=== PATIENT | male | born 1945 | race Caucasian/White ===

== ENCOUNTER 2020-08-07 12:32 | Observation (INO) | payer MEDICARE, OTHER ==
[2020-08-07] MEDS ORDERED: FUROSEMIDE 10 MG/ML 4 ML VIAL IV STA (12:47)
--- NOTE | 2020-08-07 12:52 | ED ---
General Adult HPI - General Stated complaint: SWELLING Time Seen by Provider: 08/07/20 12:35 Source: patient, RN notes reviewed, old records reviewed - History of Present Illness Initial comments: This is a 75-year-old male who presents emergency Department with a past medical history significant for smoking and high cholesterol. Patient denies diabetes. Patient's not sure why he is on Lasix. Patient denies any heart history. Patient states she went to [facility] recently and they noted him to have a left humeral fracture. Patient also has some bruising around the chest patient was worked up for possible cardiac contusion versus ND patient's troponin was elevated and the patient left AMA. Patient states she was told he could leave. Patient currently comes in because of swelling of his legs and even lower abdomen are worse patient also short of breath per patient denies any chest pain or palpitations. Patient denies any recent fever chills or cough per patient denies any recent injury trauma other than the above-mentioned fall. Patient denies any back pain. - Related Data Home Medications Medication Instructions Recorded Confirmed Albuterol Sulfate [Albuterol 2 puff PO RT-Q6H PRN 08/07/20 08/07/20 Sulfate Hfa] Atorvastatin [Lipitor] 40 mg PO HS@199908/07/20 08/07/20 Cholecalciferol (Vitamin D3) 125 mcg PO DAILY@0808/07/20 08/07/20 [Vitamin D3 (5000 Iu)] Ferrous Sulfate [Feosol] 325 mg PO DAILY@0808/07/20 08/07/20 Folic Acid 0.4 mg PO HS@199908/07/20 08/07/20 Furosemide [Lasix] 20 mg PO DAILY@0800 08/07/20 08/07/20 HYDROcodone/APAP 5-325MG [[place] 1 tab PO Q8H PRN 08/07/20 08/07/20 5-325] Melatonin 10 mg PO HS@199908/07/20 08/07/20 Naproxen 500 mg PO BID@0800,199908/07/20 08/07/20 risperiDONE [RisperDAL] 3 mg PO HS@199908/07/20 08/07/20 Allergies Allergy/AdvReac Type Severity Reaction Status Date / Time No Known Allergies Allergy Verified 08/07/20 13:29 Review of Systems ROS Statement: Those systems with pertinent positive or pertinent negative responses have been documented in the HPI. ROS Other: All systems not noted in ROS Statement are negative. General Exam - General Exam Comments Initial Comments: GENERAL: Patient is well-developed and well-nourished. Patient is nontoxic and well- hydrated and is in mild distress. ENT: Neck is soft and supple. No significant lymphadenopathy is noted. Oropharynx is clear. Moist mucous membranes. Neck has full range of motion without eliciting any pain. T EYES: The sclera were anicteric and conjunctiva were pink and moist. Extraocular movements were intact and pupils were equal round and reactive to light. Eyelids were unremarkable. PULMONARY: Unlabored respirations. Good breath sounds bilaterally. Patient has rhonchi with very wheezing throughout CARDIOVASCULAR: There is a regular rate and rhythm without any murmurs gallops or rubs. ABDOMEN: Soft and nontender with normal bowel sounds. SKIN: Skin is clear with no lesions or rashes and otherwise unremarkable. NEUROLOGIC: Patient is alert and oriented x3. Cranial nerves II through XII are grossly intact. Motor and sensory are also intact. Normal speech, volume and content. Symmetrical smile. MUSCULOSKELETAL: Normal extremities with adequate strength and full range of motion. Patient has 2+ edema bilaterally. Patient's left hand is swollen but he has very good cap refill. LYMPHATICS: No significant lymphadenopathy is noted PSYCHIATRIC: Normal psychiatric evaluation. Course Vital Signs 08/07/20 08/07/20 12:40 14:01 Temperature 97.1 F L Pulse Rate 87 84 Respiratory 18 18 Rate Blood Pressure 147/93 156/81 O2 Sat by Pulse 94 L 100 Oximetry Medical Decision Making - Medical Decision Making EKG shows normal sinus rhythm at 82 bpm DC interval is 170 QRS is 74 QT interval 360 QTC is 420. Patient's EKG shows no ST segment elevation or depression. Chest x-ray shows no acute abnormality however does show the left humerus fracture which was previously diagnosed. Patient's troponin was elevated at [facility] it is no longer elevated however I'm going to admit the patient Dr. Beach he is in agreement I admitted the patient I consult cardiology. I consulted or so. - Lab Data Result diagrams: 08/07/20 13:39 08/07/20 13:39 Lab Results 05/03/21 05/03/21 05/03/21 Range/Units 13:39 13:39 13:39 WBC 7.2 (3.8-10.6) k/uL RBC 4.22 L (4.30-5.90) m/uL Hgb 14.1 (13.0-17.5) gm/dL Hct 41.1 (39.0-53.0) % MCV 97.4 (80.0-100.0) fL MCH 33.3 (25.0-35.0) pg MCHC 34.2 (31.0-37.0) g/dL RDW 12.7 (11.5-15.5) % Plt Count 184 (150-450) k/uL MPV 7.1 Neutrophils % 78 % Lymphocytes % 9 % Monocytes % 8 % Eosinophils % 3 % Basophils % 1 % Neutrophils # 5.6 (1.3-7.7) k/uL Lymphocytes # 0.6 L (1.0-4.8) k/uL Monocytes # 0.6 (0-1.0) k/uL Eosinophils # 0.2 (0-0.7) k/uL Basophils # 0.1 (0-0.2) k/uL PT 9.7 (9.0-12.0) sec INR 0.9 (<1.2) APTT 22.8 (22.0-30.0) sec Sodium 139 (137-145) mmol/L Potassium 4.3 (3.5-5.1) mmol/L Chloride 101 (98-107) mmol/L Carbon Dioxide 36 H (22-30) mmol/L Anion Gap 2 mmol/L BUN 14 (9-20) mg/dL Creatinine 0.59 L (0.66-1.25) mg/dL Est GFR (CKD-EPI)AfAm >90 (>60 ml/min/1.73 sqM) Est GFR (CKD-EPI)NonAf >90 (>60 ml/min/1.73 sqM) Glucose 78 (74-99) mg/dL Calcium 8.8 (8.4-10.2) mg/dL Magnesium 2.1 (1.6-2.3) mg/dL Total Bilirubin 0.6 (0.2-1.3) mg/dL AST 26 (17-59) U/L ALT 31 (4-49) U/L Alkaline Phosphatase 72 (38-126) U/L Troponin I (0.000-0.034) ng/mL NT-Pro-B Natriuret Pep pg/mL Total Protein 5.9 L (6.3-8.2) g/dL Albumin 3.5 (3.5-5.0) g/dL 08/07/20 08/07/20 Range/Units 13:39 13:39 WBC (3.8-10.6) k/uL RBC (4.30-5.90) m/uL Hgb (13.0-17.5) gm/dL Hct (39.0-53.0) % MCV (80.0-100.0) fL MCH (25.0-35.0) pg MCHC (31.0-37.0) g/dL RDW (11.5-15.5) % Plt Count (150-450) k/uL MPV Neutrophils % % Lymphocytes % % Monocytes % % Eosinophils % % Basophils % % Neutrophils # (1.3-7.7) k/uL Lymphocytes # (1.0-4.8) k/uL Monocytes # (0-1.0) k/uL Eosinophils # (0-0.7) k/uL Basophils # (0-0.2) k/uL PT (9.0-12.0) sec INR (<1.2) APTT (22.0-30.0) sec Sodium (137-145) mmol/L Potassium (3.5-5.1) mmol/L Chloride (98-107) mmol/L Carbon Dioxide (22-30) mmol/L Anion Gap mmol/L BUN (9-20) mg/dL Creatinine (0.66-1.25) mg/dL Est GFR (CKD-EPI)AfAm (>60 ml/min/1.73 sqM) Est GFR (CKD-EPI)NonAf (>60 ml/min/1.73 sqM) Glucose (74-99) mg/dL Calcium (8.4-10.2) mg/dL Magnesium (1.6-2.3) mg/dL Total Bilirubin (0.2-1.3) mg/dL AST (17-59) U/L ALT (4-49) U/L Alkaline Phosphatase (38-126) U/L Troponin I <0.012 (0.000-0.034) ng/mL NT-Pro-B Natriuret Pep 565 pg/mL Total Protein (6.3-8.2) g/dL Albumin (3.5-5.0) g/dL Disposition Clinical Impression: Pedal edema, Humerus fracture, Elevated troponin Disposition: ADMITTED IP TO THIS HOSP Referrals: Maycol Bourne MD [Primary Care Provider] - 1-2 days Time of Disposition: 14:58
--- NOTE | 2020-08-07 13:15 | XR ---
EXAMINATION TYPE: XR chest 2V DATE OF EXAM: 08/07/2020 COMPARISON: Chest x-ray October 17, 2014 HISTORY: Chest pain. TECHNIQUE: Frontal and lateral views of the chest are obtained. FINDINGS: Lateral view is suboptimal due to overlying upper extremity. There are chronic parenchymal changes bilaterally without suspicious new air space opacity, pleural effusion, or pneumothorax seen. The cardiac silhouette size is stable mildly enlarged. New displaced fracture surgical neck left pr oximal humerus. IMPRESSION: Chronic changes and cardiomegaly without acute pulmonary process. New age-indeterminate displaced fracture surgical neck left proximal humerus from 2015 study. Correla te clinically with point tenderness.
[2020-08-07 13:48] LABS: Basophils # (A) 0.1 k/uL (0-0.2); Basophils % (A) 1 %; Eosinophils # (A) 0.2 k/uL (0-0.7); Eosinophils % (A) 3 %; HCT 41.1 % (39.0-53.0); HGB 14.1 gm/dL (13.0-17.5); Lymphocytes # (A) 0.6 k/uL (1.0-4.8); Lymphocytes % (A) 9 %; MCH 33.3 pg (25.0-35.0); MCHC 34.2 g/dL (31.0-37.0); MCV 97.4 fL (80.0-100.0); Mean Platelet Volume 7.1; Monocytes # (A) 0.6 k/uL (0-1.0); Monocytes % (A) 8 %; Neutrophils # (A) 5.6 k/uL (1.3-7.7); Neutrophils % (A) 78 %; Platelet Count 184 k/uL (150-450); RBC 4.22 m/uL (4.30-5.90); RDW 12.7 % (11.5-15.5); WBC 7.2 k/uL (3.8-10.6)
[2020-08-07 13:54] LABS: INR 0.9 (<1.2)
[2020-08-07 13:55] LABS: Partial Thromboplastin Time 22.8 sec (22.0-30.0); Prothrombin Time 9.7 sec (9.0-12.0)
[2020-08-07 14:04] LABS: ALT 31 U/L (4-49); AST 26 U/L (17-59); African American GFR (CKD) >90 (>60 ml/min/1.73 sqM); Albumin 3.5 g/dL (3.5-5.0); Alkaline Phosphatase 72 U/L (38-126); Anion Gap 2 mmol/L; Blood Urea Nitrogen 14 mg/dL (9-20); Calcium 8.8 mg/dL (8.4-10.2); Carbon Dioxide 36 mmol/L (22-30); Chloride 101 mmol/L (98-107); Glucose 78 mg/dL (74-99); Magnesium 2.1 mg/dL (1.6-2.3); Non-African American GFR(CKD) >90 (>60 ml/min/1.73 sqM); Potassium 4.3 mmol/L (3.5-5.1); Sodium 139 mmol/L (137-145); Total Bilirubin 0.6 mg/dL (0.2-1.3); Total Protein 5.9 g/dL (6.3-8.2)
[2020-08-07] MEDS ORDERED: NITROGLYCERIN SL TABS 0.4 MG TAB SUBLINGUAL PRN (14:58)
--- NOTE | 2020-08-07 16:40 | XR ---
EXAMINATION TYPE: XR shoulder limited LT DATE OF EXAM: 08/07/2020 CLINICAL HISTORY: Known left shoulder fracture status post fall couple weeks ago TECHNIQUE: Three views of the left shoulder are obtained. COMPARISON: None available FINDINGS: There is displaced fracture of the left humeral surgical neck. No evidence of dislocation. There are moderate degenerative changes of the glenohumeral and acromioclavicular joints. IMPRESSION: Left humeral surgical neck fracture.
[2020-08-07] MEDS ORDERED: HYDROcodone/APAP 5-325MG 1 EACH TAB PO PRN (19:57)
[2020-08-07] MEDS ORDERED: ALBUTEROL HFA INHALER INHALATION PRN (19:57)
--- NOTE | 2020-08-07 20:38 | P.HPIM ---
History of Present Illness H&P Date: 08/07/20 Chief Complaint: Left arm pain History of presenting complaint: This is a 75-year-old patient, follows with visiting physicians Dr. Bourne. Chronic stable medical conditions include hyperlipidemia, schizophrenia, chronic nicotine dependence, insomnia. About 2-1/2 weeks ago patient had a misstep presenting a fall on the left shoulder. He presented to [facility] in [facility]. Left humerus fracture. Left arm in a sling. Conservative management. Patient has bruising of the left arm and left chest fall. He says he was sent in by the court manager because increasing swelling in the lower extremities. Patient denies any pain in the left chest wall. No shortness of breath. No dizziness, lightheadedness. Pain is worse with movement of the arm. Which is actually in a sling. Patient also has swelling of the lower extremity he thinks is present since the fall. No cough no fever no chills. Pulse ox of 90% on room air as per the EMS Review of systems: GEN.: Tired EYES: None HEENT: None NECK: None RESPIRATORY: None CARDIOVASCULAR: No chest pain GASTROINTESTINAL: None GENITOURINARY: None MUSCULOSKELETAL: Joint pains including left arm LYMPHATICS: None HEMATOLOGICAL: None PSYCHIATRY: None NEUROLOGICAL: None Past medical history to include: Hyperlipidemia, insomnia, EGD, schizophrenia, nicotine dependence, left humerus fracture about 2 weeks ago Social history: [facility]. Smokes a pack a day for many years. No alcohol Family history: Reviewed, noncontributory to presentation Physical examination: VITAL SIGNS: 97.1, 87, 18, 147/93, 94% on room air GENERAL: BMI 31.6, sitting at the edge of bed, not in distress. EYES: Pupils equal. Conjunctiva normal. HEENT: External appearance of nose and ears normal, oral cavity grossly normal. NECK: JVD unable to assess; masses not palpable. HEART: First and second heart sounds are normal; bilateral edema. LUNGS: Respiratory rate normal; decreased breath sounds. ABDOMEN: Soft, distended nontender, liver spleen not palpable, no masses palpable. PSYCH: Able tonsil simple questionsl. NEUROLOGICAL: Cranial nerves grossly intact; no facial asymmetry, power and se nsation grossly intact. EXTREMITY: Left arm in a sling. Slight bruising in the upper arm. And of the adjoining chest wall. LYMPHATICS: No lymph nodes palpable in the axilla and neck INVESTIGATIONS, reviewed in the clinical context: WBC 7.2 hemoglobin 14.1 platelets 184 potassium 4.3 creatinine 0.5 Troponin I 3 negative proBNP 565 EKG tracing personally reviewed by me-normal sinus rhythm Chest x-ray film personally reviewed by me-interstitial prominence Assessment and plan: -Suspect cor pulmonale. This patient presented bilateral lower extremity swelling, has got chronic interstitial changes on the lung on the x-ray. Patient's proBNP though is only 565. Patient long-standing smoker. We'll do a 2-D echocardiogram to assess pulmonary artery pressure. In the meantime patient be placed on Lasix. -COPD in a current smoker Bronchodilators -Chronic nicotine dependence patient cigarette smoker Nicotine patch -Obesity BMI 31.6 Weight loss measures and follow-up with PCP -Left humerus fracture for which patient did follow-up with [facility] over 2 weeks ago. Continue with left arm sling. -Chronic insomnia Continue with melatonin -Chronic schizophrenia Continue with Risperdal -Hyperlipidemia Continue with Lipitor Care was discussed with the patient. Order 2-D echocardiogram. IV Lasix. Bronchodilators. Nicotine patch. Lovenox for DVT prophylaxis. Past Medical History Past Medical History: Hyperlipidemia History of Any Multi-Drug Resistant Organisms: None Reported Past Surgical History: No Surgical Hx Reported Past Psychological History: Schizophrenia Smoking Status: Current every day smoker Past Alcohol Use History: None Reported Past Drug Use History: None Reported Medications and Allergies Home Medications Medication Instructions Recorded Confirmed Type Albuterol Sulfate [Albuterol 2 puff PO RT-Q6H PRN 08/07/20 08/07/20 History Sulfate Hfa] Atorvastatin [Lipitor] 40 mg PO HS@199908/07/20 08/07/20 History Cholecalciferol (Vitamin D3) 125 mcg PO DAILY@79908/07/20 08/07/20 History [Vitamin D3 (5000 Iu)] Ferrous Sulfate [Feosol] 325 mg PO DAILY@79908/07/20 08/07/20 History Folic Acid 0.4 mg PO HS@199908/07/20 08/07/20 History Furosemide [Lasix] 20 mg PO DAILY@79908/07/20 08/07/20 History HYDROcodone/APAP 5-325MG [[place] 1 tab PO Q8H PRN 08/07/20 08/07/20 History 5-325] Melatonin 10 mg PO HS@199908/07/20 08/07/20 History Naproxen 500 mg PO BID@0800,199908/07/20 08/07/20 History risperiDONE [RisperDAL] 3 mg PO HS@199908/07/20 08/07/20 History Allergies Allergy/AdvReac Type Severity Reaction Status Date / Time No Known Allergies Allergy Verified 08/07/20 13:29 Physical Exam Vitals: Vital Signs Temp Pulse Resp BP Pulse Ox 08/07/20 16:11 97.7 F 86 18 133/80 99 08/07/20 14:01 84 18 156/81 100 08/07/20 12:40 97.1 F L 87 18 147/93 94 L Intake and Output 08/07/20 08/07/20 08/07/20 06:59 14:59 22:59 Other: Weight 99.79 kg Results CBC & Chem 7: 08/07/20 13:39 08/07/20 13:39 Labs: Abnormal Lab Results - Last 24 Hours (Table) 08/07/20 08/07/20 Range/Units 13:39 13:39 RBC 4.22 L (4.30-5.90) m/uL Lymphocytes # 0.6 L (1.0-4.8) k/uL Carbon Dioxide 36 H (22-30) mmol/L Creatinine 0.59 L (0.66-1.25) mg/dL Total Protein 5.9 L (6.3-8.2) g/dL
[2020-08-07] MEDS: NAPROXEN 250 MG TAB PO SCH (20:56)
[2020-08-07] MEDS: risperiDONE 1 MG TAB PO SCH (20:57)
[2020-08-07] MEDS: MELATONIN 5 MG TABLET PO SCH (20:57)
[2020-08-07] MEDS: ATORVASTATIN 80 MG TAB PO SCH (20:57)
[2020-08-07] MEDS: FOLIC ACID 1 MG TAB PO SCH (20:57)
[2020-08-07] MEDS: IPRATROPIUM-ALBUTEROL 3 ML NEB INHALATION SCH (21:29)
[2020-08-08] MEDS: FUROSEMIDE 10 MG/ML 4 ML VIAL IV SCH ×3 (01:55→20:42)
[2020-08-08] MEDS: NICOTINE 21MG/24HR PATCH TRANSDERM SCH ×2 (01:55→09:00)
[2020-08-08 06:45] LABS: African American GFR (CKD) >90 (>60 ml/min/1.73 sqM); Anion Gap 0 mmol/L; Blood Urea Nitrogen 19 mg/dL (9-20); Calcium 8.5 mg/dL (8.4-10.2); Carbon Dioxide 38 mmol/L (22-30); Chloride 99 mmol/L (98-107); Cholesterol 146 mg/dL (<200); Glucose 97 mg/dL (74-99); HDL Cholesterol 66 mg/dL (40-60); LDL Cholesterol,Calculated 70 mg/dL (0-99); Non-African American GFR(CKD) >90 (>60 ml/min/1.73 sqM); Potassium 4.2 mmol/L (3.5-5.1); Sodium 137 mmol/L (137-145); Triglycerides 52 mg/dL (<150)
--- NOTE | 2020-08-08 07:33 | P.CNOR ---
History of Present Illness - [facility] Consult date: 08/08/20 Consult reason: other (Left shoulder pain) History of present illness: The patient's a 75-year-old [id number] male who presents after falling 2 weeks ago with persistent left shoulder pain. He was initially seen and placed in a sling. He denies previous shoulder injury. He notes it is improving. He is a relatively poor historian and it is unclear how much ambulation he performs. Review of Systems Musculoskeletal: Reports as per [facility] Past Medical History Past Medical History: Heart Failure, Hyperlipidemia Additional Past Medical History / Comment(s): Schizophrenia History of Any Multi-Drug Resistant Organisms: None Reported Past Surgical History: No Surgical Hx Reported Past Anesthesia/Blood Transfusion Reactions: No Reported Reaction Past Psychological History: Schizophrenia Smoking Status: Never smoker Past Alcohol Use History: None Reported Past Drug Use History: None Reported Medications and Allergies Home Medications Medication Instructions Recorded Confirmed Type Albuterol Sulfate [Albuterol 2 puff PO RT-Q6H PRN 08/07/20 08/07/20 History Sulfate Hfa] Atorvastatin [Lipitor] 40 mg PO HS@199908/07/20 08/07/20 History Cholecalciferol (Vitamin D3) 125 mcg PO DAILY@0800 08/07/20 08/07/20 History [Vitamin D3 (5000 Iu)] Ferrous Sulfate [Feosol] 325 mg PO DAILY@0800 08/07/20 08/07/20 History Folic Acid 0.4 mg PO HS@199908/07/20 08/07/20 History Furosemide [Lasix] 20 mg PO DAILY@0800 08/07/20 08/07/20 History HYDROcodone/APAP 5-325MG [[place] 1 tab PO Q8H PRN 08/07/20 08/07/20 History 5-325] Melatonin 10 mg PO HS@199908/07/20 08/07/20 History Naproxen 500 mg PO BID@0800,199908/07/20 08/07/20 History risperiDONE [RisperDAL] 3 mg PO HS@199908/07/20 08/07/20 History Allergies Allergy/AdvReac Type Severity Reaction Status Date / Time No Known Allergies Allergy Verified 08/07/20 13:29 Physical Examination - Fracture left shoulder Appearance: swelling, other (Ecchymosis left anterior shoulder/chest wall) Compartments: soft Distal extremity neurovascularly intact: No Distal joint involvement: No Results Nontender cervical thoracic lumbar spine/no step-off Pelvis stable to external rotation stress Left shoulder range of motion limited secondary to pain Nontender left elbow and wrist Nontender right upper extremity Painless logroll of both hips Bilateral 2+ pretibial edema to the upper pressley Nontender bilateral knees/ankles/feet - Labs Labs: Abnormal Lab Results - Last 24 Hours (Table) 08/07/20 08/07/20 08/08/20 Range/Units 13:39 13:39 05:32 RBC 4.22 L (4.30-5.90) m/uL Lymphocytes # 0.6 L (1.0-4.8) k/uL Carbon Dioxide 36 H 38 H (22-30) mmol/L Creatinine 0.59 L 0.55 L (0.66-1.25) mg/dL Total Protein 5.9 L (6.3-8.2) g/dL HDL Cholesterol 66 H (40-60) mg/dL H & H 08/07/20 Range/Units 13:39 Hgb 14.1 (13.0-17.5) gm/dL Hct 41.1 (39.0-53.0) % Coagulation 08/07/20 Range/Units 13:39 INR 0.9 (<1.2) Result Diagrams: 08/07/20 13:39 08/08/20 05:32 - Diagnostic results Shoulder x-ray: image reviewed ( valgus impacted left proximal humerus fracture) Assessment and Plan Assessment: Left 2 part proximal humerus fracture Multiple medical comorbidities Plan: I would recommend continuation of conservative measures with use of the sling multimedia services coordinator. Follow-up in 2 weeks. Analgesics as needed. Time with Patient: Greater than 30
[2020-08-08] MEDS: IPRATROPIUM-ALBUTEROL 3 ML NEB INHALATION SCH ×4 (08:16→20:03)
[2020-08-08] MEDS: CHOLECALCIFEROL 25 MCG (1000 IU) TABLET PO SCH (08:56)
[2020-08-08] MEDS: FERROUS SULFATE 325 MG TAB PO SCH (08:56)
[2020-08-08] MEDS: NAPROXEN 250 MG TAB PO SCH ×2 (08:57→20:43)
[2020-08-08] MEDS: ASPIRIN 81 MG PO SCH (09:00)
[2020-08-08] MEDS ORDERED: ASPIRIN 325 MG TAB PO SCH (09:00)
--- NOTE | 2020-08-08 09:53 | P.CRDCN ---
History of Present Illness History of present illness: HISTORY OF PRESENTING ILLNESS This is a pleasant 75-year-old male past medical history significant for dyslipidemia, schizophrenia and chronic nicotine dependence. He denies prior history of coronary artery disease and does not follow in the office with radiologist. We have been asked to see in consultation for recently elevated troponin. The patient himself is a poor historian. Information is obtained from the medical record and nursing staff. He is seen and examined resting comfortably in bed undergoing an echocardiogram. He states he lives in a [facility] and does not know why they brought him to the hospital. He states 2 weeks ago he fell walking off the bus. He states he missed a step. He denies LOC. He had no chest pain, shortness of breath, dizziness or palpitations surrounding this fall. He went initially to [facility] for evaluation. According to ER documentation he was found to have a humerus fracture and also elevated troponin and was evaluated by cardiology. However, he left AMA. The exact work-up is unavailable at this time. He has a sling on the left arm and a bruise on the left chest. He has lower extremity edema and states that has been there since he fell 2 weeks ago. He denies active symptoms of chest pain or shortness of breath. EKG on arrival reveals sinus mechanism heart rate of [address] or T wave abnormalities noted. Chest xray reveals chronic changes with no acute cardiopulmonary process with new displaced fracture of the left proximal humerus. He has been seen by ortho and they recommend rest and conservative management. Laboratory data reviewed, CBC unremarkable, sodium 137, potassium 4.2, creatinine 0.55, magnesium 2.1, cardiac enzymes negative 3, NT proBNP 565, LDL 70 and HDL 66. Current daily cardiac medications include lasix 20 mg daily and atorvastatin 40 mg daily. REVIEW OF SYSTEMS At the time of my exam: CONSTITUTIONAL: Denies fever or chills. CARDIOVASCULAR: Denies chest pain, shortness of breath, orthopnea, PND or palpitations. RESPIRATORY: Denies cough. GASTROINTESTINAL: Denies abdominal pain, diarrhea, constipation, nausea or vomiting. MUSCULOSKELETAL: Denies myalgias. NEUROLOGIC: Denies numbness, tingling, headacbe or weakness. ENDOCRINE: Denies fatigue, weight change, polydipsia or polyurina. GENITOURINARY: Denies burning, hematuria or urgency with micturation. HEMATOLOGIC: Denies history of anemia or bleeding. PHYSICAL EXAMINATION Blood pressure 100/67 heart rate 84 afebrile and maintaining oxygen saturation on nasal cannula. CONSTITUTIONAL: No apparent distress. HEENT: Head is normocephalic. Pupils are equal, round. Sclerae anicteric. Mucous membranes of the mouth are moist. No JVD. No carotid bruit. CHEST EXAMINATION: Scattered rhonchi, basilar rales. No wheezes. No chest wall tenderness is noted on palpation or with deep breathing. Ecchymosis noted on the left anterior chest wall. HEART EXAMINATION: Regular rate and rhythm. S1, S2 heard. No murmurs, gallops or rub. ABDOMEN: Soft, nontender. Positive bowel sounds. EXTREMITIES: 2+ peripheral pulses, bilateral 1+ pitting lower extremity edema and no calf tenderness. Sling to the left arm. NEUROLOGIC EXAMINATION: Patient is awake, alert and oriented x3. ASSESSMENT Fall, no LOC Left humeral fracture Lower extremity edema, normal BNP and no fluid overload noted on chest xray Dyslipidemia Schizophrenia Chronic nicotine dependence Memory impairment PLAN An acute coronary event has been ruled out. Echocardiogram has been ordered and will be reviewed. Decrease aspirin to 81 mg daily. Request records from previous hospitalization at [facility] for elevated troponins. Further recommendations to follow base on clinical course. Thank you kindly for this consultation. Nurse Practitioner note has been reviewed, I agree with a documented findings and plan of care. Patient was seen and examined. Past Medical History Past Medical History: Heart Failure, Hyperlipidemia Additional Past Medical History / Comment(s): Schizophrenia History of Any Multi-Drug Resistant Organisms: None Reported Past Surgical History: No Surgical Hx Reported Past Anesthesia/Blood Transfusion Reactions: No Reported Reaction Past Psychological History: Schizophrenia Smoking Status: Never smoker Past Alcohol Use History: None Reported Past Drug Use History: None Reported Medications and Allergies Home Medications Medication Instructions Recorded Confirmed Type Albuterol Sulfate [Albuterol 2 puff PO RT-Q6H PRN 08/07/20 08/07/20 History Sulfate Hfa] Atorvastatin [Lipitor] 40 mg PO HS@199908/07/20 08/07/20 History Cholecalciferol (Vitamin D3) 125 mcg PO DAILY@79908/07/20 08/07/20 History [Vitamin D3 (5000 Iu)] Ferrous Sulfate [Feosol] 325 mg PO DAILY@79908/07/20 08/07/20 History Folic Acid 0.4 mg PO HS@199908/07/20 08/07/20 History Furosemide [Lasix] 20 mg PO DAILY@0800 08/07/20 08/07/20 History HYDROcodone/APAP 5-325MG [[place] 1 tab PO Q8H PRN 08/07/20 08/07/20 History 5-325] Melatonin 10 mg PO HS@199908/07/20 08/07/20 History Naproxen 500 mg PO BID@08,199908/07/20 08/07/20 History risperiDONE [RisperDAL] 3 mg PO HS@199908/07/20 08/07/20 History Allergies Allergy/AdvReac Type Severity Reaction Status Date / Time No Known Allergies Allergy Verified 08/07/20 13:29 Physical Exam Vitals: Vital Signs Temp Pulse Pulse Resp BP BP Pulse Ox 08/08/20 07:00 97.5 F L 85 18 100/67 100 08/08/20 00:54 97.6 F 83 16 125/74 100 08/07/20 23:50 98.2 F 93 18 124/66 94 L 08/07/20 21:39 90 08/07/20 21:29 82 08/07/20 20:03 90 18 128/72 99 08/07/20 16:11 97.7 F 86 18 133/80 99 08/07/20 14:01 84 18 156/81 100 08/07/20 12:40 97.1 F L 87 18 147/93 94 L Intake and Output 08/07/20 08/08/20 08/08/20 22:59 06:59 14:59 Other: Voiding Method Urinal # Voids 1 Weight 99.79 kg Results 08/07/20 13:39 08/08/20 05:32 Cardiac Enzymes 08/07/20 08/07/20 08/07/20 Range/Units 13:39 13:39 16:14 AST 26 (17-59) U/L Troponin I <0.012 <0.012 (0.000-0.034) ng/mL 08/07/20 Range/Units 18:29 AST (17-59) U/L Troponin I <0.012 (0.000-0.034) ng/mL Coagulation 08/07/20 Range/Units 13:39 PT 9.7 (9.0-12.0) sec APTT 22.8 (22.0-30.0) sec Lipids 08/08/20 Range/Units 05:32 Triglycerides 52 (<150) mg/dL Cholesterol 146 (<200) mg/dL HDL Cholesterol 66 H (40-60) mg/dL CBC 08/07/20 Range/Units 13:39 WBC 7.2 (3.8-10.6) k/uL RBC 4.22 L (4.30-5.90) m/uL Hgb 14.1 (13.0-17.5) gm/dL Hct 41.1 (39.0-53.0) % Plt Count 184 (150-450) k/uL Comprehensive Metabolic Panel 08/07/20 08/08/20 Range/Units 13:39 05:32 Sodium 139 137 (137-145) mmol/L Potassium 4.3 4.2 (3.5-5.1) mmol/L Chloride 101 99 (98-107) mmol/L Carbon Dioxide 36 H 38 H (22-30) mmol/L BUN 14 19 (9-20) mg/dL Creatinine 0.59 L 0.55 L (0.66-1.25) mg/dL Glucose 78 97 (74-99) mg/dL Calcium 8.8 8.5 (8.4-10.2) mg/dL AST 26 (17-59) U/L ALT 31 (4-49) U/L Alkaline Phosphatase 72 (38-126) U/L Total Protein 5.9 L (6.3-8.2) g/dL Albumin 3.5 (3.5-5.0) g/dL Current Medications Generic Name Dose Route Start Last Admin Trade Name Freq PRN Reason Stop Dose Admin Hydrocodone Bitart/Acetaminophen 1 each 08/07/20 19:57 08/07/20 20:55 Hydrocodone/Apap 5-325mg 1 Each Tab PO 1 each Q8H PRN Administration ACUTE PAIN Albuterol Sulfate 2 puff 08/07/20 19:57 Albuterol Hfa Inhaler INHALATION RT-Q6H PRN Wheezing Albuterol/Ipratropium 3 ml 08/07/20 20:36 08/07/20 21:29 Ipratropium-Albuterol 3 Ml Neb INHALATION 3 ml RT-QID GORAN Administration Aspirin 325 mg 08/08/20 09:00 Aspirin 325 Mg Tab PO DAILY [facility] Atorvastatin Calcium 40 mg 08/07/20 20:00 08/07/20 20:57 Atorvastatin 80 Mg Tab PO 40 mg HS@1999 [facility] Administration Cholecalciferol 125 mcg 08/08/20 09:00 Cholecalciferol 25 Mcg (1000 Iu) Tablet PO DAILY@0900 [facility] Ferrous Sulfate 325 mg 08/08/20 09:00 Ferrous Sulfate 325 Mg Tab PO DAILY@0900 [facility] Folic Acid 1 mg 08/07/20 20:00 08/07/20 20:57 Folic Acid 1 Mg Tab PO 1 mg HS@1999 [facility] Administration Furosemide 40 mg 08/07/20 21:00 08/08/20 01:55 Furosemide 10 Mg/Ml 4 Ml Vial IV 40 mg Q12HR [facility] Administration Melatonin 10 mg 08/07/20 20:00 08/07/20 20:57 Melatonin 5 Mg Tablet PO 10 mg HS@1999 [facility] Administration Naproxen 500 mg 08/07/20 20:00 08/07/20 20:56 Naproxen 250 Mg Tab PO 500 mg BID@ [facility] Administration Nicotine 1 patch 08/07/20 20:45 08/08/20 01:55 Nicotine 21mg/24hr Patch TRANSDERM 1 patch DAILY [facility] Administration Nitroglycerin 0.4 mg 08/07/20 14:58 Nitroglycerin Sl Tabs 0.4 Mg Tab SUBLINGUAL Q5M PRN Chest Pain Risperidone 3 mg 08/07/20 20:00 08/07/20 20:57 Risperidone 1 Mg Tab PO 3 mg HS@1999 [facility] Administration Intake and Output 08/07/20 08/08/20 08/08/20 22:59 06:59 14:59 Other: Voiding Method Urinal # Voids 1 Weight 99.79 kg 08/07/20 13:39 08/08/20 05:32
--- NOTE | 2020-08-08 11:21 | ECHOF ---
Referral Reason:Assess pulmonary hypertension MEASUREMENTS -------- HEIGHT: 177.8 cm WEIGHT: 99.8 kg BP: 125/74 IVSd: 1.3 cm (0.6 - 1.1) LVIDd: 3.9 cm (3.9 - 5.3) LVPWd: 1.2 cm (0.6 - 1.1) IVSs: 1.5 cm LVIDs: 2.6 cm LVPWs: 1.1 cm LAESV Index (A-L): 15.05 ml/m Ao Diam: 3.3 cm (2.0 - 3.7) AV Cusp: 2.3 cm (1.5 - 2.6) MV E Carroll: 0.89 m/s MV DecT: 196 ms MV A Carroll: 0.94 m/s MV E/A Ratio: 0.95 RAP: 5.00 mmHg RVSP: 29.12 mmHg FINDINGS -------- Sinus rhythm. This was a technically difficult study with suboptimal views. The left ventricular size is normal. There is mild concentric left ventricular hypertrophy. Overa ll left ventricular systolic function is normal with, an EF between 55 - 60 %. The right ventricle is normal in size. Normal LA size by volume 22+/-6 ml/m2. The right atrium was not well visualized. Interatrial and interventricular septum intact. The aortic valve was not well visualized. There is no evidence of aortic regurgitation. There is no evidence of aortic stenosis. The mitral valve is normal. No mitral regurgitation. Mild tricuspid regurgitation present. Right ventricular systolic pressure is normal at < 35 mmHg. The right ventricular systolic pressure, as measured by Doppler, is 29.12mmHg. The pulmonic valve was not well visualized. The aortic root size is normal. IVC Not well visulized. There is no pericardial effusion. CONCLUSIONS -------- 1. This was a technically difficult study with suboptimal views. 2. There is mild concentric left ventricular hypertrophy. 3. Overall left ventricular systolic function is normal with, an EF between 55 - 60 %. 4. Normal LA size by volume 22+/-6 ml/m2. 5. The aortic valve was not well visualized. 6. Mild tricuspid regurgitation present. RAG BOILER: Ann Villanueva [facility]
--- NOTE | 2020-08-08 20:08 | P.PN ---
Progress Note - Text Progress Note Date: 08/08/20 Chief Complaint: Bilateral edema History of presenting complaint: This is a 75-year-old patient, follows with visiting physicians Dr. Bourne. Chronic stable medical conditions include hyperlipidemia, schizophrenia, chronic nicotine dependence, insomnia. About 2-1/2 weeks ago patient had a misstep presenting a fall on the left shoulder. He presented to [facility] in [facility]. Left humerus fracture. Left arm in a sling. Conservative management. Patient has bruising of the left arm and left chest fall. He says he was sent in by the sales service manager because increasing swelling in the lower extremities. Patient denies any pain in the left chest wall. No shortness of breath. No dizziness, lightheadedness. Pain is worse with movement of the arm. Which is actually in a sling. Patient also has swelling of the lower extremity he thinks is present since the fall. No cough no fever no chills. Pulse ox of 90% on room air as per the EMS Admitted with bilateral lower extremity edema. Wasn't clear. 2-D echocardiogram did not show any major abnormality. Patient's arm pain is felt to be from the fracture. Does not sound cardiac Today: Sitting up. Did tolerate her diet. Cor pulmonale now seems to be less likely. Ultrasound of the abdomen ordered. Remains on IV Lasix. Wish to rule out any vascular abnormalities example IVC thrombosis or hepatic vein thrombosis. Review of systems: Was done for constitutional, cardiovascular, GI, pulmonary. relevant finding as above Active Medications Hydrocodone Bitart/Acetaminophen (Hydrocodone/Apap 5-325mg 1 Each Tab) 1 each PO Q8H PRN PRN Reason: ACUTE PAIN Last Admin: 08/07/20 20:55 Dose: 1 each Documented by: Albuterol Sulfate (Albuterol Hfa Inhaler) 2 puff INHALATION RT-Q6H PRN PRN Reason: Wheezing Albuterol/Ipratropium (Ipratropium-Albuterol 3 Ml Neb) 3 ml INHALATION RT-QID [facility] Last Admin: 08/08/20 20:03 Dose: 3 ml Documented by: Aspirin (Aspirin 81 Mg) 81 mg PO DAILY [facility] Last Admin: 08/08/20 09:00 Dose: 81 mg Documented by: Atorvastatin Calcium (Atorvastatin 80 Mg Tab) 40 mg PO HS@2000 [facility] Last Admin: 08/07/20 20:57 Dose: 40 mg Documented by: Cholecalciferol (Cholecalciferol 25 Mcg (1000 Iu) Tablet) 125 mcg PO DAILY@0900 [facility] Last Admin: 08/08/20 08:56 Dose: 125 mcg Documented by: Ferrous Sulfate (Ferrous Sulfate 325 Mg Tab) 325 mg PO DAILY@0900 [facility] Last Admin: 08/08/20 08:56 Dose: 325 mg Documented by: Folic Acid (Folic Acid 1 Mg Tab) 1 mg PO HS@1999 [facility] Last Admin: 08/07/20 20:57 Dose: 1 mg Documented by: Furosemide (Furosemide 10 Mg/Ml 4 Ml Vial) 40 mg IV Q12HR [facility] Last Admin: 08/08/20 08:56 Dose: 40 mg Documented by: Melatonin (Melatonin 5 Mg Tablet) 10 mg PO HS@1999 [facility] Last Admin: 08/07/20 20:57 Dose: 10 mg Documented by: Naproxen (Naproxen 250 Mg Tab) 500 mg PO BID@ [facility] Last Admin: 08/08/20 08:57 Dose: 500 mg Documented by: Nicotine (Nicotine 21mg/24hr Patch) 1 patch TRANSDERM DAILY [facility] Last Admin: 08/08/20 09:00 Dose: 1 patch Documented by: Nitroglycerin (Nitroglycerin Sl Tabs 0.4 Mg Tab) 0.4 mg SUBLINGUAL Q5M PRN PRN Reason: Chest Pain Risperidone (Risperidone 1 Mg Tab) 3 mg PO HS@1999 [facility] Last Admin: 08/07/20 20:57 Dose: 3 mg Documented by: Past medical history to include: Hyperlipidemia, insomnia, EGD, schizophrenia, nicotine dependence, left humerus fracture about 2 weeks ago Social history: Lives at [facility]. Smokes a pack a day for many years. No alcohol Family history: Reviewed, noncontributory to presentation Physical examination: VITAL SIGNS: 97.5, 85, 18, 100/67, 100% on 3 L GENERAL: BMI 31.6, sitting up, tired EYES: Pupils equal. Conjunctiva normal. NECK: JVD unable to assess; masses not palpable. HEART: First and second heart sounds are normal; bilateral edema. LUNGS: Respiratory rate normal; decreased breath sounds. ABDOMEN: Soft, distended nontender, liver spleen not palpable, no masses palpable. PSYCH: Answering simple questions NEUROLOGICAL: Cranial nerves grossly intact; no facial asymmetry, power and sensation grossly intact. EXTREMITY: Left arm in a sling. Slight bruising in the upper arm. And of the adjoining chest wall. INVESTIGATIONS, reviewed in the clinical context: 2-D echocardiogram: Technically difficult study, study. EF 55-60%. Right ventricle normal in size. WBC 7.2 hemoglobin 14.1 platelets 184 potassium 4.3 creatinine 0.5 Troponin I 3 negative proBNP 565 EKG tracing personally reviewed by me-normal sinus rhythm Chest x-ray film personally reviewed by me-interstitial prominence Assessment and plan: -Bilateral lower extremity edema. 2-D echo did not show any secondary partly hypertension or right ventricle enlargement. This rules out cor pulmonale. We will order ultrasound of the abdomen to rule out any venous thrombosis to explain edema. Otherwise edema is from venous insufficiency. -COPD in a current smoker Bronchodilators -Chronic nicotine dependence patient cigarette smoker Nicotine patch -Obesity BMI 31.6 Weight loss measures and follow-up with PCP -Left humerus fracture for which patient did follow-up with [facility] over 2 weeks ago. Continue with left arm sling. -Chronic insomnia Continue with melatonin -Chronic schizophrenia Continue with Risperdal -Hyperlipidemia Continue with Lipitor Abdominal ultrasound ordered. Continue with IV Lasix. Danny wrap's.
[2020-08-08] MEDS: MELATONIN 5 MG TABLET PO SCH (20:42)
[2020-08-08] MEDS: ATORVASTATIN 80 MG TAB PO SCH (20:42)
[2020-08-08] MEDS: risperiDONE 1 MG TAB PO SCH (20:43)
[2020-08-08] MEDS: FOLIC ACID 1 MG TAB PO SCH (20:43)
[2020-08-09 07:22] LABS: African American GFR (CKD) >90 (>60 ml/min/1.73 sqM); Anion Gap 4 mmol/L; Blood Urea Nitrogen 26 mg/dL (9-20); Calcium 8.8 mg/dL (8.4-10.2); Carbon Dioxide 37 mmol/L (22-30); Chloride 96 mmol/L (98-107); Glucose 94 mg/dL (74-99); Non-African American GFR(CKD) >90 (>60 ml/min/1.73 sqM); Potassium 4.3 mmol/L (3.5-5.1); Sodium 137 mmol/L (137-145)
[2020-08-09 07:57] VITALS: BP 115/69; RESP 16; TEMP 98.8
[2020-08-09] MEDS: IPRATROPIUM-ALBUTEROL 3 ML NEB INHALATION SCH ×2 (08:14→11:44)
[2020-08-09 08:17] VITALS: PULSE 90
[2020-08-09] MEDS: NAPROXEN 250 MG TAB PO SCH (08:34)
[2020-08-09] MEDS: ASPIRIN 81 MG PO SCH (08:34)
[2020-08-09] MEDS: NICOTINE 21MG/24HR PATCH TRANSDERM SCH (08:34)
[2020-08-09] MEDS: CHOLECALCIFEROL 25 MCG (1000 IU) TABLET PO SCH (08:34)
[2020-08-09] MEDS: FUROSEMIDE 10 MG/ML 4 ML VIAL IV SCH (08:34)
[2020-08-09] MEDS: FERROUS SULFATE 325 MG TAB PO SCH (08:34)
--- NOTE | 2020-08-09 09:57 | US ---
EXAMINATION TYPE: US abdomen complete DATE OF EXAM: 08/09/2020 COMPARISON: NONE CLINICAL HISTORY: BL lower extremity edema. 2D Echo-normal. Exam done portable. EXAM MEASUREMENTS: Liver Length: 15.3 cm Gallbladder Wall: 0.2 cm CBD: 0.3 cm Right Kidney: 9.9 x 5.4 x 5.1 cm Left Kidney: 10.4 x 5.6 x 4.7 cm Difficult and limited study due to patient body habitus, overlying bowel gas, and patient positioni ng. Pancreas: Visualized portion of the head is normal. Body and tail obscured by overlying bowel gas. Liver: Suboptimal visualization with intercostal window. The visualized portions demonstrate normal echotexture. Gallbladder: Normal as visualized. General Repairer reports negative sonographic Mims sign. CBD: Visualized portions normal. Spleen: Not visualized due to left arm sling covering area and patient unable to roll. Right Kidney: No hydronephrosis. 2.8 x 1.7 x 1.8cm hypoechoic area upper pole. Left Kidney: No hydronephrosis. Upper IVC: Normal. Abd Aorta: Visualized proximal and distal portions are normal in caliber. Mid portion obscured by ov erlying bowel gas. IMPRESSION: 1. Limited exam due to bowel gas and patient body habitus, as above. 2. No acute process of the abdomen identified. 3. 2.8 cm hypoechoic exophytic lesion of the upper pole of the right kidney. Likely a cyst, however p artially obscured by bowel gas and incompletely evaluated. Recommend short-term outpatient dedicated renal ultrasound versus outpatient CT for further characterization.
--- NOTE | 2020-08-09 10:16 | P.PN ---
Subjective Progress Note Date: 08/09/20 HISTORY OF PRESENT ILLNESS: This is a pleasant 75-year-old male past medical history significant for dyslipidemia, schizophrenia and chronic nicotine dependence. He denies prior history of coronary artery disease and does not follow in the office with radiologist. We have been asked to see in consultation for recently elevated troponin. The patient himself is a poor historian. Information is obtained from the medical record and nursing staff. He is seen and examined resting comfortably in bed undergoing an echocardiogram. He states he lives in a senior living and does not know why they brought him to the hospital. He states 2 weeks ago he fell walking off the bus. He states he missed a step. He denies LOC. He had no chest pain, shortness of breath, dizziness or palpitations surrounding this fall. He went initially to [facility] for evaluation. According to ER sushma hardy he was found to have a humerus fracture and also elevated troponin and was evaluated by cardiology. However, he left AMA. The exact work-up is unavailable at this time. He has a sling on the left arm and a bruise on the left chest. He has lower extremity edema and states that has been there since he fell 2 weeks ago. He denies active symptoms of chest pain or shortness of breath. EKG on arrival reveals sinus mechanism heart rate of [address] or T wave abnormalities noted. Chest xray reveals chronic changes with no acute cardiopulmonary process with new displaced fracture of the left proximal humerus. He has been seen by ortho and they recommend rest and conservative management. Laboratory data reviewed, CBC unremarkable, sodium 137, potassium 4.2, creatinine 0.55, magnesium 2.1, cardiac enzymes negative 3, NT proBNP 565, LDL 70 and HDL 66. Current daily cardiac medications include lasix 20 mg daily and atorvastatin 40 mg daily. 08/09/2020 Patient examined this morning. He is sitting up in the chair. He denies chest pain or pressure. Denies shortness of breath. Echocardiogram completed reveals ejection fraction 55-60% and mild tricuspid regurgitation. PHYSICAL EXAM: VITAL SIGNS: Reviewed. GENERAL: Well-developed in no acute distress. NECK: Supple. No JVD or thyromegaly LUNGS: Respirations even and unlabored. Lungs essentially clear to auscultation bilaterally. HEART: Regular rate and rhythm. S1 and S2 heard. EXTREMITIES: Normal range of motion. No clubbing or cyanosis. Peripheral pulses intact. 1+ bilateral lower extremity edema with grisel wraps present. ASSESSMENT: Fall, no LOC Left humeral fracture Lower extremity edema, normal BNP and no fluid overload noted on chest xray Dyslipidemia Schizophrenia Chronic nicotine dependence Memory impairment PLAN: Records from [facility] reviewed Continue current cardiac medications No further inpatient workup recommended at this time Patient may follow up outpatient with Dr. Dill We will sign off. Please reconsult if needed. Nurse practitioner note has been reviewed by physician. Signing provider agrees with the documented findings, assessment, and plan of care. Objective - Vital Signs Vital signs: Vital Signs Temp 98.8 F 08/09/20 07:00 Pulse 90 08/09/20 08:26 Resp 16 08/09/20 07:00 BP 115/69 08/09/20 07:00 Pulse Ox 95 08/09/20 08:14 Intake & Output 08/08/20 08/09/20 08/09/20 18:59 06:59 18:59 Output Total 200 725 Balance -200 -725 Output: Urine 200 725 Other: Voiding Method Toilet Toilet Urinal Urinal # Voids 1 2 - Labs CBC & Chem 7: 08/07/20 13:39 08/09/20 06:02 Labs: Abnormal Lab Results - Last 24 Hours (Table) 08/09/20 Range/Units 06:02 Chloride 96 L (98-107) mmol/L Carbon Dioxide 37 H (22-30) mmol/L BUN 26 H (9-20) mg/dL
--- NOTE | 2020-08-09 12:22 | P.DS ---
Providers Date of admission: 08/07/20 14:58 Expected date of discharge: 08/09/20 Attending physician: Arash Beach Consults: 08/07/20 14:58 Consult Physician Urgent Consulting Provider: [facility] Consult Reason/Comments: Recently elevated troponin Do you want consulting provider notified?: Yes Consult Physician Urgent Consulting Provider: Brandin Cruz Consult Reason/Comments: Left humerus fracture Do you want consulting provider notified?: Yes Primary care physician: Maycol Bourne [place] [facility] Course: Chief Complaint: Bilateral edema History of presenting complaint: This is a 75-year-old patient, follows with visiting physicians Dr. Bourne. Chronic stable medical conditions include hyperlipidemia, schizophrenia, chronic nicotine dependence, insomnia. About 2-1/2 weeks ago patient had a misstep presenting a fall on the left shoulder. He presented to [facility] in [facility]. Left humerus fracture. Left arm in a sling. Conservative management. Patient has bruising of the left arm and left chest fall. He says he was sent in by the group account director because increasing swelling in the lower extremities. Patient denies any pain in the left chest wall. No shortness of breath. No dizziness, lightheadedness. Pain is worse with movement of the arm. Which is actually in a sling. Patient also has swelling of the lower extremity he thinks is present since the fall. No cough no fever no chills. Pulse ox of 90% on room air as per the EMS Admitted with bilateral lower extremity edema. Wasn't clear. 2-D echocardiogram did not show any major abnormality. Patient's arm pain is felt to be from the fracture. Does not sound cardiac. Cor pulmonale was ruled out. Ultrasound of the abdomen did not show any vascular abnormality. Lower external edema is felt to be from venous insufficiency. Today: Care was discussed with the patient. DC IV Lasix. Patient to continue using Danny wraps. Advised against smoking. DuoNeb 4 home. On a nebulizer. Discussed with case folder Discussion and discharge planning more than 35 minutes. Review of systems: Was done for constitutional, cardiovascular, GI, pulmonary. relevant finding as above Active Medications Hydrocodone Bitart/Acetaminophen (Hydrocodone/Apap 5-325mg 1 Each Tab) 1 each PO Q8H PRN PRN Reason: ACUTE PAIN Last Admin: 08/07/20 20:55 Dose: 1 each Documented by: Albuterol Sulfate (Albuterol Hfa Inhaler) 2 puff INHALATION RT-Q6H PRN PRN Reason: Wheezing Albuterol/Ipratropium (Ipratropium-Albuterol 3 Ml Neb) 3 ml INHALATION RT-QID [facility] Last Admin: 08/08/20 20:03 Dose: 3 ml Documented by: Aspirin (Aspirin 81 Mg) 81 mg PO DAILY [facility] Last Admin: 08/08/20 09:00 Dose: 81 mg Documented by: Atorvastatin Calcium (Atorvastatin 80 Mg Tab) 40 mg PO HS@1999 [facility] Last Admin: 08/07/20 20:57 Dose: 40 mg Documented by: Cholecalciferol (Cholecalciferol 25 Mcg (1000 Iu) Tablet) 125 mcg PO DAILY@09 [facility] Last Admin: 08/08/20 08:56 Dose: 125 mcg Documented by: Ferrous Sulfate (Ferrous Sulfate 325 Mg Tab) 325 mg PO DAILY@09 [facility] Last Admin: 08/08/20 08:56 Dose: 325 mg Documented by: Folic Acid (Folic Acid 1 Mg Tab) 1 mg PO HS@1999 [facility] Last Admin: 08/07/20 20:57 Dose: 1 mg Documented by: Furosemide (Furosemide 10 Mg/Ml 4 Ml Vial) 40 mg IV Q12HR [facility] Last Admin: 08/08/20 08:56 Dose: 40 mg Documented by: Melatonin (Melatonin 5 Mg Tablet) 10 mg PO HS@1999 [facility] Last Admin: 08/07/20 20:57 Dose: 10 mg Documented by: Naproxen (Naproxen 250 Mg Tab) 500 mg PO BID@ [facility] Last Admin: 08/08/20 08:57 Dose: 500 mg Documented by: Nicotine (Nicotine 21mg/24hr Patch) 1 patch TRANSDERM DAILY [facility] Last Admin: 08/08/20 09:00 Dose: 1 patch Documented by: Nitroglycerin (Nitroglycerin Sl Tabs 0.4 Mg Tab) 0.4 mg SUBLINGUAL Q5M PRN PRN Reason: Chest Pain Risperidone (Risperidone 1 Mg Tab) 3 mg PO HS@1999 [facility] Last Admin: 08/07/20 20:57 Dose: 3 mg Documented by: Past medical history to include: Hyperlipidemia, insomnia, EGD, schizophrenia, nicotine dependence, left humerus fracture about 2 weeks ago Social history: Lives at [facility]. Smokes a pack day for many years. No alcohol Family history: Reviewed, noncontributory to presentation Physical examination: VITAL SIGNS: 98.8, 94, 16, 115/69, 96% on 2 L GENERAL: BMI 31.6, sitting up, comfortable EYES: Pupils equal. Conjunctiva normal. NECK: JVD unable to assess; masses not palpable. HEART: First and second heart sounds are normal; bilateral edema. LUNGS: Respiratory rate normal; decreased breath sounds. ABDOMEN: Soft, distended nontender, liver spleen not palpable, no masses palpable. PSYCH: Answering questions EXTREMITY: Left arm in a sling. Slight bruising in the upper arm. And of the adjoining chest wall. Danny wraps INVESTIGATIONS, reviewed in the clinical context: Abdominal ultrasound: 2.8 cm hyperechoic exophytic lesion on the upper pole of the right kidney. Most likely cyst. 2-D echocardiogram: Technically difficult study, study. EF 55-60%. Right ventricle normal in size. WBC 7.2 hemoglobin 14.1 platelets 184 potassium 4.3 creatinine 0.5 Troponin I 3 negative proBNP 565 EKG tracing personally reviewed by me-normal sinus rhythm Chest x-ray film personally reviewed by me-interstitial prominence Assessment and plan: -Bilateral lower extremity edema. 2-D echo did not show any secondary partly hypertension or right ventricle enlargement. This rules out cor pulmonale. We will order ultrasound of the abdomen to rule out any venous thrombosis to explain edema. Otherwise edema is from venous insufficiency. -COPD in a current smoker DuoNeb 3 times a day -Chronic nicotine dependence patient cigarette smoker Nicotine patch -Obesity BMI 31.6 Weight loss measures and follow-up with PCP -Left humerus fracture for which patient did follow-up with [facility] over 2 weeks ago. Continue with left arm sling. -Chronic insomnia Continue with melatonin -Chronic schizophrenia Continue with Risperdal -Hyperlipidemia Continue with Lipitor -2.8 cm hyperechoic exophytic lesion on the upper pole of the right kidney. Most likely cyst. We will have the patient follow-up with Dr. sampson as outpatient Disposition: Assisted-living/[place] home Plan - Discharge Summary Discharge Rx Participant: No New Discharge Prescriptions: New Aspirin 81 mg PO DAILY chew Ipratropium-Albuterol Nebulize [Duoneb 0.5 mg-3 mg/3 ml Soln] 3 ml INHALATION TID #90 ml Nicotine 21Mg/24Hr Patch [Habitrol] 1 patch TRANSDERM DAILY #14 patch Famotidine [Pepcid] 20 mg PO BID #60 tablet Continue Albuterol Sulfate [Albuterol Sulfate Hfa] 2 puff PO RT-Q6H PRN PRN Reason: Wheezing Ferrous Sulfate [Iron (65 MG Elemental)] 325 mg PO DAILY@0800 HYDROcodone/APAP 5-325MG [[place]arshall 5-325] 1 tab PO Q8H PRN PRN Reason: ACUTE PAIN risperiDONE [RisperDAL] 3 mg PO HS@1999 Atorvastatin [Lipitor] 40 mg PO HS@1999 Cholecalciferol (Vitamin D3) [Vitamin D3 (5000 Iu)] 125 mcg PO DAILY@0800 Folic Acid 0.4 mg PO HS@1999 Furosemide [Lasix] 20 mg PO DAILY@0800 Melatonin 10 mg PO HS@1999 Naproxen 500 mg PO BID@799,1999 Discharge Medication List Albuterol Sulfate [Albuterol Sulfate Hfa] 2 puff PO RT-Q6H PRN 08/07/20 [History] Atorvastatin [Lipitor] 40 mg PO HS@199908/07/20 [History] Cholecalciferol (Vitamin D3) [Vitamin D3 (5000 Iu)] 125 mcg PO DAILY@0800 08/07/20 [History] Ferrous Sulfate [Iron (65 MG Elemental)] 325 mg PO DAILY@0800 08/07/20 [History] Folic Acid 0.4 mg PO HS@199908/07/20 [History] Furosemide [Lasix] 20 mg PO DAILY@0800 08/07/20 [History] HYDROcodone/APAP 5-325MG [Parshall 5-325] 1 tab PO Q8H PRN 08/07/20 [History] Melatonin 10 mg PO HS@199908/07/20 [History] Naproxen 500 mg PO BID@799,199908/07/20 [History] risperiDONE [RisperDAL] 3 mg PO HS@199908/07/20 [History] Aspirin 81 mg PO DAILY chew 08/09/20 [Rx] Famotidine [Pepcid] 20 mg PO BID #60 tablet 08/09/20 [Rx] Ipratropium-Albuterol Nebulize [Duoneb 0.5 mg-3 mg/3 ml Soln] 3 ml INHALATION TID #90 ml 08/09/20 [Rx] Nicotine 21Mg/24Hr Patch [Habitrol] 1 patch TRANSDERM DAILY #14 patch 08/09/20 [Rx] Follow up Appointment(s)/Referral(s): Eliud Dill MD [STAFF PHYSICIAN] - 08/22/20 4:30 pm (appointment made at the [address] office ) [facility],Equipment [NON-STAFF] - (Supplier of Nebulizer) Maycol Bourne MD [Primary Care Provider] - 1-2 days Patient Instructions/Handouts: Edema (DC) Activity/Diet/Wound Care/Special Instructions: fluid restrict 2000 cc/day danny wraps to LE daily-remove at night activity as tolerated heart healthy diet as tolerated
== END 2020-08-09 13:11 ==
LOC: EC 12:32 → EEVIPCON 14:58 → 1SOBS 14:58 → 6NMEDSUR 19:49
PROVIDERS: ADMIT Hospitalist; ATTEND Hospitalist
DX: R60.0 Localized edema (principal); I87.2 Venous insufficiency (chronic) (peripheral); S42.212A Unspecified displaced fracture of surgical neck of left humerus, initial encounter for closed fracture; S40.022A Contusion of left upper arm, initial encounter; S20.219A Contusion of unspecified front wall of thorax, initial encounter; I50.9 Heart failure, unspecified; J44.9 Chronic obstructive pulmonary disease, unspecified; R79.89 Other specified abnormal findings of blood chemistry; E78.00 Pure hypercholesterolemia, unspecified; E78.5 Hyperlipidemia, unspecified; F20.9 Schizophrenia, unspecified; E66.9 Obesity, unspecified; Z68.31 Body mass index [BMI] 31.0-31.9, adult; I07.1 Rheumatic tricuspid insufficiency; F51.04 Psychophysiologic insomnia; F17.210 Nicotine dependence, cigarettes, uncomplicated; V78.4XXA Person boarding or alighting from bus injured in noncollision transport accident, initial encounter; Z79.1 Long term (current) use of non-steroidal anti-inflammatories (NSAID); Z79.899 Other long term (current) drug therapy
CPT/HCPCS: 96376 ×2; 93005 ×2; 96374; 99285; 36415; 94640 ×3; 94760; 93306; 83880; 80061; 80053; 80048 ×2; 83735; 84484; 85025; 85610; 85730; 87636; 73020; 71046; 76700; G0378 ×4; S4990 ×2; J1940 ×3

== ENCOUNTER 2021-05-01 20:42 | Observation (INO) | payer OTHER ==
[2021-05-01] MEDS ORDERED: SODIUM CHLORIDE 0.9% 1,000 ML IV STA ×3 (20:49→22:39)
--- NOTE | 2021-05-01 20:59 | ED ---
SOB HPI - General Stated Complaint: Shortness of Breath Time Seen by Provider: 05/01/21 20:42 Source: patient, EMS, RN notes reviewed, old records reviewed Mode of arrival: EMS - History of Present Illness Initial Comments: 75-year-old male with a history of nicotine dependence with chronic smoking history of COPD and schizophrenia hyperlipidemia venous insufficiency with a history of peripheral edema who is brought in by EMS today because he was found have what appear to be ankle cyanosis of the evaluation had a pulse ox of 84% room air. He also been demonstrating some weakness over last day or so patient self denies any pain fevers chills nausea vomiting sweats cough or other symptoms. No other current complaints or modifying factors MD Complaint: shortness of breath - Related Data Home Medications Medication Instructions Recorded Confirmed Atorvastatin [Lipitor] 40 mg PO HS@199908/07/20 05/01/21 Ferrous Sulfate [Iron (65 MG 325 mg PO DAILY@0800 08/07/20 05/01/21 Elemental)] Melatonin 10 mg PO HS@199908/07/20 05/01/21 risperiDONE [RisperDAL] 3 mg PO HS@199908/07/20 05/01/21 Cholecalciferol [Vitamin D3 (25 50 mcg PO DAILY@0800 05/01/21 05/01/21 Mcg = 1000 Iu)] Famotidine [Pepcid] 20 mg PO BID@0600,1600 05/01/21 05/01/21 Folic Acid 1 mg PO Q48H 05/01/21 05/01/21 Furosemide [Lasix] 40 mg PO BID@0700,1600 05/01/21 05/01/21 Potassium Chloride [Potassium 10 meq PO DAILY@0800 05/01/21 05/01/21 Chloride ER] Sennosides [Ex-Lax Chew] 15 mg PO DAILY 05/01/21 05/01/21 metOLazone [Zaroxolyn] 5 mg PO DAILY@0630 05/01/21 05/01/21 Allergies Allergy/AdvReac Type Severity Reaction Status Date / Time No Known Allergies Allergy Verified 05/01/21 22:05 Review of Systems ROS Statement: Those systems with pertinent positive or pertinent negative responses have been documented in the HPI. ROS Other: All systems not noted in ROS Statement are negative. Past Medical History Past Medical History: Heart Failure, Hyperlipidemia Additional Past Medical History / Comment(s): Schizophrenia History of Any Multi-Drug Resistant Organisms: None Reported Past Surgical History: No Surgical Hx Reported Past Anesthesia/Blood Transfusion Reactions: No Reported Reaction Past Psychological History: Schizophrenia Smoking Status: Never smoker Past Alcohol Use History: None Reported Past Drug Use History: None Reported General Exam - General Exam Comments Initial Comments: This is a well-developed well-nourished awake alert oriented 3 male General appearance: alert, in no apparent distress Head exam: Present: atraumatic, normocephalic, normal inspection Eye exam: Present: normal appearance, PERRL, EOMI. Absent: scleral icterus, conjunctival injection, periorbital swelling ENT exam: Present: mucous membranes dry Neck exam: Present: normal inspection. Absent: tenderness, meningismus, lymphadenopathy Respiratory exam: Present: decreased breath sounds. Absent: respiratory distress, wheezes, rales, rhonchi, stridor Cardiovascular Exam: Present: regular rate, normal rhythm, normal heart sounds. Absent: systolic murmur, diastolic murmur, rubs, gallop, clicks GI/Abdominal exam: Present: soft, normal bowel sounds. Absent: distended, tenderness, guarding, rebound, rigid Extremities exam: Present: normal inspection, full ROM, normal capillary refill. Absent: tenderness, pedal edema, joint swelling, calf tenderness Back exam: Present: normal inspection Neurological exam: Present: alert, oriented X3, CN II-XII intact Psychiatric exam: Present: normal mood, flat affect Skin exam: Present: warm, dry, intact, normal color. Absent: rash Course Vital Signs 05/01/21 05/01/21 21:00 22:20 Temperature 98.3 F Pulse Rate 74 74 Respiratory 20 18 Rate Blood Pressure 110/64 129/71 O2 Sat by Pulse 86 L 95 Oximetry - Reevaluation(s) Reevaluation #1: 05/01/21 23:00 Reevaluation finds patient resting comfortably oxygenation is adequate with supplemental oxygen Medical Decision Making - Medical Decision Making I did discuss findings with the patient as well as Dr. Beach patient does have evidence of dehydration with elevated lactic acid no definitive infectious processes seen the patient was afebrile with a normal white blood cell count. Additionally evidence of COPD exacerbation hypoxemia. He also has hypokalemia. This was supplemented. Patient be admitted for inpatient evaluation and treatment - Lab Data Result diagrams: 05/01/21 21:11 05/01/21 21:11 Lab Results 05/01/21 05/01/21 05/01/21 Range/Units 21:11 21:11 21:11 WBC 8.6 (3.8-10.6) k/uL RBC 4.79 (4.30-5.90) m/uL Hgb 15.8 (13.0-17.5) gm/dL Hct 47.3 (39.0-53.0) % MCV 98.9 (80.0-100.0) fL MCH 33.1 (25.0-35.0) pg MCHC 33.5 (31.0-37.0) g/dL RDW 13.7 (11.5-15.5) % Plt Count 151 (150-450) k/uL MPV 8.6 Neutrophils % 77 % Lymphocytes % 13 % Monocytes % 6 % Eosinophils % 1 % Basophils % 1 % Neutrophils # 6.6 (1.3-7.7) k/uL Lymphocytes # 1.2 (1.0-4.8) k/uL Monocytes # 0.6 (0-1.0) k/uL Eosinophils # 0.1 (0-0.7) k/uL Basophils # 0.0 (0-0.2) k/uL PT 9.9 (9.0-12.0) sec INR 0.9 (<1.2) APTT 22.3 (22.0-30.0) sec Sodium 133 L (137-145) mmol/L Potassium 2.8 L (3.5-5.1) mmol/L Chloride 81 L (98-107) mmol/L Carbon Dioxide 37 H (22-30) mmol/L Anion Gap 15 mmol/L BUN 37 H (9-20) mg/dL Creatinine 0.87 (0.66-1.25) mg/dL Est GFR (CKD-EPI)AfAm >90 (>60 ml/min/1.73 sqM) Est GFR (CKD-EPI)NonAf 86 (>60 ml/min/1.73 sqM) Glucose 101 H (74-99) mg/dL Plasma Lactic Acid Mesfin (0.7-2.0) mmol/L Calcium 9.7 (8.4-10.2) mg/dL Magnesium 2.0 (1.6-2.3) mg/dL Total Bilirubin 0.9 (0.2-1.3) mg/dL AST 38 (17-59) U/L ALT 29 (4-49) U/L Alkaline Phosphatase 74 (38-126) U/L Troponin I (0.000-0.034) ng/mL NT-Pro-B Natriuret Pep pg/mL Total Protein 7.3 (6.3-8.2) g/dL Albumin 4.4 (3.5-5.0) g/dL Influenza Type A (PCR) (Not Detectd) Influenza Type B (PCR) (Not Detectd) RSV (PCR) (Not Detectd) SARS-CoV-2 (PCR) (Not Detectd) 05/01/21 05/01/21 05/01/21 Range/Units 21:11 21:11 21:11 WBC (3.8-10.6) k/uL RBC (4.30-5.90) m/uL Hgb (13.0-17.5) gm/dL Hct (39.0-53.0) % MCV (80.0-100.0) fL MCH (25.0-35.0) pg MCHC (31.0-37.0) g/dL RDW (11.5-15.5) % Plt Count (150-450) k/uL MPV Neutrophils % % Lymphocytes % % Monocytes % % Eosinophils % % Basophils % % Neutrophils # (1.3-7.7) k/uL Lymphocytes # (1.0-4.8) k/uL Monocytes # (0-1.0) k/uL Eosinophils # (0-0.7) k/uL Basophils # (0-0.2) k/uL PT (9.0-12.0) sec INR (<1.2) APTT (22.0-30.0) sec Sodium (137-145) mmol/L Potassium (3.5-5.1) mmol/L Chloride (98-107) mmol/L Carbon Dioxide (22-30) mmol/L Anion Gap mmol/L BUN (9-20) mg/dL Creatinine (0.66-1.25) mg/dL Est GFR (CKD-EPI)AfAm (>60 ml/min/1.73 sqM) Est GFR (CKD-EPI)NonAf (>60 ml/min/1.73 sqM) Glucose (74-99) mg/dL Plasma Lactic Acid Mesfin 3.2 H* (0.7-2.0) mmol/L Calcium (8.4-10.2) mg/dL Magnesium (1.6-2.3) mg/dL Total Bilirubin (0.2-1.3) mg/dL AST (17-59) U/L ALT (4-49) U/L Alkaline Phosphatase (38-126) U/L Troponin I <0.012 (0.000-0.034) ng/mL NT-Pro-B Natriuret Pep 235 pg/mL Total Protein (6.3-8.2) g/dL Albumin (3.5-5.0) g/dL Influenza Type A (PCR) (Not Detectd) Influenza Type B (PCR) (Not Detectd) RSV (PCR) (Not Detectd) SARS-CoV-2 (PCR) (Not Detectd) 05/01/21 Range/Units 21:11 WBC (3.8-10.6) k/uL RBC (4.30-5.90) m/uL Hgb (13.0-17.5) gm/dL Hct (39.0-53.0) % MCV (80.0-100.0) fL MCH (25.0-35.0) pg MCHC (31.0-37.0) g/dL RDW (11.5-15.5) % Plt Count (150-450) k/uL MPV Neutrophils % % Lymphocytes % % Monocytes % % Eosinophils % % Basophils % % Neutrophils # (1.3-7.7) k/uL Lymphocytes # (1.0-4.8) k/uL Monocytes # (0-1.0) k/uL Eosinophils # (0-0.7) k/uL Basophils # (0-0.2) k/uL PT (9.0-12.0) sec INR (<1.2) APTT (22.0-30.0) sec Sodium (137-145) mmol/L Potassium (3.5-5.1) mmol/L Chloride (98-107) mmol/L Carbon Dioxide (22-30) mmol/L Anion Gap mmol/L BUN (9-20) mg/dL Creatinine (0.66-1.25) mg/dL Est GFR (CKD-EPI)AfAm (>60 ml/min/1.73 sqM) Est GFR (CKD-EPI)NonAf (>60 ml/min/1.73 sqM) Glucose (74-99) mg/dL Plasma Lactic Acid Mesfin (0.7-2.0) mmol/L Calcium (8.4-10.2) mg/dL Magnesium (1.6-2.3) mg/dL Total Bilirubin (0.2-1.3) mg/dL AST (17-59) U/L ALT (4-49) U/L Alkaline Phosphatase (38-126) U/L Troponin I (0.000-0.034) ng/mL NT-Pro-B Natriuret Pep pg/mL Total Protein (6.3-8.2) g/dL Albumin (3.5-5.0) g/dL Influenza Type A (PCR) Not Detected (Not Detectd) Influenza Type B (PCR) Not Detected (Not Detectd) RSV (PCR) Not Detected (Not Detectd) SARS-CoV-2 (PCR) Not Detected (Not Detectd) - EKG Data -: EKG Interpreted by Me EKG shows normal: sinus rhythm EKG Comments: Sinus rhythm rate is 76. Interval 180 QRS duration 100 QT since QTC/459 evid ence of possible old inferior infarct - Radiology Data Radiology results: report reviewed (Imaging shows evidence of increased pulmonary vascular markings), image reviewed Critical Care Time Critical Care Time: Yes Total Critical Care Time: 31 Critical Care Time: Who could care time included initial presentation with history physical the x- rays multiple reevaluation the patient review of old charting discussed with paramedics upon arrival discuss with the patient as well as the admitting physician admission orders and documentation the above Disposition Clinical Impression: Acute exacerbation of chronic obstructive pulmonary disease, Hypoxemia, Dehydration, Lactic acidosis, Hypokalemia Disposition: ADMITTED IP TO THIS HOSP Condition: Fair Referrals: Maycol Bourne MD [Primary Care Provider] - 1-2 days
[2021-05-01 21:48] LABS: Basophils % (A) 1 %; Eosinophils # (A) 0.1 k/uL (0-0.7); Eosinophils % (A) 1 %; HCT 47.3 % (39.0-53.0); HGB 15.8 gm/dL (13.0-17.5); Lymphocytes # (A) 1.2 k/uL (1.0-4.8); Lymphocytes % (A) 13 %; MCH 33.1 pg (25.0-35.0); MCHC 33.5 g/dL (31.0-37.0); MCV 98.9 fL (80.0-100.0); Mean Platelet Volume 8.6; Monocytes # (A) 0.6 k/uL (0-1.0); Monocytes % (A) 6 %; Neutrophils # (A) 6.6 k/uL (1.3-7.7); Neutrophils % (A) 77 %; Platelet Count 151 k/uL (150-450); RBC 4.79 m/uL (4.30-5.90); RDW 13.7 % (11.5-15.5); WBC 8.6 k/uL (3.8-10.6)
[2021-05-01 21:50] LABS: ALT 29 U/L (4-49); AST 38 U/L (17-59); African American GFR (CKD) >90 (>60 ml/min/1.73 sqM); Albumin 4.4 g/dL (3.5-5.0); Alkaline Phosphatase 74 U/L (38-126); Blood Urea Nitrogen 37 mg/dL (9-20); Calcium 9.7 mg/dL (8.4-10.2); Chloride 81 mmol/L (98-107); Glucose 101 mg/dL (74-99); Non-African American GFR(CKD) 86 (>60 ml/min/1.73 sqM); Potassium 2.8 mmol/L (3.5-5.1); Sodium 133 mmol/L (137-145); Total Bilirubin 0.9 mg/dL (0.2-1.3); Total Protein 7.3 g/dL (6.3-8.2)
[2021-05-01 21:54] LABS: INR 0.9 (<1.2); Partial Thromboplastin Time 22.3 sec (22.0-30.0); Prothrombin Time 9.9 sec (9.0-12.0)
--- NOTE | 2021-05-01 21:54 | XR ---
EXAMINATION TYPE: XR chest 2V DATE OF EXAM: 05/01/2021 9:44 PM COMPARISON:Multiple radiographs, with the most recent on 321 TECHNIQUE: Frontal and lateral views of the chest. CLINICAL INDICATION:Male, 75 years old with history of difficulty breathing; FINDINGS: Lungs/Pleura: Streaky atelectasis within the right midlung, unchanged from prior. There is no evidenc e of pleural effusion, focal consolidation, or pneumothorax. Pulmonary vascularity: Pulmonary vascular congestion. Heart/mediastinum: Cardiomediastinal silhouette is enlarged and stable. Musculoskeletal:No acute osseous pathology. IMPRESSION: Pulmonary vascular congestion correlate with BNP for congestive heart failure,.
[2021-05-01 21:57] LABS: Anion Gap 15 mmol/L; Carbon Dioxide 37 mmol/L (22-30)
[2021-05-01] MEDS ORDERED: POTASSIUM CHLORIDE 20 MEQ in WATER FOR INJECTION 1 100ML.BAG IVPB STA (22:09)
[2021-05-01] MEDS ORDERED: POTASSIUM CHLORIDE ER 20 MEQ TAB.ER PO STA (22:10)
[2021-05-01] MEDS ORDERED: ALBUTEROL HFA INHALER INHALATION PRN (23:03)
[2021-05-02] MEDS: methylPREDNISolone SOD SUCCI 125 MG/2 ML VIAL IV SCH ×4 (03:03→17:02)
[2021-05-02] MEDS ORDERED: metOLazone 5 MG TAB PO SCH (06:30)
[2021-05-02] MEDS: CHOLECALCIFEROL 25 MCG (1000 IU) TABLET PO SCH (08:34)
[2021-05-02] MEDS: FAMOTIDINE 20 MG TAB PO SCH ×2 (08:34→21:08)
[2021-05-02] MEDS: SENNOSIDES 8.6 MG TAB PO SCH (08:34)
[2021-05-02] MEDS: FERROUS SULFATE 325 MG TAB PO SCH (08:34)
[2021-05-02] MEDS: FUROSEMIDE 40 MG TAB PO SCH ×2 (08:34→17:01)
[2021-05-02] MEDS: POTASSIUM CHLORIDE ER 10 MEQ TAB.ER.PRT PO SCH (08:34)
[2021-05-02] MEDS ORDERED: LEVOFLOXACIN 500 MG TAB PO SCH (09:00)
[2021-05-02] MEDS ORDERED: FOLIC ACID 1 MG TAB PO SCH (09:00)
[2021-05-02] MEDS: POTASSIUM CHLORIDE ER 20 MEQ TAB.ER PO SCH ×2 (17:02→19:56)
--- NOTE | 2021-05-02 18:44 | P.HPIM ---
History of Present Illness H&P Date: 05/02/21 Chief Complaint: Cyanotic lips History of presenting complaint: This is a 75-year-old patient, follows with visiting physicians Dr. Bourne. Chronic stable medical conditions include hyperlipidemia, schizophrenia, chronic nicotine dependence, insomnia. Venous insufficiency lower extremity . Patient was sent because he was found to have a pulse ox of 84% and also fond of cyanosis in the ankle. He was described as feeling a bit weak. Patient has continued to smoke. Minimal shortness of breath. Denies any cough. No sputum production. No wheezing. Does definitely appear tired. No fever no chills. No chest pain Review of systems: GEN.: Tired EYES: None HEENT: None NECK: None RESPIRATORY: As above CARDIOVASCULAR: No chest pain GASTROINTESTINAL: None GENITOURINARY: None MUSCULOSKELETAL: Joint pains i LYMPHATICS: None HEMATOLOGICAL: None PSYCHIATRY: None NEUROLOGICAL: None Past medical history to include: Hyperlipidemia, insomnia, EGD, schizophrenia, nicotine dependence, venous insufficiency Social history: Lives at [facility]. Smokes a pack a day for many years. No alcohol Family history: Reviewed, noncontributory to presentation Family history: Reviewed, noncontributory to presentation Physical examination: VITAL SIGNS: 98.3, 74, 20, 110/64, 86% on room air GENERAL: BMI 22.3, reclining bed, awake, tired. EYES: Pupils equal. Conjunctiva normal. HEENT: External appearance of nose and ears normal, oral cavity grossly normal. NECK: JVD not raised; masses not palpable. HEART: First and second heart sounds are normal; edema present LUNGS: Respiratory rate decreased breath sounds. ABDOMEN: Soft, nontender, liver spleen not palpable, no masses palpable. PSYCH: Alert and oriented x3; mood and affect tiredl. MUSCULOSKELETAL:No Clubbing/cyanosis;muscles-grossly intact NEUROLOGICAL: Cranial nerves grossly intact; no facial asymmetry, power and sensation grossly intact. LYMPHATICS: No lymph nodes palpable in the axilla and neck INVESTIGATIONS, reviewed in the clinical context: White count 8.6 hemoglobin 15.8 platelets 151 sodium 133 potassium 2.8 BUN 37 creatinine 0.87 Lactic acid 3.2 proBNP 235 Influenza type A, type B, RSV, COVID 19: Not detected EKG tracing personally reviewed by me-normal sinus rhythm. Subtle ST segment depression in inferolateral leads. Chest x-ray film personally reviewed by me-cardiomegaly. Possible prominent interstitium Assessment and plan: -Acute on possible chronic hypoxic respiratory failure from COPD Oxygen -Bilateral lower extremity edema. Chronic venous insufficiency Danny wrap -Severe hypokalemia from diuretics Replace potassium -Exacerbation COPD in a current smoker DuoNeb 3 times a day. Solu-Medrol -Chronic nicotine dependence patient cigarette smoker Nicotine patch -Chronic lower extremity venous insufficiency. Danny wrap . -Chronic insomnia Continue with melatonin -Chronic schizophrenia Continue with Risperdal -Hyperlipidemia Continue with Lipitor 2-D echocardiogram. Chest CT high resolution to rule out early fibrosis. Supplement oxygen. DuoNeb. IV steroids. Nicotine patch. Discussed with patient. Past Medical History Past Medical History: Heart Failure, Hyperlipidemia Additional Past Medical History / Comment(s): Schizophrenia History of Any Multi-Drug Resistant Organisms: None Reported Past Surgical History: No Surgical Hx Reported Past Anesthesia/Blood Transfusion Reactions: No Reported Reaction Past Psychological History: Schizophrenia Smoking Status: Never smoker Past Alcohol Use History: None Reported Past Drug Use History: None Reported - Past Family History Father Family Medical History: Unable to Obtain Mother Family Medical History: Unable to Obtain Medications and Allergies Home Medications Medication Instructions Recorded Confirmed Type Atorvastatin [Lipitor] 40 mg PO HS@199908/07/20 05/01/21 History Ferrous Sulfate [Iron (65 MG 325 mg PO DAILY@0800 08/07/20 05/01/21 History Elemental)] Melatonin 10 mg PO HS@199908/07/20 05/01/21 History risperiDONE [RisperDAL] 3 mg PO HS@199908/07/20 05/01/21 History Cholecalciferol [Vitamin D3 (25 50 mcg PO DAILY@0800 05/01/21 05/01/21 History Mcg = 1000 Iu)] Famotidine [Pepcid] 20 mg PO BID@0600,1600 05/01/21 05/01/21 History Folic Acid 1 mg PO Q48H 05/01/21 05/01/21 History Furosemide [Lasix] 40 mg PO BID@0700,1600 05/01/21 05/01/21 History Potassium Chloride [Potassium 10 meq PO DAILY@0800 05/01/21 05/01/21 History Chloride ER] Sennosides [Ex-Lax Chew] 15 mg PO DAILY 05/01/21 05/01/21 History metOLazone [Zaroxolyn] 5 mg PO DAILY@0630 05/01/21 05/01/21 History Allergies Allergy/AdvReac Type Severity Reaction Status Date / Time No Known Allergies Allergy Verified 05/01/21 22:05 Physical Exam Vitals: Vital Signs Temp Pulse Pulse Resp BP BP Pulse Ox 05/02/21 08:30 97.8 F 76 14 121/77 93 L 05/02/21 02:00 76 18 105/61 95 05/02/21 00:00 77 16 121/70 95 05/01/21 23:00 18 05/01/21 22:20 74 18 129/71 95 05/01/21 21:00 98.3 F 74 20 110/64 86 L Intake and Output 05/01/21 05/02/21 05/02/21 22:59 06:59 14:59 Other: Weight 72.575 kg Results CBC & Chem 7: 05/01/21 21:11 05/02/21 13:10 Labs: Abnormal Lab Results - Last 24 Hours (Table) 05/01/21 05/01/21 Range/Units 21:11 21:11 Sodium 133 L (137-145) mmol/L Potassium 2.8 L (3.5-5.1) mmol/L Chloride 81 L (98-107) mmol/L Carbon Dioxide 37 H (22-30) mmol/L BUN 37 H (9-20) mg/dL Glucose 101 H (74-99) mg/dL Plasma Lactic Acid Mesfin 3.2 H* (0.7-2.0) mmol/L
[2021-05-02] MEDS: methylPREDNISolone SOD SUCCI 40 MG/ML 1 ML VIAL IV SCH (19:55)
[2021-05-02] MEDS: NICOTINE 21MG/24HR PATCH TRANSDERM SCH (19:55)
[2021-05-02] MEDS: ENOXAPARIN 40 MG/0.4 ML SYRINGE SQ SCH (19:55)
[2021-05-02] MEDS: IPRATROPIUM-ALBUTEROL 3 ML NEB INHALATION SCH (20:36)
[2021-05-02] MEDS: BUDESONIDE 1 MG/2 ML NEBU INHALATION SCH (20:36)
[2021-05-02] MEDS ORDERED: ATORVASTATIN 40 MG TAB PO SCH (21:00)
[2021-05-02] MEDS ORDERED: MELATONIN 5 MG TABLET PO SCH (21:00)
[2021-05-02] MEDS ORDERED: risperiDONE 1 MG TAB PO SCH (21:00)
[2021-05-03] MEDS: methylPREDNISolone SOD SUCCI 40 MG/ML 1 ML VIAL IV SCH ×2 (00:21→10:04)
[2021-05-03] MEDS: methylPREDNISolone SOD SUCCI 125 MG/2 ML VIAL IV SCH ×2 (00:24→05:26)
--- NOTE | 2021-05-03 06:45 | CT ---
EXAMINATION TYPE: CT chest wo con DATE OF EXAM: 05/02/2021 COMPARISON: Chest x-ray from yesterday and older x-rays HISTORY: pulmonary fibrosis. History of COPD with shortness of breath. CT DLP: 966.7 mGycm. Automated Exposure Control for Dose Reduction was Utilized. TECHNIQUE: CT scan of the thorax is performed without IV contrast. High resolution protocol with 1 m m sequences obtained in 10 mm intervals in supine and prone positioning. FINDINGS: LUNGS: Right upper lung shows peripheral bleb and bulla formation with [id number] parenchymal l inear scarring. There is additional [id number] parenchymal scarring and fibrosis in the bilater al lung bases, there is extension towards the mid lung on the right side. Some central bleb formation bilaterally is seen. There is mild central peribronchial wall thickening. No honeycombing or bronchi ectasis. Trace right-sided pleural effusion or pleural thickening inferiorly. MEDIASTINUM: Lack of IV contrast and technique are noted to limit evaluation for mediastinal and karson cially hilar adenopathy. There are no definitive greater than 1 cm mediastinal lymph nodes. No card iomegaly or pericardial effusion is seen. Moderate to severe three-vessel coronary artery calcificati on is present. OTHER: No additional significant abnormality is seen. IMPRESSION: Mild to moderate chronic parenchymal fibrotic changes more prominent in the right lung ve rsus left lung as detailed above.
[2021-05-03 07:28] LABS: African American GFR (CKD) >90 (>60 ml/min/1.73 sqM); Anion Gap 7 mmol/L; Blood Urea Nitrogen 34 mg/dL (9-20); Calcium 9.7 mg/dL (8.4-10.2); Carbon Dioxide 37 mmol/L (22-30); Chloride 88 mmol/L (98-107); Glucose 138 mg/dL (74-99); Non-African American GFR(CKD) >90 (>60 ml/min/1.73 sqM); Potassium 3.2 mmol/L (3.5-5.1); Sodium 132 mmol/L (137-145)
[2021-05-03 08:45] VITALS: BP 129/75; RESP 18; TEMP 98
[2021-05-03] MEDS: IPRATROPIUM-ALBUTEROL 3 ML NEB INHALATION SCH ×3 (08:50→15:41)
[2021-05-03] MEDS: BUDESONIDE 1 MG/2 ML NEBU INHALATION SCH (08:51)
[2021-05-03] MEDS: FAMOTIDINE 20 MG TAB PO SCH (09:53)
[2021-05-03] MEDS: POTASSIUM CHLORIDE ER 10 MEQ TAB.ER.PRT PO SCH (09:53)
[2021-05-03] MEDS: CHOLECALCIFEROL 25 MCG (1000 IU) TABLET PO SCH (09:53)
[2021-05-03] MEDS: ENOXAPARIN 40 MG/0.4 ML SYRINGE SQ SCH (09:53)
[2021-05-03] MEDS: FERROUS SULFATE 325 MG TAB PO SCH (09:53)
[2021-05-03] MEDS: SENNOSIDES 8.6 MG TAB PO SCH (09:53)
[2021-05-03] MEDS: NICOTINE 21MG/24HR PATCH TRANSDERM SCH (09:54)
--- NOTE | 2021-05-03 14:39 | ECHOF ---
Referral Reason:Assess LV function MEASUREMENTS -------- HEIGHT: 162.6 cm WEIGHT: 72.6 kg BP: IVSd: 1.2 cm (0.6 - 1.1) LVIDd: 5.1 cm (3.9 - 5.3) LVPWd: 1.0 cm (0.6 - 1.1) EDV(Teich): 124 ml IVSs: 1.4 cm LVIDs: 3.9 cm LVPWs: 0.9 cm %IVS Thck: 22 % ESV(Teich): 66 ml EF(Teich): 47 % %FS: 23 % SV(Teich): 58 ml LA Diam: 3.5 cm (2.7 - 3.8) RVIDd: 3.8 cm (< 3.3) Ao Diam: 3.6 cm (2.0 - 3.7) LA Diam: 3.8 cm (2.7 - 3.8) AV Cusp: 2.0 cm (1.5 - 2.6) EPSS: 0.4 cm MV E [place]: 0.77 m/s MV DecT: 236 ms MV Dec [place]: 3.3 m/s MV A [place]: 0.95 m/s MV E/A Ratio: 0.82 MV PHT: 68 ms TR Vmax: 2.04 m/s TR maxP.70 mmHg RAP: 5.00 mmHg RVSP: 21.70 mmHg MV EF SLOPE: 129.49 mm/s (70 - 150) MV EXCURSION: 15.99 mm (> 18.000) FINDINGS -------- Sinus rhythm. This was a technically adequate study. The left ventricular size is normal. Left ventricular wall thickness is normal. Overall left vent ricular systolic function is low-normal with, an EF between 50 - 55 %. Basal inferior LV wall motio n is hypokinetic. The right ventricle is normal in size. The left atrial size is normal. The right atrial size is normal. The aortic valve is trileaflet, and appears structurally normal. No aortic stenosis or regurgitation. Mild mitral regurgitation is present. Mild tricuspid regurgitation present. Right ventricular systolic pressure is normal at < 35 mmHg. The pulmonic valve was not well visualized. There is no pericardial effusion. CONCLUSIONS -------- 1. The left ventricular size is normal. 2. Left ventricular wall thickness is normal. 3. Overall left ventricular systolic function is low-normal with, an EF between 50 - 55 %. 4. Basal inferior LV wall motion is hypokinetic. 5. The right ventricle is normal in size. 6. The left atrial size is normal. 7. The right atrial size is normal. 8. The aortic valve is trileaflet, and appears structurally normal. No aortic stenosis or regurgitati on. 9. Mild mitral regurgitation is present. 10. Mild tricuspid regurgitation present. 11. The pulmonic valve was not well visualized. 12. There is no pericardial effusion. SALES REPRESENT[employer]IVE [employer]: Liza Jimenez RDCS
--- NOTE | 2021-05-03 15:42 | P.EN ---
Patient has a pulse ox of 85% with activity. Will be discharged on 2 L of nasal cannula. This is secondary to COPD in a smoker.
[2021-05-03 15:55] VITALS: PULSE 82
--- NOTE | 2021-05-03 20:59 | P.DS ---
Providers Date of admission: 05/01/21 23:03 Expected date of discharge: 05/03/21 Attending physician: Arash Beach Primary care physician: Maycol Bourne [facility] Course: Chief Complaint: Cyanotic lips History of presenting complaint: This is a 75-year-old patient, follows with visiting physicians Dr. Bourne. Chronic stable medical conditions include hyperlipidemia, schizophrenia, chronic nicotine dependence, insomnia. Venous insufficiency lower extremity . Patient was sent because he was found to have a pulse ox of 84% and also fond of cyanosis in the ankle. He was described as feeling a bit weak. Patient has continued to smoke. Minimal shortness of breath. Denies any cough. No sputum production. No wheezing. Does definitely appear tired. No fever no chills. No chest pain May 03: Patient as well as 91% on room air. With ambulation 8 and dropped his pulse ox 85%. He'll be discharged on 2 L of oxygen. Discussed with notes and the case operator. Prescriptions were done. Advised against smoking. Patient lower extremity swelling from venous insufficiency. Discontinue diuretics. CT chest high resolution did confirm IV to moderate chronic parenchymal fibrotic changes. Discussion and discharge planning more than 35 minutes Past medical history to include: Hyperlipidemia, insomnia, EGD, schizophrenia, nicotine dependence, venous insufficiency Social history: Lives at [facility]. Smokes a pack a day for many years. No alcohol Family history: Reviewed, noncontributory to presentation Family history: Reviewed, noncontributory to presentation Physical examination: VITAL SIGNS: Pulse ox 85% with activity GENERAL: Sitting up in bed, comfortable EYES: Pupils equal. Conjunctiva normal. HEENT: External appearance of nose and ears normal, oral cavity grossly normal. NECK: JVD not raised; masses not palpable. HEART: First and second heart sounds are normal; edema present LUNGS: Respiratory rate decreased breath sounds. ABDOMEN: Soft, nontender, liver spleen not palpable, no masses palpable. PSYCH: Alert and oriented x3; mood and affect tired. MUSCULOSKELETAL:No Clubbing/cyanosis;muscles-grossly intact NEUROLOGICAL: Cranial nerves grossly intact; no facial asymmetry, power and sensation grossly intact. INVESTIGATIONS, reviewed in the clinical context: CT chest-resolution: Mild to moderate chronic parenchymal fibrotic changes. 2-D echocardiogram: EF 50-55%. White count 8.6 hemoglobin 15.8 platelets 151 sodium 133 potassium 2.8 BUN 37 creatinine 0.87 Lactic acid 3.2 proBNP 235 Influenza type A, type B, RSV, COVID 19: Not detected EKG tracing personally reviewed by me-normal sinus rhythm. Subtle ST segment depression in inferolateral leads. Chest x-ray film personally reviewed by me-cardiomegaly. Possible prominent interstitium Assessment and plan: -Acute on possible chronic hypoxic respiratory failure from COPD Discharge home on 2 L -Bilateral lower extremity edema. Chronic venous insufficiency Danny wrap -Bilateral pulmonary fibrosis -Severe hypokalemia from diuretics Replace potassium -Exacerbation COPD in a current smoker Discharge in Symbicort and albuterol when necessary -Chronic nicotine dependence patient cigarette smoker Nicotine patch -Chronic lower extremity venous insufficiency. Danny wrap . -Chronic insomnia Continue with melatonin -Chronic schizophrenia Continue with Risperdal -Hyperlipidemia Continue with Lipitor Disposition: [place] Smoke cessation counseling: This was done with the patient. Nicotine patch is being given. More than 3 minutes was spent for this Patient Condition at Discharge: Fair Plan - Discharge Summary Discharge Rx Participant: No New Discharge Prescriptions: New Albuterol Inhaler [Ventolin Hfa Inhaler] 2 puff INHALATION RT-Q4H PRN #1 gm PRN Reason: Shortness Of Breath Or Wheezing Nicotine 21Mg/24Hr Patch [Habitrol] 1 patch TRANSDERM DAILY #30 patch Budesonide/Formoterol Fumarate [Symbicort 160-4.5 Mcg Inhaler] 1 puff INHALATION BID #10.2 gm predniSONE 10 mg PO DAILY #30 tab Continue Ferrous Sulfate [Iron (65 MG Elemental)] 325 mg PO DAILY@0800 risperiDONE [RisperDAL] 3 mg PO HS@1999 Atorvastatin [Lipitor] 40 mg PO HS@1999 Melatonin 10 mg PO HS@1999 Famotidine [Pepcid] 20 mg PO BID@0600,1600 Cholecalciferol [Vitamin D3 (25 Mcg = 1000 Iu)] 50 mcg PO DAILY@0800 Folic Acid 1 mg PO Q48H Sennosides [Ex-Lax Chew] 15 mg PO DAILY Potassium Chloride [Potassium Chloride ER] 10 meq PO DAILY@0800 Discontinued metOLazone [Zaroxolyn] 5 mg PO DAILY@0630 Furosemide [Lasix] 40 mg PO BID@0700,1600 Discharge Medication List Atorvastatin [Lipitor] 40 mg PO HS@199908/07/20 [History] Ferrous Sulfate [Iron (65 MG Elemental)] 325 mg PO DAILY@0800 08/07/20 [History] Melatonin 10 mg PO HS@199908/07/20 [History] risperiDONE [RisperDAL] 3 mg PO HS@199908/07/20 [History] Cholecalciferol [Vitamin D3 (25 Mcg = 1000 Iu)] 50 mcg PO DAILY@0800 05/01/21 [History] Famotidine [Pepcid] 20 mg PO BID@0600,1600 05/01/21 [History] Folic Acid 1 mg PO Q48H 05/01/21 [History] Potassium Chloride [Potassium Chloride ER] 10 meq PO DAILY@0800 05/01/21 [History] Sennosides [Ex-Lax Chew] 15 mg PO DAILY 05/01/21 [History] Albuterol Inhaler [Ventolin Hfa Inhaler] 2 puff INHALATION RT-Q4H PRN #1 gm 05/03/21 [Rx] Budesonide/Formoterol Fumarate [Symbicort 160-4.5 Mcg Inhaler] 1 puff INHALATION BID #10.2 gm 05/03/21 [Rx] Nicotine 21Mg/24Hr Patch [Habitrol] 1 patch TRANSDERM DAILY #30 patch 05/03/21 [Rx] predniSONE 10 mg PO DAILY #30 tab 05/03/21 [Rx] Follow up Appointment(s)/Referral(s): [facility] [NON-STAFF] - As Needed (Supplier of Home Oxygen) Maycol Bourne MD [Primary Care Provider] - 1-2 days [facility],Clinic [REFERRING] - 1 Week Patient Instructions/Handouts: How to Stop Smoking (DC), COPD (Chronic Obstructive Pulmonary Disease) (DC) Activity/Diet/Wound Care/Special Instructions: fio2 [address] Beach recommends cinnamon sticks that you can buy at [employer] to help curb nictone cravings. Can hold like cigarette. Discharge Disposition: HOME SELF-CARE
== END 2021-05-03 17:33 | disposition home or self-care (01) ==
LOC: EC 20:42 → 6NMEDSUR 23:03
PROVIDERS: ADMIT Hospitalist; ATTEND Hospitalist
DX: J44.1 Chronic obstructive pulmonary disease with (acute) exacerbation (principal); J96.01 Acute respiratory failure with hypoxia; E86.0 Dehydration; E87.2 Acidosis; E87.6 Hypokalemia; T50.2X5A Adverse effect of carbonic-anhydrase inhibitors, benzothiadiazides and other diuretics, initial encounter; I50.9 Heart failure, unspecified; F20.9 Schizophrenia, unspecified; E78.5 Hyperlipidemia, unspecified; I87.2 Venous insufficiency (chronic) (peripheral); F17.210 Nicotine dependence, cigarettes, uncomplicated; R23.0 Cyanosis; F51.04 Psychophysiologic insomnia; I51.7 Cardiomegaly; J84.10 Pulmonary fibrosis, unspecified; Z20.822 Contact with and (suspected) exposure to COVID-19; Z79.899 Other long term (current) drug therapy; Z71.6 Tobacco abuse counseling
CPT/HCPCS: 96376 ×3; 96372 ×2; 96361 ×2; 96365; 96366; 96375; 99291; 36415; 94640 ×3; 94760; 93005; 93306; 83880; 80053; 80048; 83605 ×2; 83735; 84132; 84484; 85025; 85610; 85730; 87636; 71046; 71250; G0378 ×3; S4990 ×2; J2920; J2930 ×2; J3480; J1650 ×2

== ENCOUNTER 2022-08-11 14:49 | Inpatient (IN) | payer OTHER ==
[2022-08-11 15:11] LABS: Basophils % (A) 0 %; Eosinophils # (A) 0.1 k/uL (0-0.7); Eosinophils % (A) 1 %; HCT 46.6 % (39.0-53.0); HGB 14.7 gm/dL (13.0-17.5); Hypochromasia Slight; Lymphocytes # (A) 0.9 k/uL (1.0-4.8); Lymphocytes % (A) 15 %; MCH 32.3 pg (25.0-35.0); MCHC 31.5 g/dL (31.0-37.0); MCV 102.6 fL (80.0-100.0); Macrocytosis Slight; Mean Platelet Volume 8.4; Monocytes # (A) 0.4 k/uL (0-1.0); Monocytes % (A) 6 %; Neutrophils # (A) 4.5 k/uL (1.3-7.7); Neutrophils % (A) 76 %; Platelet Count 130 k/uL (150-450); RBC 4.55 m/uL (4.30-5.90); WBC 5.9 k/uL (3.8-10.6)
[2022-08-11] MEDS ORDERED: DIPH,PERTUS(ACELL)TETVAC-LF 0.5 ML VIAL IM ONE (15:20)
--- NOTE | 2022-08-11 15:31 | CT ---
EXAMINATION TYPE: CT brain cspine wo con CT DLP: 1476.3 mGycm, Automated exposure control for dose reduction was used. DATE OF EXAM: 08/11/2022 3:19 PM COMPARISON: None.. CLINICAL INDICATION:Male, 77 years old with history of fall; fall, hit head, seizure activity TECHNIQUE: Brain: Multiple axial CT images of the brain were obtained without IV contrast. Cspine: Axial CT images from the skull base to the inferior aspect of T2 we obtained without intraven ous contrast. Coronal and sagittal reformatted images were also reviewed. FINDINGS: Brain: Extra-axial spaces: No abnormal extra-axial fluid collections. Ventricular system: Within normal limits Cerebral parenchyma: Cerebral atrophy. No acute intraparenchymal hemorrhage or mass effect. The phillips -white junction is well differentiated. Nonspecific bilateral basal ganglia calcifications. Cerebellum: Unremarkable. Mass effect: No evidence of midline shift. Intracranial vasculature: Atherosclerotic calcifications of the intracranial vessels. Soft tissues: Normal. Calvarium/osseous structures: No depressed skull fracture. Paranasal sinuses and mastoid air cells: Partial opacification of the left mastoid air cells. Trace m ucosal thickening of the left sphenoid maxillary sinuses. Visualized orbits: Orbital contents are intact. Cervical spine: Fracture: None. Osseous structures: Unremarkable Vertebral alignment: No spondylolisthesis. Mild scoliotic curvature. Spinal canal/Neural Foramina: No evidence of significant spinal canal narrowing. No evidence for sign ificant neural foraminal stenosis. Neck soft tissues: Prevertebral soft tissues are within normal limits. Other: The airway is patent. Biapical pleural-parenchymal scarring with paraseptal emphysematous pa ges. Atelectatic calcification of the carotid bulbs bilaterally. IMPRESSION: 1. No acute intracranial process. 2. Partial opacification of the left mastoid air cells. Correlate for mastoiditis. 3. No evidence of cervical spine fracture.
--- NOTE | 2022-08-11 16:03 | XR ---
EXAMINATION TYPE: XR shoulder limited LT DATE OF EXAM: 08/11/2022 3:55 PM INDICATION: Patient age:Male; 77 years old; Reason for study: fall; COMPARISON: Left shoulder radiograph 08/07/2020 TECHNIQUE: The left shoulder was examined in AP and lateral projections.. FINDINGS: Diffuse bone demineralization which limits evaluation. Worsening displacement of known tomás ral neck fracture with displacement measuring grossly 5.5 cm posterior medially of the distal humerus in relation to the humeral head. The humeral heads appears to articulate with the fossa. There is anderson rrounding soft tissue edema. IMPRESSION: Worsening displacement of known left humeral neck fracture.
--- NOTE | 2022-08-11 16:31 | ED ---
General Adult HPI - General Chief complaint: Fall Stated complaint: Fall/seizure Time Seen by Provider: 08/11/22 14:53 Source: patient, EMS, RN notes reviewed, old records reviewed Mode of arrival: EMS Limitations: altered mental status - History of Present Illness Initial comments: 77-year-old male presents for evaluation of seizure, fall, and head injury. No prior seizure history. Patient was outside of the half-way [place] he resides, he was smoking a cigarette, he fell striking the back of his head. No anticoagulation. During transport he had a tonic-clonic seizure-like activity lasting approximately 30 seconds. He was initially postictal but rapidly improved emergency department. Patient also does complain of some left arm pain and had previous fracture of the humerus about 2 years ago. - Related Data Home Medications Medication Instructions Recorded Confirmed Atorvastatin [Lipitor] 40 mg PO HS@199908/07/20 05/01/21 Ferrous Sulfate [Iron (65 MG 325 mg PO DAILY@0800 08/07/20 05/01/21 Elemental)] Melatonin 10 mg PO HS@199908/07/20 05/01/21 risperiDONE [RisperDAL] 3 mg PO HS@199908/07/20 05/01/21 Cholecalciferol [Vitamin D3 (25 50 mcg PO DAILY@0800 05/01/21 05/01/21 Mcg = 1000 Iu)] Famotidine [Pepcid] 20 mg PO BID@0600,1600 05/01/21 05/01/21 Folic Acid 1 mg PO Q48H 05/01/21 05/01/21 Potassium Chloride [Klor-Con M10] 10 meq PO DAILY@0800 05/01/21 05/01/21 Sennosides [Ex-Lax Chew] 15 mg PO DAILY 05/01/21 05/01/21 Previous Rx's Medication Instructions Recorded Albuterol Inhaler [Ventolin Hfa 2 puff INHALATION RT-Q4H PRN #1 gm 05/03/21 Inhaler] Budesonide/Formoterol Fumarate 1 puff INHALATION BID #10.2 gm 05/03/21 [Symbicort 160-4.5 Mcg Inhaler] Nicotine 21Mg/24Hr Patch [Habitrol] 1 patch TRANSDERM DAILY #30 patch 05/03/21 predniSONE 10 mg PO DAILY #30 tab 05/03/21 Allergies Allergy/AdvReac Type Severity Reaction Status Date / Time No Known Allergies Allergy Verified 08/11/22 14:57 Review of Systems ROS Statement: Those systems with pertinent positive or pertinent negative responses have been documented in the HPI. ROS Other: All systems not noted in ROS Statement are negative. Past Medical History Past Medical History: Heart Failure, Hyperlipidemia Additional Past Medical History / Comment(s): Schizophrenia History of Any Multi-Drug Resistant Organisms: None Reported Past Surgical History: No Surgical Hx Reported Past Anesthesia/Blood Transfusion Reactions: No Reported Reaction Past Psychological History: Schizophrenia Smoking Status: Current some day smoker Past Alcohol Use History: None Reported Past Drug Use History: None Reported - Past Family History Father Family Medical History: Unable to Obtain Mother Family Medical History: Unable to Obtain General Exam Limitations: altered mental status General appearance: alert, in no apparent distress Head exam: Present: other (Minor occipital abrasion no hematoma no laceration) Eye exam: Present: normal appearance, PERRL Neck exam: Present: normal inspection. Absent: tenderness, meningismus Respiratory exam: Present: wheezes, decreased breath sounds. Absent: respiratory distress Cardiovascular Exam: Present: regular rate, normal rhythm GI/Abdominal exam: Present: soft. Absent: distended, tenderness, guarding Extremities exam: Present: other (Pain with range of motion left shoulder, distal pulses intact) Neurological exam: Present: alert, oriented X3, CN II-XII intact. Absent: motor sensory deficit Psychiatric exam: Present: normal affect, normal mood Skin exam: Present: warm, dry, intact. Absent: cyanosis, diaphoretic Course Vital Signs 08/11/22 08/11/22 08/11/22 14:52 14:57 15:57 Temperature 98.2 F Pulse Rate 82 76 Respiratory 16 18 Rate Blood Pressure 164/98 144/94 O2 Sat by Pulse 89 L 93 L 95 Oximetry EKG Findings - EKG Comments: EKG Findings:: EKG: Sinus rhythm rate of 80, MO interval 209, QRS duration 92, QTC 455, no ST segment elevation. Medical Decision Making - Medical Decision Making Was pt. sent in by a medical professional or institution (, PA, DRAWBENCH OPERATOR, urgent care, hospital, or residential...) When possible be specific @ -No Did you speak to anyone other than the patient for history (EMS, parent, family, police, friend...)? What history was obtained from this source @ Paramedics Did you review nursing and triage notes (agree or disagree)? Why? @ -I reviewed and agree with nursing and triage notes Were old charts reviewed (outside hosp., previous admission, EMS record, old EKG, old radiological studies, urgent care reports/EKG's, residential records)? Report findings @ Previous shoulder x-ray with fracture noted Differential Diagnosis (chest pain, altered mental status, abdominal pain women, abdominal pain men, vaginal bleeding, weakness, fever, dyspnea, syncope, headache, dizziness, GI bleed, back pain, seizure, CVA, palpatations, mental health, musculoskeletal)? @ -not applicable EKG interpreted by me (3pts min.). @ -As above X-rays interpreted by me (1pt min.). @ Humeral neck fracture with significant displacement CT interpreted by me (1pt min.). @ Negative for intracranial hemorrhage or mass effect U/S interpreted by me (1pt. min.). @ -None done What testing was considered but not performed or refused? (CT, X-rays, U/S, labs)? Why? @ -None What meds were considered but not given or refused? Why? @ -None Did you discuss the management of the patient with other professionals (professionals i.e. , PA, DRAWBENCH OPERATOR, lab, RT, psych nurse, social media assistant, treatment counselor, teacher, surveillance dual rate officer, telephonic nurse case manager)? Give summary @ [facility] Was smoking cessation discussed for >3mins.? @ -No Was critical care preformed (if so, how long)? @ -No Were there social determinants of health that impacted care today? How? (Homelessness, low income, unemployed, alcoholism, drug addiction, trans portation, low edu. Level, literacy, decrease access to med. care, fpc, rehab)? @ -No Was there de-escalation of care discussed even if they declined (Discuss DNR or withdrawal of care, Hospice)? DNR status @ -No What co-morbidities impacted this encounter? (DM, HTN, Smoking, COPD, CAD, Cancer, CVA, ARF, Chemo, Hep., AIDS, mental health diagnosis, sleep apnea, morbid obesity)? @ COPD, Was patient admitted / discharged? Hospital course, mention meds given and route, prescriptions, significant lab abnormalities, going to OR and other pertinent info. @77 -year-old male with fall, seizure activity which was witnessed by paramedics. No intracranial hemorrhage. Patient does have left shoulder pain and had a previous fracture approximately 2 years ago. Still show worsening displacement of fracture. He is neurovascularly intact in the left arm and is placed in a sling. This management is outpatient but given the concern for new onset seizure he will be observed overnight admitted to internal medicine. Undiagnosed new problem with uncertain prognosis? @ -No Drug Therapy requiring intensive monitoring for toxicity (Heparin, Nitro, Insulin, Cardizem)? @ -No Were any procedures done? @ -No Diagnosis/symptom? @ New-onset seizure, acute on chronic left humerus fracture Acute, or Chronic, or Acute on Chronic? @ Acute Uncomplicated (without systemic symptoms) or Complicated (systemic symptoms)? @ Complicated Side effects of treatment? @ -No Exacerbation, Progression, or Severe Exacerbation? @ -No Poses a threat to life or bodily function? How? (Chest pain, [place], [place], pneumonia, PE, COPD, DKA, ARF, appy, cholecystitis, CVA, Diverticulitis, Homicidal, Suicidal, threat to staff... and all critical care pts) @ -[Yes, new onset seizure - Lab Data Result diagrams: 08/11/22 15:03 08/11/22 16:07 Lab Results 08/11/22 08/11/22 Range/Units 15:03 16:07 WBC 5.9 (3.8-10.6) k/uL RBC 4.55 (4.30-5.90) m/uL Hgb 14.7 (13.0-17.5) gm/dL Hct 46.6 (39.0-53.0) % MCV 102.6 H (80.0-100.0) fL MCH 32.3 (25.0-35.0) pg MCHC 31.5 (31.0-37.0) g/dL RDW 13.0 (11.5-15.5) % Plt Count 130 L (150-450) k/uL MPV 8.4 Neutrophils % 76 % Lymphocytes % 15 % Monocytes % 6 % Eosinophils % 1 % Basophils % 0 % Neutrophils # 4.5 (1.3-7.7) k/uL Lymphocytes # 0.9 L (1.0-4.8) k/uL Monocytes # 0.4 (0-1.0) k/uL Eosinophils # 0.1 (0-0.7) k/uL Basophils # 0.0 (0-0.2) k/uL Hypochromasia Slight Macrocytosis Slight Sodium 134 L (137-145) mmol/L Potassium 4.4 (3.5-5.1) mmol/L Chloride 94 L (98-107) mmol/L Carbon Dioxide 40 H (22-30) mmol/L Anion Gap 0 mmol/L BUN 9 (9-20) mg/dL Creatinine 0.45 L (0.66-1.25) mg/dL Est GFR (CKD-EPI)AfAm >90 (>60 ml/min/1.73 sqM) Est GFR (CKD-EPI)NonAf >90 (>60 ml/min/1.73 sqM) Glucose 87 (74-99) mg/dL Calcium 8.7 (8.4-10.2) mg/dL Magnesium 1.9 (1.6-2.3) mg/dL Total Bilirubin 0.4 (0.2-1.3) mg/dL AST 40 (17-59) U/L ALT 34 (4-49) U/L Alkaline Phosphatase 90 (38-126) U/L Total Protein 6.0 L (6.3-8.2) g/dL Albumin 3.9 (3.5-5.0) g/dL Disposition Clinical Impression: Seizure, Humerus fracture Disposition: ADMITTED IP TO THIS [facility] Condition: Stable Is patient prescribed a controlled substance at d/c from ED?: No Referrals: Maycol Bourne MD [Primary Care Provider] - 1-2 days Time of Disposition: 16:43
[2022-08-11 16:35] LABS: ALT 34 U/L (4-49); AST 40 U/L (17-59); African American GFR (CKD) >90 (>60 ml/min/1.73 sqM); Albumin 3.9 g/dL (3.5-5.0); Alkaline Phosphatase 90 U/L (38-126); Anion Gap 0 mmol/L; Blood Urea Nitrogen 9 mg/dL (9-20); Calcium 8.7 mg/dL (8.4-10.2); Carbon Dioxide 40 mmol/L (22-30); Chloride 94 mmol/L (98-107); Glucose 87 mg/dL (74-99); Magnesium 1.9 mg/dL (1.6-2.3); Non-African American GFR(CKD) >90 (>60 ml/min/1.73 sqM); Potassium 4.4 mmol/L (3.5-5.1); Sodium 134 mmol/L (137-145); Total Bilirubin 0.4 mg/dL (0.2-1.3)
[2022-08-11] MEDS ORDERED: ACETAMINOPHEN TAB 325 MG TAB PO PRN (16:47)
[2022-08-11] MEDS ORDERED: NALOXONE 0.4 MG/ML 1 ML VIAL IV PRN (16:47)
[2022-08-11] MEDS ORDERED: SODIUM CHLORIDE 0.9% 1,000 ML IV SCH (17:00)
[2022-08-11] MEDS ORDERED: IPRATROPIUM-ALBUTEROL 3 ML NEB INHALATION PRN (17:19)
--- NOTE | 2022-08-11 17:30 | P.HPIM ---
History of Present Illness H&P Date: 08/11/22 Chief Complaint: fall and new onset seizure Patient is a 77-year-old male with a past medical history of hyperlipidemia, schizophrenia, tobacco abuse, chronic venous insufficiency, primary fibrosis, COPD was supposed to be on 2 L nasal cannula but is noncompliant was brought in by EMS due to a fall. On route to the hospital patient had a tonic-clonic seizure. When patient arrived to the ED he did have some postictal confusion which has now resolved. Patient does not remember the fall. Patient denies any urinary incontinence or tongue soreness. He denies any history of seizure. In the ED patient had trauma workup done and he was found to have worsening displacement of known left humeral neck fracture. Patient was also 89% on room air. Patient states that he does not want to wear oxygen. Review of symptoms: 10 ROS reviewed and are negative except as noted in HPI Physical exam General: [Alert and oriented, patient appears chronically debilitated, mild respiratory distress]. Eye: [PERRL, EOMI, normal conjunctiva]. HENT: [Normocephalic, clear tympanic membranes, normal hearing, moist oral mucosa, no scleral icterus, no sinus tenderness]. Neck: [Supple, non-tender, no carotid bruits, no JVD, no lymphadenopathy]. Lungs: [Clear to auscultation and percussion, non-labored respiration]. Heart: [Normal rate, regular rhythm, no murmur, +1 pitting edema bilateral lower extremities]. Abdomen: [Soft, non-tender, non-distended, normal bowel sounds, no masses, morbidly obese]. Musculoskeletal: [Restricted range of motion of the left arm which is in sling ]. Neurologic: [Awake, alert, and oriented X3, CN II-XII intact]. Psychiatric: [Cooperative, appropriate mood and affect]. Assessment Fall New-onset seizure Left humeral fracture Acute hypoxic respiratory failure COPD exacerbation was supposed to be on 2 L nasal cannula Noncompliant with home oxygen Chronic issues History of primary fibrosis Tobacco abuse Chronic venous insufficiency Schizophrenia Hyperlipidemia Plan I suspect patient initially had a seizure then fall Patient seizure may have been provoked by hypoxia When necessary Ativan for seizure Check MRI brain with and without contrast We'll consult neurology Consults orthopedic surgery PT OT consult Patient counseled on compliance with his oxygen Check chest x-ray IV Solu-Medrol, DuoNeb, doxycycline Resume Symbicort Nicotine patch We'll start patient on low-dose Lasix for his lower extremity venous insuffi ciency. We'll also resume his home dose spironolactone We'll monitor BMP closely Resume risperidone Resume statin DVT prophylaxis: Subcu heparin Past Medical History Past Medical History: Heart Failure, Hyperlipidemia Additional Past Medical History / Comment(s): Schizophrenia History of Any Multi-Drug Resistant Organisms: None Reported Past Surgical History: No Surgical Hx Reported Past Anesthesia/Blood Transfusion Reactions: No Reported Reaction Past Psychological History: Schizophrenia Smoking Status: Current some day smoker Past Alcohol Use History: None Reported Past Drug Use History: None Reported - Past Family History Father Family Medical History: Unable to Obtain Mother Family Medical History: Unable to Obtain Medications and Allergies Home Medications Medication Instructions Recorded Confirmed Type Atorvastatin [Lipitor] 40 mg PO HS@199908/07/20 08/11/22 History Melatonin 10 mg PO HS@199908/07/20 08/11/22 History risperiDONE [RisperDAL] 3 mg PO HS@199908/07/20 08/11/22 History Cholecalciferol [Vitamin D3 (25 50 mcg PO DAILY@0800 05/01/21 08/11/22 History Mcg = 1000 Iu)] Famotidine [Pepcid] 20 mg PO BID@0600,1600 05/01/21 08/11/22 History Folic Acid 1 mg PO Q2D 05/01/21 08/11/22 History Albuterol Inhaler [Ventolin Hfa 2 puff INHALATION RT-Q6H PRN 08/11/22 08/11/22 History Inhaler] Fluticasone Propion/Salmeterol 1 puff INHALATION RT-BID 08/11/22 08/11/22 History [Fluticasone-Salmeterol 500-50] Spironolactone [Aldactone] 50 mg PO DAILY@0800 08/11/22 08/11/22 History Allergies Allergy/AdvReac Type Severity Reaction Status Date / Time No Known Allergies Allergy Verified 08/11/22 16:44 Physical Exam Osteopathic Statement: *. No significant issues noted on an osteopathic structural exam other than those noted in the History and Physical/Consult. Vitals: Vital Signs Temp Pulse Resp BP Pulse Ox 08/11/22 15:57 76 18 144/94 95 08/11/22 14:57 93 L 08/11/22 14:52 98.2 F 82 16 164/98 89 L Intake and Output 08/11/22 08/11/22 08/11/22 06:59 14:59 22:59 Other: Weight 105.143 kg Results CBC & Chem 7: 08/11/22 15:03 08/11/22 16:07 Labs: Abnormal Lab Results - Last 24 Hours (Table) 08/11/22 08/11/22 Range/Units 15:03 16:07 MCV 102.6 H (80.0-100.0) fL Plt Count 130 L (150-450) k/uL Lymphocytes # 0.9 L (1.0-4.8) k/uL Sodium 134 L (137-145) mmol/L Chloride 94 L (98-107) mmol/L Carbon Dioxide 40 H (22-30) mmol/L Creatinine 0.45 L (0.66-1.25) mg/dL Total Protein 6.0 L (6.3-8.2) g/dL
[2022-08-11] MEDS ORDERED: levETIRAcetam IV 500 MG/5 ML VIAL IVP STA (17:35)
--- NOTE | 2022-08-11 17:36 | XR ---
EXAMINATION TYPE: XR chest 1V portable DATE OF EXAM: 08/11/2022 5:28 PM COMPARISON: Chest radiographs from 05/01/2021, CT chest 05/02/2021 , left shoulder radiograph the same date. TECHNIQUE: XR chest 1V portable Portable AP radiograph of the chest. CLINICAL INDICATION:Male, 77 years old with history of hypoxia; FINDINGS: Lungs/Pleura: There is no evidence of pleural effusion, focal consolidation, or pneumothorax. Unchang ed linear scarring within the right midlung. Chronic pulmonary fibrotic changes. Pulmonary vascularity: Unremarkable. Heart/mediastinum: Cardiomediastinal silhouette is unremarkable. Musculoskeletal: No acute osseous pathology. Similar worsened displacement of known left humeral neck fracture. IMPRESSION: 1. Chronic pulmonary fibrotic changes without evidence for acute pulmonary process. 2. Known left humeral neck fracture redemonstrated from earlier shoulder radiograph today.
[2022-08-11] MEDS: FOLIC ACID 1 MG TAB PO SCH (18:24)
[2022-08-11] MEDS: methylPREDNISolone SOD SUCCI 125 MG/2 ML VIAL IV SCH (18:25)
[2022-08-11] MEDS: NICOTINE 21MG/24HR PATCH TRANSDERM SCH (18:26)
[2022-08-11] MEDS: FUROSEMIDE 10 MG/ML 2 ML VIAL IV SCH (18:26)
[2022-08-11] MEDS: SYMBICORT 160-4.5 MCG INHALER INHALATION SCH (20:56)
[2022-08-11] MEDS: IPRATROPIUM-ALBUTEROL 3 ML NEB INHALATION SCH (20:57)
[2022-08-11] MEDS: HEPARIN SODIUM,PORCINE/PF 5,000 UNIT/0.5 ML SYRINGE SQ SCH (21:23)
[2022-08-11] MEDS: DOXYCYCLINE 100 MG CAP PO SCH (21:23)
[2022-08-11] MEDS: ATORVASTATIN 40 MG TAB PO SCH (21:23)
[2022-08-11] MEDS: risperiDONE 1 MG TAB PO SCH (21:23)
[2022-08-11] MEDS: MELATONIN 5 MG TABLET PO SCH (21:23)
[2022-08-11] MEDS: levETIRAcetam 500 MG TAB PO SCH (21:25)
[2022-08-12] MEDS: methylPREDNISolone SOD SUCCI 125 MG/2 ML VIAL IV SCH ×4 (00:15→17:20)
[2022-08-12] MEDS: FAMOTIDINE 20 MG TAB PO SCH ×2 (06:18→17:20)
[2022-08-12] MEDS: IPRATROPIUM-ALBUTEROL 3 ML NEB INHALATION SCH ×4 (07:52→21:51)
[2022-08-12] MEDS: SYMBICORT 160-4.5 MCG INHALER INHALATION SCH ×2 (07:52→21:51)
--- NOTE | 2022-08-12 08:33 | P.CNOR ---
History of Present Illness - [facility] Consult date: 08/12/22 Consult reason: fracture (Left proximal humerus) History of present illness: This is a 77-year-old male with history of schizophrenia and seizure disorder. The patient also has history of COPD and is on 2 L of O2 per nasal cannula. He has a chronic left proximal humerus fracture which was evident on chest x-ray from 2020. The patient had x-rays upon arrival to the ER after a seizure and there is further displacement of the fracture noted. He is admitted to internal medicine and we're consulted for orthopedic evaluation of the left shoulder. On exam today the patient denies pain in the shoulder. Past Medical History Past Medical History: Heart Failure, Hyperlipidemia Additional Past Medical History / Comment(s): Schizophrenia History of Any Multi-Drug Resistant Organisms: None Reported Past Surgical History: No Surgical Hx Reported Past Anesthesia/Blood Transfusion Reactions: No Reported Reaction Past Psychological History: Schizophrenia Smoking Status: Current some day smoker Past Alcohol Use History: None Reported Past Drug Use History: None Reported - Past Family History Father Family Medical History: Unable to Obtain Mother Family Medical History: Unable to Obtain Medications and Allergies Home Medications Medication Instructions Recorded Confirmed Type Atorvastatin [Lipitor] 40 mg PO HS@199908/07/20 08/11/22 History Melatonin 10 mg PO HS@199908/07/20 08/11/22 History risperiDONE [RisperDAL] 3 mg PO HS@199908/07/20 08/11/22 History Cholecalciferol [Vitamin D3 (25 50 mcg PO DAILY@0800 05/01/21 08/11/22 History Mcg = 1000 Iu)] Famotidine [Pepcid] 20 mg PO BID@0600,1600 05/01/21 08/11/22 History Folic Acid 1 mg PO Q2D 05/01/21 08/11/22 History Albuterol Inhaler [Ventolin Hfa 2 puff INHALATION RT-Q6H PRN 08/11/22 08/11/22 History Inhaler] Fluticasone Propion/Salmeterol 1 puff INHALATION RT-BID 08/11/22 08/11/22 History [Fluticasone-Salmeterol 500-50] Spironolactone [Aldactone] 50 mg PO DAILY@0800 08/11/22 08/11/22 History Allergies Allergy/AdvReac Type Severity Reaction Status Date / Time No Known Allergies Allergy Verified 08/11/22 16:44 Physical Examination This is a 77-year-old male in no acute distress. He is alert but very drowsy. Exam of the left upper extremity reveals no obvious deformity. The patient is able to actively raise the arm to about 90 of forward flexion and abduction. He is able to externally rotate the shoulder without too much difficulty. He has no apparent pain with motion of the shoulder. Neurovascular status to the upper extremity is intact. Results X-rays of the left shoulder and humerus reveal a chronic humeral neck fracture with displacement. - Labs Labs: Abnormal Lab Results - Last 24 Hours (Table) 08/11/22 08/11/22 Range/Units 15:03 16:07 MCV 102.6 H (80.0-100.0) fL Plt Count 130 L (150-450) k/uL Lymphocytes # 0.9 L (1.0-4.8) k/uL Sodium 134 L (137-145) mmol/L Chloride 94 L (98-107) mmol/L Carbon Dioxide 40 H (22-30) mmol/L Creatinine 0.45 L (0.66-1.25) mg/dL Total Protein 6.0 L (6.3-8.2) g/dL H & H 08/11/22 Range/Units 15:03 Hgb 14.7 (13.0-17.5) gm/dL Hct 46.6 (39.0-53.0) % Result Diagrams: 08/11/22 15:03 08/11/22 16:07 Assessment and Plan (1) Humerus fracture Current Visit: Yes Status: Acute Code(s): S42.309A - UNSP FRACTURE OF SHAFT OF HUMERUS, UNSP ARM, INIT SNOMED Code(s): 81759491 (2) Seizure Current Visit: Yes Status: Acute Code(s): R56.9 - UNSPECIFIED CONVULSIONS SNOMED Code(s): 79357832 (3) Acute exacerbation of chronic obstructive pulmonary disease Current Visit: No Status: Acute Code(s): J44.1 - CHRONIC OBSTRUCTIVE PULMONARY DISEASE W (ACUTE) EXACERBATION SNOMED Code(s): 949513688 Plan: The clinical and exercises are discussed the patient and nursing staff. This is a chronic fracture. He likely had further displacement secondary to the tonicclonic seizure. He does not appear to be in much pain and is able to use the arm. I will continue to treat the chronic fracture conservatively. He follow-up with our office as needed.
[2022-08-12 09:15] LABS: Basophils # (A) 0.02 X 10*3/uL (0.00-0.10); Basophils % (A) 0.3 %; Eosinophils # (A) 0 X 10*3/uL (0.04-0.35); Eosinophils % (A) 0 %; HCT 47.5 % (39.6-50.0); HGB 14.9 g/dL (13.0-17.0); Immature Grans, Automated 0.8 %; Lymphocytes # (A) 0.16 X 10*3/uL (0.90-5.00); Lymphocytes % (A) 2.5 %; MCH 32.5 pg (27.0-32.0); MCHC 31.4 g/dL (32.0-37.0); MCV 103.5 fL (80.0-97.0); Mean Platelet Volume 10.5 fL (9.5-12.2); Monocytes # (A) 0.06 X 10*3/uL (0.20-1.00); Monocytes % (A) 0.9 %; NRBC Per 100 WBC 0 /100 WBCS (0.0-0.0); Neutrophils % (A) 95.5 %; Platelet Count 134 X 10*3/uL (140-440); RBC 4.59 X 10*6/uL (4.40-5.60); RDW 13.3 % (11.5-14.5); WBC 6.39 X 10*3/uL (4.50-10.00)
[2022-08-12 09:18] LABS: African American GFR (CKD) 122.9 (60.0-200.0); Anion Gap 6.6 mmol/L (10.00-18.00); BUN/Creat Ratio 15.6 Ratio (12.00-20.00); Blood Urea Nitrogen 7.8 mg/dL (9.0-27.0); Calcium 9.1 mg/dL (8.7-10.3); Carbon Dioxide 36.4 mmol/L (20.0-27.5); Magnesium 2.1 mg/dL (1.5-2.4)
[2022-08-12] MEDS: HEPARIN SODIUM,PORCINE/PF 5,000 UNIT/0.5 ML SYRINGE SQ SCH ×2 (09:23→20:03)
[2022-08-12] MEDS: NICOTINE 21MG/24HR PATCH TRANSDERM SCH (09:23)
[2022-08-12] MEDS: CHOLECALCIFEROL 25 MCG (1000 IU) TABLET PO SCH (09:24)
[2022-08-12] MEDS: levETIRAcetam 500 MG TAB PO SCH ×2 (09:24→20:03)
[2022-08-12] MEDS: FUROSEMIDE 10 MG/ML 2 ML VIAL IV SCH (09:24)
[2022-08-12] MEDS: DOXYCYCLINE 100 MG CAP PO SCH ×2 (09:24→20:03)
[2022-08-12] MEDS: SPIRONOLACTONE 25 MG TAB PO SCH (09:24)
[2022-08-12 10:04] LABS: Alcohol <10 mg/dL
--- NOTE | 2022-08-12 11:22 | P.CNNES ---
History of Present Illness Consult date: 08/12/22 Requesting physician: Mynor Saxena Reason for Consult: new onset seizure History of Present Illness: This is a 77-year-old gentleman with history of COPD on 2 L nasal cannula but noncompliant, tobacco use who presented emergency department via EMS due to fall. Some of the history is obtained from the medical record. She stated that yesterday he was outside his house smoking a cigarette and all of a sudden he fell denies any loss of consciousness. He denies having any worsening of shortness of breath chest pain visual disturbance or any weakness. But he doesn't recall the details of the fall but he denies any losses consciousness that he recalls. On route to the hospital that per medical record and is seems the patient had tonic-clonic seizure and then when the patient arrived to the ED he had some postictal confusion which resolved. Patient stated that he has urinary incontinence. Denied any tongue bite or bowel incontinence. He denies any history of seizure. Upon presenting to he had a pulse ox of 89% on room air. Patient stated that that this fall was unwitnessed but does not recall who called EMS. Currently he denies of any focal weakness, numbness, visual disturbance or any headaches. Per the nurse he's very short of breath even though he is on oxygen. Patient denies off alcohol use or any illicit drug use that. Some of the workup during this hospital visit consisted of: white blood cell is within normal limits. MCV is 102.6 and repeat is 103.5 platelets 130. Calcium, glucose before meals and ALT are within normal limits. Initial sodium was 134 and the repeat is 140. Given had CT of cervical spine was reported as no acute intracranial processes. Partial opacification a left mastoid air cell. Correlate for mastoiditis. No evidence for cervical spine fracture. Surgery the CT and I agree there is no acute subacute ischemia. There is no mass effect. Left shoulder x-ray was reported as worsening displacement known left humeral neck fracture Per the primary team, he notified me that the neurologist professional caster yesterday (Dr. Payne) recommended the start of Keppra 500 mg every 12 hours. Review of Systems Review of system: The 12 point system was reviewed and apparent positive and negative per HPI. Past Medical History Past Medical History: Heart Failure, Hyperlipidemia Additional Past Medical History / Comment(s): Schizophrenia History of Any Multi-Drug Resistant Organisms: None Reported Past Surgical History: No Surgical Hx Reported Past Anesthesia/Blood Transfusion Reactions: No Reported Reaction Past Psychological History: Schizophrenia Smoking Status: Current some day smoker Past Alcohol Use History: None Reported Past Drug Use History: None Reported - Past Family History Father Family Medical History: Unable to Obtain Mother Family Medical History: Unable to Obtain Medications and Allergies Home Medications Medication Instructions Recorded Confirmed Type Atorvastatin [Lipitor] 40 mg PO HS@199908/07/20 08/11/22 History Melatonin 10 mg PO HS@199908/07/20 08/11/22 History risperiDONE [RisperDAL] 3 mg PO HS@199908/07/20 08/11/22 History Cholecalciferol [Vitamin D3 (25 50 mcg PO DAILY@0800 05/01/21 08/11/22 History Mcg = 1000 Iu)] Famotidine [Pepcid] 20 mg PO BID@0600,1600 05/01/21 08/11/22 History Folic Acid 1 mg PO Q2D 05/01/21 08/11/22 History Albuterol Inhaler [Ventolin Hfa 2 puff INHALATION RT-Q6H PRN 08/11/22 08/11/22 History Inhaler] Fluticasone Propion/Salmeterol 1 puff INHALATION RT-BID 08/11/22 08/11/22 History [Fluticasone-Salmeterol 500-50] Spironolactone [Aldactone] 50 mg PO DAILY@0800 08/11/22 08/11/22 History Allergies Allergy/AdvReac Type Severity Reaction Status Date / Time No Known Allergies Allergy Verified 08/11/22 16:44 Physical Examination - Vital Signs Vital Signs: Vital Signs Temp Pulse Pulse Resp BP BP Pulse Ox 08/12/22 08:26 90 20 08/12/22 08:01 80 08/12/22 07:52 80 90 L 08/12/22 07:08 97.9 F 90 20 149/87 90 L 08/12/22 01:51 97.4 F L 64 19 125/69 98 08/11/22 20:57 72 08/11/22 19:55 97.3 F L 87 20 110/69 97 08/11/22 18:00 75 20 139/75 94 L 08/11/22 15:57 76 18 144/94 95 05/07/23 14:57 93 L 08/11/22 14:52 98.2 F 82 16 164/98 89 L Intake and Output 08/11/22 08/12/22 08/12/22 22:59 06:59 14:59 Intake Total 100 Output Total 275 150 Balance -275 -50 Intake: Oral 100 Output: Urine 275 150 Other: # Voids 1 Weight 105.143 kg GENERAL: The patient is lying in bed and is not in acute distress. CHEST: The heart rate is regular rate rhythm. No murmurs to auscultation. LUNG: Wheezing even without ausculation. Is on Nasal canuli. Not labored breathing. ABDOMEN/GI: Bowel sounds present in all 4 quadrants. No tenderness to palpation throughout. NEUROLOGICAL: Higher mental function: The patient is awake, alert, oriented to self, place and time. Patient is following commands. No aphasia and no neglect. Cranial nerves: The pupils are round, equal and reactive to light. Visual morfin are full to confrontation throughout. Extraocular movement is intact no nystagmus is noted. Facial sensation is normal to touch throughout. The facial strength is normal throughout. Hearing is very hard of hearing bilaterally to hand rub. Tongue is midline and moved [id number] without any difficulty. No dysarthria is noted. Shoulder shrug is normal bilaterally. Motor: The strength is 5 over 5 throughout uppers and lowers. Normal tone and bulk. Cerebellum: Normal finger to nose bilaterally. Sensation: Sensation is normal to touch throughout. Reflexes (right/left): Brachioradialis is 3+ bilaterally (feel more brisk over the left than right). Otherwise 2+. Plantars are mute bilaterally. Results - Laboratory Findings CBC and BMP: 08/12/22 05:39 08/12/22 05:39 Abnormal Lab Findings: Abnormal Labs 08/11/22 08/11/22 08/12/22 15:03 16:07 05:39 MCV 102.6 H 103.5 H MCH 32.5 H MCHC 31.4 L Plt Count 130 L 134 L Immature Gran # 0.05 H Lymphocytes # 0.9 L 0.16 L Monocytes # 0.06 L Eosinophils # 0 L Sodium 134 L Chloride 94 L Carbon Dioxide 40 H Anion Gap BUN Creatinine 0.45 L Total Protein 6.0 L 08/12/22 05:39 MCV MCH MCHC Plt Count Immature Gran # Lymphocytes # Monocytes # Eosinophils # Sodium Chloride Carbon Dioxide 36.4 H Anion Gap 6.60 L BUN 7.8 L Creatinine 0.5 L Total Protein Assessment and Plan Assessment: This is a 77-year-old gentleman who presented to the emergency department because of a fall. On route to the hospital he had a tonic-clonic seizure witnessed by EMS and was in post-ictal state on arrival New onset seizure Worsening displaced the left humeral neck fracture due to fall Macrocytosis Brisk reflex of uppers: Rule out cervical myleopathy COPD and suppose to be on 2L nasal canuli and it appears noncompliant Hypoxia due to COPD Tobacco use Plan: Routine EEG is ordered as well as MRI of the brain seizure protocol as ordered Patient is on Keppra 500 mg every 12 hours and was given a loading dose of 1500 mg once and per the primary team and was recommended by the on-call neurologist (Dr. Payne). I ordered vitamin B12 and folate level because of the patient macrocytosis Patient is on seizure precaution seizure pads I ordered alcohol level Orthopedic surgery team is consulted for the humeral fracture Per [facility] because of the seizures, to avoid driving for 6 off until seizure-free. To avoid heights, swim unassisted or using heavy machinery We'll defer the rest of the medical management to primary team The plan was discussed with the patient, the primary team and his nurse. Thank you for the consultation Time with Patient: Greater than 30
--- NOTE | 2022-08-12 15:46 | P.PN ---
Subjective Progress Note Date: 08/12/22 Patient is a 77-year-old male with a past medical history of hyperlipidemia, schizophrenia, tobacco abuse, chronic venous insufficiency, primary fibrosis, COPD was supposed to be on 2 L nasal cannula but is noncompliant was brought in by EMS due to a fall. On route to the hospital patient had a tonic-clonic seizure. When patient arrived to the ED he did have some postictal confusion which has now resolved. Patient does not remember the fall. Patient denies any urinary incontinence or tongue soreness. He denies any history of seizure. In the ED patient had trauma workup done and he was found to have worsening displacement of known left humeral neck fracture. Patient was also 89% on room air. Patient states that he does not want to wear oxygen. Today patient states that he is feeling better. He is denying any acute complaints. 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 Assessment Fall New-onset seizure Left humeral fracture Acute hypoxic respiratory failure COPD exacerbation was supposed to be on 2 L nasal cannula Noncompliant with home oxygen Chronic issues History of primary fibrosis Tobacco abuse Chronic venous insufficiency Schizophrenia Hyperlipidemia Plan I suspect patient initially had a seizure then fall Patient seizure may have been provoked by hypoxia Patient started on Keppra 500 mg twice a day Check MRI brain with and without contrast Check EEG Neurology on board I reviewed note from orthopedic surgery who is recommending conservative management and to follow-up in the office PT OT consult Patient counseled on compliance with his oxygen I reviewed patient's chest x-ray which is unremarkable IV Solu-Medrol, DuoNeb, doxycycline Resume Symbicort Nicotine patch Resume spironolactone and was start low-dose Lasix for his chronic lymphedema Resume risperidone Resume statin DVT prophylaxis: Subcu heparin Anticipated discharge: The next 24-[address]: PT OT consult pending Objective - Vital Signs Vital signs: Vital Signs Temp 98.6 F 08/12/22 14:00 Pulse 78 08/12/22 15:01 Resp 16 08/12/22 14:00 BP 157/64 08/12/22 14:00 Pulse Ox 93 L 08/12/22 14:00 FiO2 Intake & Output 08/11/22 08/12/22 08/12/22 18:59 06:59 18:59 Intake Total 100 Output Total 425 Balance -325 Weight 105.143 kg Intake: Oral 100 Output: Urine 425 Other: # Voids 1 - Labs CBC & Chem 7: 08/12/22 05:39 08/12/22 05:39 Labs: Abnormal Lab Results - Last 24 Hours (Table) 08/11/22 08/12/22 08/12/22 Range/Units 16:07 05:39 05:39 MCV 103.5 H (80.0-97.0) fL MCH 32.5 H (27.0-32.0) pg MCHC 31.4 L (32.0-37.0) g/dL Plt Count 134 L (140-440) X 10*3/uL Immature Gran # 0.05 H (0.00-0.04) X 10*3/uL Lymphocytes # 0.16 L (0.90-5.00) X 10*3/uL Monocytes # 0.06 L (0.20-1.00) X 10*3/uL Eosinophils # 0 L (0.04-0.35) X 10*3/uL Sodium 134 L (137-145) mmol/L Chloride 94 L (98-107) mmol/L Carbon Dioxide 40 H 36.4 H (22-30) mmol/L Anion Gap 6.60 L (10.00-18.00) mmol/L BUN 7.8 L (9.0-27.0) mg/dL Creatinine 0.45 L 0.5 L (0.66-1.25) mg/dL Total Protein 6.0 L (6.3-8.2) g/dL
[2022-08-12] MEDS: MELATONIN 5 MG TABLET PO SCH (20:03)
[2022-08-12] MEDS: risperiDONE 1 MG TAB PO SCH (20:03)
[2022-08-12] MEDS: ATORVASTATIN 40 MG TAB PO SCH (20:03)
--- NOTE | 2022-08-12 23:02 | EEG ---
ELECTROENCEPHALOGRAM REPORT CLINICAL HISTORY: This is a 77-year-old gentleman, who had a witnessed seizure-like activity by EMS. The video EEG is obtained to evaluate for seizure epileptiform activity. RELEVANT MEDICATION: Keppra. EEG TYPE: A routine 21-channel EEG is performed with video using the 10/20 electrode placement system. DESCRIPTION: Wakefulness is only obtained. During awake state, the background consists of low to moderate voltage of 8.5 to 9 hertz activity. There is no physiological stage 2 sleep architecture. There is no focal slowing. There is moderate to significant myogenic artifact over the O2 lead. Interictal and ictal is none. ACTIVATION PROCEDURE: Photic stimulation did not evoke a posterior driving response. There is no abnormality during the photic stimulation. Hyperventilation is not performed. CLINICAL INTERPRETATION: This is a normal routine EEG. There is no focal slowing, epileptiform discharge or seizure on the EEG. Clinical correlation is recommended. ERASMO / ISAEL: [id number] / MTDD
[2022-08-13] MEDS: methylPREDNISolone SOD SUCCI 125 MG/2 ML VIAL IV SCH ×5 (00:42→23:21)
[2022-08-13] MEDS: FAMOTIDINE 20 MG TAB PO SCH ×2 (06:20→16:51)
[2022-08-13] MEDS: SYMBICORT 160-4.5 MCG INHALER INHALATION SCH ×2 (08:00→20:39)
[2022-08-13] MEDS: IPRATROPIUM-ALBUTEROL 3 ML NEB INHALATION SCH ×4 (08:01→20:39)
[2022-08-13] MEDS: HEPARIN SODIUM,PORCINE/PF 5,000 UNIT/0.5 ML SYRINGE SQ SCH ×2 (08:29→20:46)
[2022-08-13] MEDS: CHOLECALCIFEROL 25 MCG (1000 IU) TABLET PO SCH (08:29)
[2022-08-13] MEDS: DOXYCYCLINE 100 MG CAP PO SCH ×2 (08:29→20:46)
[2022-08-13] MEDS: FUROSEMIDE 20 MG TAB PO SCH (08:29)
[2022-08-13] MEDS: SPIRONOLACTONE 25 MG TAB PO SCH (08:30)
[2022-08-13] MEDS: NICOTINE 21MG/24HR PATCH TRANSDERM SCH (08:30)
[2022-08-13] MEDS: levETIRAcetam 500 MG TAB PO SCH ×2 (08:30→20:46)
[2022-08-13 10:53] LABS: HGB 14.1 g/dL (13.0-17.0); MCHC 31.3 g/dL (32.0-37.0); MCV 105.4 fL (80.0-97.0); Mean Platelet Volume 11.5 fL (9.5-12.2); NRBC Per 100 WBC 0 /100 WBCS (0.0-0.0); Platelet Count 126 X 10*3/uL (140-440); RBC 4.27 X 10*6/uL (4.40-5.60); RDW 13.5 % (11.5-14.5); WBC 8.79 X 10*3/uL (4.50-10.00)
[2022-08-13 11:09] LABS: Magnesium 2.1 mg/dL (1.5-2.4)
[2022-08-13 11:10] LABS: Anion Gap 6.8 mmol/L (10.00-18.00); BUN/Creat Ratio 32.14 Ratio (12.00-20.00); Blood Urea Nitrogen 22.5 mg/dL (9.0-27.0); Calcium 9.1 mg/dL (8.7-10.3); Carbon Dioxide 37.2 mmol/L (20.0-27.5); Non-African American GFR(CKD) 92.3 (60.0-200.0)
--- NOTE | 2022-08-13 12:44 | P.PN ---
Subjective Progress Note Date: 08/13/22 The patient is seen at bedside and he states he is back to baseline. He denies of any further seizure-like episodes. According the patient nurse and she agreed that the patient has not had any further seizure-like episodes so far. Objective - Vital Signs Vital signs: Vital Signs Temp 97.9 F 08/13/22 06:51 Pulse 80 08/13/22 11:42 Resp 18 08/13/22 06:51 BP 117/73 08/13/22 06:51 Pulse Ox 95 08/13/22 08:01 FiO2 Intake & Output 08/12/22 08/13/22 08/13/22 18:59 06:59 18:59 Intake Total 1080 Balance 1080 Intake: Oral 1080 Other: # Voids 4 2 - Exam GENERAL: The patient is lying in bed and is not in acute distress. NEUROLOGICAL: Higher mental function: The patient is awake, alert, oriented to self, place and time. Patient is following commands. No aphasia and no neglect. Cranial nerves: The pupils are round, equal and reactive to light. Visual morfin are full to confrontation throughout. Extraocular movement is intact no nystagmus is noted. Facial sensation is normal to touch throughout. The facial strength is normal throughout. Hearing is very hard of hearing bilaterally to hand rub. Tongue is midline and moved [id number] without any difficulty. No dysarthria is noted. Shoulder shrug is normal bilaterally. Motor: The strength is 5 over 5 throughout uppers and lowers. Normal tone and bulk. Cerebellum: Normal finger to nose bilaterally. Sensation: Sensation is normal to touch throughout. Reflexes (right/left): Brachioradialis is 3+ bilaterally (feel more brisk over the left than right). Otherwise 2+. Plantars are mute bilaterally. Some of the workup during this hospital visit consisted of: white blood cell is within normal limits. MCV is 102.6 and repeat is 103.5 platelets 130. Vitamin B12 is 442, folate is 23.4 Calcium, glucose before meals and ALT are within normal limits. Initial sodium was 134 and the repeat is 140. Given had CT of cervical spine was reported as no acute intracranial processes. Partial opacification a left mastoid air cell. Correlate for mastoiditis. No evidence for cervical spine fracture. Surgery the CT and I agree there is no acute subacute ischemia. There is no mass effect. Left shoulder x-ray was reported as worsening displacement known left humeral neck fracture Routine EEG is normal. There is no focal slowing, epileptiform discharges or seizure on the EEG. Clinical correlation is recommended - Labs CBC & Chem 7: 08/13/22 06:22 08/13/22 06:22 Labs: Abnormal Lab Results - Last 24 Hours (Table) 08/13/22 08/13/22 Range/Units 06:22 06:22 RBC 4.27 L (4.40-5.60) X 10*6/uL MCV 105.4 H (80.0-97.0) fL MCH 33.0 H (27.0-32.0) pg MCHC 31.3 L (32.0-37.0) g/dL Plt Count 126 L (140-440) X 10*3/uL Carbon Dioxide 37.2 H (20.0-27.5) mmol/L Anion Gap 6.80 L (10.00-18.00) mmol/L BUN/Creatinine Ratio 32.14 H (12.00-20.00) Ratio Assessment and Plan Assessment: This is a 77-year-old gentleman who presented to the emergency department because of a fall. On route to the hospital he had a tonic-clonic seizure witnessed by EMS and was in post-ictal state on arrival New onset seizure Worsening displaced the left humeral neck fracture due to fall Macrocytosis Brisk reflex of uppers: Rule out cervical myleopathy COPD and suppose to be on 2L nasal canuli and it appears noncompliant Hypoxia due to COPD Tobacco use Plan: Pending MRI of the brain seizure protocol as ordered Continue Keppra 500 mg every 12 hours. Patient is on seizure precaution seizure pads Orthopedic surgery team is consulted for the humeral fracture Per [facility] because of the seizures, to avoid driving for 6 off until seizure-free. To avoid heights, swim unassisted or using heavy machinery. I discussed this with the patient. We'll defer the rest of the medical management to primary team Upon discharge recommend patient to follow-up with a neurologist within 1-2 weeks. The plan was discussed with the patient and his nurse. Time with Patient: Less than 30
[2022-08-13 13:30] LABS: Basophils # (A) 0.01 X 10*3/uL (0.00-0.10); Basophils % (A) 0.1 %; Eosinophils # (A) 0 X 10*3/uL (0.04-0.35); Eosinophils % (A) 0 %; Immature Grans, Automated 0.5 %; Lymphocytes # (A) 0.26 X 10*3/uL (0.90-5.00); Macrocytosis (M) 2+; Monocytes # (A) 0.58 X 10*3/uL (0.20-1.00); Monocytes % (A) 6.6 %; Neutrophils % (A) 89.8 %
--- NOTE | 2022-08-13 15:51 | P.PN ---
Subjective Progress Note Date: 08/13/22 Hospital Course: 77-year-old male with a past medical history of hyperlipidemia, schizophrenia, tobacco abuse, chronic venous insufficiency, primary fibrosis, COPD was supposed to be on 2 L nasal cannula but is noncompliant was brought in by EMS due to a fall. On route to the hospital patient had a tonic-clonic seizure. When patient arrived to the ED he did have some postictal confusion which has now resolved. Patient does not remember the fall. Patient denies any urinary incontinence or tongue soreness. He denies any history of seizure. In the ED patient had trauma workup done and he was found to have worsening displacement of known left humeral neck fracture. Patient was also 89% on room air. Patient states that he does not want to wear oxygen. Patient admitted for new-onset seizures, fall, COPD exacerbation. Subjective: Patient seen and examined at bedside. No acute changes overnight. Claims that he does not have anymore cough. Denies any significant shortness of breath. Remains on 4 L of oxygen. Denies any chest pain, abdominal pain, urinary or bowel complaints. Pertinent positives and negatives as discussed above, a complete review of systems was performed and all other systems are negative. Vitals Signs Reviewed. General: nontoxic, no distress, appears at stated age Derm: warm, dry Head: atraumatic, normocephalic, symmetric Eyes: EOMI, no lid lag, anicteric sclera Mouth: no lip lesion, mucus membranes moist Cardiovascular: S1S2 reg, no murmur Lungs: CTA bilateral, no rhonchi, no rales , no accessory muscle use, supplemental oxygen Abdominal: soft, nontender to palpation, no guarding, no appreciable organomegaly Ext: no gross muscle atrophy, no edema, no contractures Neuro: CN II-XI grossly intact, no focal neuro deficits Psych: Alert, oriented, appropriate affect Data Reviewed Today: Pertinent Labs: WBC 8.79, platelet 126, sodium 142, potassium 5, creatinine 0.7, B12 442, folic acid 23 EEG report reviewed, normal EEG Assessment and Plan: Active: New-onset seizure Acute hypoxic respiratory failure Acute COPD exacerbation Fall Left humeral fracture, likely chronic -Neurology note reviewed, continue Keppra, MRI brain pending -EEG normal -Continue duo nebs, doxycycline 100 mg twice a day, Solu-Medrol 60 mg IV every 6 hours, Symbicort -Continue to wean oxygen -Orthopedic surgery, recommended conservative therapy for chronic fracture Chronic: History of pulmonary fibrosis Tobacco abuse Chronic venous insufficiency -started on oral Lasix Schizophrenia Dyslipidemia DVT ppx: Subcu heparin Code status: Full code Anticipated discharge place: Pending clinical course Anticipated discharge time: Pending clinical course Objective - Vital Signs Vital signs: Vital Signs Temp 97.9 F 08/13/22 13:46 Pulse 88 08/13/22 15:38 Resp 18 08/13/22 13:46 BP 124/75 08/13/22 13:46 Pulse Ox 92 L 08/13/22 13:46 FiO2 Intake & Output 08/12/22 08/13/22 08/13/22 18:59 06:59 18:59 Intake Total 1080 Balance 1080 Intake: Oral 1080 Other: # Voids 4 2 - Labs CBC & Chem 7: 08/13/22 06:22 08/13/22 06:22 Labs: Abnormal Lab Results - Last 24 Hours (Table) 08/13/22 08/13/22 Range/Units 06:22 06:22 RBC 4.27 L (4.40-5.60) X 10*6/uL MCV 105.4 H (80.0-97.0) fL MCH 33.0 H (27.0-32.0) pg MCHC 31.3 L (32.0-37.0) g/dL Plt Count 126 L (140-440) X 10*3/uL Plt Count Comment DECREASED A Neutrophils # 7.90 H (1.80-7.70) X 10*3/uL Lymphocytes # 0.26 L (0.90-5.00) X 10*3/uL Eosinophils # 0 L (0.04-0.35) X 10*3/uL Carbon Dioxide 37.2 H (20.0-27.5) mmol/L Anion Gap 6.80 L (10.00-18.00) mmol/L BUN/Creatinine Ratio 32.14 H (12.00-20.00) Ratio
[2022-08-13] MEDS: FOLIC ACID 1 MG TAB PO SCH (16:51)
--- NOTE | 2022-08-13 17:04 | MR ---
EXAMINATION TYPE: MR brain wo/w cspine wo DATE OF EXAM: 08/13/2022 COMPARISON: HISTORY: New onset seizure, neck pain. CONTRAST: Performed utilizing 10 mL intravenous Gadavist gadolinium contrast. TECHNIQUE: Multiplanar, multiecho imaging on a 3.0 Aydee magnet is performed through the brain. Stud y is performed within 24 hours of arrival to the hospital. The craniovertebral junction is normal. The pituitary is normal. Diffusion-weighted imaging is performed. No abnormal hyperintensity is present to suggest an acute i ntracranial infarct or acute ischemic change. Signal through the brain appears normal. Ventricles and sulci are appropriate for the patient age. No abnormal enhancement is evident There is fluid-filled left mastoid air cells. Correlate for acute left mastoiditis. IMPRESSIONS: 1. No suspicious acute intracranial abnormality. EXAMINATION TYPE: MR brain wo/w cspine wo DATE OF EXAM: 08/13/2022 COMPARISON: None HISTORY: New onset seizure, neck pain. CONTRAST: Performed utilizing 10 mL intravenous Gadavist gadolinium contrast. TECHNIQUE: Multiplanar multiecho imaging on a 3.0 Aydee magnet is performed through the cervical spin e. FINDINGS: The craniovertebral junction is normal. Vertebral body alignment is normal. C7-T1: No focal disc herniation or significant disc bulge is evident. No spinal canal stenosis or n eural foraminal stenosis is present. C6-7: No focal disc herniation or significant disc bulge is evident. No spinal canal stenosis or baljinder ral foraminal stenosis is present. C5-6: Mild disc bulge is present with anterior thecal sac contact. No cord contact is evident. No spi nal canal stenosis or neural foraminal stenosis is evident. C4-5: Broad-based disc bulge has moderate anterior thecal sac compression. Posterior to the C3 level there may be some left paracentral disc bulging with moderate anterior thecal sac compression. This c omes in close approximation with the spinal cord without cord contact or deformity. No AP spinal lexx l stenosis is present. Neural foramen are patent. There is narrowing of the disc height. C3-4: There is a small central protrusion comes in close approximation with the spinal cord. No cord deformity is evident. No spinal canal stenosis. Neural foramen are patent. C2-3: No focal disc herniation or significant disc bulge is evident. No spinal canal stenosis or baljinder ral foraminal stenosis is present. Note is made of some T2 compression deformity with approximately 50% loss of mid vertebral body heigh t. This appears old based on signal IMPRESSIONS: 1. Disc bulging greatest at C4-5 with moderate anterior thecal sac compression. No cord contact or de formity is evident. 2. Milder central protrusion C3-4. 3. Note is made of what appears to be an old compression deformity of T2
[2022-08-13] MEDS: ATORVASTATIN 40 MG TAB PO SCH (20:45)
[2022-08-13] MEDS: risperiDONE 1 MG TAB PO SCH (20:45)
[2022-08-13] MEDS: MELATONIN 5 MG TABLET PO SCH (20:46)
[2022-08-14] MEDS: FAMOTIDINE 20 MG TAB PO SCH ×2 (06:04→16:48)
[2022-08-14] MEDS: methylPREDNISolone SOD SUCCI 125 MG/2 ML VIAL IV SCH ×2 (06:05→12:53)
[2022-08-14] MEDS: SYMBICORT 160-4.5 MCG INHALER INHALATION SCH ×2 (08:18→20:43)
[2022-08-14] MEDS: IPRATROPIUM-ALBUTEROL 3 ML NEB INHALATION SCH ×4 (08:18→20:43)
[2022-08-14] MEDS: FUROSEMIDE 20 MG TAB PO SCH (09:06)
[2022-08-14] MEDS: NICOTINE 21MG/24HR PATCH TRANSDERM SCH (09:06)
[2022-08-14] MEDS: levETIRAcetam 500 MG TAB PO SCH ×2 (09:06→21:05)
[2022-08-14] MEDS: SPIRONOLACTONE 25 MG TAB PO SCH (09:06)
[2022-08-14] MEDS: CHOLECALCIFEROL 25 MCG (1000 IU) TABLET PO SCH (09:06)
[2022-08-14] MEDS: DOXYCYCLINE 100 MG CAP PO SCH ×2 (09:06→21:05)
[2022-08-14] MEDS: HEPARIN SODIUM,PORCINE/PF 5,000 UNIT/0.5 ML SYRINGE SQ SCH ×2 (09:06→21:04)
--- NOTE | 2022-08-14 13:40 | P.PN ---
Subjective Progress Note Date: 08/14/22 Hospital Course: 77-year-old male with a past medical history of hyperlipidemia, schizophrenia, tobacco abuse, chronic venous insufficiency, primary fibrosis, COPD was supposed to be on 2 L nasal cannula but is noncompliant was brought in by EMS due to a fall. On route to the hospital patient had a tonic-clonic seizure. When patient arrived to the ED he did have some postictal confusion which has now resolved. Patient does not remember the fall. Patient denies any urinary incontinence or tongue soreness. He denies any history of seizure. In the ED patient had trauma workup done and he was found to have worsening displacement of known left humeral neck fracture. Patient was also 89% on room air. Patient states that he does not want to wear oxygen. Patient admitted for new-onset seizures, fall, COPD exacerbation. Nephrology consult. EEG unremarkable. MRI brain completed, shows no acute process, shows disc bulging greatest at C4 to 5 with moderate anterior thecal sac compression, no cord contact, mild central protrusion of C3 to 4, old compression deformity of T2. Subjective: Patient seen and examined at bedside. No acute changes overnight. Claims that he does not have anymore cough. Denies any significant shortness of breath. Remains on 4 L of oxygen. Denies any chest pain, abdominal pain, urinary or bowel complaints. Pertinent positives and negatives as discussed above, a complete review of systems was performed and all other systems are negative. Vitals Signs Reviewed. General: nontoxic, no distress, appears at stated age Derm: warm, dry Head: atraumatic, normocephalic, symmetric Eyes: EOMI, no lid lag, anicteric sclera Mouth: no lip lesion, mucus membranes moist Cardiovascular: S1S2 reg, no murmur Lungs: CTA bilateral, no rhonchi, no rales , no accessory muscle use, supplemental oxygen Abdominal: soft, nontender to palpation, no guarding, no appreciable organomegaly Ext: no gross muscle atrophy, no edema, no contractures Neuro: CN II-XI grossly intact, no focal neuro deficits Psych: Alert, oriented, appropriate affect Data Reviewed Today: Pertinent Labs: No new labs MRI brain report reviewed, shows no acute process, shows disc bulging greatest at C4 to 5 with moderate anterior thecal sac compression, no cord contact, mild central protrusion of C3 to 4, old compression deformity of T2. Assessment and Plan: Active: New-onset seizure Acute hypoxic respiratory failure Acute COPD exacerbation Fall Left humeral fracture, likely chronic -Personally discussed management with neurology, continue Kesusyra at the time of discharge. -EEG normal -Continue duo nebs, doxycycline 100 mg twice a day, Symbicort, IV Solu-Medrol switched to prednisone oral -Continue to wean oxygen -Orthopedic surgery, recommended conservative therapy for chronic fracture, outpatient follow-up Chronic: History of pulmonary fibrosis Tobacco abuse Chronic venous insufficiency -started on oral Lasix Schizophrenia Dyslipidemia DVT ppx: Subcu heparin Code status: Full code Anticipated discharge place: Subacute rehab Anticipated discharge time: when bed available Objective - Vital Signs Vital signs: Vital Signs Temp 97.8 F 08/14/22 07:15 Pulse 85 08/14/22 07:15 Resp 18 08/14/22 07:15 BP 150/89 08/14/22 07:15 Pulse Ox 92 L 08/14/22 07:15 FiO2 Intake & Output 08/13/22 08/14/22 08/14/22 18:59 06:59 18:59 Other: Voiding Method Toilet Urinal # Voids 7 4 - Labs CBC & Chem 7: 08/13/22 06:22 08/13/22 06:22
--- NOTE | 2022-08-14 16:11 | P.PN ---
Subjective Progress Note Date: 08/14/22 Patient seen at bedside and he states he is doing well. Patient feels back to baseline. No further seizure-like activity. Objective - Vital Signs Vital signs: Vital Signs Temp 97.6 F 08/14/22 14:27 Pulse 82 08/14/22 14:41 Resp 18 08/14/22 14:41 BP 129/78 08/14/22 14:27 Pulse Ox 91 L 08/14/22 14:27 FiO2 Intake & Output 08/13/22 08/14/22 08/14/22 18:59 06:59 18:59 Other: Voiding Method Toilet Urinal # Voids 7 4 - Exam GENERAL: The patient is lying in bed and is not in acute distress. NEUROLOGICAL: Higher mental function: The patient is awake, alert, oriented to self, place and time. Patient is following commands. No aphasia and no neglect. Cranial nerves: The pupils are round, equal and reactive to light. Visual morfin are full to confrontation throughout. Extraocular movement is intact no nystagmus is noted. Facial sensation is normal to touch throughout. The facial strength is normal throughout. Hearing is very hard of hearing bilaterally to hand rub. Tongue is midline and moved [id number] without any difficulty. No dysarthria is noted. Shoulder shrug is normal bilaterally. Motor: The strength is 5 over 5 throughout uppers and lowers. Normal tone and bulk. Cerebellum: Normal finger to nose bilaterally. Sensation: Sensation is normal to touch throughout. Reflexes (right/left): Brachioradialis is 3+ bilaterally (feel more brisk over the left than right). Otherwise 2+. Plantars are mute bilaterally. Some of the workup during this hospital visit consisted of: white blood cell is within normal limits. MCV is 102.6 and repeat is 103.5 platelets 130. Vitamin B12 is 442, folate is 23.4 Calcium, glucose before meals and ALT are within normal limits. Initial sodium was 134 and the repeat is 140. Given had CT of cervical spine was reported as no acute intracranial processes. Partial opacification a left mastoid air cell. Correlate for mastoiditis. No evidence for cervical spine fracture. Surgery the CT and I agree there is no acute subacute ischemia. There is no mass effect. Left shoulder x-ray was reported as worsening displacement known left humeral neck fracture Routine EEG is normal. There is no focal slowing, epileptiform discharges or seizure on the EEG. Clinical correlation is recommended. MR the brain is reported as no suspicious acute intracranial abnormality. MRI of the cervical spine: It is reported as disc bulging greater at C4-C5 with moderate anterior thecal sac compression. No cord contact or deformity is evident. Milder central protrusion at C3-C4. Note is made of what appears to be old compression deformity of activity T2.. - Labs CBC & Chem 7: 08/13/22 06:22 08/13/22 06:22 Assessment and Plan Assessment: This is a 77-year-old gentleman who presented to the emergency department because of a fall. On route to the hospital he had a tonic-clonic seizure witnessed by EMS and was in post-ictal state on arrival New onset seizure Worsening displaced the left humeral neck fracture due to fall Cervical spondylosis and moderate over C4-C5 on the MRI Macrocytosis Brisk reflex of uppers: Rule out cervical myleopathy COPD and suppose to be on 2L nasal canuli and it appears noncompliant Hypoxia due to COPD Tobacco use Plan: Continue Keppra 500 mg every 12 hours. Patient is on seizure precaution seizure pads Orthopedic surgery team is consulted for the humeral fracture Per [facility] because of the seizures, to avoid driving for 6 months until seizure-free. To avoid heights, swim unassisted or using heavy machinery. I d iscussed this with the patient. Regarding the cervical spondylosis recommend the patient to follow up with orthopedic surgery team as an outpatient. We'll defer the rest of the medical management to primary team Upon discharge recommend patient to follow-up with a neurologist within 1-2 weeks. The plan was discussed with the patient and primary team. There is no further neurological work-up. Please notify neurology team if any further concerns. Time with Patient: Less than 30
[2022-08-14] MEDS: ATORVASTATIN 40 MG TAB PO SCH (21:04)
[2022-08-14] MEDS: MELATONIN 5 MG TABLET PO SCH (21:05)
[2022-08-14] MEDS: risperiDONE 1 MG TAB PO SCH (21:05)
[2022-08-15] MEDS: FAMOTIDINE 20 MG TAB PO SCH (05:14)
[2022-08-15] MEDS: CHOLECALCIFEROL 25 MCG (1000 IU) TABLET PO SCH (08:17)
[2022-08-15] MEDS: DOXYCYCLINE 100 MG CAP PO SCH (08:17)
[2022-08-15] MEDS: SPIRONOLACTONE 25 MG TAB PO SCH (08:17)
[2022-08-15] MEDS: HEPARIN SODIUM,PORCINE/PF 5,000 UNIT/0.5 ML SYRINGE SQ SCH (08:18)
[2022-08-15] MEDS: levETIRAcetam 500 MG TAB PO SCH (08:18)
[2022-08-15] MEDS: FUROSEMIDE 20 MG TAB PO SCH (08:18)
[2022-08-15] MEDS: NICOTINE 21MG/24HR PATCH TRANSDERM SCH (08:18)
[2022-08-15] MEDS: SYMBICORT 160-4.5 MCG INHALER INHALATION SCH (08:32)
[2022-08-15] MEDS: IPRATROPIUM-ALBUTEROL 3 ML NEB INHALATION SCH ×2 (08:32→12:20)
[2022-08-15] MEDS ORDERED: predniSONE 20 MG TAB PO SCH (09:00)
--- NOTE | 2022-08-15 10:52 | P.DS ---
Providers Date of admission: 08/11/22 16:47 Expected date of discharge: 08/15/22 Attending physician: Mari Cobb DO Consults: 08/11/22 16:47 Consult Physician Routine Consulting Provider: Briana Payne Consult Reason/Comments: New onset sezure Do you want consulting provider notified?: Yes 08/11/22 16:50 Consult Physician Routine Consulting Provider: Ralf Fabian Consult Reason/Comments: Humeral neck fracture Do you want consulting provider notified?: Yes Primary care physician: Maycol Bourne Hospital Course: Discharge Diagnosis: New-onset seizure Acute hypoxic respiratory failure Acute COPD exacerbation Fall Left humeral fracture, likely chronic History of pulmonary fibrosis Tobacco abuse Chronic venous insufficiency -started on oral Lasix Schizophrenia Dyslipidemia Hospital Course: 77-year-old male with a past medical history of hyperlipidemia, schizophrenia, tobacco abuse, chronic venous insufficiency, primary fibrosis, COPD was supposed to be on 2 L nasal cannula but is noncompliant was brought in by EMS due to a fall. On route to the hospital patient had a tonic-clonic seizure. When patient arrived to the ED he did have some postictal confusion which has now resolved. Patient does not remember the fall. Patient denies any urinary incontinence or tongue soreness. He denies any history of seizure. In the ED patient had trauma workup done and he was found to have worsening displacement of known left humeral neck fracture. Patient was also 89% on room air. Patient states that he does not want to wear oxygen. Patient admitted for new-onset seizures, fall, COPD exacerbation. Neurology consult. EEG unremarkable. MRI brain completed, shows no acute process, shows disc bulging greatest at C4 to 5 with moderate anterior thecal sac compression, no cord contact, mild central protrusion of C3 to 4, old compression deformity of T2. Patient was also seen by orthopedic surgery, likely chronic fracture, recommended conservative therapy and outpatient follow-up. Patient to be discharged on oral Keppra. Patient seen and examined at bedside. Vital signs reviewed and stable. General: nontoxic, no distress, appears at stated age Derm: warm, dry Head: atraumatic, normocephalic, symmetric Eyes: EOMI, no lid lag, anicteric sclera Mouth: no lip lesion, mucus membranes moist Cardiovascular: S1S2 reg, no murmur Lungs: CTA bilateral, no rhonchi, no rales , no accessory muscle use, supplemental oxygen Abdominal: soft, nontender to palpation, no guarding, no appreciable organomegaly Ext: no gross muscle atrophy, no edema, no contractures Neuro: CN II-XI grossly intact, no focal neuro deficits Psych: Alert, oriented, appropriate affect A total of 37 minutes of time were spent preparing this complex discharge bert mcneal. Patient was discharged on 08/15/22 at 10:50. Patient Condition at Discharge: Stable Plan - Discharge Summary Discharge Rx Participant: No New Discharge Prescriptions: New Doxycycline [Vibramycin] 100 mg PO BID #2 cap levETIRAcetam [Keppra] 500 mg PO Q12HR tab Furosemide [Lasix] 20 mg PO DAILY tab Continue risperiDONE [RisperDAL] 3 mg PO HS@1999 Fluticasone Propion/Salmeterol [Fluticasone-Salmeterol 500-50] 1 puff INHALATION RT-BID Atorvastatin [Lipitor] 40 mg PO HS@1999 Melatonin 10 mg PO HS@1999 Famotidine [Pepcid] 20 mg PO BID@0600,1600 Cholecalciferol [Vitamin D3 (25 Mcg = 1000 Iu)] 50 mcg PO DAILY@0800 Folic Acid 1 mg PO Q2D Spironolactone [Aldactone] 50 mg PO DAILY@0800 Albuterol Inhaler [Ventolin Hfa Inhaler] 2 puff INHALATION RT-Q6H PRN PRN Reason: Wheezing Discharge Medication List Atorvastatin [Lipitor] 40 mg PO HS@199908/07/20 [History] Melatonin 10 mg PO HS@199908/07/20 [History] risperiDONE [RisperDAL] 3 mg PO HS@199908/07/20 [History] Cholecalciferol [Vitamin D3 (25 Mcg = 1000 Iu)] 50 mcg PO DAILY@0800 05/01/21 [History] Famotidine [Pepcid] 20 mg PO BID@0600,1600 05/01/21 [History] Folic Acid 1 mg PO Q2D 05/01/21 [History] Albuterol Inhaler [Ventolin Hfa Inhaler] 2 puff INHALATION RT-Q6H PRN 08/11/22 [History] Fluticasone Propion/Salmeterol [Fluticasone-Salmeterol 500-50] 1 puff INHALATION RT-BID 08/11/22 [History] Spironolactone [Aldactone] 50 mg PO DAILY@0800 08/11/22 [History] Doxycycline [Vibramycin] 100 mg PO BID #2 cap 08/15/22 [Rx] Furosemide [Lasix] 20 mg PO DAILY tab 08/15/22 [Rx] levETIRAcetam [Keppra] 500 mg PO Q12HR tab 08/15/22 [Rx] Follow up Appointment(s)/Referral(s): Maycol Bourne MD [Primary Care Provider] - 1-2 days To Acharya MD [Medical Doctor] - 1 Week Ralf Fabian MD [STAFF PHYSICIAN] - 1 Week Patient Instructions/Handouts: COPD (Chronic Obstructive Pulmonary Disease) (DC), Generalized Tonic Clonic Seizures (DC) Activity/Diet/Wound Care/Special Instructions: Please see your PCP, neurologist and orthopedic surgeon. Discharge Disposition: TRANSFER TO SNF/ECF
[2022-08-15 14:23] VITALS: BP 122/78; PULSE 95; RESP 19; TEMP 96.8
== END 2022-08-15 14:55 | DRG 100 ==
LOC: EC 14:49 → OBSVTOIN 16:47 → 4SSUR 16:47
PROVIDERS: ADMIT Internal Medicine; ATTEND Internal Medicine
DX: G40.909 Epilepsy, unspecified, not intractable, without status epilepticus (principal); J96.01 Acute respiratory failure with hypoxia; M50.021 Cervical disc disorder at C4-C5 level with myelopathy; M47.12 Other spondylosis with myelopathy, cervical region; F05 Delirium due to known physiological condition; J44.1 Chronic obstructive pulmonary disease with (acute) exacerbation; M51.04 Intervertebral disc disorders with myelopathy, thoracic region; S42.402A Unspecified fracture of lower end of left humerus, initial encounter for closed fracture; S09.90XA Unspecified injury of head, initial encounter; J84.10 Pulmonary fibrosis, unspecified; I50.9 Heart failure, unspecified; I11.0 Hypertensive heart disease with heart failure; F20.9 Schizophrenia, unspecified; M25.512 Pain in left shoulder; F17.210 Nicotine dependence, cigarettes, uncomplicated; E78.5 Hyperlipidemia, unspecified; I87.2 Venous insufficiency (chronic) (peripheral); T41.5X6A Underdosing of therapeutic gases, initial encounter; D75.89 Other specified diseases of blood and blood-forming organs; M47.22 Other spondylosis with radiculopathy, cervical region; R32 Unspecified urinary incontinence; M84.422G Pathological fracture, left humerus, subsequent encounter for fracture with delayed healing; Z79.51 Long term (current) use of inhaled steroids; Y92.128 Other place in nursing home as the place of occurrence of the external cause; Z91.148 Patient's other noncompliance with medication regimen for other reason; Z28.311 Partially vaccinated for COVID-19; Z79.899 Other long term (current) drug therapy
CPT/HCPCS: 36415; 70450; 70553; 71045; 72125; 72141; 80048; 80053; 80320; 82607; 82746; 83735; 85025; 90471; 90715; 93005; 94640; 94760; 95816; 96361; 96374; 96375; 99285

== ENCOUNTER 2022-09-05 14:36 | Emergency (ER) | payer OTHER ==
[2022-09-05 14:44] VITALS: TEMP 97.5
--- NOTE | 2022-09-05 15:23 | ED ---
General Adult HPI - General Chief complaint: Recheck/Abnormal Lab/Rx Stated complaint: Recheck Time Seen by Provider: 09/05/22 15:00 Source: patient, EMS, RN notes reviewed Mode of arrival: EMS - History of Present Illness Initial comments: 77-year-old male with past medical history significant for medical noncompliance presents to the emergency department via EMS with a chief complaint of low SpO2. Patient is a poor historian. Per EMS patient is supposed to be wearing oxygen at home however he does not wear it. He offers no specific complaints at the time of evaluation. He denies any dizziness, lightheadedness, headache, cough, shortness of breath, chest pain, palpitations, nausea, vomiting patient is alert and oriented 3. - Related Data Home Medications Medication Instructions Recorded Confirmed Atorvastatin [Lipitor] 40 mg PO HS@199908/07/20 08/11/22 Melatonin 10 mg PO HS@199908/07/20 08/11/22 risperiDONE [RisperDAL] 3 mg PO HS@199908/07/20 08/11/22 Cholecalciferol [Vitamin D3 (25 50 mcg PO DAILY@0800 05/01/21 08/11/22 Mcg = 1000 Iu)] Famotidine [Pepcid] 20 mg PO BID@0600,1600 05/01/21 08/11/22 Folic Acid 1 mg PO Q2D 05/01/21 08/11/22 Albuterol Inhaler [Ventolin Hfa 2 puff INHALATION RT-Q6H PRN 08/11/22 08/11/22 Inhaler] Fluticasone Propion/Salmeterol 1 puff INHALATION RT-BID 08/11/22 08/11/22 [Fluticasone-Salmeterol 500-50] Spironolactone [Aldactone] 50 mg PO DAILY@0800 08/11/22 08/11/22 Previous Rx's Medication Instructions Recorded Doxycycline [Vibramycin] 100 mg PO BID #2 cap 08/15/22 Furosemide [Lasix] 20 mg PO DAILY tab 08/15/22 levETIRAcetam [Keppra] 500 mg PO Q12HR tab 08/15/22 Allergies Allergy/AdvReac Type Severity Reaction Status Date / Time No Known Allergies Allergy Verified 09/05/22 14:43 Review of Systems ROS Statement: Those systems with pertinent positive or pertinent negative responses have been documented in the HPI. ROS Other: All systems not noted in ROS Statement are negative. Past Medical History Past Medical History: Heart Failure, Hyperlipidemia Additional Past Medical History / Comment(s): Schizophrenia History of Any Multi-Drug Resistant Organisms: None Reported Past Surgical History: No Surgical Hx Reported Past Anesthesia/Blood Transfusion Reactions: No Reported Reaction Past Psychological History: Schizophrenia Smoking Status: Current some day smoker Past Alcohol Use History: None Reported Past Drug Use History: None Reported - Past Family History Father Family Medical History: Unable to Obtain Mother Family Medical History: Unable to Obtain General Exam - General Exam Comments Initial Comments: General: Alert, in no acute distress Head: atraumatic normocephalic. Eyes PERRL, EOMI intact, mucous membranes moist Respiratory: Lungs clear to auscultation bilaterally Cardiovascular: Rate regular rate and rhythm Abdominal: Soft without guarding or rebound Extremities: Normal inspection with full range of motion and normal capillary refill Neuroogic: alert and oriented 3, CN II-XII intact, able to ambulate with steady gait Skin: warm dry and intact with normal color Course Vital Signs 09/05/22 09/05/22 14:39 16:23 Temperature 97.5 F L Pulse Rate 98 86 Respiratory 20 18 Rate Blood Pressure 122/72 134/82 O2 Sat by Pulse 88 L 94 L Oximetry - Reevaluation(s) Reevaluation #1: 09/05/22 15:23 Upon arrival patient is oxygen saturation is 88% on room air. Patient is placed on 3 L of oxygen with oxygen saturation rate change from 93-95% EKG Findings - EKG Comments: EKG Findings:: I interpreted the following: EKG performed at 16:21 rate 85 bpm normal sinus rhythm WI interval 172, QT/QTc 366/435 Medical Decision Making - Medical Decision Making Was pt. sent in by a medical professional or institution (, PA, OPENING MACHINE CLEANER, urgent care, hospital, or retirement...) When possible be specific @ -[No] Did you speak to anyone other than the patient for history (EMS, parent, family, police, friend...)? What history was obtained from this source @ -[No] Did you review nursing and triage notes (agree or disagree)? Why? @ -[I reviewed and agree with nursing and triage notes] Were old charts reviewed (outside hosp., previous admission, EMS record, old EKG, old radiological studies, urgent care reports/EKG's, retirement records)? Report findings @ -[No old charts were reviewed] Differential Diagnosis (chest pain, altered mental status, abdominal pain women, abdominal pain men, vaginal bleeding, weakness, fever, dyspnea, syncope, headache, dizziness, GI bleed, back pain, seizure, CVA, palpatations, mental health, musculoskeletal)? @ -[not applicable] EKG interpreted by me (3pts min.). @ -[As above] X-rays interpreted by me (1pt min.). @ Chest x-ray reveals no acute changes or acute cardio pulmonary process CT interpreted by me (1pt min.). @ -[None done] U/S interpreted by me (1pt. min.). @ -[None done] What testing was considered but not performed or refused? (CT, X-rays, U/S, labs)? Why? @ -[None] What meds were considered but not given or refused? Why? @ -[None] Did you discuss the management of the patient with other professionals (professionals i.e. , PA, OPENING MACHINE CLEANER, lab, RT, psych nurse, director of social services, fire range technician, teacher, airframe technical officer, mattress spring encaser)? Give summary @ -[No] Was smoking cessation discussed for >3mins.? @ -[No] Was critical care preformed (if so, how long)? @ -[No] Were there social determinants of health that impacted care today? How? (Homelessness, low income, unemployed, alcoholism, drug addiction, transportation, low edu. Level, literacy, decrease access to med. care, residential, rehab)? @ -[No] Was there de-escalation of care discussed even if they declined (Discuss DNR or withdrawal of care, Hospice)? DNR status @ -[No] What co-morbidities impacted this encounter? (DM, HTN, Smoking, COPD, CAD, Cancer, CVA, ARF, Chemo, Hep., AIDS, mental health diagnosis, sleep apnea, morbid obesity)? @ -[None] Was patient admitted / discharged? Hospital course, mention meds given and route, prescriptions, significant lab abnormalities, going to OR and other pertinent info. @ -Discharged. This is a 77-year-old male who presents the emergency department with low oxygen saturation. Patient has a history of COPD and is supposed to be wearing oxygen at home however he is noncompliant and refusing. Patient verbalizes that he is unsure of why he is here as he voices no specific complaints. Patient was offered lab work and imaging however he was refusing. He is refusing admission. Patient's oxygen saturation upon arrival was 88% on room air. Patient was placed on 3 L of oxygen and oxygen saturation ranging from 93-95%. During his stay in the emergency department he took off the nasal cannula and refused to have continuation of oxygen administration. Patient will be transferred back home to his long term via EMS in stable condition. Case was discussed with his guardian who agrees with the plan for discharge. Case discussed with GEORGE Shah the plan of care Undiagnosed new problem with uncertain prognosis? @ -[No] Drug Therapy requiring intensive monitoring for toxicity (Heparin, Nitro, Insulin, Cardizem)? @ -[No] Were any procedures done? @ -[No] Diagnosis/symptom? @ -Low Oxygen Saturation - Medical Non-compliance - Hx of COPD Acute, or Chronic, or Acute on Chronic? @ -Acute Uncomplicated (without systemic symptoms) or Complicated (systemic symptoms)? @ -uncomplicated Side effects of treatment? @ -[No] Exacerbation, Progression, or Severe Exacerbation? @ -[No] Poses a threat to life or bodily function? How? (Chest pain, [place], [place], pneumonia, PE, COPD, DKA, ARF, appy, cholecystitis, CVA, Diverticulitis, Homicidal, Suicidal, threat to staff... and all critical care pts) @ -low likelihood Disposition Clinical Impression: COPD (chronic obstructive pulmonary disease), Medical non-compliance, Low oxygen saturation Disposition: HOME SELF-CARE Condition: Stable Instructions (If sedation given, give patient instructions): Using Oxygen at Home (ED), Hypoxia (ED) Additional Instructions: Please return to the nearest emergency department if symptoms worsen or persist Is patient prescribed a controlled substance at d/c from ED?: No Referrals: Maycol Bourne MD [Primary Care Provider] - 1-2 days ([facility] still needed at next appointment.) Time of Disposition: 15:41
--- NOTE | 2022-09-05 15:39 | XR ---
EXAMINATION TYPE: XR chest 2V DATE OF EXAM: 09/05/2022 COMPARISON: 08/11/2022 TECHNIQUE: PA and lateral views submitted. HISTORY: Shortness breath FINDINGS: Persistent bilateral small effusion and subsegmental areas of consolidation. Patient is rotated. Steven te left humeral fracture. Diffuse osteopenia. Lung apices are limited in assessment. There is a chron ic appearing compression fracture and within the mid thoracic spine. Suspect underlying COPD. IMPRESSION: 1. COPD with chronic bilateral pleural effusion and basilar infiltrate. Suspect there may be pleural plaque correlate for history of asbestos exposure.
[2022-09-05 16:25] VITALS: BP 134/82; PULSE 86; RESP 18
== END 2022-09-05 20:10 | disposition home or self-care (01) ==
LOC: EC 14:36
DX: J44.9 Chronic obstructive pulmonary disease, unspecified (principal); J90 Pleural effusion, not elsewhere classified; I50.9 Heart failure, unspecified; E78.5 Hyperlipidemia, unspecified; F17.200 Nicotine dependence, unspecified, uncomplicated; Z79.899 Other long term (current) drug therapy
CPT/HCPCS: 71046; 93005; 99284

== ENCOUNTER 2022-09-09 12:44 | Inpatient (IN) | payer OTHER ==
--- NOTE | 2022-09-09 13:08 | ED ---
General Adult HPI - General Chief complaint: Syncope Stated complaint: syncope Time Seen by Provider: 09/09/22 12:53 Source: patient, EMS, RN notes reviewed Mode of arrival: EMS Limitations: no limitations - History of Present Illness Initial comments: Patient is a pleasant 77-year-old male presenting to the emergency Department with syncopal episode. Episode occurred earlier today. Patient states he feels fine at this time and has no complaints. Patient states he was walking and became short of breath. Patient states that is actually a chronic problem for him for years. Patient states following this he did lose consciousness. Unclear patient has history of previous syncopal episode. Patient states he did have some chest discomfort, mild. Patient denies any injury. No head injury. - Related Data Home Medications Medication Instructions Recorded Confirmed Atorvastatin [Lipitor] 40 mg PO HS@199908/07/20 08/11/22 Melatonin 10 mg PO HS@199908/07/20 08/11/22 risperiDONE [RisperDAL] 3 mg PO HS@199908/07/20 08/11/22 Cholecalciferol [Vitamin D3 (25 50 mcg PO DAILY@0800 05/01/21 08/11/22 Mcg = 1000 Iu)] Famotidine [Pepcid] 20 mg PO BID@0600,1600 05/01/21 08/11/22 Folic Acid 1 mg PO Q2D 05/01/21 08/11/22 Albuterol Inhaler [Ventolin Hfa 2 puff INHALATION RT-Q6H PRN 08/11/22 08/11/22 Inhaler] Fluticasone Propion/Salmeterol 1 puff INHALATION RT-BID 08/11/22 08/11/22 [Fluticasone-Salmeterol 500-50] Spironolactone [Aldactone] 50 mg PO DAILY@0800 08/11/22 08/11/22 Previous Rx's Medication Instructions Recorded Doxycycline [Vibramycin] 100 mg PO BID #2 cap 08/15/22 Furosemide [Lasix] 20 mg PO DAILY tab 08/15/22 levETIRAcetam [Keppra] 500 mg PO Q12HR tab 08/15/22 Allergies Allergy/AdvReac Type Severity Reaction Status Date / Time No Known Allergies Allergy Verified 09/05/22 14:43 Review of Systems ROS Statement: Those systems with pertinent positive or pertinent negative responses have been documented in the HPI. ROS Other: All systems not noted in ROS Statement are negative. Constitutional: Denies: fever Eyes: Denies: eye pain ENT: Denies: ear pain Respiratory: Reports: as per HPI, dyspnea Cardiovascular: Reports: as per HPI, chest pain Gastrointestinal: Denies: abdominal pain Genitourinary: Denies: dysuria Musculoskeletal: Denies: back pain Skin: Denies: rash Neurological: Denies: headache, weakness, confusion Past Medical History Past Medical History: Heart Failure, Hyperlipidemia Additional Past Medical History / Comment(s): Schizophrenia History of Any Multi-Drug Resistant Organisms: None Reported Past Surgical History: No Surgical Hx Reported Past Anesthesia/Blood Transfusion Reactions: No Reported Reaction Past Psychological History: Schizophrenia Smoking Status: Current every day smoker Past Alcohol Use History: None Reported Past Drug Use History: None Reported - Past Family History Father Family Medical History: Unable to Obtain Mother Family Medical History: Unable to Obtain General Exam Limitations: no limitations General appearance: alert, in no apparent distress Head exam: Present: atraumatic, normocephalic Eye exam: Present: normal appearance, PERRL, EOMI ENT exam: Present: normal oropharynx Neck exam: Present: normal inspection, full ROM. Absent: tenderness Respiratory exam: Present: normal lung sounds bilaterally Cardiovascular Exam: Present: regular rate, normal rhythm Expanded Peripheral pulses: 2+: Radial (R), Radial (L) GI/Abdominal exam: Present: soft. Absent: tenderness, pulsatile mass Extremities exam: Present: normal inspection, full ROM. Absent: tenderness Neurological exam: Present: alert, oriented X3, CN II-XII intact. Absent: motor sensory deficit Expanded Motor strength exam: RUE: 5, LUE: 5, RLE: 5, LLE: 5 Eye Response: (4) open spontaneously Motor Response: (6) obeys commands Verbal Response: (5) oriented Psychiatric exam: Present: normal affect, normal mood Skin exam: Present: normal color Course Vital Signs 09/09/22 12:55 Pulse Rate 69 Respiratory 20 Rate Blood Pressure 131/86 O2 Sat by Pulse 90 L Oximetry EKG Findings - EKG Results: EKG: interpreted by ERMD (Nonspecific ST-T), sinus rhythm, normal axis, normal QRS Medical Decision Making - Medical Decision Making Was pt. sent in by a medical professional or institution (RYLIE Knapp, SAILOR, urgent care, hospital, or skilled nursing...) When possible be specific @ -Patient was sent in by assisted care Did you speak to anyone other than the patient for history (EMS, parent, family, police, friend...)? What history was obtained from this source @ -No Did you review nursing and triage notes (agree or disagree)? Why? @ -I reviewed and agree with nursing and triage notes Were old charts reviewed (outside hosp., previous admission, EMS record, old EKG, old radiological studies, urgent care reports/EKG's, skilled nursing records)? Report findings @ -Previous admission reviewed Differential Diagnosis (chest pain, altered mental status, abdominal pain women, abdominal pain men, vaginal bleeding, weakness, fever, dyspnea, syncope, headache, dizziness, GI bleed, back pain, seizure, CVA, palpatations, mental health)? @ -Differential Syncope: Valvular disease, hypertrophic cardiomyopathy, pulmonary embolism, tamponade, tachycardia, bradycardia, MA, hypovolemia, hemorrhage, dissection, anemia, intracranial hemorrhage, seizure, hypoglycemia, carbon monoxide poisoning, this is not meant to be an all-inclusive list. EKG interpreted by me (3pts min.). @ -As above X-rays interpreted by me (1pt min.). @ -Chest x-ray shows bilateral effusions CT interpreted by me (1pt min.). @ -Report reviewed U/S interpreted by me (1pt. min.). @ -None done What testing was considered but not performed or refused? (CT, X-rays, U/S, labs)? Why? @ -None What meds were considered but not given or refused? Why? @ -None Did you discuss the management of the patient with other professionals (professionals i.e. RYLIE Knapp, SAILOR, lab, RT, psych nurse, 7th grade social studies teacher, creasing machine operator, teacher, equal employment opportunity officer, vocational case manager)? Give summary @ -Case was discussed with Dr. Beach, who will admit covering Dr. Galeano Was smoking cessation discussed for >3mins.? @ -No Was critical care preformed (if so, how long)? @ -No Were there social determinants of health that impacted care today? How? (Homelessness, low income, unemployed, alcoholism, drug addiction, transportation, low edu. Level, literacy, decrease access to med. care, penitentiary, r ehab)? @ -No Was there de-escalation of care discussed even if they declined (Discuss DNR or withdrawal of care, Hospice)? DNR status @ -No What co-morbidities impacted this encounter? (DM, HTN, Smoking, COPD, CAD, Cancer, CVA, ARF, Chemo, Hep., AIDS, mental health diagnosis, sleep apnea, morbid obesity)? @ -None Was patient admitted / discharged? Hospital course, mention meds given and route, prescriptions, significant lab abnormalities, going to OR and other pertinent info. @ -Patient has syncope on top of CHF. Patient will be admitted for treatment Undiagnosed new problem with uncertain prognosis? @ -No Drug Therapy requiring intensive monitoring for toxicity (Heparin, Nitro, Insulin, Cardizem)? @ -No Were any procedures done? @ -No Diagnosis/symptom? @ -CHF, syncope Acute, or Chronic, or Acute on Chronic? @ -Acute on chronic, acute Uncomplicated (without systemic symptoms) or Complicated (systemic symptoms)? @ -default Side effects of treatment? @ -No Exacerbation, Progression, or Severe Exacerbation? @ -No Poses a threat to life or bodily function? How? (Chest pain, USA, MA, pneumonia, PE, COPD, DKA, ARF, appy, cholecystitis, CVA, Diverticulitis, Homicidal, Suicidal, threat to staff... and all critical care pts) @ -No - Lab Data Result diagrams: 09/09/22 13:06 09/09/22 13:06 Lab Results 09/09/22 09/09/22 09/09/22 Range/Units 13:06 13:06 13:06 WBC 6.4 (3.8-10.6) k/uL RBC 4.26 L (4.30-5.90) m/uL Hgb 14.0 (13.0-17.5) gm/dL Hct 43.3 (39.0-53.0) % MCV 101.7 H (80.0-100.0) fL MCH 32.9 (25.0-35.0) pg MCHC 32.4 (31.0-37.0) g/dL RDW 13.3 (11.5-15.5) % Plt Count 225 (150-450) k/uL MPV 8.2 Neutrophils % 80 % Lymphocytes % 10 % Monocytes % 7 % Eosinophils % 1 % Basophils % 0 % Neutrophils # 5.1 (1.3-7.7) k/uL Lymphocytes # 0.6 L (1.0-4.8) k/uL Monocytes # 0.5 (0-1.0) k/uL Eosinophils # 0.1 (0-0.7) k/uL Basophils # 0.0 (0-0.2) k/uL Macrocytosis Slight PT 10.2 (9.0-12.0) sec INR 1.0 (<1.2) APTT 24.0 (22.0-30.0) sec D-Dimer 7.64 H (<0.60) mg/L FEU Sodium 135 L (137-145) mmol/L Potassium 4.2 (3.5-5.1) mmol/L Chloride 95 L (98-107) mmol/L Carbon Dioxide 36 H (22-30) mmol/L Anion Gap 4 mmol/L BUN 12 (9-20) mg/dL Creatinine 0.48 L (0.66-1.25) mg/dL Est GFR (CKD-EPI)AfAm >90 (>60 ml/min/1.73 sqM) Est GFR (CKD-EPI)NonAf >90 (>60 ml/min/1.73 sqM) Glucose 92 (74-99) mg/dL Calcium 8.6 (8.4-10.2) mg/dL Magnesium 1.9 (1.6-2.3) mg/dL Total Bilirubin 0.4 (0.2-1.3) mg/dL AST 28 (17-59) U/L ALT 24 (4-49) U/L Alkaline Phosphatase 126 (38-126) U/L Troponin I (0.000-0.034) ng/mL Total Protein 6.2 L (6.3-8.2) g/dL Albumin 3.7 (3.5-5.0) g/dL 09/09/22 Range/Units 13:06 WBC (3.8-10.6) k/uL RBC (4.30-5.90) m/uL Hgb (13.0-17.5) gm/dL Hct (39.0-53.0) % MCV (80.0-100.0) fL MCH (25.0-35.0) pg MCHC (31.0-37.0) g/dL RDW (11.5-15.5) % Plt Count (150-450) k/uL MPV Neutrophils % % Lymphocytes % % Monocytes % % Eosinophils % % Basophils % % Neutrophils # (1.3-7.7) k/uL Lymphocytes # (1.0-4.8) k/uL Monocytes # (0-1.0) k/uL Eosinophils # (0-0.7) k/uL Basophils # (0-0.2) k/uL Macrocytosis PT (9.0-12.0) sec INR (<1.2) APTT (22.0-30.0) sec D-Dimer (<0.60) mg/L FEU Sodium (137-145) mmol/L Potassium (3.5-5.1) mmol/L Chloride (98-107) mmol/L Carbon Dioxide (22-30) mmol/L Anion Gap mmol/L BUN (9-20) mg/dL Creatinine (0.66-1.25) mg/dL Est GFR (CKD-EPI)AfAm (>60 ml/min/1.73 sqM) Est GFR (CKD-EPI)NonAf (>60 ml/min/1.73 sqM) Glucose (74-99) mg/dL Calcium (8.4-10.2) mg/dL Magnesium (1.6-2.3) mg/dL Total Bilirubin (0.2-1.3) mg/dL AST (17-59) U/L ALT (4-49) U/L Alkaline Phosphatase (38-126) U/L Troponin I <0.012 (0.000-0.034) ng/mL Total Protein (6.3-8.2) g/dL Albumin (3.5-5.0) g/dL Disposition Clinical Impression: CHF (congestive heart failure), Syncope Disposition: ADMITTED IP TO THIS HOSP Is patient prescribed a controlled substance at d/c from ED?: No Referrals: Maycol Bourne MD [Primary Care Provider] - 1-2 days Time of Disposition: 15:21
--- NOTE | 2022-09-09 13:38 | CT ---
EXAMINATION TYPE: CT brain wo con DATE OF EXAM: 09/09/2022 HISTORY: Syncope CT DLP: 1188.4 mGycm. Automated Exposure Control for Dose Reduction was Utilized. TECHNIQUE: CT scan of the head is performed without contrast. COMPARISON: CT brain August 11, 2022. FINDINGS: There is no acute intracranial hemorrhage or midline shift identified. Ventricles and sul ci are within normal limits in size for patient's age. Winston-white matter differentiation is preserved patchy opacification of left mastoid air cells is redemonstrated similar to prior. Patchy soft tiss ue density or cerumen in the deep left extra auditory canal is again seen. The globes are intact and the visualized sinuses are clear. IMPRESSION: No acute intracranial hemorrhage or midline shift. Possible left-sided mastoiditis versu s retained secretions. Correlate clinically. No significant change from recent CT..
--- NOTE | 2022-09-09 13:42 | XR ---
EXAMINATION TYPE: XR chest 2V DATE OF EXAM: 09/09/2022 COMPARISON: 09/05/2022 TECHNIQUE: PA and lateral views submitted. HISTORY: Syncope FINDINGS: The lungs are clear and there is no pneumothorax. Heart size normal and no overt failure. Osseous st ructures demonstrate hypertrophic and degenerative changes of the spine. Diffuse interstitial pattern with small bilateral pleural effusions. Bilateral subsegmental areas of consolidation. Arthropathy o f the shoulders. Pleural plaque are not well seen on today's exam. Biapical pleural thickening. IMPRESSION: 1. Correlate for mild CHF with bilateral infiltrate and small effusion. 2. COPD.
[2022-09-09 13:43] LABS: Basophils % (A) 0 %; Eosinophils # (A) 0.1 k/uL (0-0.7); Eosinophils % (A) 1 %; HCT 43.3 % (39.0-53.0); Lymphocytes # (A) 0.6 k/uL (1.0-4.8); Lymphocytes % (A) 10 %; MCH 32.9 pg (25.0-35.0); MCHC 32.4 g/dL (31.0-37.0); MCV 101.7 fL (80.0-100.0); Macrocytosis Slight; Mean Platelet Volume 8.2; Monocytes # (A) 0.5 k/uL (0-1.0); Monocytes % (A) 7 %; Neutrophils # (A) 5.1 k/uL (1.3-7.7); Neutrophils % (A) 80 %; Platelet Count 225 k/uL (150-450); RBC 4.26 m/uL (4.30-5.90); RDW 13.3 % (11.5-15.5); WBC 6.4 k/uL (3.8-10.6)
[2022-09-09 13:51] LABS: ALT 24 U/L (4-49); AST 28 U/L (17-59); African American GFR (CKD) >90 (>60 ml/min/1.73 sqM); Albumin 3.7 g/dL (3.5-5.0); Alkaline Phosphatase 126 U/L (38-126); Anion Gap 4 mmol/L; Blood Urea Nitrogen 12 mg/dL (9-20); Calcium 8.6 mg/dL (8.4-10.2); Carbon Dioxide 36 mmol/L (22-30); Chloride 95 mmol/L (98-107); Glucose 92 mg/dL (74-99); Magnesium 1.9 mg/dL (1.6-2.3); Non-African American GFR(CKD) >90 (>60 ml/min/1.73 sqM); Potassium 4.2 mmol/L (3.5-5.1); Sodium 135 mmol/L (137-145); Total Bilirubin 0.4 mg/dL (0.2-1.3); Total Protein 6.2 g/dL (6.3-8.2)
[2022-09-09 13:59] LABS: Prothrombin Time 10.2 sec (9.0-12.0)
--- NOTE | 2022-09-09 14:41 | CT ---
EXAMINATION TYPE: CT angio chest DATE OF EXAM: 09/09/2022 COMPARISON: High resolution CT May 02, 2021 HISTORY: r/o pE CT DLP: 813.9 mGycm. Automated Exposure Control for Dose Reduction was Utilized. CONTRAST: CTA scan of the thorax is performed with IV Contrast, patient injected with 100 mL of Isovue 370, pul monary embolism protocol. MIP Images are created on CT scanner and reviewed. FINDINGS: LUNGS: There are thin-walled cysts in the right upper lobe redemonstrated. Focal linear scarring post erior right upper lobe with adjacent calcified nodule or benign granuloma axial image 29 is redemonst rated. Tiny bilateral pleural effusions on current study. Persistent moderate scattered linear fibrot ic changes including periphery of the right lower lobe. New consolidation and/or atelectasis in the p osterior lung bases. There are new areas of nodularity and/or nodular consolidation. For reference th ere are 2-- 8 mm nodules in the posterior superior right lower lobe axial image 58. MEDIASTINUM: There is satisfactory enhancement of the pulmonary artery and its branches, there is no CT evidence for pulmonary embolism. Prominent right hilar lymph nodes. No cardiomegaly or pericard ial effusion is seen. Coronary artery calcification is redemonstrated. Prominent main pulmonary arter y of 3.0 cm raising concern for underlying pulmonary artery hypertension. OTHER: Osseous structures are demineralized. Scoliosis is seen. Exaggerated thoracic kyphosis with se veral chronic compression type fractures throughout the entire thoracic spine. Moderate compression f ractures at T5 and T7 level. Moderate to severe chronic compression fracture at T2 level. IMPRESSION: 1. No CT evidence for acute pulmonary embolism. 2. Correlate for fluid overload state or CHF exacerbation as there is tiny bilateral pleural effusion s and mild alveolar and interstitial edema noted. 3. Chronic emphysematous and fibrotic changes with new areas of nodularity or nodular consolidation. Follow-up diagnostic CT after treatment is advised to exclude true pulmonary nodules.
[2022-09-09] MEDS ORDERED: ASPIRIN 325 MG TAB PO STA (15:22)
[2022-09-09] MEDS: FUROSEMIDE 10 MG/ML 4 ML VIAL IV SCH (16:56)
[2022-09-09] MEDS ORDERED: ALBUTEROL NEBULIZED 2.5 MG/3 ML INHALATION PRN (18:28)
[2022-09-09] MEDS: ATORVASTATIN 40 MG TAB PO SCH (20:23)
[2022-09-09] MEDS: FAMOTIDINE 20 MG TAB PO SCH (20:23)
[2022-09-09] MEDS: levETIRAcetam 500 MG TAB PO SCH (20:23)
[2022-09-09] MEDS: MELATONIN 5 MG TABLET PO SCH (20:23)
[2022-09-09] MEDS: risperiDONE 1 MG TAB PO SCH (20:23)
[2022-09-09] MEDS: SYMBICORT 160-4.5 MCG INHALER INHALATION SCH (21:45)
--- NOTE | 2022-09-09 21:48 | P.HPIM ---
History of Present Illness H&P Date: 09/09/22 Chief Complaint: Short of breath This is a 77-year-old patient, follows with visiting physicians Dr. Bourne. Chronic stable medical conditions include hyperlipidemia, schizophrenia, chronic nicotine dependence, insomnia. Venous insufficiency lower extremity. COPD. Seizures . Chronic fibrotic . Lung disorder. Patient long-standing smoker presented with increasing shortness of breath. Has chronic lower extremity edema. Smoker. Some cough. No fever no chills. Adm itted from the ER for CHF exacerbation. Appetite fair. No change in bowel pattern. Review of systems: GEN.: Tired EYES: None HEENT: None NECK: None RESPIRATORY: Short of breath, some wheezing CARDIOVASCULAR: Edema GASTROINTESTINAL: None GENITOURINARY: None MUSCULOSKELETAL: Joint pain LYMPHATICS: None HEMATOLOGICAL: None PSYCHIATRY: None NEUROLOGICAL: None Past medical history to include: Hyperlipidemia, insomnia, EGD, schizophrenia, nicotine dependence, venous insufficiency, pulmonary fibrosis, seizure Social history: [facility]. Smokes a pack a day for many years. No alcohol Physical examination: VITAL SIGNS: 97.3, 73, 16, 112 with 71, 94% on 2 L GENERAL: Sitting up in a chair, awake, no distress EYES: Pupils equal. Conjunctiva normal. HEENT: External appearance of nose and ears normal, oral cavity grossly normal. NECK: JVD not raised; masses not palpable. HEART: First and second heart sounds are normal; edema present LUNGS: Respiratory rate increased, basal fine crackles ABDOMEN: Soft, nontender, liver spleen not palpable, no masses palpable. PSYCH: Alert and oriented x3; mood and affect tired. MUSCULOSKELETAL:No Clubbing/cyanosis;muscles-grossly intact. OA NEUROLOGICAL: Cranial nerves grossly intact; no facial asymmetry, power and sensation grossly intact. INVESTIGATIONS, reviewed in the clinical context: Chest CTA: No PE. Some fluid overload. Interstitial prominence. Chronic emphysematous and fibrotic changes. New areas of nodular consolidation EKG tracing personally reviewed by me-normal sinus rhythm. Some ST segment changes. Chest x-ray film personally reviewed by me-venous prominence WBC 6.4 hemoglobin 14 platelets 225 sodium 135 potassium 4.[address] chest-resolution: Mild to moderate chronic parenchymal fibrotic changes. 2-D echocardiogram: EF 50-55%. Assessment and plan: -Acute congestive heart failure exacerbation. EF not known. 2-D echo. IV Lasix. Fluid restriction. Check BNP -Acute on possible chronic hypoxic respiratory failure from COPD Discharge home on 2 L - Chronic lower extremity venous insufficiency Danny wrap -Bilateral pulmonary fibrosis -Acute Exacerbation COPD in a current smoker DuoNeraul, Symbicort -Chronic nicotine dependence patient cigarette smoker Nicotine patch -Chronic insomnia melatonin -Chronic schizophrenia Risperdal -Hyperlipidemia Lipitor Discussed with patient. Given the complexity and severity of patient's condition expect the patient to be in the hospital at least for 2 overnights Past Medical History Past Medical History: Heart Failure, Hyperlipidemia Additional Past Medical History / Comment(s): Schizophrenia History of Any Multi-Drug Resistant Organisms: None Reported Past Surgical History: No Surgical Hx Reported Past Anesthesia/Blood Transfusion Reactions: No Reported Reaction Past Psychological History: Schizophrenia Additional Psychological History / Comment(s): Pt resides at [facility]. He is ambulatory, uses bus to go on his own into town. Smoking Status: Current every day smoker Past Alcohol Use History: None Reported Additional Past Alcohol Use History / Comment(s): Pt started smoking in 1965. Past Drug Use History: None Reported - Past Family History Father Family Medical History: Unable to Obtain Mother Family Medical History: Unable to Obtain Medications and Allergies Home Medications Medication Instructions Recorded Confirmed Type Melatonin 10 mg PO HS@199908/07/20 09/09/22 History risperiDONE [RisperDAL] 3 mg PO HS@199908/07/20 09/09/22 History Cholecalciferol [Vitamin D3 (25 50 mcg PO DAILY@0800 05/01/21 09/09/22 History Mcg = 1000 Iu)] Famotidine [Pepcid] 20 mg PO HS@199905/01/21 09/09/22 History Folic Acid 1 mg PO Q2D 05/01/21 09/09/22 History Albuterol Inhaler [Ventolin Hfa 2 puff INHALATION RT-Q6H PRN 08/11/22 09/09/22 History Inhaler] Fluticasone Propion/Salmeterol 1 puff INHALATION RT-BID@08,199908/11/22 09/09/22 History [Fluticasone-Salmeterol 500-50] Spironolactone [Aldactone] 50 mg PO DAILY@0800 08/11/22 09/09/22 History Atorvastatin Calcium [Lipitor] 40 mg PO HS@199909/09/22 09/09/22 History Furosemide [Lasix] 20 mg PO DAILY@79909/09/22 09/09/22 History levETIRAcetam [Keppra] 500 mg PO BID@799,199909/09/22 09/09/22 History Allergies Allergy/AdvReac Type Severity Reaction Status Date / Time No Known Allergies Allergy Verified 09/09/22 15:34 Physical Exam Vitals: Vital Signs Temp Pulse Pulse Pulse Pulse Pulse Resp 09/09/22 19:00 98.1 F 77 16 09/09/22 17:45 97.3 F L 73 94 79 09/09/22 17:36 74 18 09/09/22 16:10 92 09/09/22 16:05 77 09/09/22 16:00 75 09/09/22 12:55 69 20 BP BP BP BP BP Pulse Ox 09/09/22 19:00 107/72 96 09/09/22 17:45 112/71 113/75 126/76 94 L 09/09/22 17:36 134/82 99 09/09/22 16:10 131/92 09/09/22 16:05 137/74 09/09/22 16:00 146/69 09/09/22 12:55 131/86 90 L Intake and Output 09/09/22 09/09/22 09/09/22 06:59 14:59 22:59 Other: Weight 113.398 kg 113.398 kg Results CBC & Chem 7: 09/09/22 13:06 09/09/22 13:06 Labs: Abnormal Lab Results - Last 24 Hours (Table) 09/09/22 09/09/22 09/09/22 Range/Units 13:06 13:06 13:06 RBC 4.26 L (4.30-5.90) m/uL MCV 101.7 H (80.0-100.0) fL Lymphocytes # 0.6 L (1.0-4.8) k/uL D-Dimer 7.64 H (<0.60) mg/L FEU Sodium 135 L (137-145) mmol/L Chloride 95 L (98-107) mmol/L Carbon Dioxide 36 H (22-30) mmol/L Creatinine 0.48 L (0.66-1.25) mg/dL Total Protein 6.2 L (6.3-8.2) g/dL Thrombosis Risk Factor Assmnt - Choose All That Apply Any of the Below Risk Factors Present?: Yes Each Factor Represents 1 point: Abnormal pulmonary function (COPD) Other Risk Factors: Yes Each Risk Factor Represents 3 Points: Age 75 years or older Thrombosis Risk Factor Assessment Total Risk Factor Score: 4 Thrombosis Risk Factor Assessment Level: Moderate Risk
[2022-09-09] MEDS: IPRATROPIUM-ALBUTEROL 3 ML NEB INHALATION SCH (21:54)
[2022-09-09] MEDS: NICOTINE 21MG/24HR PATCH TRANSDERM SCH (22:38)
[2022-09-10] MEDS: FUROSEMIDE 10 MG/ML 4 ML VIAL IV SCH ×4 (00:06→21:56)
--- NOTE | 2022-09-10 07:11 | P.CRDCN ---
History of Present Illness Consult date: 09/10/22 Chief complaint: CHF History of present illness: The patient is a pleasant 77-year-old gentleman with a past medical history significant for hypertension and dyslipidemia as well was history of falls was admitted to the hospital for further evaluation of syncope. He is somewhat poor historian with a prior psychiatric history. We consulted to see the patient because of syncope. The patient stated that he was in his usual state of health until yesterday when he fell with no change in mental status and he does remember all the details. No symptoms of any chest pain or chest discomfort and no feeling of heart racing or fluttering and no dizziness or lightheadedness associated with the fall. He was more short of breath recently. He also developed bilateral lower extremity edema. He stated that he has been compliant with all of his medication he is on oral diuretics at home. The patient was admitted for further evaluation and underwent a workup including computed tomography scan of the brain which showed no acute abnormalities or midline shift and also he underwent troponin with the first set came in to be unremarkable and EKG showing sinus mechanism was no significant ST or T-wave abnormalities. He also underwent CBC and BNP came in to be unremarkable. The chest x-ray showed findings consistent was congestive heart failure. Computed tomography scan of the chest was performed after abnormal d-dimer showed no evidence of pulmonary embolism but also showed bilateral pleural effusion and finding consistent was congestive heart failure. The patient was admitted to the hospital he was started on Lasix IV. The examination is remarkable for regular rhythm with somewhat distant heart sounds and diminished breathing sounds bilaterally and at least 2+ pedal edema noted. Assessment Fall with no change in mental status Symptoms of congestive heart failure with increasing in the shortness of breath and bilateral lower extremity edema Hypertension and dyslipidemia Plan The patient is on Lasix IV which we will continue for additional 24 hours Rule out acute coronary event. Follow-up with the serial cardiac enzymes. The first set of troponin came in to be unremarkable Obtain an echocardiogram was Doppler Follow-up with the patient Past Medical History Past Medical History: Heart Failure, Hyperlipidemia Additional Past Medical History / Comment(s): Schizophrenia History of Any Multi-Drug Resistant Organisms: None Reported Past Surgical History: No Surgical Hx Reported Past Anesthesia/Blood Transfusion Reactions: No Reported Reaction Past Psychological History: Schizophrenia Additional Psychological History / Comment(s): Pt resides at [facility] [place]. He is ambulatory, uses bus to go on his own into town. Smoking Status: Current every day smoker Past Alcohol Use History: None Reported Additional Past Alcohol Use History / Comment(s): Pt started smoking in 1965. Past Drug Use History: None Reported - Past Family History Father Family Medical History: Unable to Obtain Mother Family Medical History: Unable to Obtain Medications and Allergies Home Medications Medication Instructions Recorded Confirmed Type Melatonin 10 mg PO HS@199908/07/20 09/09/22 History risperiDONE [RisperDAL] 3 mg PO HS@199908/07/20 09/09/22 History Cholecalciferol [Vitamin D3 (25 50 mcg PO DAILY@0800 05/01/21 09/09/22 History Mcg = 1000 Iu)] Famotidine [Pepcid] 20 mg PO HS@199905/01/21 09/09/22 History Folic Acid 1 mg PO Q2D 05/01/21 09/09/22 History Albuterol Inhaler [Ventolin Hfa 2 puff INHALATION RT-Q6H PRN 08/11/22 09/09/22 History Inhaler] Fluticasone Propion/Salmeterol 1 puff INHALATION RT-BID@08,199908/11/22 09/09/22 History [Fluticasone-Salmeterol 500-50] Spironolactone [Aldactone] 50 mg PO DAILY@0800 08/11/22 09/09/22 History Atorvastatin Calcium [Lipitor] 40 mg PO HS@199909/09/22 09/09/22 History Furosemide [Lasix] 20 mg PO DAILY@0800 09/09/22 09/09/22 History levETIRAcetam [Keppra] 500 mg PO BID@08,199909/09/22 09/09/22 History Allergies Allergy/AdvReac Type Severity Reaction Status Date / Time No Known Allergies Allergy Verified 09/09/22 15:34 Physical Exam Vitals: Vital Signs Temp Pulse Pulse Pulse Pulse Pulse Resp 09/10/22 02:15 98.1 F 75 16 09/10/22 00:04 81 09/09/22 19:00 98.1 F 77 16 09/09/22 17:45 97.3 F L 73 94 79 09/09/22 17:36 74 18 09/09/22 16:10 92 09/09/22 16:05 77 09/09/22 16:00 75 09/09/22 12:55 69 20 BP BP BP BP BP Pulse Ox 09/10/22 02:15 111/66 90 L 09/10/22 00:04 134/82 93 L 09/09/22 19:00 107/72 96 09/09/22 17:45 112/71 113/75 126/76 94 L 09/09/22 17:36 134/82 99 09/09/22 16:10 131/92 09/09/22 16:05 137/74 09/09/22 16:00 146/69 09/09/22 12:55 131/86 90 L Intake and Output 09/09/22 09/10/22 09/10/22 22:59 06:59 14:59 Output Total 250 Balance -250 Output: Urine 250 Other: # Voids 1 Weight 113.398 kg 93.8 kg Results 09/09/22 13:06 09/09/22 13:06 Cardiac Enzymes 09/09/22 09/09/22 Range/Units 13:06 13:06 AST 28 (17-59) U/L Troponin I <0.012 (0.000-0.034) ng/mL Coagulation 09/09/22 Range/Units 13:06 PT 10.2 (9.0-12.0) sec APTT 24.0 (22.0-30.0) sec CBC 09/09/22 Range/Units 13:06 WBC 6.4 (3.8-10.6) k/uL RBC 4.26 L (4.30-5.90) m/uL Hgb 14.0 (13.0-17.5) gm/dL Hct 43.3 (39.0-53.0) % Plt Count 225 (150-450) k/uL Comprehensive Metabolic Panel 09/09/22 Range/Units 13:06 Sodium 135 L (137-145) mmol/L Potassium 4.2 (3.5-5.1) mmol/L Chloride 95 L (98-107) mmol/L Carbon Dioxide 36 H (22-30) mmol/L BUN 12 (9-20) mg/dL Creatinine 0.48 L (0.66-1.25) mg/dL Glucose 92 (74-99) mg/dL Calcium 8.6 (8.4-10.2) mg/dL AST 28 (17-59) U/L ALT 24 (4-49) U/L Alkaline Phosphatase 126 (38-126) U/L Total Protein 6.2 L (6.3-8.2) g/dL Albumin 3.7 (3.5-5.0) g/dL Current Medications Generic Name Dose Route Start Last Admin Trade Name Freq PRN Reason Stop Dose Admin Albuterol Sulfate 2.5 mg 09/09/22 18:28 Albuterol Nebulized 2.5 Mg/3 Ml INHALATION RT-Q6H PRN Shortness Of Breath Albuterol/Ipratropium 3 ml 09/09/22 22:00 09/09/22 21:54 Ipratropium-Albuterol 3 Ml Neb INHALATION Not Given RT-QID [facility] Aspirin 325 mg 09/10/22 09:00 Aspirin 325 Mg Tab PO DAILY [facility] Atorvastatin Calcium 40 mg 09/09/22 20:00 09/09/22 20:23 Atorvastatin 40 Mg Tab PO 40 mg HS@1999 [facility] Administration Budesonide/Formoterol Fumarate 2 puff 09/09/22 20:00 09/09/22 21:45 Symbicort 160-4.5 Mcg Inhaler INHALATION Not Given RT-BID@ [facility] Cholecalciferol 50 mcg 09/10/22 08:00 Cholecalciferol 25 Mcg (1000 Iu) Tablet PO DAILY@08 [facility] Famotidine 20 mg 09/09/22 20:00 09/09/22 20:23 Famotidine 20 Mg Tab PO 20 mg HS@1999 [facility] Administration Folic Acid 1 mg 09/10/22 09:00 Folic Acid 1 Mg Tab PO Q2D [facility] Furosemide 40 mg 09/09/22 16:00 09/10/22 00:06 Furosemide 10 Mg/Ml 4 Ml Vial IV 40 mg Q8HR [facility] Administration Levetiracetam 500 mg 09/09/22 20:00 09/09/22 20:23 Levetiracetam 500 Mg Tab PO 500 mg BID@ [facility] Administration Melatonin 10 mg 09/09/22 20:00 09/09/22 20:23 Melatonin 5 Mg Tablet PO 10 mg HS@1999 [facility] Administration Nicotine 1 patch 09/09/22 22:00 09/09/22 22:38 Nicotine 21mg/24hr Patch TRANSDERM 1 patch DAILY [facility] Administration Risperidone 3 mg 09/09/22 20:00 09/09/22 20:23 Risperidone 1 Mg Tab PO 3 mg HS@2000 [facility] Administration Spironolactone 50 mg 09/10/22 08:00 Spironolactone 25 Mg Tab PO DAILY@0800 [facility] Intake and Output 09/09/22 09/10/22 09/10/22 22:59 06:59 14:59 Output Total 250 Balance -250 Output: Urine 250 Other: # Voids 1 Weight 113.398 kg 93.8 kg 09/09/22 13:06 09/09/22 13:06
[2022-09-10] MEDS: SYMBICORT 160-4.5 MCG INHALER INHALATION SCH ×2 (07:59→21:46)
[2022-09-10] MEDS: IPRATROPIUM-ALBUTEROL 3 ML NEB INHALATION SCH ×4 (08:00→21:46)
[2022-09-10 08:38] LABS: African American GFR (CKD) >90 (>60 ml/min/1.73 sqM); Blood Urea Nitrogen 8 mg/dL (9-20); Calcium 8.6 mg/dL (8.4-10.2); Chloride 91 mmol/L (98-107); Glucose 105 mg/dL (74-99); Non-African American GFR(CKD) >90 (>60 ml/min/1.73 sqM); Potassium 4.3 mmol/L (3.5-5.1); Sodium 137 mmol/L (137-145)
[2022-09-10 08:45] LABS: Anion Gap 8 mmol/L
[2022-09-10 08:49] LABS: Carbon Dioxide 38 mmol/L (22-30)
[2022-09-10] MEDS: FOLIC ACID 1 MG TAB PO SCH (09:03)
[2022-09-10] MEDS: SPIRONOLACTONE 25 MG TAB PO SCH (09:03)
[2022-09-10] MEDS: CHOLECALCIFEROL 25 MCG (1000 IU) TABLET PO SCH (09:03)
[2022-09-10] MEDS: ASPIRIN 325 MG TAB PO SCH (09:04)
[2022-09-10] MEDS: NICOTINE 21MG/24HR PATCH TRANSDERM SCH (09:04)
[2022-09-10] MEDS: levETIRAcetam 500 MG TAB PO SCH ×2 (09:04→21:55)
[2022-09-10 13:58] VITALS: BMI 28.0
--- NOTE | 2022-09-10 15:46 | P.PN ---
Progress Note - Text Progress Note Date: 09/10/22 Chief Complaint: Short of breath This is a 77-year-old patient, follows with visiting physicians Dr. Bourne. Chronic stable medical conditions include hyperlipidemia, schizophrenia, chronic nicotine dependence, insomnia. Venous insufficiency lower extremity. COPD. S eizures . Chronic fibrotic . Lung disorder. Patient long-standing smoker presented with increasing shortness of breath. Has chronic lower extremity edema. Smoker. Some cough. No fever no chills. Admitted from the ER for CHF exacerbation. Appetite fair. No change in bowel pattern. Admitted with CHF exacerbation. IV Lasix. September 10: Sitting up in a chair. Oral intake good. Breathing better. On IV Lasix. Some edema. Danny wrap added. Active Medications Albuterol Sulfate (Albuterol Nebulized 2.5 Mg/3 Ml) 2.5 mg INHALATION RT-Q6H PRN PRN Reason: Shortness Of Breath Albuterol/Ipratropium (Ipratropium-Albuterol 3 Ml Neb) 3 ml INHALATION RT-QID [facility] Last Admin: 09/10/22 12:34 Dose: 3 ml Aspirin (Aspirin 325 Mg Tab) 325 mg PO DAILY [facility] Last Admin: 09/10/22 09:04 Dose: 325 mg Atorvastatin Calcium (Atorvastatin 40 Mg Tab) 40 mg PO HS@1999 [facility] Last Admin: 09/09/22 20:23 Dose: 40 mg Budesonide/Formoterol Fumarate (Symbicort 160-4.5 Mcg Inhaler) 2 puff INHALATION RT-BID@ [facility] Last Admin: 09/10/22 07:59 Dose: 2 puff Cholecalciferol (Cholecalciferol 25 Mcg (1000 Iu) Tablet) 50 mcg PO DAILY@0800 [facility] Last Admin: 09/10/22 09:03 Dose: 50 mcg Famotidine (Famotidine 20 Mg Tab) 20 mg PO HS@1999 [facility] Last Admin: 09/09/22 20:23 Dose: 20 mg Folic Acid (Folic Acid 1 Mg Tab) 1 mg PO Q2D [facility] Last Admin: 09/10/22 09:03 Dose: 1 mg Furosemide (Furosemide 10 Mg/Ml 4 Ml Vial) 40 mg IV Q8HR [facility] Last Admin: 09/10/22 09:04 Dose: 40 mg Levetiracetam (Levetiracetam 500 Mg Tab) 500 mg PO BID@ [facility] Last Admin: 09/10/22 09:04 Dose: 500 mg Melatonin (Melatonin 5 Mg Tablet) 10 mg PO HS@1999 [facility] Last Admin: 09/09/22 20:23 Dose: 10 mg Nicotine (Nicotine 21mg/24hr Patch) 1 patch TRANSDERM DAILY [facility] Last Admin: 09/10/22 09:04 Dose: Not Given Risperidone (Risperidone 1 Mg Tab) 3 mg PO HS@1999 [facility] Last Admin: 09/09/22 20:23 Dose: 3 mg Spironolactone (Spironolactone 25 Mg Tab) 50 mg PO DAILY@08 [facility] Last Admin: 09/10/22 09:03 Dose: 50 mg Past medical history to include: Hyperlipidemia, insomnia, EGD, schizophrenia, nicotine dependence, venous insufficiency, pulmonary fibrosis, seizure Social history: Lives at [facility]. Smokes a pack a day for many years. No alcohol Physical examination: VITAL SIGNS: 97.9, 100, 18, 112/77, 92% on 3 daughters GENERAL: Sitting up in a chair, awake, no distress EYES: Pupils equal. Conjunctiva normal. HEENT: External appearance of nose and ears normal, oral cavity grossly normal. NECK: JVD not raised; masses not palpable. HEART: First and second heart sounds are normal; edema present LUNGS: Respiratory rate increased, basal fine crackles ABDOMEN: Soft, nontender, liver spleen not palpable, no masses palpable. PSYCH: Alert and oriented x3; mood and affect tired. MUSCULOSKELETAL:No Clubbing/cyanosis;muscles-grossly intact. OA NEUROLOGICAL: Cranial nerves grossly intact; no facial asymmetry, power and sensation grossly intact. INVESTIGATIONS, reviewed in the clinical context: September 10: Potassium 4.3 BUN 8 creatinine 0.6 proBNP 351 Chest CTA: No PE. Some fluid overload. Interstitial prominence. Chronic emphysematous and fibrotic changes. New areas of nodular consolidation EKG tracing personally reviewed by me-normal sinus rhythm. Some ST segment changes. Chest x-ray film personally reviewed by me-venous prominence WBC 6.4 hemoglobin 14 platelets 225 sodium 135 potassium 4.[address] chest-resolution: Mild to moderate chronic parenchymal fibrotic changes. 2-D echocardiogram: EF 50-55%. Assessment and plan: -Acute congestive heart failure exacerbation. EF not known.: Better 2-D echo. IV Lasix. Fluid restriction. Her BNP 351 -chronic hypoxic respiratory failure from COPD 2 L - Chronic lower extremity venous insufficiency Danny wrap -Bilateral pulmonary fibrosis -Acute Exacerbation COPD in a current smoker DuJm Symbicort -Chronic nicotine dependence patient cigarette smoker Nicotine patch -Chronic epilepsy Keppra -Chronic insomnia melatonin -Chronic schizophrenia Risperdal -Hyperlipidemia Lipitor Better. Continue IV Lasix. Repeat labs.
[2022-09-10] MEDS ORDERED: NITROGLYCERIN OINT 1 INCH/GM PACKET TOPICAL SCH (18:00)
[2022-09-10] MEDS: risperiDONE 1 MG TAB PO SCH (21:55)
[2022-09-10] MEDS: FAMOTIDINE 20 MG TAB PO SCH (21:55)
[2022-09-10] MEDS: MELATONIN 5 MG TABLET PO SCH (21:55)
[2022-09-10] MEDS: ATORVASTATIN 40 MG TAB PO SCH (21:56)
[2022-09-11 07:02] LABS: African American GFR (CKD) >90 (>60 ml/min/1.73 sqM); Blood Urea Nitrogen 20 mg/dL (9-20); Calcium 8.7 mg/dL (8.4-10.2); Chloride 87 mmol/L (98-107); Glucose 88 mg/dL (74-99); Non-African American GFR(CKD) >90 (>60 ml/min/1.73 sqM); Sodium 134 mmol/L (137-145)
[2022-09-11 07:10] LABS: Anion Gap 8 mmol/L
[2022-09-11 07:27] LABS: Carbon Dioxide 39 mmol/L (22-30)
[2022-09-11] MEDS: IPRATROPIUM-ALBUTEROL 3 ML NEB INHALATION SCH ×4 (07:45→19:52)
[2022-09-11] MEDS: SYMBICORT 160-4.5 MCG INHALER INHALATION SCH ×2 (07:45→19:52)
[2022-09-11] MEDS: levETIRAcetam 500 MG TAB PO SCH ×2 (09:49→20:37)
[2022-09-11] MEDS: CHOLECALCIFEROL 25 MCG (1000 IU) TABLET PO SCH (09:49)
[2022-09-11] MEDS: NICOTINE 21MG/24HR PATCH TRANSDERM SCH (09:49)
[2022-09-11] MEDS: FUROSEMIDE 10 MG/ML 4 ML VIAL IV SCH ×3 (09:49→20:37)
[2022-09-11] MEDS: ASPIRIN 325 MG TAB PO SCH (09:49)
[2022-09-11] MEDS: SPIRONOLACTONE 25 MG TAB PO SCH (09:49)
--- NOTE | 2022-09-11 10:50 | P.PN ---
Subjective Progress Note Date: 09/11/22 HISTORY OF PRESENT ILLNESS: The patient is a pleasant 77-year-old gentleman with a past medical history significant for hypertension and dyslipidemia as well was history of falls was admitted to the hospital for further evaluation of syncope. He is somewhat poor historian with a prior psychiatric history. We consulted to see the patient because of syncope. The patient stated that he was in his usual state of health until yesterday when he fell with no change in mental status and he does remember all the details. No symptoms of any chest pain or chest discomfort and no feeling of heart racing or fluttering and no dizziness or lightheadedness associated with the fall. He was more short of breath recently. He also developed bilateral lower extremity edema. He stated that he has been compliant with all of his medication he is on oral diuretics at home. The patient was admitted for further evaluation and underwent a workup including computed tomography scan of the brain which showed no acute abnormalities or midline shift and also he underwent troponin with the first set came in to be unremarkable and EKG showing sinus mechanism was no significant ST or T-wave abnormalities. He also underwent CBC and BNP came in to be unremarkable. The chest x-ray showed findings consistent was congestive heart failure. Computed tomography scan of the chest was performed after abnormal d-dimer showed no evidence of pulmonary embolism but also showed bilateral pleural effusion and finding consistent was congestive heart failure. The patient was admitted to the hospital he was started on Lasix IV. The examination is remarkable for regular rhythm with somewhat distant heart sounds and diminished breathing sounds bilaterally and at least 2+ pedal edema noted. 09/11/2022 Patient examined this morning at the bedside. Patient appears to be resting in bed currently. He remains on nasal cannula to maintain oxygen saturations greater than 92%. He remains on IV Lasix 40 mg every 8 hours. Kidney function is stable. Patient refused to have echocardiogram completed yesterday. PHYSICAL EXAM: VITAL SIGNS: Reviewed. GENERAL: Well-developed in no acute distress. NECK: Supple. No JVD or thyromegaly LUNGS: Respirations even and unlabored. Lungs diminished with crackles at the bases HEART: Regular rate and rhythm. S1 and S2 heard. EXTREMITIES: Normal range of motion. No clubbing or cyanosis. Peripheral pulses intact. 1+ bilateral lower extremity pitting edema ASSESSMENT: Fall with no change in mental status Symptoms of congestive heart failure with increasing in the shortness of breath and bilateral lower extremity edema Hypertension Hyperlipidemia PLAN: Continue current cardiac medications Continue IV Lasix for an additional 24 hours Daily weights, accurate I&O, and monitoring of kidney function Patient refused to have echocardiogram completed Further recommendations pending patient's course Nurse practitioner note has been reviewed by physician. Signing provider agrees with the documented findings, assessment, and plan of care. Objective - Vital Signs Vital signs: Vital Signs Temp 97.8 F 09/11/22 07:00 Pulse 80 09/11/22 07:58 Resp 18 09/11/22 07:00 BP 108/65 09/11/22 07:00 Pulse Ox 97 09/11/22 07:46 FiO2 Intake & Output 09/10/22 09/11/22 09/11/22 18:59 06:59 18:59 Intake Total 476 Output Total 450 Balance 26 Weight 93.8 kg 93 kg Intake: Oral 476 Output: Urine 450 Other: Voiding Method Toilet Toilet - Labs CBC & Chem 7: 09/09/22 13:06 09/11/22 06:01 Labs: Abnormal Lab Results - Last 24 Hours (Table) 09/11/22 Range/Units 06:01 Sodium 134 L (137-145) mmol/L Chloride 87 L (98-107) mmol/L Carbon Dioxide 39 H (22-30) mmol/L
--- NOTE | 2022-09-11 12:03 | CDI ---
Documentation Clarification Form Date: 09/11/2022 11:45:52 AM From: Geeta Hernandez RN CCDS Phone: [phone] Admit Date: 09/09/2022 09:48:00 PM Patient Name: Isaac Allen Visit Number: [id number] Discharge Date: ATTENTION: The Clinical Documentation Specialists (CDI) and [facility] Coding Staff appreciate your assistance in clarifying documentation. Please respond to the clarification below the line at the bottom and electronically sign. The CDI & [facility] Coding staff will review the response and follow-up if needed. Please note: Queries are made part of the Legal Health Record. If you have any questions, please contact the author of this message via ITS. Dr. Arash Beach Conflicting documentation has been found in the medical record. As attending physician, please provide clarification. Acute on possible chronic hypoxic respiratory failure from COPD, H&P, 09/09. Chronic hypoxic respiratory failure from COPD, Medicine note, 09/10 History/Risk Factors: 77-year-old male presents to the ED with increasing shortness of breath. Medical History: chronic lower extremity edema, Smoker and pulmonary fibrosis. Tobacco use: A pack a day for many years Clinical Indicators: Vital signs: 09/09 12:55 B/P 131/86; HR 69; RR 20; SpO2 90% 2L nasal cannula Pulse oximetry: 09/10 15:00 SpO2 93% 3L nasal cannula 09/10, Oxygen saturation with exercise 104% 3L nasal cannula 09/10, Oxygen saturation Room air at rest 83% 09/10, Oxygen saturation Room air with exercise 98% 09/09, Lung/Breathing assessment, H&P: Short of breath some wheezing. 09/09, Chest X Ray: Bilateral infiltrate and small effusion. Treatment: 2 3L nasal cannula Ventolin inhalation PRN; Duoneb inhalation QID [facility]; Symbicort Inhaler [facility]AN; Please clarify which diagnosis is most appropriate: [ ] Acute on chronic hypoxic respiratory failure [ + ] Chronic hypoxic respiratory failure [ ] Other (please specify) [ ] Unable to determine (Template Last Revised: June 2020) MTDD
--- NOTE | 2022-09-11 12:17 | CDI ---
Documentation Clarification Form MTDD
--- NOTE | 2022-09-11 14:23 | P.PN ---
Progress Note - Text Progress Note Date: 09/11/22 Chief Complaint: Short of breath This is a 77-year-old patient, follows with visiting physicians Dr. Bourne. Chronic stable medical conditions include hyperlipidemia, schizophrenia, chronic nicotine dependence, insomnia. Venous insufficiency lower extremity. COPD. S eizures . Chronic fibrotic . Lung disorder. Patient long-standing smoker presented with increasing shortness of breath. Has chronic lower extremity edema. Smoker. Some cough. No fever no chills. Admitted from the ER for CHF exacerbation. Appetite fair. No change in bowel pattern. Admitted with CHF exacerbation. IV Lasix. September 10: Sitting up in a chair. Oral intake good. Breathing better. On IV Lasix. Some edema. Danny wrap added. September 11: Patient sometimes does refuse treatment. Eating well. Breathing stable. Patient's lung crackles a significant component of her pulmonary fibros is. BMP is normal. child welfare caseworker looking into placement for rehab. Active Medications Albuterol Sulfate (Albuterol Nebulized 2.5 Mg/3 Ml) 2.5 mg INHALATION RT-Q6H PRN PRN Reason: Shortness Of Breath Albuterol/Ipratropium (Ipratropium-Albuterol 3 Ml Neb) 3 ml INHALATION RT-QID [facility] Last Admin: 09/11/22 11:21 Dose: 3 ml Aspirin (Aspirin 325 Mg Tab) 325 mg PO DAILY [facility] Last Admin: 09/11/22 09:49 Dose: 325 mg Atorvastatin Calcium (Atorvastatin 40 Mg Tab) 40 mg PO HS@1999 [facility] Last Admin: 09/10/22 21:56 Dose: 40 mg Budesonide/Formoterol Fumarate (Symbicort 160-4.5 Mcg Inhaler) 2 puff INHALATION RT-BID@ [facility] Last Admin: 09/11/22 07:45 Dose: 2 puff Cholecalciferol (Cholecalciferol 25 Mcg (1000 Iu) Tablet) 50 mcg PO DAILY@799 [facility] Last Admin: 09/11/22 09:49 Dose: 50 mcg Famotidine (Famotidine 20 Mg Tab) 20 mg PO HS@1999 [facility] Last Admin: 09/10/22 21:55 Dose: 20 mg Folic Acid (Folic Acid 1 Mg Tab) 1 mg PO Q2D [facility] Last Admin: 09/10/22 09:03 Dose: 1 mg Furosemide (Furosemide 10 Mg/Ml 4 Ml Vial) 40 mg IV Q8HR [facility] Last Admin: 09/11/22 09:49 Dose: 40 mg Levetiracetam (Levetiracetam 500 Mg Tab) 500 mg PO BID@ [facility] Last Admin: 09/11/22 09:49 Dose: 500 mg Melatonin (Melatonin 5 Mg Tablet) 10 mg PO HS@1999 [facility] Last Admin: 09/10/22 21:55 Dose: 10 mg Nicotine (Nicotine 21mg/24hr Patch) 1 patch TRANSDERM DAILY [facility] Last Admin: 09/11/22 09:49 Dose: Not Given Risperidone (Risperidone 1 Mg Tab) 3 mg PO HS@1999 [facility] Last Admin: 09/10/22 21:55 Dose: 3 mg Spironolactone (Spironolactone 25 Mg Tab) 50 mg PO DAILY@799 [facility] Last Admin: 09/11/22 09:49 Dose: 50 mg Past medical history to include: Hyperlipidemia, insomnia, EGD, schizophrenia, nicotine dependence, venous insufficiency, pulmonary fibrosis, seizure Social history: Lives at [facility]. Smokes a pack a day for many years. No alcohol Physical examination: VITAL SIGNS: 97.8, 92, 18, 108/65, 91% on 2 L GENERAL: Sitting up in a chair, awake, no distress EYES: Pupils equal. Conjunctiva normal. HEENT: External appearance of nose and ears normal, oral cavity grossly normal. NECK: JVD not raised; masses not palpable. HEART: First and second heart sounds are normal; edema present LUNGS: Respiratory rate increased, basal fine crackles ABDOMEN: Soft, nontender, liver spleen not palpable, no masses palpable. PSYCH: Alert and oriented x3; mood and affect tired. MUSCULOSKELETAL:No Clubbing/cyanosis;muscles-grossly intact. OA NEUROLOGICAL: Cranial nerves grossly intact; no facial asymmetry, power and sensation grossly intact. INVESTIGATIONS, reviewed in the clinical context: September 11: Potassium 4 BUN 20 creatinine 0.73 September 10: Potassium 4.3 BUN 8 creatinine 0.6 proBNP 351 Chest CTA: No PE. Some fluid overload. Interstitial prominence. Chronic emphysematous and fibrotic changes. New areas of nodular consolidation EKG tracing personally reviewed by me-normal sinus rhythm. Some ST segment changes. Chest x-ray film personally reviewed by me-venous prominence WBC 6.4 hemoglobin 14 platelets 225 sodium 135 potassium 4.[address] chest-resolution: Mild to moderate chronic parenchymal fibrotic changes. 2-D echocardiogram: EF 50-55%. Assessment and plan: -Acute congestive heart failure exacerbation. EF not known.: Better 2-D echo. IV Lasix per cardiology. . Her BNP 351 -chronic hypoxic respiratory failure from COPD 2 L - Chronic lower extremity venous insufficiency Danny wrap -Chronic, Bilateral pulmonary fibrosis causing basal crackles. -Acute Exacerbation COPD in a current smoker Pretty Valdiviacort -Chronic nicotine dependence patient cigarette smoker Nicotine patch -Chronic epilepsy Keppra -Chronic insomnia melatonin -Chronic schizophrenia Risperdal -Hyperlipidemia Lipitor IV Lasix per cardiology. Looking at placement for rehab. Discussed with patient social worker assistant.
[2022-09-11] MEDS: ATORVASTATIN 40 MG TAB PO SCH (20:37)
[2022-09-11] MEDS: MELATONIN 5 MG TABLET PO SCH (20:37)
[2022-09-11] MEDS: risperiDONE 1 MG TAB PO SCH (20:37)
[2022-09-11] MEDS: FAMOTIDINE 20 MG TAB PO SCH (20:37)
[2022-09-12] MEDS: IPRATROPIUM-ALBUTEROL 3 ML NEB INHALATION SCH ×4 (08:05→21:23)
[2022-09-12] MEDS: SYMBICORT 160-4.5 MCG INHALER INHALATION SCH ×2 (08:06→21:23)
[2022-09-12] MEDS: NICOTINE 21MG/24HR PATCH TRANSDERM SCH (08:42)
[2022-09-12] MEDS: FUROSEMIDE 10 MG/ML 4 ML VIAL IV SCH (08:42)
[2022-09-12] MEDS: SPIRONOLACTONE 25 MG TAB PO SCH (08:42)
[2022-09-12] MEDS: levETIRAcetam 500 MG TAB PO SCH ×2 (08:42→21:06)
[2022-09-12] MEDS: ASPIRIN 325 MG TAB PO SCH (08:42)
[2022-09-12] MEDS: FOLIC ACID 1 MG TAB PO SCH (08:42)
[2022-09-12] MEDS: CHOLECALCIFEROL 25 MCG (1000 IU) TABLET PO SCH (08:42)
--- NOTE | 2022-09-12 11:28 | P.PN ---
Subjective Progress Note Date: 09/12/22 HISTORY OF PRESENT ILLNESS: The patient is a pleasant 77-year-old gentleman with a past medical history significant for hypertension and dyslipidemia as well was history of falls was admitted to the hospital for further evaluation of syncope. He is somewhat poor historian with a prior psychiatric history. We consulted to see the patient because of syncope. The patient stated that he was in his usual state of health until yesterday when he fell with no change in mental status and he does remember all the details. No symptoms of any chest pain or chest discomfort and no feeling of heart racing or fluttering and no dizziness or lightheadedness associated with the fall. He was more short of breath recently. He also developed bilateral lower extremity edema. He stated that he has been compliant with all of his medication he is on oral diuretics at home. The patient was admitted for further evaluation and underwent a workup including computed tomography scan of the brain which showed no acute abnormalities or midline shift and also he underwent troponin with the first set came in to be unremarkable and EKG showing sinus mechanism was no significant ST or T-wave abnormalities. He also underwent CBC and BNP came in to be unremarkable. The chest x-ray showed findings consistent was congestive heart failure. Computed tomography scan of the chest was performed after abnormal d-dimer showed no evidence of pulmonary embolism but also showed bilateral pleural effusion and finding consistent was congestive heart failure. The patient was admitted to the hospital he was started on Lasix IV. The examination is remarkable for regular rhythm with somewhat distant heart sounds and diminished breathing sounds bilaterally and at least 2+ pedal edema noted. 09/11/2022 Patient examined this morning at the bedside. Patient appears to be resting in bed currently. He remains on nasal cannula to maintain oxygen saturations greater than 92%. He remains on IV Lasix 40 mg every 8 hours. Kidney function is stable. Patient refused to have echocardiogram completed yesterday. 09/12/2022 Patient examined this morning. He is sitting up in the chair. He denies chest pain or pressure. He denies shortness of breath. He remains on nasal cannula. He remains on IV Lasix. PHYSICAL EXAM: VITAL SIGNS: Reviewed. GENERAL: Well-developed in no acute distress. NECK: Supple. No JVD or thyromegaly LUNGS: Respirations even and unlabored. Lungs diminished HEART: Regular rate and rhythm. S1 and S2 heard. EXTREMITIES: Normal range of motion. No clubbing or cyanosis. Peripheral pulses intact. 1+ bilateral lower extremity pitting edema ASSESSMENT: Fall with no change in mental status Symptoms of congestive heart failure with increasing in the shortness of breath and bilateral lower extremity edema Hypertension Hyperlipidemia PLAN: Continue current cardiac medications Discontinue IV Lasix Begin oral Lasix 40 mg daily Patient is stable for discharge today from a cardiac standpoint We will sign off. Please reconsult if needed. Nurse practitioner note has been reviewed by physician. Signing provider agrees with the documented findings, assessment, and plan of care. Objective - Vital Signs Vital signs: Vital Signs Temp 98.2 F 09/12/22 07:03 Pulse 72 09/12/22 08:18 Resp 16 09/12/22 07:03 BP 108/71 09/12/22 07:03 Pulse Ox 81 L 09/12/22 08:07 FiO2 Intake & Output 09/11/22 09/12/22 09/12/22 18:59 06:59 18:59 Intake Total 1060 472 240 Output Total 675 250 Balance 385 222 240 Weight 94.2 kg Intake: Oral 1060 472 240 Output: Urine 675 250 Other: Voiding Method Toilet # Voids 1 - Labs CBC & Chem 7: 09/09/22 13:06 09/11/22 06:01
--- NOTE | 2022-09-12 15:42 | CDI ---
Documentation Clarification Form Date: 09/12/2022 03:37:25 PM From: Geeta Hernandez Phone: [phone] Admit Date: 09/09/2022 09:48:00 PM Patient Name: Isaac Allen Visit Number: [id number] Discharge Date: ATTENTION: The Clinical Documentation Specialists (CDI) and [facility] Coding Staff appreciate your assistance in clarifying documentation. Please respond to the clarification below the line at the bottom and electronically sign. The CDI & [facility] Coding staff will review the response and follow-up if needed. Please note: Queries are made part of the Legal Health Record. If you have any questions, please contact the author of this message via ITS. Dr. Arash Beach Your patient has the documented diagnosis of unspecified CHF 09/09, H&P. Additional information regarding the type of CHF is requested. History/Risk Factors: History/Risk Factors: 77-year-old male presents to the ED with increasing shortness of breath. Medical History: CHF, chronic lower extremity edema, Smoker and pulmonary fibrosis. Clinical Indicators: Vital signs: 09/09 12:55 B/P 131/86; HR 69; RR 20; SpO2 90% 2L nasal cannula 09/09, BNP: 351 05/03/2021, Last reported Echocardiogram Results: Left ventricular size and wall thickness is normal . EF 50-55%, Mild mitral regurgitation is present mild tricuspid regurgitation present. Basal inferior LV wall motion is hypokinetic 09/09, Chest X Ray: Bilateral infiltrate and small effusion. 09/10, Cardiology note: Symptoms of congestive heart failure with increasing in the shortness of breath and bilateral lower extremity edema. 09/11, Cardiology: Patient refused echocardiogram this admission. Treatment: 09/09 Lasix 40mg IV Q8HR, Aldactone 50mg PO Daily, Daily weights, accurate I O and monitoring kidney function. In your professional opinion, can you please clarify the type of CHF if known? [ + ] Acute on chronic Diastolic Heart Failure (preserved EF) [ ] Other, please specify [ ] Unable to determine (Template Last Revised: May 2020) MTDD
--- NOTE | 2022-09-12 18:22 | P.PN ---
Progress Note - Text Progress Note Date: 09/12/22 Chief Complaint: Short of breath This is a 77-year-old patient, follows with visiting physicians Dr. Bourne. Chronic stable medical conditions include hyperlipidemia, schizophrenia, chronic nicotine dependence, insomnia. Venous insufficiency lower extremity. COPD. S eizures . Chronic fibrotic . Lung disorder. Patient long-standing smoker presented with increasing shortness of breath. Has chronic lower extremity edema. Smoker. Some cough. No fever no chills. Admitted from the ER for CHF exacerbation. Appetite fair. No change in bowel pattern. Admitted with CHF exacerbation. IV Lasix. September 10: Sitting up in a chair. Oral intake good. Breathing better. On IV Lasix. Some edema. Danny wrap added. September 11: Patient sometimes does refuse treatment. Eating well. Breathing stable. Patient's lung crackles a significant component of her pulmonary fibros is. BMP is normal. 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 September 12: Patient changed to by mouth Lasix. wood and wood products factory worker is looking into placement. No place found for now. Oral intake good. Active Medications Albuterol Sulfate (Albuterol Nebulized 2.5 Mg/3 Ml) 2.5 mg INHALATION RT-Q6H PRN PRN Reason: Shortness Of Breath Albuterol/Ipratropium (Ipratropium-Albuterol 3 Ml Neb) 3 ml INHALATION RT-QID [facility] Last Admin: 09/12/22 16:52 Dose: 3 ml Aspirin (Aspirin 325 Mg Tab) 325 mg PO DAILY [facility] Last Admin: 09/12/22 08:42 Dose: 325 mg Atorvastatin Calcium (Atorvastatin 40 Mg Tab) 40 mg PO HS@1999 [facility] Last Admin: 09/11/22 20:37 Dose: 40 mg Budesonide/Formoterol Fumarate (Symbicort 160-4.5 Mcg Inhaler) 2 puff INHALATION RT-BID@ [facility] Last Admin: 09/12/22 08:06 Dose: 2 puff Cholecalciferol (Cholecalciferol 25 Mcg (1000 Iu) Tablet) 50 mcg PO DAILY@799 [facility] Last Admin: 09/12/22 08:42 Dose: 50 mcg Famotidine (Famotidine 20 Mg Tab) 20 mg PO HS@1999 [facility] Last Admin: 09/11/22 20:37 Dose: 20 mg Folic Acid (Folic Acid 1 Mg Tab) 1 mg PO Q2D [facility] Last Admin: 09/12/22 08:42 Dose: 1 mg Furosemide (Furosemide 40 Mg Tab) 40 mg PO DAILY [facility] Levetiracetam (Levetiracetam 500 Mg Tab) 500 mg PO BID@ [facility] Last Admin: 09/12/22 08:42 Dose: 500 mg Melatonin (Melatonin 5 Mg Tablet) 10 mg PO HS@1999 [facility] Last Admin: 09/11/22 20:37 Dose: 10 mg Nicotine (Nicotine 21mg/24hr Patch) 1 patch TRANSDERM DAILY [facility] Last Admin: 09/12/22 08:42 Dose: Not Given Risperidone (Risperidone 1 Mg Tab) 3 mg PO HS@1999 [facility] Last Admin: 09/11/22 20:37 Dose: 3 mg Spironolactone (Spironolactone 25 Mg Tab) 50 mg PO DAILY@799 [facility] Last Admin: 09/12/22 08:42 Dose: 50 mg Past medical history to include: Hyperlipidemia, insomnia, EGD, schizophrenia, nicotine dependence, venous insufficiency, pulmonary fibrosis, seizure Social history: Lives at [facility]. Smokes a pack a day for many years. No alcohol Physical examination: VITAL SIGNS: 98, 86, 18, 117 with 71, 91% on 2 L GENERAL: Sitting up in a chair, awake, no distress EYES: Pupils equal. Conjunctiva normal. HEENT: External appearance of nose and ears normal, oral cavity grossly normal. NECK: JVD not raised; masses not palpable. HEART: First and second heart sounds are normal; edema present LUNGS: Respiratory rate increased, basal fine crackles ABDOMEN: Soft, nontender, liver spleen not palpable, no masses palpable. PSYCH: Alert and oriented x3; mood and affect tired. MUSCULOSKELETAL:No Clubbing/cyanosis;muscles-grossly intact. OA NEUROLOGICAL: Cranial nerves grossly intact; no facial asymmetry, power and sensation grossly intact. INVESTIGATIONS, reviewed in the clinical context: September 11: Potassium 4 BUN 20 creatinine 0.73 September 10: Potassium 4.3 BUN 8 creatinine 0.6 proBNP 351 Chest CTA: No PE. Some fluid overload. Interstitial prominence. Chronic emphysematous and fibrotic changes. New areas of nodular consolidation EKG tracing personally reviewed by me-normal sinus rhythm. Some ST segment changes. Chest x-ray film personally reviewed by me-venous prominence WBC 6.4 hemoglobin 14 platelets 225 sodium 135 potassium 4.[address] chest-resolution: Mild to moderate chronic parenchymal fibrotic changes. 2-D echocardiogram: EF 50-55%. Assessment and plan: -Acute congestive heart failure exacerbation. EF not known.: Better 2-D echo. Lasix 40 mg. . Her BNP 351 -chronic hypoxic respiratory failure from COPD 2 L - Chronic lower extremity venous insufficiency Danny wrap -Chronic, Bilateral pulmonary fibrosis causing basal crackles. -Acute Exacerbation COPD in a current smoker Masood Valdivia -Chronic nicotine dependence patient cigarette smoker Nicotine patch -Chronic epilepsy Keppra -Chronic insomnia melatonin -Chronic schizophrenia Risperdal -Hyperlipidemia Lipitor Changed to oral Lasix. Looking for rehab placement. Case management involved. Continue current medications.
[2022-09-12] MEDS: FAMOTIDINE 20 MG TAB PO SCH (21:06)
[2022-09-12] MEDS: MELATONIN 5 MG TABLET PO SCH (21:06)
[2022-09-12] MEDS: ATORVASTATIN 40 MG TAB PO SCH (21:06)
[2022-09-12] MEDS: risperiDONE 1 MG TAB PO SCH (21:06)
[2022-09-13] MEDS: ASPIRIN 325 MG TAB PO SCH (08:33)
[2022-09-13] MEDS: levETIRAcetam 500 MG TAB PO SCH ×2 (08:34→19:59)
[2022-09-13] MEDS: CHOLECALCIFEROL 25 MCG (1000 IU) TABLET PO SCH (08:34)
[2022-09-13] MEDS: FUROSEMIDE 40 MG TAB PO SCH (08:34)
[2022-09-13] MEDS: SPIRONOLACTONE 25 MG TAB PO SCH (08:34)
[2022-09-13] MEDS: NICOTINE 21MG/24HR PATCH TRANSDERM SCH (08:34)
[2022-09-13] MEDS: IPRATROPIUM-ALBUTEROL 3 ML NEB INHALATION SCH ×4 (08:36→19:33)
[2022-09-13] MEDS: SYMBICORT 160-4.5 MCG INHALER INHALATION SCH ×2 (08:36→19:33)
--- NOTE | 2022-09-13 17:07 | P.PN ---
Progress Note - Text Progress Note Date: 09/13/22 Chief Complaint: Short of breath This is a 77-year-old patient, follows with visiting physicians Dr. Bourne. Chronic stable medical conditions include hyperlipidemia, schizophrenia, chronic nicotine dependence, insomnia. Venous insufficiency lower extremity. COPD. S eizures . Chronic fibrotic . Lung disorder. Patient long-standing smoker presented with increasing shortness of breath. Has chronic lower extremity edema. Smoker. Some cough. No fever no chills. Admitted from the ER for CHF exacerbation. Appetite fair. No change in bowel pattern. Admitted with CHF exacerbation. IV Lasix. September 10: Sitting up in a chair. Oral intake good. Breathing better. On IV Lasix. Some edema. Danny wrap added. September 11: Patient sometimes does refuse treatment. Eating well. Breathing stable. Patient's lung crackles a significant component of her pulmonary fibros is. BMP is normal. 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 September 12: Patient changed to by mouth Lasix. stove bottom worker is looking into placement. No place found for now. Oral intake good. September 13: Upper chest. Oral intake fair. stove bottom worker trying to find a place to rehab. None available to now. Active Medications Albuterol Sulfate (Albuterol Nebulized 2.5 Mg/3 Ml) 2.5 mg INHALATION RT-Q6H PRN PRN Reason: Shortness Of Breath Albuterol/Ipratropium (Ipratropium-Albuterol 3 Ml Neb) 3 ml INHALATION RT-QID [facility] Last Admin: 09/13/22 15:57 Dose: Not Given Aspirin (Aspirin 325 Mg Tab) 325 mg PO DAILY [facility] Last Admin: 09/13/22 08:33 Dose: 325 mg Atorvastatin Calcium (Atorvastatin 40 Mg Tab) 40 mg PO HS@1999 [facility] Last Admin: 09/12/22 21:06 Dose: 40 mg Budesonide/Formoterol Fumarate (Symbicort 160-4.5 Mcg Inhaler) 2 puff INHALATION RT-BID@ [facility] Last Admin: 09/13/22 08:36 Dose: 2 puff Cholecalciferol (Cholecalciferol 25 Mcg (1000 Iu) Tablet) 50 mcg PO DAILY@08 [facility] Last Admin: 09/13/22 08:34 Dose: 50 mcg Famotidine (Famotidine 20 Mg Tab) 20 mg PO HS@1999 [facility] Last Admin: 09/12/22 21:06 Dose: 20 mg Folic Acid (Folic Acid 1 Mg Tab) 1 mg PO Q2D [facility] Last Admin: 09/12/22 08:42 Dose: 1 mg Furosemide (Furosemide 40 Mg Tab) 40 mg PO DAILY [facility] Last Admin: 09/13/22 08:34 Dose: 40 mg Levetiracetam (Levetiracetam 500 Mg Tab) 500 mg PO BID@ [facility] Last Admin: 09/13/22 08:34 Dose: 500 mg Melatonin (Melatonin 5 Mg Tablet) 10 mg PO HS@1999 [facility] Last Admin: 09/12/22 21:06 Dose: 10 mg Nicotine (Nicotine 21mg/24hr Patch) 1 patch TRANSDERM DAILY [facility] Last Admin: 09/13/22 08:34 Dose: Not Given Risperidone (Risperidone 1 Mg Tab) 3 mg PO HS@1999 [facility] Last Admin: 09/12/22 21:06 Dose: 3 mg Spironolactone (Spironolactone 25 Mg Tab) 50 mg PO DAILY@799 [facility] Last Admin: 09/13/22 08:34 Dose: 50 mg Past medical history to include: Hyperlipidemia, insomnia, EGD, schizophrenia, nicotine dependence, venous insufficiency, pulmonary fibrosis, seizure Social history: Lives at [facility]. Smokes a pack a day for many years. No alcohol Physical examination: VITAL SIGNS: 97.6, 63, 18, 111/74, 90% on 2 L GENERAL: Sitting up in a chair, comfortable EYES: Pupils equal. Conjunctiva normal. HEENT: External appearance of nose and ears normal, oral cavity grossly normal. NECK: JVD not raised; masses not palpable. HEART: First and second heart sounds are normal; edema present LUNGS: Respiratory rate increased, basal fine crackles ABDOMEN: Soft, nontender, liver spleen not palpable, no masses palpable. PSYCH: Alert and oriented x3; mood and affect tired. MUSCULOSKELETAL:No Clubbing/cyanosis;muscles-grossly intact. OA NEUROLOGICAL: Cranial nerves grossly intact; no facial asymmetry, power and sensation grossly intact. INVESTIGATIONS, reviewed in the clinical context: September 11: Potassium 4 BUN 20 creatinine 0.73 September 10: Potassium 4.3 BUN 8 creatinine 0.6 proBNP 351 Chest CTA: No PE. Some fluid overload. Interstitial prominence. Chronic emphysematous and fibrotic changes. New areas of nodular consolidation EKG tracing personally reviewed by me-normal sinus rhythm. Some ST segment changes. Chest x-ray film personally reviewed by me-venous prominence WBC 6.4 hemoglobin 14 platelets 225 sodium 135 potassium 4.[address] chest-resolution: Mild to moderate chronic parenchymal fibrotic changes. 2-D echocardiogram: EF 50-55%. Assessment and plan: -Acute congestive heart failure exacerbation. EF not known.: Better 2-D echo. Lasix 40 mg. . Her BNP 351 -chronic hypoxic respiratory failure from COPD 2 L - Chronic lower extremity venous insufficiency Danny wrap -Chronic, Bilateral pulmonary fibrosis causing basal crackles. -Acute Exacerbation COPD in a current smoker DuoNeb, Symbicort -Chronic nicotine dependence patient cigarette smoker Nicotine patch -Chronic epilepsy Keppra -Chronic insomnia melatonin -Chronic schizophrenia Risperdal -Hyperlipidemia Lipitor Continue current medications. Pending placement.
[2022-09-13] MEDS: FAMOTIDINE 20 MG TAB PO SCH (19:58)
[2022-09-13] MEDS: risperiDONE 1 MG TAB PO SCH (19:58)
[2022-09-13] MEDS: MELATONIN 5 MG TABLET PO SCH (19:58)
[2022-09-13] MEDS: ATORVASTATIN 40 MG TAB PO SCH (19:59)
[2022-09-14] MEDS: SYMBICORT 160-4.5 MCG INHALER INHALATION SCH ×2 (08:13→19:37)
[2022-09-14] MEDS: IPRATROPIUM-ALBUTEROL 3 ML NEB INHALATION SCH ×4 (08:13→19:37)
[2022-09-14] MEDS: NICOTINE 21MG/24HR PATCH TRANSDERM SCH ×2 (08:30→08:35)
[2022-09-14] MEDS: CHOLECALCIFEROL 25 MCG (1000 IU) TABLET PO SCH (08:30)
[2022-09-14] MEDS: ASPIRIN 81 MG PO SCH (08:31)
[2022-09-14] MEDS: FUROSEMIDE 40 MG TAB PO SCH (08:31)
[2022-09-14] MEDS: FOLIC ACID 1 MG TAB PO SCH (08:31)
[2022-09-14] MEDS: levETIRAcetam 500 MG TAB PO SCH ×2 (08:31→20:25)
[2022-09-14] MEDS: SPIRONOLACTONE 25 MG TAB PO SCH (08:31)
--- NOTE | 2022-09-14 14:19 | P.PN ---
Progress Note - Text Progress Note Date: 09/14/22 Chief Complaint: Short of breath This is a 77-year-old patient, follows with visiting physicians Dr. Bourne. Chronic stable medical conditions include hyperlipidemia, schizophrenia, chronic nicotine dependence, insomnia. Venous insufficiency lower extremity. COPD. S eizures . Chronic fibrotic . Lung disorder. Patient long-standing smoker presented with increasing shortness of breath. Has chronic lower extremity edema. Smoker. Some cough. No fever no chills. Admitted from the ER for CHF exacerbation. Appetite fair. No change in bowel pattern. Admitted with CHF exacerbation. IV Lasix. September 10: Sitting up in a chair. Oral intake good. Breathing better. On IV Lasix. Some edema. Danny wrap added. September 11: Patient sometimes does refuse treatment. Eating well. Breathing stable. Patient's lung crackles a significant component of her pulmonary fibros is. BMP is normal. quill worker looking into placement for rehab. September 12: Patient changed to by mouth Lasix. quill worker is looking into placement. No place found for now. Oral intake good. September 13: Upper chest. Oral intake fair. quill worker trying to find a place to rehab. None available to now. September 14: Sitting up in a chair. Always converses faces a blanket. Eating well. Breathing stable. Active Medications Albuterol Sulfate (Albuterol Nebulized 2.5 Mg/3 Ml) 2.5 mg INHALATION RT-Q6H PRN PRN Reason: Shortness Of Breath Albuterol/Ipratropium (Ipratropium-Albuterol 3 Ml Neb) 3 ml INHALATION RT-QID [facility] Last Admin: 09/14/22 11:37 Dose: 3 ml Aspirin (Aspirin 81 Mg) 81 mg PO DAILY [facility] Last Admin: 09/14/22 08:31 Dose: 81 mg Atorvastatin Calcium (Atorvastatin 40 Mg Tab) 40 mg PO HS@1999 [facility] Last Admin: 09/13/22 19:59 Dose: 40 mg Budesonide/Formoterol Fumarate (Symbicort 160-4.5 Mcg Inhaler) 2 puff INHALATION RT-BID@ [facility] Last Admin: 09/14/22 08:13 Dose: 2 puff Cholecalciferol (Cholecalciferol 25 Mcg (1000 Iu) Tablet) 50 mcg PO DAILY@08 [facility] Last Admin: 06/10/23 08:30 Dose: 50 mcg Famotidine (Famotidine 20 Mg Tab) 20 mg PO HS@1999 [facility] Last Admin: 09/13/22 19:58 Dose: 20 mg Folic Acid (Folic Acid 1 Mg Tab) 1 mg PO Q2D [facility] Last Admin: 09/14/22 08:31 Dose: 1 mg Furosemide (Furosemide 40 Mg Tab) 40 mg PO DAILY [facility] Last Admin: 09/14/22 08:31 Dose: 40 mg Levetiracetam (Levetiracetam 500 Mg Tab) 500 mg PO BID@799,1999 [facility] Last Admin: 09/14/22 08:31 Dose: 500 mg Melatonin (Melatonin 5 Mg Tablet) 10 mg PO HS@1999 [facility] Last Admin: 09/13/22 19:58 Dose: 10 mg Nicotine (Nicotine 21mg/24hr Patch) 1 patch TRANSDERM DAILY [facility] Last Admin: 09/14/22 08:35 Dose: Not Given Risperidone (Risperidone 1 Mg Tab) 3 mg PO HS@1999 [facility] Last Admin: 09/13/22 19:58 Dose: 3 mg Spironolactone (Spironolactone 25 Mg Tab) 50 mg PO DAILY@08 [facility] Last Admin: 09/14/22 08:31 Dose: 50 mg Past medical history to include: Hyperlipidemia, insomnia, EGD, schizophrenia, nicotine dependence, venous insufficiency, pulmonary fibrosis, seizure Social history: Lives at [facility]. Smokes a pack a day for many years. No alcohol Physical examination: VITAL SIGNS: 97.8, 86, 16, 118/75, 93% on 3 L GENERAL: Sitting up in a chair, comfortable EYES: Pupils equal. Conjunctiva normal. HEENT: External appearance of nose and ears normal, oral cavity grossly normal. NECK: JVD not raised; masses not palpable. HEART: First and second heart sounds are normal; edema present LUNGS: Respiratory rate increased, basal fine crackles ABDOMEN: Soft, nontender, liver spleen not palpable, no masses palpable. PSYCH: Answering simple questions MUSCULOSKELETAL:No Clubbing/cyanosis;muscles-grossly intact. OA NEUROLOGICAL: Cranial nerves grossly intact; no facial asymmetry, power and sensation grossly intact. INVESTIGATIONS, reviewed in the clinical context: September 11: Potassium 4 BUN 20 creatinine 0.73 September 10: Potassium 4.3 BUN 8 creatinine 0.6 proBNP 351 Chest CTA: No PE. Some fluid overload. Interstitial prominence. Chronic emphysematous and fibrotic changes. New areas of nodular consolidation EKG tracing personally reviewed by me-normal sinus rhythm. Some ST segment changes. Chest x-ray film personally reviewed by me-venous prominence WBC 6.4 hemoglobin 14 platelets 225 sodium 135 potassium 4.[address] chest-resolution: Mild to moderate chronic parenchymal fibrotic changes. 2-D echocardiogram: EF 50-55%. Assessment and plan: -Acute congestive heart failure exacerbation. EF not known.: Better 2-D echo. Lasix 40 mg. . Her BNP 351 -chronic hypoxic respiratory failure from COPD 2 L - Chronic lower extremity venous insufficiency Danny wrap -Chronic, Bilateral pulmonary fibrosis causing basal crackles. -Acute Exacerbation COPD in a current smoker DavidoNeraul, Symbicort -Chronic nicotine dependence patient cigarette smoker Nicotine patch -Chronic epilepsy Keppra -Chronic insomnia melatonin -Chronic schizophrenia Risperdal -Hyperlipidemia Lipitor Pending rehab placement. Continue vitamin medications.
[2022-09-14] MEDS: risperiDONE 1 MG TAB PO SCH (20:24)
[2022-09-14] MEDS: ATORVASTATIN 40 MG TAB PO SCH (20:24)
[2022-09-14] MEDS: FAMOTIDINE 20 MG TAB PO SCH (20:25)
[2022-09-14] MEDS: MELATONIN 5 MG TABLET PO SCH (20:25)
[2022-09-15 07:29] LABS: African American GFR (CKD) >90 (>60 ml/min/1.73 sqM); Blood Urea Nitrogen 17 mg/dL (9-20); Calcium 8.8 mg/dL (8.4-10.2); Chloride 87 mmol/L (98-107); Glucose 85 mg/dL (74-99); Non-African American GFR(CKD) >90 (>60 ml/min/1.73 sqM); Potassium 4.3 mmol/L (3.5-5.1); Sodium 132 mmol/L (137-145)
[2022-09-15 07:35] LABS: Anion Gap 6 mmol/L
[2022-09-15 07:39] LABS: Carbon Dioxide 39 mmol/L (22-30)
[2022-09-15] MEDS: SYMBICORT 160-4.5 MCG INHALER INHALATION SCH ×2 (07:50→19:41)
[2022-09-15] MEDS: IPRATROPIUM-ALBUTEROL 3 ML NEB INHALATION SCH ×4 (07:50→19:41)
[2022-09-15] MEDS: FUROSEMIDE 40 MG TAB PO SCH (08:06)
[2022-09-15] MEDS: CHOLECALCIFEROL 25 MCG (1000 IU) TABLET PO SCH (08:06)
[2022-09-15] MEDS: ASPIRIN 81 MG PO SCH (08:06)
[2022-09-15] MEDS: NICOTINE 21MG/24HR PATCH TRANSDERM SCH (08:07)
[2022-09-15] MEDS: levETIRAcetam 500 MG TAB PO SCH ×2 (08:07→20:27)
[2022-09-15] MEDS: SPIRONOLACTONE 25 MG TAB PO SCH (08:07)
--- NOTE | 2022-09-15 16:45 | P.PN ---
Progress Note - Text Progress Note Date: 09/15/22 Chief Complaint: Short of breath This is a 77-year-old patient, follows with visiting physicians Dr. Bourne. Chronic stable medical conditions include hyperlipidemia, schizophrenia, chronic nicotine dependence, insomnia. Venous insufficiency lower extremity. COPD. S eizures . Chronic fibrotic . Lung disorder. Patient long-standing smoker presented with increasing shortness of breath. Has chronic lower extremity edema. Smoker. Some cough. No fever no chills. Admitted from the ER for CHF exacerbation. Appetite fair. No change in bowel pattern. Admitted with CHF exacerbation. IV Lasix. September 10: Sitting up in a chair. Oral intake good. Breathing better. On IV Lasix. Some edema. Danny wrap added. September 11: Patient sometimes does refuse treatment. Eating well. Breathing stable. Patient's lung crackles a significant component of her pulmonary fibros is. BMP is normal. mold worker looking into placement for rehab. September 12: Patient changed to by mouth Lasix. mold worker is looking into placement. No place found for now. Oral intake good. September 13: Upper chest. Oral intake fair. mold worker trying to find a place to rehab. None available to now. September 14: Sitting up in a chair. Always covers his face with a a blanket. Eating well. Breathing stable. September 15: Up in a chair. Eating fair. No new issues. Pending placement Active Medications Albuterol Sulfate (Albuterol Nebulized 2.5 Mg/3 Ml) 2.5 mg INHALATION RT-Q6H PRN PRN Reason: Shortness Of Breath Albuterol/Ipratropium (Ipratropium-Albuterol 3 Ml Neb) 3 ml INHALATION RT-QID [facility] Last Admin: 09/15/22 15:10 Dose: 3 ml Aspirin (Aspirin 81 Mg) 81 mg PO DAILY [facility] Last Admin: 09/15/22 08:06 Dose: 81 mg Atorvastatin Calcium (Atorvastatin 40 Mg Tab) 40 mg PO HS@1999 [facility] Last Admin: 09/14/22 20:24 Dose: 40 mg Budesonide/Formoterol Fumarate (Symbicort 160-4.5 Mcg Inhaler) 2 puff INHALATION RT-BID@ [facility] Last Admin: 09/15/22 07:50 Dose: 2 puff Cholecalciferol (Cholecalciferol 25 Mcg (1000 Iu) Tablet) 50 mcg PO DAILY@0800 [facility] Last Admin: 09/15/22 08:06 Dose: 50 mcg Famotidine (Famotidine 20 Mg Tab) 20 mg PO HS@1999 [facility] Last Admin: 09/14/22 20:25 Dose: 20 mg Folic Acid (Folic Acid 1 Mg Tab) 1 mg PO Q2D [facility] Last Admin: 09/14/22 08:31 Dose: 1 mg Furosemide (Furosemide 40 Mg Tab) 40 mg PO DAILY [facility] Last Admin: 09/15/22 08:06 Dose: 40 mg Levetiracetam (Levetiracetam 500 Mg Tab) 500 mg PO BID@799,1999 [facility] Last Admin: 09/15/22 08:07 Dose: 500 mg Melatonin (Melatonin 5 Mg Tablet) 10 mg PO HS@1999 [facility] Last Admin: 09/14/22 20:25 Dose: 10 mg Nicotine (Nicotine 21mg/24hr Patch) 1 patch TRANSDERM DAILY [facility] Last Admin: 09/15/22 08:07 Dose: Not Given Risperidone (Risperidone 1 Mg Tab) 3 mg PO HS@1999 [facility] Last Admin: 09/14/22 20:24 Dose: 3 mg Spironolactone (Spironolactone 25 Mg Tab) 50 mg PO DAILY@0800 [facility] Last Admin: 09/15/22 08:07 Dose: 50 mg Past medical history to include: Hyperlipidemia, insomnia, EGD, schizophrenia, nicotine dependence, venous insufficiency, pulmonary fibrosis, seizure Social history: Lives at [facility]. Smokes a pack a day for many years. No alcohol Physical examination: VITAL SIGNS: 98.1, 89, 16, 112/69, 91% on 3 L GENERAL: Sitting up in a chair, comfortable EYES: Pupils equal. Conjunctiva normal. HEENT: External appearance of nose and ears normal, oral cavity grossly normal. NECK: JVD not raised; masses not palpable. HEART: First and second heart sounds are normal; edema present LUNGS: Respiratory rate increased, basal fine crackles ABDOMEN: Soft, nontender, liver spleen not palpable, no masses palpable. PSYCH: Answering simple questions MUSCULOSKELETAL:No Clubbing/cyanosis;muscles-grossly intact. OA NEUROLOGICAL: Cranial nerves grossly intact; no facial asymmetry, power and sensation grossly intact. INVESTIGATIONS, reviewed in the clinical context: September 15: Potassium 4.3 BUN 17 creatinine 0.60 proBNP 351 Chest CTA: No PE. Some fluid overload. Interstitial prominence. Chronic emphysematous and fibrotic changes. New areas of nodular consolidation EKG tracing personally reviewed by me-normal sinus rhythm. Some ST segment changes. Chest x-ray film personally reviewed by me-venous prominence WBC 6.4 hemoglobin 14 platelets 225 sodium 135 potassium 4.[address] chest-resolution: Mild to moderate chronic parenchymal fibrotic changes. 2-D echocardiogram: EF 50-55%. Assessment and plan: -Acute congestive heart failure exacerbation. EF not known.: Better Lasix 40 mg. . Her BNP 351 -chronic hypoxic respiratory failure from COPD 2 L - Chronic lower extremity venous insufficiency Danny wrap -Chronic, Bilateral pulmonary fibrosis causing basal crackles. -Acute Exacerbation COPD in a current smoker: Better DuoNeraul Symbicort -Chronic nicotine dependence patient cigarette smoker Nicotine patch -Chronic epilepsy Keppra -Chronic insomnia melatonin -Chronic schizophrenia Risperdal -Hyperlipidemia Lipitor Continue current medications. Pending placement to rehab.
[2022-09-15] MEDS: ATORVASTATIN 40 MG TAB PO SCH (20:27)
[2022-09-15] MEDS: FAMOTIDINE 20 MG TAB PO SCH (20:27)
[2022-09-15] MEDS: MELATONIN 5 MG TABLET PO SCH (20:27)
[2022-09-15] MEDS: risperiDONE 1 MG TAB PO SCH (20:27)
[2022-09-16] MEDS: IPRATROPIUM-ALBUTEROL 3 ML NEB INHALATION SCH ×3 (07:51→16:22)
[2022-09-16] MEDS: SYMBICORT 160-4.5 MCG INHALER INHALATION SCH (07:51)
[2022-09-16] MEDS: CHOLECALCIFEROL 25 MCG (1000 IU) TABLET PO SCH (09:17)
[2022-09-16] MEDS: FOLIC ACID 1 MG TAB PO SCH (09:17)
[2022-09-16] MEDS: NICOTINE 21MG/24HR PATCH TRANSDERM SCH (09:17)
[2022-09-16] MEDS: SPIRONOLACTONE 25 MG TAB PO SCH (09:17)
[2022-09-16] MEDS: levETIRAcetam 500 MG TAB PO SCH ×2 (09:17→20:28)
[2022-09-16] MEDS: ASPIRIN 81 MG PO SCH (09:17)
[2022-09-16] MEDS: FUROSEMIDE 40 MG TAB PO SCH (09:34)
[2022-09-16] MEDS: risperiDONE 0.5 MG TAB PO SCH (11:13)
--- NOTE | 2022-09-16 12:20 | P.PN ---
Progress Note - Text Progress Note Date: 09/16/22 Chief Complaint: Short of breath This is a 77-year-old patient, follows with visiting physicians Dr. Bourne. Chronic stable medical conditions include hyperlipidemia, schizophrenia, chronic nicotine dependence, insomnia. Venous insufficiency lower extremity. COPD. S eizures . Chronic fibrotic . Lung disorder. Patient long-standing smoker presented with increasing shortness of breath. Has chronic lower extremity edema. Smoker. Some cough. No fever no chills. Admitted from the ER for CHF exacerbation. Appetite fair. No change in bowel pattern. Admitted with CHF exacerbation. IV Lasix. September 10: Sitting up in a chair. Oral intake good. Breathing better. On IV Lasix. Some edema. Danny wrap added. September 11: Patient sometimes does refuse treatment. Eating well. Breathing stable. Patient's lung crackles a significant component of her pulmonary fibros is. BMP is normal. turn down worker looking into placement for rehab. September 12: Patient changed to by mouth Lasix. turn down worker is looking into placement. No place found for now. Oral intake good. September 13: Upper chest. Oral intake fair. turn down worker trying to find a place to rehab. None available to now. September 14: Sitting up in a chair. Always covers his face with a a blanket. Eating well. Breathing stable. September 15: Up in a chair. Eating fair. No new issues. Pending placement September 16: Up in a chair. No new issues. Spoke to case management. Possibly assisted living will take him this Friday. 0.5 mg of Risperdal at this morning. For occasional irritability. Active Medications Albuterol Sulfate (Albuterol Nebulized 2.5 Mg/3 Ml) 2.5 mg INHALATION RT-Q6H PRN PRN Reason: Shortness Of Breath Albuterol/Ipratropium (Ipratropium-Albuterol 3 Ml Neb) 3 ml INHALATION RT-QID [facility] Last Admin: 09/16/22 07:51 Dose: 3 ml Aspirin (Aspirin 81 Mg) 81 mg PO DAILY [facility] Last Admin: 09/16/22 09:17 Dose: 81 mg Atorvastatin Calcium (Atorvastatin 40 Mg Tab) 40 mg PO HS@2000 [facility] Last Admin: 09/15/22 20:27 Dose: 40 mg Budesonide/Formoterol Fumarate (Symbicort 160-4.5 Mcg Inhaler) 2 puff INHALATION RT-BID@ [facility] Last Admin: 09/16/22 07:51 Dose: 2 puff Cholecalciferol (Cholecalciferol 25 Mcg (1000 Iu) Tablet) 50 mcg PO DAILY@08 [facility] Last Admin: 09/16/22 09:17 Dose: 50 mcg Famotidine (Famotidine 20 Mg Tab) 20 mg PO HS@1999 [facility] Last Admin: 09/15/22 20:27 Dose: 20 mg Folic Acid (Folic Acid 1 Mg Tab) 1 mg PO Q2D [facility] Last Admin: 09/16/22 09:17 Dose: 1 mg Furosemide (Furosemide 40 Mg Tab) 40 mg PO DAILY [facility] Last Admin: 09/16/22 09:34 Dose: 40 mg Levetiracetam (Levetiracetam 500 Mg Tab) 500 mg PO BID@ [facility] Last Admin: 09/16/22 09:17 Dose: 500 mg Melatonin (Melatonin 5 Mg Tablet) 10 mg PO HS@1999 [facility] Last Admin: 09/15/22 20:27 Dose: 10 mg Nicotine (Nicotine 21mg/24hr Patch) 1 patch TRANSDERM DAILY [facility] Last Admin: 09/16/22 09:17 Dose: 1 patch Risperidone (Risperidone 1 Mg Tab) 3 mg PO HS@1999 [facility] Last Admin: 09/15/22 20:27 Dose: 3 mg Risperidone (Risperidone 0.5 Mg Tab) 0.5 mg PO DAILY [facility] Last Admin: 09/16/22 11:13 Dose: 0.5 mg Spironolactone (Spironolactone 25 Mg Tab) 50 mg PO DAILY@0800 [facility] Last Admin: 09/16/22 09:17 Dose: 50 mg Past medical history to include: Hyperlipidemia, insomnia, EGD, schizophrenia, nicotine dependence, venous insufficiency, pulmonary fibrosis, seizure Social history: Lives at [facility]. Smokes a pack a day for many years. No alcohol Physical examination: VITAL SIGNS: 97.6, 77, 18, 1:30/80, 86% on 2 L GENERAL: Sitting up in a chair, comfortable EYES: Pupils equal. Conjunctiva normal. HEENT: External appearance of nose and ears normal, oral cavity grossly normal. NECK: JVD not raised; masses not palpable. HEART: First and second heart sounds are normal; edema present LUNGS: Respiratory rate increased, basal fine crackles ABDOMEN: Soft, nontender, liver spleen not palpable, no masses palpable. PSYCH: Answering simple questions MUSCULOSKELETAL:No Clubbing/cyanosis;muscles-grossly intact. OA NEUROLOGICAL: Cranial nerves grossly intact; no facial asymmetry, power and sensation grossly intact. INVESTIGATIONS, reviewed in the clinical context: September 15: Potassium 4.3 BUN 17 creatinine 0.60 proBNP 351 Chest CTA: No PE. Some fluid overload. Interstitial prominence. Chronic emphysematous and fibrotic changes. New areas of nodular consolidation EKG tracing personally reviewed by me-normal sinus rhythm. Some ST segment changes. Chest x-ray film personally reviewed by me-venous prominence WBC 6.4 hemoglobin 14 platelets 225 sodium 135 potassium 4.[address] chest-resolution: Mild to moderate chronic parenchymal fibrotic changes. 2-D echocardiogram: EF 50-55%. Assessment and plan: -Acute congestive heart failure exacerbation. EF not known.: Better Lasix 40 mg. . BNP 351 -chronic hypoxic respiratory failure from COPD 2 L - Chronic lower extremity venous insufficiency Danny wrap -Chronic, Bilateral pulmonary fibrosis causing basal crackles. -Acute Exacerbation COPD in a current smoker: Improved DuoNeraul, Symbicort -Chronic nicotine dependence patient cigarette smoker Nicotine patch -Chronic epilepsy Keppra -Moderate to severe cognitive impairment with occasional irritability Risperdal 3 mg daily at bedtime. Start 0.5 mg by mouth daily in the morning. -Chronic insomnia melatonin -Chronic schizophrenia Risperdal -Hyperlipidemia Lipitor Continue current medications. Add 0.5 mg Risperdal in the morning. Possibly discharge to assisted living on Friday.
[2022-09-16] MEDS: ATORVASTATIN 40 MG TAB PO SCH (20:28)
[2022-09-16] MEDS: FAMOTIDINE 20 MG TAB PO SCH (20:28)
[2022-09-16] MEDS: MELATONIN 5 MG TABLET PO SCH (20:28)
[2022-09-16] MEDS: risperiDONE 1 MG TAB PO SCH (20:29)
[2022-09-17] MEDS: IPRATROPIUM-ALBUTEROL 3 ML NEB INHALATION SCH ×5 (00:08→20:57)
[2022-09-17] MEDS: SYMBICORT 160-4.5 MCG INHALER INHALATION SCH ×3 (00:09→20:57)
[2022-09-17] MEDS: levETIRAcetam 500 MG TAB PO SCH ×2 (08:51→20:14)
[2022-09-17] MEDS: NICOTINE 21MG/24HR PATCH TRANSDERM SCH (08:51)
[2022-09-17] MEDS: FUROSEMIDE 40 MG TAB PO SCH (08:52)
[2022-09-17] MEDS: ASPIRIN 81 MG PO SCH (08:52)
[2022-09-17] MEDS: SPIRONOLACTONE 25 MG TAB PO SCH (08:52)
[2022-09-17] MEDS: CHOLECALCIFEROL 25 MCG (1000 IU) TABLET PO SCH (08:52)
[2022-09-17] MEDS: risperiDONE 0.5 MG TAB PO SCH (08:53)
[2022-09-17] MEDS: MELATONIN 5 MG TABLET PO SCH (20:13)
[2022-09-17] MEDS: FAMOTIDINE 20 MG TAB PO SCH (20:13)
[2022-09-17] MEDS: ATORVASTATIN 40 MG TAB PO SCH (20:14)
[2022-09-17] MEDS: risperiDONE 1 MG TAB PO SCH (20:14)
--- NOTE | 2022-09-17 20:25 | P.PN ---
Progress Note - Text Progress Note Date: 09/17/22 Chief Complaint: Short of breath This is a 77-year-old patient, follows with visiting physicians Dr. Bourne. Chronic stable medical conditions include hyperlipidemia, schizophrenia, chronic nicotine dependence, insomnia. Venous insufficiency lower extremity. COPD. S eizures . Chronic fibrotic . Lung disorder. Patient long-standing smoker presented with increasing shortness of breath. Has chronic lower extremity edema. Smoker. Some cough. No fever no chills. Admitted from the ER for CHF exacerbation. Appetite fair. No change in bowel pattern. Admitted with CHF exacerbation. IV Lasix. September 10: Sitting up in a chair. Oral intake good. Breathing better. On IV Lasix. Some edema. Danny wrap added. September 11: Patient sometimes does refuse treatment. Eating well. Breathing stable. Patient's lung crackles a significant component of her pulmonary fibros is. BMP is normal. athletic turf worker looking into placement for rehab. September 12: Patient changed to by mouth Lasix. athletic turf worker is looking into placement. No place found for now. Oral intake good. September 13: Upper chest. Oral intake fair. athletic turf worker trying to find a place to rehab. None available to now. September 14: Sitting up in a chair. Always covers his face with a a blanket. Eating well. Breathing stable. September 15: Up in a chair. Eating fair. No new issues. Pending placement September 16: Up in a chair. No new issues. Spoke to case management. Possibly assisted living will take him this Friday. 0.5 mg of Risperdal at this morning. For occasional irritability. September 17: Eating well. Cooperative. Pending placement. Sitting up in a chair. Comfortable. Active Medications Albuterol Sulfate (Albuterol Nebulized 2.5 Mg/3 Ml) 2.5 mg INHALATION RT-Q6H PRN PRN Reason: Shortness Of Breath Albuterol/Ipratropium (Ipratropium-Albuterol 3 Ml Neb) 3 ml INHALATION RT-QID [facility] Last Admin: 09/17/22 15:58 Dose: 3 ml Aspirin (Aspirin 81 Mg) 81 mg PO DAILY [facility] Last Admin: 09/17/22 08:52 Dose: 81 mg Atorvastatin Calcium (Atorvastatin 40 Mg Tab) 40 mg PO HS@2000 [facility] Last Admin: 09/17/22 20:14 Dose: 40 mg Budesonide/Formoterol Fumarate (Symbicort 160-4.5 Mcg Inhaler) 2 puff INHALATION RT-BID@ [facility] Last Admin: 09/17/22 08:54 Dose: 2 puff Cholecalciferol (Cholecalciferol 25 Mcg (1000 Iu) Tablet) 50 mcg PO DAILY@0800 [facility] Last Admin: 09/17/22 08:52 Dose: 50 mcg Famotidine (Famotidine 20 Mg Tab) 20 mg PO HS@1999 [facility] Last Admin: 09/17/22 20:13 Dose: 20 mg Folic Acid (Folic Acid 1 Mg Tab) 1 mg PO Q2D [facility] Last Admin: 09/16/22 09:17 Dose: 1 mg Furosemide (Furosemide 40 Mg Tab) 40 mg PO DAILY [facility] Last Admin: 09/17/22 08:52 Dose: 40 mg Levetiracetam (Levetiracetam 500 Mg Tab) 500 mg PO BID@ [facility] Last Admin: 09/17/22 20:14 Dose: 500 mg Melatonin (Melatonin 5 Mg Tablet) 10 mg PO HS@1999 [facility] Last Admin: 09/17/22 20:13 Dose: 10 mg Nicotine (Nicotine 21mg/24hr Patch) 1 patch TRANSDERM DAILY [facility] Last Admin: 09/17/22 08:51 Dose: 1 patch Risperidone (Risperidone 1 Mg Tab) 3 mg PO HS@1999 [facility] Last Admin: 09/17/22 20:14 Dose: 3 mg Risperidone (Risperidone 0.5 Mg Tab) 0.5 mg PO DAILY [facility] Last Admin: 09/17/22 08:53 Dose: 0.5 mg Spironolactone (Spironolactone 25 Mg Tab) 50 mg PO DAILY@08 [facility] Last Admin: 09/17/22 08:52 Dose: 50 mg Past medical history to include: Hyperlipidemia, insomnia, EGD, schizophrenia, nicotine dependence, venous insufficiency, pulmonary fibrosis, seizure Social history: Lives at [facility]. Smokes a pack a day for many years. No alcohol Physical examination: VITAL SIGNS: 98, 67, 16, 117/71, 92% room air GENERAL: Sitting up in a chair, comfortable EYES: Pupils equal. Conjunctiva normal. HEENT: External appearance of nose and ears normal, oral cavity grossly normal. NECK: JVD not raised; masses not palpable. HEART: First and second heart sounds are normal; edema present LUNGS: Respiratory rate increased, basal fine crackles ABDOMEN: Soft, nontender, liver spleen not palpable, no masses palpable. PSYCH: Answering simple questions MUSCULOSKELETAL:No Clubbing/cyanosis;muscles-grossly intact. OA NEUROLOGICAL: Cranial nerves grossly intact; no facial asymmetry, power and sensation grossly intact. INVESTIGATIONS, reviewed in the clinical context: September 15: Potassium 4.3 BUN 17 creatinine 0.60 proBNP 351 Chest CTA: No PE. Some fluid overload. Interstitial prominence. Chronic emphysematous and fibrotic changes. New areas of nodular consolidation EKG tracing personally reviewed by me-normal sinus rhythm. Some ST segment changes. Chest x-ray film personally reviewed by me-venous prominence WBC 6.4 hemoglobin 14 platelets 225 sodium 135 potassium 4.[address] chest-resolution: Mild to moderate chronic parenchymal fibrotic changes. 2-D echocardiogram: EF 50-55%. Assessment and plan: -Acute congestive heart failure exacerbation. EF not known.: Better Lasix 40 mg. . BNP 351 -chronic hypoxic respiratory failure from COPD 2 L - Chronic lower extremity venous insufficiency Danny wrap -Chronic, Bilateral pulmonary fibrosis causing basal crackles. -Acute Exacerbation COPD in a current smoker: Improved DuoNeb, Symbicort -Chronic nicotine dependence patient cigarette smoker Nicotine patch -Chronic epilepsy Keppra -Moderate to severe cognitive impairment with occasional irritability Risperdal 3 mg daily at bedtime. Start 0.5 mg by mouth daily in the morning. -Chronic insomnia melatonin -Chronic schizophrenia Risperdal -Hyperlipidemia Lipitor Stable. Continue current medications. I'll be discharged to assisted living tomorrow.
[2022-09-18] MEDS: SYMBICORT 160-4.5 MCG INHALER INHALATION SCH ×2 (07:34→20:53)
[2022-09-18] MEDS: IPRATROPIUM-ALBUTEROL 3 ML NEB INHALATION SCH ×4 (07:34→20:52)
[2022-09-18] MEDS: NICOTINE 21MG/24HR PATCH TRANSDERM SCH (09:34)
[2022-09-18] MEDS: FOLIC ACID 1 MG TAB PO SCH (09:35)
[2022-09-18] MEDS: levETIRAcetam 500 MG TAB PO SCH ×2 (09:35→20:10)
[2022-09-18] MEDS: SPIRONOLACTONE 25 MG TAB PO SCH (09:35)
[2022-09-18] MEDS: FUROSEMIDE 40 MG TAB PO SCH (09:35)
[2022-09-18] MEDS: CHOLECALCIFEROL 25 MCG (1000 IU) TABLET PO SCH (09:35)
[2022-09-18] MEDS: risperiDONE 0.5 MG TAB PO SCH (09:37)
[2022-09-18] MEDS: ASPIRIN 81 MG PO SCH (09:37)
--- NOTE | 2022-09-18 12:40 | P.DS ---
Providers Date of admission: 09/09/22 21:48 Expected date of discharge: 09/18/22 Attending physician: Arash Beach Consults: 09/18/22 11:52 Consult to Palliative Care Routine Consulting Provider: Marilee Whitney Consult Reason/Comments: palliative Do you want consulting provider notified?: Yes Primary care physician: Maycol Bourne [facility] Course: Chief Complaint: Short of breath This is a 77-year-old patient, follows with visiting physicians Dr. Bourne. Chronic stable medical conditions include hyperlipidemia, schizophrenia, chronic nicotine dependence, insomnia. Venous insufficiency lower extremity. COPD. Seizures . Chronic fibrotic . Lung disorder. Patient long-standing smoker presented with increasing shortness of breath. Has chronic lower extremity edema. Smoker. Some cough. No fever no chills. Admitted from the ER for CHF exacerbation. Appetite fair. No change in bowel pattern. Admitted with CHF exacerbation. IV Lasix. September 10: Sitting up in a chair. Oral intake good. Breathing better. On IV Lasix. Some edema. Danny wrap added. September 11: Patient sometimes does refuse treatment. Eating well. Breathing stable. Patient's lung crackles a significant component of her pulmonary fibrosis. BMP is normal. 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 September 12: Patient changed to by mouth Lasix. tar pot worker is looking into placement. No place found for now. Oral intake good. September 13: Upper chest. Oral intake fair. tar pot worker trying to find a place to rehab. None available to now. September 14: Sitting up in a chair. Always covers his face with a a blanket. Eating well. Breathing stable. September 15: Up in a chair. Eating fair. No new issues. Pending placement September 16: Up in a chair. No new issues. Spoke to case management. Possibly assisted living will take him this Friday. 0.5 mg of Risperdal at this morning. For occasional irritability. September 17: Eating well. Cooperative. Pending placement. Sitting up in a chair. Comfortable. September 18: Up in a chair. Comfortable. Cooperative. Eating well. Consult for palliative care placed. Past medical history to include: Hyperlipidemia, insomnia, EGD, schizophrenia, nicotine dependence, venous insufficiency, pulmonary fibrosis, seizure Social history: Lives [facility]. Smokes a pack a day for many years. No alcohol Physical examination: VITAL SIGNS: 97.4, 91, 18, 111/72, 89% room air GENERAL: Sitting up in a chair, comfortable EYES: Pupils equal. Conjunctiva normal. HEENT: External appearance of nose and ears normal, oral cavity grossly normal. NECK: JVD not raised; masses not palpable. HEART: First and second heart sounds are normal; edema present LUNGS: Respiratory rate increased, basal fine crackles ABDOMEN: Soft, nontender, liver spleen not palpable, no masses palpable. PSYCH: Answering simple questions MUSCULOSKELETAL:No Clubbing/cyanosis;muscles-grossly intact. OA NEUROLOGICAL: Cranial nerves grossly intact; no facial asymmetry, power and sensation grossly intact. INVESTIGATIONS, reviewed in the clinical context: September 15: Potassium 4.3 BUN 17 creatinine 0.60 proBNP 351 Chest CTA: No PE. Some fluid overload. Interstitial prominence. Chronic emphysematous and fibrotic changes. New areas of nodular consolidation EKG tracing personally reviewed by me-normal sinus rhythm. Some ST segment changes. Chest x-ray film personally reviewed by me-venous prominence WBC 6.4 hemoglobin 14 platelets 225 sodium 135 potassium 4.[address] chest-resolution: Mild to moderate chronic parenchymal fibrotic changes. 2-D echocardiogram: EF 50-55%. Assessment and plan: -Acute congestive heart failure exacerbation. EF not known.: Better Lasix 40 mg. . BNP 351 -chronic hypoxic respiratory failure from COPD 2 L - Chronic lower extremity venous insufficiency Danny wrap -Chronic, Bilateral pulmonary fibrosis causing basal crackles. -Acute Exacerbation COPD in a current smoker: Improved DuoNeb, Symbicort -Chronic nicotine dependence patient cigarette smoker Nicotine patch -Chronic epilepsy Keppra -Moderate to severe cognitive impairment with occasional irritability Risperdal 3 mg daily at bedtime. 0.5 mg by mouth daily in the morning. -Chronic insomnia melatonin -Chronic schizophrenia Risperdal -Hyperlipidemia Lipitor Disposition: [place] resume home CBC BMP: 5 days Plan - Discharge Summary Discharge Rx Participant: Yes New Discharge Prescriptions: New Aspirin 81 mg PO DAILY #1 tab Furosemide [Lasix] 40 mg PO DAILY tab Ipratropium-Albuterol Nebulize [Duoneb 0.5 mg-3 mg/3 ml Soln] 3 ml INHALATION RT-QID each Nicotine 21Mg/24Hr Patch [Habitrol] 1 patch TRANSDERM DAILY patch risperiDONE [RisperDAL] 0.5 mg PO DAILY tab Continue risperiDONE [RisperDAL] 3 mg PO HS@1999 Fluticasone Propion/Salmeterol [Fluticasone-Salmeterol 500-50] 1 puff INHALATION RT-BID@ Atorvastatin Calcium [Lipitor] 40 mg PO HS@1999 Melatonin 10 mg PO HS@1999 Famotidine [Pepcid] 20 mg PO HS@1999 Cholecalciferol [Vitamin D3 (25 Mcg = 1000 Iu)] 50 mcg PO DAILY@08 Folic Acid 1 mg PO Q2D Spironolactone [Aldactone] 50 mg PO DAILY@08 Albuterol Inhaler [Ventolin Hfa Inhaler] 2 puff INHALATION RT-Q6H PRN PRN Reason: Shortness Of Breath levETIRAcetam [Keppra] 500 mg PO BID@799,1999 Discontinued Furosemide [Lasix] 20 mg PO DAILY@0800 Discharge Medication List Melatonin 10 mg PO HS@199908/07/20 [History] risperiDONE [RisperDAL] 3 mg PO HS@199908/07/20 [History] Cholecalciferol [Vitamin D3 (25 Mcg = 1000 Iu)] 50 mcg PO DAILY@0800 05/01/21 [History] Famotidine [Pepcid] 20 mg PO HS@199905/01/21 [History] Folic Acid 1 mg PO Q2D 05/01/21 [History] Albuterol Inhaler [Ventolin Hfa Inhaler] 2 puff INHALATION RT-Q6H PRN 08/11/22 [History] Fluticasone Propion/Salmeterol [Fluticasone-Salmeterol 500-50] 1 puff INHALATION RT-BID@799,199908/11/22 [History] Spironolactone [Aldactone] 50 mg PO DAILY@0800 08/11/22 [History] Atorvastatin Calcium [Lipitor] 40 mg PO HS@199909/09/22 [History] levETIRAcetam [Keppra] 500 mg PO BID@799,199909/09/22 [History] Aspirin 81 mg PO DAILY #1 tab 09/12/22 [Rx] Furosemide [Lasix] 40 mg PO DAILY tab 09/12/22 [Rx] Ipratropium-Albuterol Nebulize [Duoneb 0.5 mg-3 mg/3 ml Soln] 3 ml INHALATION RT-QID each 09/12/22 [Rx] Nicotine 21Mg/24Hr Patch [Habitrol] 1 patch TRANSDERM DAILY patch 09/12/22 [Rx] risperiDONE [RisperDAL] 0.5 mg PO DAILY tab 09/18/22 [Rx] Follow up Appointment(s)/Referral(s): Maycol Bourne MD [Primary Care Provider] - 1-2 days
[2022-09-18] MEDS: FAMOTIDINE 20 MG TAB PO SCH (20:10)
[2022-09-18] MEDS: ATORVASTATIN 40 MG TAB PO SCH (20:10)
[2022-09-18] MEDS: risperiDONE 1 MG TAB PO SCH (20:10)
[2022-09-18] MEDS: MELATONIN 5 MG TABLET PO SCH (20:10)
[2022-09-19] MEDS: SYMBICORT 160-4.5 MCG INHALER INHALATION SCH (07:50)
[2022-09-19] MEDS: IPRATROPIUM-ALBUTEROL 3 ML NEB INHALATION SCH ×3 (07:50→15:23)
[2022-09-19] MEDS: CHOLECALCIFEROL 25 MCG (1000 IU) TABLET PO SCH (08:33)
[2022-09-19] MEDS: risperiDONE 0.5 MG TAB PO SCH (08:34)
[2022-09-19] MEDS: ASPIRIN 81 MG PO SCH (08:34)
[2022-09-19] MEDS: levETIRAcetam 500 MG TAB PO SCH (08:34)
[2022-09-19] MEDS: FUROSEMIDE 40 MG TAB PO SCH (08:34)
[2022-09-19] MEDS: SPIRONOLACTONE 25 MG TAB PO SCH (08:34)
[2022-09-19] MEDS: NICOTINE 21MG/24HR PATCH TRANSDERM SCH (08:34)
[2022-09-19 08:55] VITALS: RESP 16
--- NOTE | 2022-09-19 13:46 | P.DS ---
Providers Date of admission: 09/09/22 21:48 Expected date of discharge: 09/19/22 Attending physician: Arash Beach Consults: 09/18/22 11:52 Consult to Palliative Care Routine Consulting Provider: Marilee Whitney Consult Reason/Comments: palliative Do you want consulting provider notified?: Yes Primary care physician: Maycol Bourne [facility] Course: Chief Complaint: Short of breath This is a 77-year-old patient, follows with visiting physicians Dr. Bourne. Chronic stable medical conditions include hyperlipidemia, schizophrenia, chronic nicotine dependence, insomnia. Venous insufficiency lower extremity. COPD. Seizures . Chronic fibrotic . Lung disorder. Patient long-standing smoker presented with increasing shortness of breath. Has chronic lower extremity edema. Smoker. Some cough. No fever no chills. Admitted from the ER for CHF exacerbation. Appetite fair. No change in bowel pattern. Admitted with CHF exacerbation. IV Lasix. September 10: Sitting up in a chair. Oral intake good. Breathing better. On IV Lasix. Some edema. Danny wrap added. September 11: Patient sometimes does refuse treatment. Eating well. Breathing stable. Patient's lung crackles a significant component of her pulmonary fibrosis. BMP is normal. 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 September 12: Patient changed to by mouth Lasix. manager workers compensation is looking into placement. No place found for now. Oral intake good. September 13: Upper chest. Oral intake fair. 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 None available to now. September 14: Sitting up in a chair. Always covers his face with a a blanket. Eating well. Breathing stable. September 15: Up in a chair. Eating fair. No new issues. Pending placement September 16: Up in a chair. No new issues. Spoke to case management. Possibly assisted living will take him this Friday. 0.5 mg of Risperdal at this morning. For occasional irritability. September 17: Eating well. Cooperative. Pending placement. Sitting up in a chair. Comfortable. September 18: Up in a chair. Comfortable. Cooperative. Eating well. Consult for palliative care placed. September 19: Patient stable. Eating well. Plan for discharge today. Medications represcribed to [facility]. Discussed with social work manager. Discussion and discharge planning more than 35 minutes Past medical history to include: Hyperlipidemia, insomnia, EGD, schizophrenia, nicotine dependence, venous insufficiency, pulmonary fibrosis, seizure Social history: Lives at [facility]. Smokes a pack a day for many years. No alcohol Physical examination: VITAL SIGNS: He 7.5, 78, 16, 113/65, 93% room air GENERAL: Sitting up in a chair, comfortable EYES: Pupils equal. Conjunctiva normal. HEENT: External appearance of nose and ears normal, oral cavity grossly normal. NECK: JVD not raised; masses not palpable. HEART: First and second heart sounds are normal; edema present LUNGS: Respiratory rate increased, basal fine crackles ABDOMEN: Soft, nontender, liver spleen not palpable, no masses palpable. PSYCH: Answering simple questions MUSCULOSKELETAL:No Clubbing/cyanosis;muscles-grossly intact. OA NEUROLOGICAL: Cranial nerves grossly intact; no facial asymmetry, power and sensation grossly intact. INVESTIGATIONS, reviewed in the clinical context: September 15: Potassium 4.3 BUN 17 creatinine 0.60 proBNP 351 Chest CTA: No PE. Some fluid overload. Interstitial prominence. Chronic emphysematous and fibrotic changes. New areas of nodular consolidation EKG tracing personally reviewed by me-normal sinus rhythm. Some ST segment changes. Chest x-ray film personally reviewed by me-venous prominence WBC 6.4 hemoglobin 14 platelets 225 sodium 135 potassium 4.[address] chest-resolution: Mild to moderate chronic parenchymal fibrotic changes. 2-D echocardiogram: EF 50-55%. Assessment and plan: -Acute congestive heart failure exacerbation. EF not known.: Better Lasix 40 mg. . BNP 351 -chronic hypoxic respiratory failure from COPD 2 L - Chronic lower extremity venous insufficiency Danny wrap -Chronic, Bilateral pulmonary fibrosis causing basal crackles. -Acute Exacerbation COPD in a current smoker: Improved Skip Symbicort -Chronic nicotine dependence patient cigarette smoker Nicotine patch -Chronic epilepsy Keppra -Moderate to severe cognitive impairment with occasional irritability Risperdal 3 mg daily at bedtime. 0.5 mg by mouth daily in the morning. -Chronic insomnia melatonin -Chronic schizophrenia Risperdal -Hyperlipidemia Lipitor Disposition: [place] resume home CBC BMP: 5 days Plan - Discharge Summary Discharge Rx Participant: Yes New Discharge Prescriptions: New Fluticasone Propion/Salmeterol [Advair 250-50 Diskus] 1 inhalation PO BID #1 each Aspirin 81 mg PO DAILY #30 tab Folic Acid 1 mg PO Q2D #30 tab Furosemide [Lasix] 40 mg PO DAILY #30 tab risperiDONE [RisperDAL] 0.5 mg PO DAILY #30 tab Albuterol Nebulized [Ventolin Nebulized] 2.5 mg INHALATION RT-Q6H PRN #1 ml PRN Reason: Shortness Of Breath Spironolactone [Aldactone] 50 mg PO DAILY #30 tab Ipratropium-Albuterol Nebulize [Duoneb 0.5 mg-3 mg/3 ml Soln] 3 ml INHALATION TID #90 each Nicotine 21Mg/24Hr Patch [Habitrol] 1 patch TRANSDERM DAILY #14 patch Atorvastatin [Lipitor] 40 mg PO HS@1999 #30 tab Melatonin 10 mg PO HS #30 tab Famotidine [Pepcid] 20 mg PO HS@1999 #30 tab risperiDONE [RisperDAL] 3 mg PO HS@1999 #30 tab Cholecalciferol [Vitamin D3 (25 Mcg = 1000 Iu)] 50 mcg PO DAILY@0800 #30 tab Continue Atorvastatin Calcium [Lipitor] 40 mg PO HS@1999 #30 tab Famotidine [Pepcid] 20 mg PO HS@1999 #30 tab Changed levETIRAcetam [Keppra] 500 mg PO BID@799,1999 #60 tab Discontinued risperiDONE [RisperDAL] 3 mg PO HS@1999 Fluticasone Propion/Salmeterol [Fluticasone-Salmeterol 500-50] 1 puff INHALATION RT-BID@799,1999 Furosemide [Lasix] 20 mg PO DAILY@0800 Melatonin 10 mg PO HS@1999 Cholecalciferol [Vitamin D3 (25 Mcg = 1000 Iu)] 50 mcg PO DAILY@0800 Folic Acid 1 mg PO Q2D Spironolactone [Aldactone] 50 mg PO DAILY@0800 Albuterol Inhaler [Ventolin Hfa Inhaler] 2 puff INHALATION RT-Q6H PRN PRN Reason: Shortness Of Breath Discharge Medication List Atorvastatin Calcium [Lipitor] 40 mg PO HS@1999 #30 tab 09/18/22 [Rx] Famotidine [Pepcid] 20 mg PO HS@1999 #30 tab 09/18/22 [Rx] Albuterol Nebulized [Ventolin Nebulized] 2.5 mg INHALATION RT-Q6H PRN #1 ml 09/19/22 [Rx] Aspirin 81 mg PO DAILY #30 tab 09/19/22 [Rx] Atorvastatin [Lipitor] 40 mg PO HS@1999 #30 tab 09/19/22 [Rx] Cholecalciferol [Vitamin D3 (25 Mcg = 1000 Iu)] 50 mcg PO DAILY@0800 #30 tab 09/19/22 [Rx] Famotidine [Pepcid] 20 mg PO HS@1999 #30 tab 09/19/22 [Rx] Fluticasone Propion/Salmeterol [Advair 250-50 Diskus] 1 inhalation PO BID #1 each 09/19/22 [Rx] Folic Acid 1 mg PO Q2D #30 tab 09/19/22 [Rx] Furosemide [Lasix] 40 mg PO DAILY #30 tab 09/19/22 [Rx] Ipratropium-Albuterol Nebulize [Duoneb 0.5 mg-3 mg/3 ml Soln] 3 ml INHALATION TID #90 each 09/19/22 [Rx] Melatonin 10 mg PO HS #30 tab 09/19/22 [Rx] Nicotine 21Mg/24Hr Patch [Habitrol] 1 patch TRANSDERM DAILY #14 patch 09/19/22 [Rx] Spironolactone [Aldactone] 50 mg PO DAILY #30 tab 09/19/22 [Rx] levETIRAcetam [Keppra] 500 mg PO BID@0800,1999 #60 tab 09/19/22 [Rx] risperiDONE [RisperDAL] 0.5 mg PO DAILY #30 tab 09/19/22 [Rx] risperiDONE [RisperDAL] 3 mg PO HS@1999 #30 tab 09/19/22 [Rx] Follow up Appointment(s)/Referral(s): Maycol Bourne MD [Primary Care Provider] - 1-2 days
[2022-09-19 14:53] VITALS: BP 124/75; TEMP 97.3
[2022-09-19 15:40] VITALS: PULSE 86
== END 2022-09-19 16:27 | DRG 291 ==
LOC: EC 12:44 → 6NMEDSUR 15:23 → OBSVTOIN 21:48 → 6NMEDSUR 09-11 02:58
PROVIDERS: ADMIT Hospitalist; ATTEND Hospitalist
DX: I11.0 Hypertensive heart disease with heart failure (principal); I50.33 Acute on chronic diastolic (congestive) heart failure; J96.11 Chronic respiratory failure with hypoxia; J44.1 Chronic obstructive pulmonary disease with (acute) exacerbation; J84.10 Pulmonary fibrosis, unspecified; G40.909 Epilepsy, unspecified, not intractable, without status epilepticus; F20.9 Schizophrenia, unspecified; I08.1 Rheumatic disorders of both mitral and tricuspid valves; E78.5 Hyperlipidemia, unspecified; F17.210 Nicotine dependence, cigarettes, uncomplicated; I87.2 Venous insufficiency (chronic) (peripheral); F51.04 Psychophysiologic insomnia; R41.89 Other symptoms and signs involving cognitive functions and awareness; Z75.1 Person awaiting admission to adequate facility elsewhere; Z79.899 Other long term (current) drug therapy; Z91.81 History of falling
CPT/HCPCS: 36415; 70450; 71046; 71275; 80048; 80053; 80177; 83735; 83880; 84484; 85025; 85379; 85610; 85730; 93005; 94640; 94760; 96374; 99285

== ENCOUNTER 2023-07-03 17:21 | Inpatient (IN) | payer OTHER ==
--- NOTE | 2023-07-03 18:01 | ED ---
SOB HPI - General Chief Complaint: Shortness of Breath Stated Complaint: Low Oxygen Time Seen by Provider: 07/03/23 17:26 Source: patient, EMS, RN notes reviewed, old records reviewed Mode of arrival: EMS Limitations: altered mental status - History of Present Illness Initial Comments: This is a 78-year-old male unable to provide history coming in for severe dyspnea and shortness of breath patient is currently a significantly poor historian denying any complaints of chest pain or recent fevers MD Complaint: shortness of breath, cough, chest pain, anxiety -: days(s) Severity: severe Severity scale (1-10): 10 Consistency: constant Improves With: nothing Worsens With: lying flat, exertion Known History Of: COPD, congestive heart failure Context: recent URI, recent illness Associated Symptoms: chest pain, cough Treatments Prior to Arrival: oxygen - Related Data Home Medications Medication Instructions Recorded Confirmed Albuterol Sulfate [Proventil Hfa] 2 puff INHALATION RT-Q6H PRN 07/03/23 07/03/23 Aspirin 81 mg PO DAILY@59907/03/23 07/03/23 Atorvastatin [Lipitor] 40 mg PO HS@199907/03/23 07/03/23 Benzonatate [Tessalon Perles] 100 - 200 mg PO Q4H PRN 07/03/23 07/03/23 Cholecalciferol [Vitamin D3 (25 50 mcg PO DAILY@59907/03/23 07/03/23 Mcg = 1000 Iu)] Famotidine [Pepcid] 20 mg PO BID@599,199907/03/23 07/03/23 Fluticasone Propion/Salmeterol 1 puff INHALATION RT-BID PRN 07/03/23 07/03/23 [Advair 250-50 Diskus] Folic Acid 1 mg PO Q48H 07/03/23 07/03/23 Furosemide [Lasix] 40 mg PO DAILY@59907/03/23 07/03/23 Ipratropium-Albuterol Nebulize 3 ml INHALATION RT-TID PRN 07/03/23 07/03/23 [Duoneb 0.5 mg-3 mg/3 ml Soln] Potassium Chloride ER [K-Dur 10] 10 meq PO DAILY@59907/03/23 07/03/23 Spironolactone [Aldactone] 50 mg PO DAILY@0600 07/03/23 07/03/23 levETIRAcetam [Keppra] 500 mg PO BID 07/03/23 07/03/23 risperiDONE [RisperDAL] 3 mg PO HS@199907/03/23 07/03/23 Previous Rx's Medication Instructions Recorded Albuterol Nebulized [Ventolin 2.5 mg INHALATION RT-Q6H PRN #1 ml 09/19/22 Nebulized] Tamsulosin [Flomax] 0.4 mg PO PC-BRKFST #30 cap 07/07/23 guaiFENesin [Mucinex] 600 mg PO TID #60 tab 07/07/23 predniSONE 10 mg PO DAILY #30 tab 07/07/23 Allergies Allergy/AdvReac Type Severity Reaction Status Date / Time No Known Allergies Allergy Verified 09/09/22 15:34 Review of Systems ROS Statement: Those systems with pertinent positive or pertinent negative responses have been documented in the HPI. ROS Other: All systems not noted in ROS Statement are negative. Past Medical History Past Medical History: Heart Failure, Hyperlipidemia Additional Past Medical History / Comment(s): Schizophrenia History of Any Multi-Drug Resistant Organisms: None Reported Past Surgical History: No Surgical Hx Reported Past Anesthesia/Blood Transfusion Reactions: No Reported Reaction Past Psychological History: Schizophrenia Smoking Status: Current every day smoker Past Alcohol Use History: None Reported Past Drug Use History: None Reported - Past Family History Father Family Medical History: Unable to Obtain Mother Family Medical History: Unable to Obtain General Exam Limitations: altered mental status, physical limitation General appearance: alert, anxious Head exam: Present: atraumatic, normocephalic, normal inspection Eye exam: Present: normal appearance, PERRL, EOMI. Absent: scleral icterus, conjunctival injection, periorbital swelling ENT exam: Present: normal exam, mucous membranes moist Neck exam: Present: normal inspection. Absent: tenderness, meningismus, lymphadenopathy Respiratory exam: Present: respiratory distress, wheezes, accessory muscle use, decreased breath sounds, prolonged expiratory. Absent: rales, rhonchi, stridor Cardiovascular Exam: Present: regular rate, normal rhythm, tachycardia, normal heart sounds. Absent: systolic murmur, diastolic murmur, rubs, gallop, clicks GI/Abdominal exam: Present: soft, normal bowel sounds. Absent: distended, tenderness, guarding, rebound, rigid Extremities exam: Present: normal inspection, full ROM, normal capillary refill. Absent: tenderness, pedal edema, joint swelling, calf tenderness Back exam: Present: normal inspection Neurological exam: Present: alert, oriented X3, CN II-XII intact Psychiatric exam: Present: normal affect, normal mood Skin exam: Present: warm, dry, intact, normal color. Absent: rash Course Vital Signs 07/03/23 07/03/23 07/03/23 17:23 17:28 17:35 Temperature 98.0 F 99.3 F Pulse Rate 114 H 116 H Pulse Rate [ Pulse Oximetery ] Respiratory 20 Rate Blood Pressure 116/69 109/70 Blood Pressure [Right Arm] O2 Sat by Pulse 92 L 93 L Oximetry 07/03/23 07/03/23 07/03/23 17:40 18:54 19:05 Temperature Pulse Rate 107 H 120 H Pulse Rate [ Pulse Oximetery ] Respiratory 20 Rate Blood Pressure Blood Pressure [Right Arm] O2 Sat by Pulse Oximetry 07/03/23 07/03/23 07/03/23 20:45 21:10 21:16 Temperature 98.9 F Pulse Rate 106 H 106 H Pulse Rate [ Pulse Oximetery ] Respiratory 24 Rate Blood Pressure 139/78 Blood Pressure [Right Arm] O2 Sat by Pulse 97 Oximetry 07/03/23 07/03/23 07/04/23 21:19 23:00 03:00 Temperature Pulse Rate 110 H 99 90 Pulse Rate [ Pulse Oximetery ] Respiratory 25 H 24 Rate Blood Pressure 119/67 112/65 Blood Pressure [Right Arm] O2 Sat by Pulse 93 L 97 Oximetry 07/04/23 07/04/23 07/04/23 04:00 06:00 07:46 Temperature 98.6 F Pulse Rate 84 92 Pulse Rate [ 89 Pulse Oximetery ] Respiratory 13 9 L 18 Rate Blood Pressure 112/65 133/71 Blood Pressure 121/76 [Right Arm] O2 Sat by Pulse 96 98 94 L Oximetry - Reevaluation(s) Reevaluation #1: 07/03/23 18:37 Medical records reviewed Reevaluation #2: 07/03/23 20:04 Patient has no real improvement in symptoms but does not currently need BiPAP Reevaluation #3: 07/03/23 20:04 Patient informed of results and questions answered Reevaluation #4: Was pt. sent in by a medical professional or institution (, [facility], [employer], urgent care, hospital, or assisted...) When possible be specific @ -no Did you speak to anyone other than the patient for history (EMS, parent, family, police, friend...)? What history was obtained from this source @ -no Did you review nursing and triage notes (agree or disagree)? Why? @ -agree Are old charts reviewed (outside hosp., previous admission, EMS record, old EKG, old radiological studies, urgent care reports/EKG's, assisted records)? Report findings @ -yes Differential Diagnosis (chest pain, altered mental status, abdominal pain women, abdominal pain men, vaginal bleeding, weakness, fever, dyspnea, syncope, headache, dizziness, GI bleed, back pain, seizure, CVA, palpatations, mental health, musculoskeletal)? @ -prior EKG interpreted by me (3pts min.). @ -yes X-rays interpreted by me (1pt min.). @ -yes negative for acute disease CT interpreted by me (1pt min.). @ -no U/S interpreted by me (1pt. min.). @ -no What testing was considered but not performed or refused? (CT, X-rays, U/S, labs)? Why? @ -none What meds were considered but not given or refused? Why? @ -none Did you discuss the management of the patient with other professionals (professionals i.e. , [facility]YLIE, PH[employer]STATIC COPY MAKER, lab, RT, psych nurse, social work faculty member, java web user interface developer, teacher, parking enforcement officer, protective services case worker)? Give summary @ -no Was smoking cessation discussed for >3mins.? @ -no Was critical care preformed (if so, how long)? @ -yes31 Were there social determinants of health that impacted care today? How? (Home lessness, low income, unemployed, alcoholism, drug addiction, transportation, low edu. Level, literacy, decrease access to med. care, halfway, rehab)? @ -none Was there de-escalation of care discussed even if they declined (Discuss DNR or withdrawal of care, Hospice)? DNR status @ -no What co-morbidities impacted this encounter? (DM, HTN, Smoking, COPD, CAD, Cancer, CVA, ARF, Chemo, Hep., AIDS, mental health diagnosis, sleep apnea, morbid obesity)? @ -none Was patient admitted / discharged? Hospital course, mention meds given and route, prescriptions, significant lab abnormalities, going to OR and other pertinent info. @ - 78 male respiratory failure with hypoxia. Patient borderline BiPAP, patient be admitted for respiratory failure severe COPD Admitted Undiagnosed new problem with uncertain prognosis? @ -no Drug Therapy requiring intensive monitoring for toxicity (Heparin, Nitro, Ins ulin, Cardizem)? @ -no Were any procedures done? @ -no Diagnosis/symptom? @ -Severe shortness of breath and respiratory failure Acute, or Chronic, or Acute on Chronic? @ -Acute Uncomplicated (without systemic symptoms) or Complicated (systemic symptoms)? @ -Complicated Side effects of treatment? @ -no Exacerbation, Progression, or Severe Exacerbation? @ -exacerbation Poses a threat to life or bodily function? How? (Chest pain, USA, MS, pneumonia, PE, COPD, DKA, ARF, appy, cholecystitis, CVA, Diverticulitis, Homicidal, Suicidal, threat to staff... and all critical care pts) @ -yes Reevaluation #5: Differential Dyspnea: Coronary syndrome, arrhythmia, tamponade, asthma, COPD, pulmonary embolism, pneumonia, pneumothorax, pulmonary effusion, anaphylaxis, diabetic ketoacidosis, flailed chest, pulmonary contusion, diaphragmatic rupture, anemia, neuromuscular, this is not meant to be an all-inclusive list. - Consultations Consultation #1: Spoke with sound who agrees to admit this patient Medical Decision Making - Medical Decision Making 78 male respiratory failure with hypoxia. Patient borderline BiPAP, patient be admitted for respiratory failure severe COPD - Lab Data Result diagrams: 07/04/23 08:24 07/07/23 07:17 Lab Results 07/03/23 07/03/23 07/03/23 Range/Units 18:39 18:39 18:39 WBC 5.8 (3.8-10.6) k/uL RBC 4.26 L (4.30-5.90) m/uL Hgb 13.7 (13.0-17.5) gm/dL Hct 41.0 (39.0-53.0) % MCV 96.2 (80.0-100.0) fL MCH 32.1 (25.0-35.0) pg MCHC 33.3 (31.0-37.0) g/dL RDW 13.9 (11.5-15.5) % Plt Count 101 L (150-450) k/uL MPV 8.6 Neutrophils % 85 % Lymphocytes % 4 % Monocytes % 7 % Eosinophils % 1 % Basophils % 1 % Neutrophils # 4.9 (1.3-7.7) k/uL Lymphocytes # 0.3 L (1.0-4.8) k/uL Monocytes # 0.4 (0-1.0) k/uL Eosinophils # 0.1 (0-0.7) k/uL Basophils # 0.1 (0-0.2) k/uL PT 10.2 (10.0-12.5) sec INR 0.9 (<1.2) APTT 25.2 (22.0-30.0) sec Sodium 134 L (137-145) mmol/L Potassium 4.6 (3.5-5.1) mmol/L Chloride 95 L (98-107) mmol/L Carbon Dioxide 34 H (22-30) mmol/L Anion Gap 5 mmol/L BUN 10 (9-20) mg/dL Creatinine 0.57 L (0.66-1.25) mg/dL Est GFR (CKD-EPI)AfAm >90 (>60 ml/min/1.73 sqM) Est GFR (CKD-EPI)NonAf >90 (>60 ml/min/1.73 sqM) Glucose 113 H (74-99) mg/dL Plasma Lactic Acid Mesfin (0.7-2.0) mmol/L Calcium 8.3 L (8.4-10.2) mg/dL Total Bilirubin 1.2 (0.2-1.3) mg/dL AST 36 (17-59) U/L ALT 33 (4-49) U/L Alkaline Phosphatase 71 (38-126) U/L Troponin I (0.000-0.034) ng/mL NT-Pro-B Natriuret Pep 396 pg/mL Total Protein 6.6 (6.3-8.2) g/dL Albumin 3.7 (3.5-5.0) g/dL 07/03/23 07/03/23 Range/Units 18:39 18:39 WBC (3.8-10.6) k/uL RBC (4.30-5.90) m/uL Hgb (13.0-17.5) gm/dL Hct (39.0-53.0) % MCV (80.0-100.0) fL MCH (25.0-35.0) pg MCHC (31.0-37.0) g/dL RDW (11.5-15.5) % Plt Count (150-450) k/uL MPV Neutrophils % % Lymphocytes % % Monocytes % % Eosinophils % % Basophils % % Neutrophils # (1.3-7.7) k/uL Lymphocytes # (1.0-4.8) k/uL Monocytes # (0-1.0) k/uL Eosinophils # (0-0.7) k/uL Basophils # (0-0.2) k/uL PT (10.0-12.5) sec INR (<1.2) APTT (22.0-30.0) sec Sodium (137-145) mmol/L Potassium (3.5-5.1) mmol/L Chloride (98-107) mmol/L Carbon Dioxide (22-30) mmol/L Anion Gap mmol/L BUN (9-20) mg/dL Creatinine (0.66-1.25) mg/dL Est GFR (CKD-EPI)AfAm (>60 ml/min/1.73 sqM) Est GFR (CKD-EPI)NonAf (>60 ml/min/1.73 sqM) Glucose (74-99) mg/dL Plasma Lactic Acid Mesfin 1.1 (0.7-2.0) mmol/L Calcium (8.4-10.2) mg/dL Total Bilirubin (0.2-1.3) mg/dL AST (17-59) U/L ALT (4-49) U/L Alkaline Phosphatase (38-126) U/L Troponin I 0.017 (0.000-0.034) ng/mL NT-Pro-B Natriuret Pep pg/mL Total Protein (6.3-8.2) g/dL Albumin (3.5-5.0) g/dL - EKG Data -: EKG Interpreted by Me (EKG is sinus tachycardia NH 146 QRS 74 QTc 366) - Radiology Data Radiology results: report reviewed (Chest x-ray is negative for acute disease), image reviewed Critical Care Time Critical Care Time: Yes Total Critical Care Time: 31 Disposition Clinical Impression: COPD (chronic obstructive pulmonary disease), CHF (congestive heart failure), Acute exacerbation of chronic obstructive pulmonary disease, Altered mental state, Acute respiratory failure Disposition: ADMITTED IP TO THIS HOSP Is patient prescribed a controlled substance at d/c from ED?: No Time of Disposition: 20:00
[2023-07-03] MEDS: SODIUM CHLORIDE 0.9% 1,000 ML IV STA (18:43)
[2023-07-03] MEDS: methylPREDNISolone SOD SUCCI 125 MG/2 ML VIAL IV STA (18:44)
[2023-07-03 18:52] LABS: Basophils # (A) 0.1 k/uL (0-0.2); Basophils % (A) 1 %; Eosinophils # (A) 0.1 k/uL (0-0.7); Eosinophils % (A) 1 %; HGB 13.7 gm/dL (13.0-17.5); Lymphocytes # (A) 0.3 k/uL (1.0-4.8); Lymphocytes % (A) 4 %; MCH 32.1 pg (25.0-35.0); MCHC 33.3 g/dL (31.0-37.0); MCV 96.2 fL (80.0-100.0); Mean Platelet Volume 8.6; Monocytes # (A) 0.4 k/uL (0-1.0); Monocytes % (A) 7 %; Neutrophils # (A) 4.9 k/uL (1.3-7.7); Neutrophils % (A) 85 %; Platelet Count 101 k/uL (150-450); RBC 4.26 m/uL (4.30-5.90); RDW 13.9 % (11.5-15.5); WBC 5.8 k/uL (3.8-10.6)
[2023-07-03] MEDS: IPRATROPIUM-ALBUTEROL 3 ML NEB INHALATION STA ×2 (18:52→21:10)
[2023-07-03 19:11] LABS: ALT 33 U/L (4-49); African American GFR (CKD) >90 (>60 ml/min/1.73 sqM); Albumin 3.7 g/dL (3.5-5.0); Anion Gap 5 mmol/L; Blood Urea Nitrogen 10 mg/dL (9-20); Calcium 8.3 mg/dL (8.4-10.2); Carbon Dioxide 34 mmol/L (22-30); Chloride 95 mmol/L (98-107); Glucose 113 mg/dL (74-99); INR 0.9 (<1.2); Non-African American GFR(CKD) >90 (>60 ml/min/1.73 sqM); Partial Thromboplastin Time 25.2 sec (22.0-30.0); Prothrombin Time 10.2 sec (10.0-12.5); Sodium 134 mmol/L (137-145); Total Bilirubin 1.2 mg/dL (0.2-1.3); Total Protein 6.6 g/dL (6.3-8.2)
[2023-07-03 19:17] LABS: AST 36 U/L (17-59); Alkaline Phosphatase 71 U/L (38-126); Potassium 4.6 mmol/L (3.5-5.1)
[2023-07-03 19:20] LABS: NT-Pro-B-Type Natriuretic Pept 396 pg/mL
[2023-07-03] MEDS ORDERED: HYDROmorphone 1 MG/ML 1 ML SYRINGE IVP PRN (19:58)
[2023-07-03] MEDS ORDERED: NALOXONE 0.4 MG/ML 1 ML VIAL IV PRN (19:58)
[2023-07-03] MEDS ORDERED: NALOXONE 0.4 MG/ML 1 ML VIAL IVP PRN (19:58)
[2023-07-03] MEDS ORDERED: ONDANSETRON 4 MG/2 ML VIAL IVP PRN (19:58)
--- NOTE | 2023-07-03 20:25 | XR ---
EXAM: XR chest 1V portable CLINICAL INDICATION:Male, 78 years old with history of sob; [facility] COMPARISON: Two-view chest and CT angiogram chest 09/09/2022 TECHNIQUE: Chest single view. FINDINGS: Lines/tubes/devices: EKG leads overlie the chest. No indwelling lines are seen. Cardiomediastinum: Cardiac silhouette appears stable, mildly enlarged. Stable mediastinal silhouette. Tortuosity and ectasia of the aorta. Vasculature: Similar appearance of vascular shadows in the hilar regions. Lungs/pleura: Diffuse coarsening of interstitial lung markings and parenchymal changes, likely chronic. Scattered s carring. No evidence of acute superimposed consolidation, or evidence of pneumothorax. Suspect small pleural effusions, similar in appearance to the prior study. Lung volumes are slightly reduced and th ere is mild bibasilar atelectasis. Bones/soft tissues: Bony thorax appears grossly intact as seen. Regional soft tissues appear unremarkable. Overall, there has been little interval change. IMPRESSION: No acute findings, or significant interval change. Possible mild CHF.
[2023-07-03] MEDS: SODIUM CHLORIDE 0.9% 1,000 ML IV SCH (21:12)
[2023-07-04] MEDS: methylPREDNISolone SOD SUCCI 125 MG/2 ML VIAL IV SCH (01:13)
[2023-07-04] MEDS ORDERED: IPRATROPIUM-ALBUTEROL 3 ML NEB INHALATION PRN (08:01)
[2023-07-04] MEDS ORDERED: ALBUTEROL HFA INHALER INHALATION PRN (08:01)
[2023-07-04] MEDS ORDERED: BENZONATATE 100 MG CAP PO PRN (09:00)
[2023-07-04 09:10] LABS: ALT 30 U/L (4-49); AST 27 U/L (17-59); African American GFR (CKD) >90 (>60 ml/min/1.73 sqM); Albumin 3.4 g/dL (3.5-5.0); Albumin/Globulin Ratio 1.3; Alkaline Phosphatase 68 U/L (38-126); Anion Gap 3 mmol/L; Blood Urea Nitrogen 13 mg/dL (9-20); Calcium 8.2 mg/dL (8.4-10.2); Carbon Dioxide 35 mmol/L (22-30); Chloride 97 mmol/L (98-107); Globulin 2.6 g/dL; Glucose 127 mg/dL (74-99); Magnesium 2.2 mg/dL (1.6-2.3); Non-African American GFR(CKD) >90 (>60 ml/min/1.73 sqM); Phosphorus 4.1 mg/dL (2.5-4.5); Potassium 4.7 mmol/L (3.5-5.1); Sodium 135 mmol/L (137-145); Total Bilirubin 0.7 mg/dL (0.2-1.3)
[2023-07-04] MEDS: levETIRAcetam 500 MG TAB PO SCH (09:16)
[2023-07-04] MEDS: SYMBICORT 80-4.5 MCG INHALER INHALATION SCH (09:56)
[2023-07-04] MEDS: ALBUTEROL NEBULIZED 2.5 MG/3 ML INHALATION PRN (09:58)
[2023-07-04 11:09] LABS: Basophils # (A) 0 X 10*3/uL (0.00-0.10); Basophils % (A) 0 %; Eosinophils # (A) 0 X 10*3/uL (0.04-0.35); Eosinophils % (A) 0 %; HCT 39.5 % (39.6-50.0); HGB 12.4 g/dL (13.0-17.0); Lymphocytes # (A) 0.26 X 10*3/uL (0.90-5.00); MCH 30.8 pg (27.0-32.0); MCHC 31.4 g/dL (32.0-37.0); Mean Platelet Volume 10.3 FL (9.5-12.2); Monocytes # (A) 0.12 X 10*3/uL (0.20-1.00); Monocytes % (A) 3.2 %; NRBC Per 100 WBC 0 X 10*3/uL (0.00-0.01); Neutrophils % (A) 89.3 %; Platelet Count 114 X 10*3/uL (140-440); RBC 4.03 X 10*6/uL (4.40-5.60); RDW 14.1 % (11.5-14.5)
[2023-07-04] MEDS ORDERED: CALCIUM CARBONATE 500 MG CHEWABLE PO PRN (13:26)
[2023-07-04] MEDS ORDERED: LORazepam 0.5 MG TAB PO PRN (13:26)
[2023-07-04] MEDS ORDERED: ACETAMINOPHEN TAB 325 MG TAB PO PRN (13:26)
[2023-07-04] MEDS ORDERED: LACTULOSE 20 GM/30 ML CUP PO PRN (13:26)
[2023-07-04] MEDS ORDERED: TEMAZEPAM 15 MG CAP PO PRN (13:26)
--- NOTE | 2023-07-04 13:33 | P.HPIM ---
History of Present Illness H&P Date: 07/04/23 Chief Complaint: Short of breath 78-year-old patient, follows with visiting physicians Dr. Bourne. Chronic stable medical conditions include hyperlipidemia, schizophrenia, chronic nicotine dependence, insomnia. Venous insufficiency lower extremity. COPD. Seizures . Chronic fibrotic - Lung disorder. Smoker Patient presented to the ER for increasing shortness of breath. Slight cough. Denies obvious fever and chills. Decreased appetite. Tired. No obvious fever reported. Was tachycardic on presentation and relative hypoxia. Patient not a very good historian. Review of systems: GEN.: Tired EYES: None HEENT: None NECK: None RESPIRATORY: As above CARDIOVASCULAR: None GASTROINTESTINAL: None GENITOURINARY: None MUSCULOSKELETAL: None LYMPHATICS: None HEMATOLOGICAL: None PSYCHIATRY: Anxious forgetful NEUROLOGICAL: Uses a walker Past medical history to include: Hyperlipidemia, insomnia, EGD, schizophrenia, nicotine dependence, venous insufficiency, pulmonary fibrosis, seizure Social history: Lives at [facility] in [place]. Smokes a pack a day for many years. No alcohol Physical examination: VITAL SIGNS: 98, 114, 20, 1 one 6 x 69, 92% on 4 L upon presentation GENERAL: Reclining in bed, tired EYES: Pupils equal. Conjunctiva normal. HEENT: External appearance of nose and ears normal, oral cavity grossly normal. NECK: JVD not raised; masses not palpable. HEART: First and second heart sounds are normal; edema present LUNGS: Respiratory rate increased, basal fine crackles ABDOMEN: Soft, nontender, liver spleen not palpable, no masses palpable. PSYCH: Answering simple questions MUSCULOSKELETAL:No Clubbing/cyanosis;muscles-grossly intact. OA NEUROLOGICAL: Cranial nerves grossly intact; no facial asymmetry, power and sensation grossly intact. INVESTIGATIONS, reviewed in the clinical context: July 03: White count 3.7 hemoglobin 12.4 platelets 114 sodium 135 potassium 4.7 creatinine 0.47 EKG tracing personally reviewed by me-sinus tachycardia. Chest x-ray film personally reviewed by me-possible right basilar infiltrate. Previous studies CT chest [September 2022]: Chronic emphysematous and fibrotic changes with new areas of nodularity of nodular consolidation.. 2-D echocardiogram: EF 50-55%. Assessment and plan: -Probable right basilar pneumonia suspect gram-negative organism IV ceftriaxone. 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 Nebulized Pulmicort. IV Solu-Medrol -Chronic congestive heart failure from diastolic dysfunction EF 50 to 55%: Stable -Acute hypoxic respiratory failure from COPD exacerbation and pneumonia Supplemental oxygen -chronic hypoxic respiratory failure from COPD/pulmonary fibrosis 2 L - Chronic lower extremity venous insufficiency Danny wrap -Chronic, Bilateral pulmonary fibrosis causing basal crackles. -Chronic nicotine dependence patient cigarette smoker Nicotine patch -Chronic epilepsy Keppra -Moderate to severe cognitive impairment with occasional irritability Risperdal 3 mg daily at bedtime. -Chronic schizophrenia Risperdal -Hyperlipidemia Lipitor -Full code -Legal guardian Past Medical History Past Medical History: Heart Failure, Hyperlipidemia Additional Past Medical History / Comment(s): Schizophrenia History of Any Multi-Drug Resistant Organisms: None Reported Past Surgical History: No Surgical Hx Reported Past Anesthesia/Blood Transfusion Reactions: No Reported Reaction Past Psychological History: Schizophrenia Smoking Status: Current every day smoker Past Alcohol Use History: None Reported Past Drug Use History: None Reported - Past Family History Father Family Medical History: Unable to Obtain Mother Family Medical History: Unable to Obtain Medications and Allergies Home Medications Medication Instructions Recorded Confirmed Type Albuterol Nebulized [Ventolin 2.5 mg INHALATION RT-Q6H PRN #1 ml 09/19/22 07/03/23 Rx Nebulized] Albuterol Sulfate [Proventil Hfa] 2 puff INHALATION RT-Q6H PRN 07/03/23 07/03/23 History Aspirin 81 mg PO DAILY@0607/03/23 07/03/23 History Atorvastatin [Lipitor] 40 mg PO HS@199907/03/23 07/03/23 History Benzonatate [Tessalon Perles] 100 - 200 mg PO Q4H PRN 07/03/23 07/03/23 History Cholecalciferol [Vitamin D3 (25 50 mcg PO DAILY@0600 07/03/23 07/03/23 History Mcg = 1000 Iu)] Famotidine [Pepcid] 20 mg PO BID@599,199907/03/23 07/03/23 History Fluticasone Propion/Salmeterol 1 puff INHALATION RT-BID PRN 07/03/23 07/03/23 History [Advair 250-50 Diskus] Folic Acid 1 mg PO Q48H 07/03/23 07/03/23 History Furosemide [Lasix] 40 mg PO DAILY@59907/03/23 07/03/23 History Ipratropium-Albuterol Nebulize 3 ml INHALATION RT-TID PRN 07/03/23 07/03/23 History [Duoneb 0.5 mg-3 mg/3 ml Soln] Potassium Chloride ER [K-Dur 10] 10 meq PO DAILY@59907/03/23 07/03/23 History Spironolactone [Aldactone] 50 mg PO DAILY@59907/03/23 07/03/23 History levETIRAcetam [Keppra] 500 mg PO BID 07/03/23 07/03/23 History risperiDONE [RisperDAL] 3 mg PO HS@199907/03/23 07/03/23 History Allergies Allergy/AdvReac Type Severity Reaction Status Date / Time No Known Allergies Allergy Verified 09/09/22 15:34 Physical Exam Vitals: Vital Signs Temp Pulse Pulse Resp BP BP Pulse Ox 07/04/23 08:00 89 18 07/04/23 07:46 98.6 F 89 18 121/76 94 L 07/04/23 06:00 92 9 L 133/71 98 07/04/23 04:00 84 13 112/65 96 07/04/23 03:00 90 24 112/65 97 07/03/23 23:00 99 25 H 119/67 93 L 07/03/23 21:19 110 H 07/03/23 21:16 106 H 24 139/78 97 07/03/23 21:10 106 H 07/03/23 20:45 98.9 F 07/03/23 19:05 120 H 07/03/23 18:54 107 H 07/03/23 17:40 20 07/03/23 17:35 109/70 93 L 07/03/23 17:28 99.3 F 116 H 07/03/23 17:23 98.0 F 114 H 20 116/69 92 L Intake and Output 07/03/23 07/04/23 07/04/23 22:59 06:59 14:59 Other: Voiding Method Urinal Weight 102.058 kg Results CBC & Chem 7: 07/04/23 08:24 07/04/23 08:24 Labs: Abnormal Lab Results - Last 24 Hours (Table) 07/03/23 07/03/23 07/04/23 Range/Units 18:39 18:39 08:24 RBC 4.26 L (4.30-5.90) m/uL Plt Count 101 L (150-450) k/uL Lymphocytes # 0.3 L (1.0-4.8) k/uL Sodium 134 L 135 L (137-145) mmol/L Chloride 95 L 97 L (98-107) mmol/L Carbon Dioxide 34 H 35 H (22-30) mmol/L Creatinine 0.57 L 0.47 L (0.66-1.25) mg/dL Glucose 113 H 127 H (74-99) mg/dL Calcium 8.3 L 8.2 L (8.4-10.2) mg/dL Total Protein 6.0 L (6.3-8.2) g/dL Albumin 3.4 L (3.5-5.0) g/dL
[2023-07-04] MEDS: FORMOTEROL FUMARATE 20 MCG/2 ML NEBU INHALATION SCH (14:21)
[2023-07-04] MEDS: BUDESONIDE 1 MG/2 ML NEBU INHALATION SCH (14:21)
[2023-07-04] MEDS: ENOXAPARIN 40 MG/0.4 ML SYRINGE SQ SCH (14:41)
[2023-07-04] MEDS: IPRATROPIUM-ALBUTEROL 3 ML NEB INHALATION SCH (14:47)
--- NOTE | 2023-07-04 15:13 | P.CNPUL ---
History of Present Illness Consult date: 07/04/23 Requesting physician: Arash Beach Reason for consult: dyspnea Chief complaint: Shortness of breath History of present illness: This is a 78-year-old male patient who is a poor historian and resides in a [facility]. He was felt to be showing signs of increasing shortness of breath and was brought here to the emergency room yesterday for the same. He has a history of congestive heart failure, schizophrenia, hyperlipidemia, chronic and ongoing tobacco dependence. Chest x-ray revealed some mild congestive heart failure but no significant consolidation. No pneumothorax. Small pleural eff usions. Basilar atelectasis. White count 3.7. Hemoglobin 12.4. Platelets 114. Sodium 135. Potassium 4.7. Bicarb 35. BUN 13. Creatinine 0.57. Glucose 127. Has been initiated on DuoNeb inhalations, Pulmicort and Perforomist inhalations, Solu-Medrol. Oral diuretics. Antibiotics in the form of ceftriaxone. Normal saline at 50 MLS per hour. He is seen today in consultation on the regular medical floor. He is currently sitting up in bed. Awake and alert. Again very poor historian. Unable to answer any significant questions. He is maintaining O2 saturations in the 90s on 4 L/min per nasal cannula. Afebrile. Hemodynamically stable. Review of Systems ROS unobtainable: due to mental status Past Medical History Past Medical History: Heart Failure, Hyperlipidemia Additional Past Medical History / Comment(s): Schizophrenia History of Any Multi-Drug Resistant Organisms: None Reported Past Surgical History: No Surgical Hx Reported Past Anesthesia/Blood Transfusion Reactions: No Reported Reaction Past Psychological History: Schizophrenia Smoking Status: Current every day smoker Past Alcohol Use History: None Reported Past Drug Use History: None Reported - Past Family History Father Family Medical History: Unable to Obtain Mother Family Medical History: Unable to Obtain Medications and Allergies Home Medications Medication Instructions Recorded Confirmed Type Albuterol Nebulized [Ventolin 2.5 mg INHALATION RT-Q6H PRN #1 ml 09/19/22 07/03/23 Rx Nebulized] Albuterol Sulfate [Proventil Hfa] 2 puff INHALATION RT-Q6H PRN 07/03/23 07/03/23 History Aspirin 81 mg PO DAILY@59907/03/23 07/03/23 History Atorvastatin [Lipitor] 40 mg PO HS@199907/03/23 07/03/23 History Benzonatate [Tessalon Perles] 100 - 200 mg PO Q4H PRN 07/03/23 07/03/23 History Cholecalciferol [Vitamin D3 (25 50 mcg PO DAILY@0607/03/23 07/03/23 History Mcg = 1000 Iu)] Famotidine [Pepcid] 20 mg PO BID@599,199907/03/23 07/03/23 History Fluticasone Propion/Salmeterol 1 puff INHALATION RT-BID PRN 07/03/23 07/03/23 History [Advair 250-50 Diskus] Folic Acid 1 mg PO Q48H 07/03/23 07/03/23 History Furosemide [Lasix] 40 mg PO DAILY@59907/03/23 07/03/23 History Ipratropium-Albuterol Nebulize 3 ml INHALATION RT-TID PRN 07/03/23 07/03/23 History [Duoneb 0.5 mg-3 mg/3 ml Soln] Potassium Chloride ER [K-Dur 10] 10 meq PO DAILY@59907/03/23 07/03/23 History Spironolactone [Aldactone] 50 mg PO DAILY@59907/03/23 07/03/23 History levETIRAcetam [Keppra] 500 mg PO BID 07/03/23 07/03/23 History risperiDONE [RisperDAL] 3 mg PO HS@199907/03/23 07/03/23 History Allergies Allergy/AdvReac Type Severity Reaction Status Date / Time No Known Allergies Allergy Verified 09/09/22 15:34 Physical Exam Vitals: Vital Signs Temp Pulse Pulse Resp BP BP Pulse Ox 07/04/23 14:58 90 07/04/23 14:47 92 07/04/23 13:15 97.8 F 90 18 115/69 93 L 07/04/23 10:09 90 07/04/23 09:58 88 96 07/04/23 08:00 89 18 07/04/23 07:46 98.6 F 89 18 121/76 94 L 07/04/23 06:00 92 9 L 133/71 98 07/04/23 04:00 84 13 112/65 96 07/04/23 03:00 90 24 112/65 97 07/03/23 23:00 99 25 H 119/67 93 L 07/03/23 21:19 110 H 07/03/23 21:16 106 H 24 139/78 97 07/03/23 21:10 106 H 07/03/23 20:45 98.9 F 07/03/23 19:05 120 H 07/03/23 18:54 107 H 07/03/23 17:40 20 07/03/23 17:35 109/70 93 L 07/03/23 17:28 99.3 F 116 H 07/03/23 17:23 98.0 F 114 H 20 116/69 92 L Intake and Output 07/04/23 07/04/23 07/04/23 06:59 14:59 22:59 Other: Voiding Method Urinal Weight 102.058 kg GENERAL EXAM: Alert, 28-year-old male, poor historian, on 4 L nasal cannula, comfortable in no apparent distress. HEAD: Normocephalic. EYES: Normal reaction of pupils, equal size. NOSE: Clear with pink turbinates. THROAT: Edentulous. No erythema or exudates. NECK: No masses, no JVD. CHEST: No chest wall deformity. LUNGS: Equal air entry with faint crackles in the posterior bases. CVS: S1 and S2 normal with no audible murmur, regular rhythm. ABDOMEN: No hepatosplenomegaly, normal bowel sounds, no guarding or rigidity. SPINE: No scoliosis or deformity SKIN: No rashes CENTRAL NERVOUS SYSTEM: No focal deficits, tone is normal in all 4 extremities. EXTREMITIES: There is no peripheral edema. No clubbing, no cyanosis. Peripheral pulses are intact. Results - Laboratory Findings CBC and BMP: 07/04/23 08:24 07/04/23 08:24 PT/INR, D-dimer PT 10.2 sec (10.0-12.5) 07/03/23 18:39 INR 0.9 (<1.2) 07/03/23 18:39 Abnormal lab findings: Abnormal Labs 07/03/23 07/03/23 07/04/23 18:39 18:39 08:24 WBC 3.70 L RBC 4.26 L 4.03 L Hgb 12.4 L Hct 39.5 L MCV 98.0 H MCHC 31.4 L Plt Count 101 L 114 L Lymphocytes # 0.3 L 0.26 L Monocytes # 0.12 L Eosinophils # 0 L Sodium 134 L Chloride 95 L Carbon Dioxide 34 H Creatinine 0.57 L Glucose 113 H Calcium 8.3 L Total Protein Albumin 07/04/23 08:24 WBC RBC Hgb Hct MCV MCHC Plt Count Lymphocytes # Monocytes # Eosinophils # Sodium 135 L Chloride 97 L Carbon Dioxide 35 H Creatinine 0.47 L Glucose 127 H Calcium 8.2 L Total Protein 6.0 L Albumin 3.4 L - Diagnostic Findings Chest x-ray: image reviewed Assessment and Plan Assessment: Acute hypoxic respiratory failure secondary to mild exacerbation of systolic versus diastolic congestive heart failure and COPD exacerbation Chronic and ongoing tobacco dependence History of schizophrenia Poor historian History of congestive heart failure Hyperlipidemia Plan: The patient was seen and evaluated Chest x-ray, labs and medications reviewed Continue antibiotics for now Check a procalcitonin Continue bronchodilators, steroids Continue diuretics Titrate the FiO2 as tolerated We will continue to follow and make further recommendations based on his clinical status I have personally seen and examined the patient, performed the documentation and the assessment and plan as written. Number of minutes spent on the visit: 20.
[2023-07-04] MEDS: ATORVASTATIN 40 MG TAB PO SCH (20:53)
[2023-07-04] MEDS: risperiDONE 1 MG TAB PO SCH (20:53)
[2023-07-04] MEDS: FOLIC ACID 1 MG TAB PO SCH (20:53)
[2023-07-04] MEDS: FAMOTIDINE 20 MG TAB PO SCH (20:53)
[2023-07-05] MEDS: CHOLECALCIFEROL 25 MCG (1000 IU) TABLET PO SCH (05:17)
[2023-07-05] MEDS: POTASSIUM CHLORIDE ER 10 MEQ TAB.ER.PRT PO SCH (05:17)
[2023-07-05] MEDS: SPIRONOLACTONE 25 MG TAB PO SCH (05:17)
[2023-07-05] MEDS: ASPIRIN 81 MG PO SCH (05:17)
[2023-07-05] MEDS: FUROSEMIDE 40 MG TAB PO SCH (05:17)
--- NOTE | 2023-07-05 09:25 | P.PN ---
Progress Note - Text Progress Note Date: 07/05/23 Chief Complaint: Short of breath 78-year-old patient, follows with visiting physicians Dr. Bourne. Chronic stable medical conditions include hyperlipidemia, schizophrenia, chronic nicotine dependence, insomnia. Venous insufficiency lower extremity. COPD. Seizures . Chronic fibrotic - Lung disorder. Smoker Patient presented to the ER for increasing shortness of breath. Slight cough. Denies obvious fever and chills. Decreased appetite. Tired. No obvious fever reported. Was tachycardic on presentation and relative hypoxia. Patient not a very good historian. September 03: Some improvement in breathing. Slight wheezing. Did sit up in a chair. Did tolerate her breakfast. DuoNeb. IV Solu-Medrol. IV ceftriaxone. Some cough. Active Medications Acetaminophen (Acetaminophen Tab 325 Mg Tab) 650 mg PO Q6HR PRN PRN Reason: Mild Pain or Fever > 100.5 Albuterol/Ipratropium (Ipratropium-Albuterol 3 Ml Neb) 3 ml INHALATION RT-TID PRN PRN Reason: Shortness Of Breath Albuterol/Ipratropium (Ipratropium-Albuterol 3 Ml Neb) 3 ml INHALATION RT-Q4H [facility] Last Admin: 07/05/23 09:11 Dose: 3 ml Aspirin (Aspirin 81 Mg) 81 mg PO DAILY@0600 [facility] Last Admin: 07/05/23 05:17 Dose: 81 mg Atorvastatin Calcium (Atorvastatin 40 Mg Tab) 40 mg PO HS@2000 [facility] Last Admin: 07/04/23 20:53 Dose: 40 mg Benzonatate (Benzonatate 100 Mg Cap) 100 mg PO TID PRN PRN Reason: Cough Budesonide (Budesonide 1 Mg/2 Ml Nebu) 1 mg INHALATION RT-BID [facility] Last Admin: 07/05/23 09:11 Dose: 1 mg Calcium Carbonate/Glycine (Calcium Carbonate 500 Mg Chewable) 1,000 mg PO Q4HR PRN PRN Reason: Dyspepsia Cholecalciferol (Cholecalciferol 25 Mcg (1000 Iu) Tablet) 50 mcg PO DAILY@0600 [facility] Last Admin: 07/05/23 05:17 Dose: 50 mcg Enoxaparin Sodium (Enoxaparin 40 Mg/0.4 Ml Syringe) 40 mg SQ DAILY [facility] Last Admin: 07/04/23 14:41 Dose: 40 mg Famotidine (Famotidine 20 Mg Tab) 20 mg PO BID@599,1999 [facility] Last Admin: 07/05/23 05:17 Dose: 20 mg Folic Acid (Folic Acid 1 Mg Tab) 1 mg PO Q48H [facility] Last Admin: 07/04/23 20:53 Dose: 1 mg Formoterol Fumarate (Formoterol Fumarate 20 Mcg/2 Ml Nebu) 20 mcg INHALATION RT-BID [facility] Last Admin: 07/05/23 09:11 Dose: 20 mcg Furosemide (Furosemide 40 Mg Tab) 40 mg PO DAILY@06 [facility] Last Admin: 07/05/23 05:17 Dose: 40 mg Hydromorphone HCl (Hydromorphone 1 Mg/Ml 1 Ml Syringe) 1 mg IVP Q3HR PRN PRN Reason: Severe Pain (Scale 7 to 10) Sodium Chloride (Saline 0.9%) 1,000 mls @ 50 mls/hr IV .Q20H [facility] Last Admin: 07/05/23 01:14 Dose: Not Given Ceftriaxone Sodium 1 gm/ (Sodium Chloride) 50 mls @ 100 mls/hr IVPB Q24HR [facility]; Protocol Last Admin: 07/04/23 14:40 Dose: 100 mls/hr Lactulose (Lactulose 20 Gm/30 Ml Cup) 20 gm PO DAILY PRN PRN Reason: Constipation Levetiracetam (Levetiracetam 500 Mg Tab) 500 mg PO BID [facility] Last Admin: 07/04/23 20:53 Dose: 500 mg Lorazepam (Lorazepam 0.5 Mg Tab) 0.5 mg PO Q6HR PRN PRN Reason: Anxiety Methylprednisolone Sodium Succinate (Methylprednisolone Sod Succi 125 Mg/2 Ml Vial) 60 mg IV Q6HR [facility] Last Admin: 07/05/23 05:17 Dose: 60 mg Naloxone HCl (Naloxone 0.4 Mg/Ml 1 Ml Vial) 0.2 mg IVP Q2M PRN PRN Reason: Opioid Reversal Ondansetron HCl (Ondansetron 4 Mg/2 Ml Vial) 4 mg IVP Q8HR PRN PRN Reason: Nausea And Vomiting Potassium Chloride (Potassium Chloride Er 10 Meq Tab.Er.Prt) 10 meq PO DAILY@06 [facility] Last Admin: 07/05/23 05:17 Dose: 10 meq Risperidone (Risperidone 1 Mg Tab) 3 mg PO HS@1999 [facility] Last Admin: 07/04/23 20:53 Dose: 3 mg Spironolactone (Spironolactone 25 Mg Tab) 50 mg PO DAILY@0600 [facility] Last Admin: 07/05/23 05:17 Dose: 50 mg Temazepam (Temazepam 15 Mg Cap) 15 mg PO HS PRN PRN Reason: Insomnia Past medical history to include: Hyperlipidemia, insomnia, EGD, schizophrenia, nicotine dependence, venous insufficiency, pulmonary fibrosis, seizure Social history: Lives at [facility] in [place]. Smokes a pack a day for many years. No alcohol Physical examination: VITAL SIGNS: 98.2, 91, 18, 131/75, 93% on 4 L GENERAL: Reclining in bed, tired EYES: Pupils equal. Conjunctiva normal. HEENT: External appearance of nose and ears normal, oral cavity grossly normal. NECK: JVD not raised; masses not palpable. HEART: First and second heart sounds are normal; edema present LUNGS: Respiratory rate increased, basal fine crackles, some wheezing ABDOMEN: Soft, nontender, liver spleen not palpable, no masses palpable. PSYCH: Answering simple questions MUSCULOSKELETAL:No Clubbing/cyanosis;muscles-grossly intact. OA NEUROLOGICAL: Cranial nerves grossly intact; no facial asymmetry, power and sensation grossly intact. INVESTIGATIONS, reviewed in the clinical context: Procalcitonin 0.13 July 03: White count 3.7 hemoglobin 12.4 platelets 114 sodium 135 potassium 4.7 creatinine 0.47 EKG tracing personally reviewed by me-sinus tachycardia. Chest x-ray film personally reviewed by me-possible right basilar infiltrate. Previous studies CT chest [September 2022]: Chronic emphysematous and fibrotic changes with new areas of nodularity of nodular consolidation.. 2-D echocardiogram: EF 50-55%. Assessment and plan: -Probable right basilar pneumonia suspect gram-negative organism IV ceftriaxone. -Acute Exacerbation COPD in a current smoker: Slow to respond Skip, performorist. Nebulized Pulmicort. IV Solu-Medrol -Chronic congestive heart failure from diastolic dysfunction EF 50 to 55%: Stable -Acute hypoxic respiratory failure from COPD exacerbation and pneumonia Supplemental oxygen -chronic hypoxic respiratory failure from COPD/pulmonary fibrosis 2 L - Chronic lower extremity venous insufficiency Danny wrap -Chronic, Bilateral pulmonary fibrosis causing basal crackles. -Chronic nicotine dependence patient cigarette smoker Nicotine patch -Chronic epilepsy Keppra -Moderate to severe cognitive impairment with occasional irritability Risperdal 3 mg daily at bedtime. -Chronic schizophrenia Risperdal -Hyperlipidemia Lipitor -Full code -Legal guardian Patient encouraged to sit up in a chair. Add incentive spirometry. Continue current medications. Past Medical History Past Medical History: Heart Failure, Hyperlipidemia Additional Past Medical History / Comment(s): Schizophrenia History of Any Multi-Drug Resistant Organisms: None Reported Past Surgical History: No Surgical Hx Reported Past Anesthesia/Blood Transfusion Reactions: No Reported Reaction Past Psychological History: Schizophrenia Smoking Status: Current every day smoker Past Alcohol Use History: None Reported Past Drug Use History: None Reported
--- NOTE | 2023-07-05 14:36 | P.PN ---
Subjective Progress Note Date: 07/05/23 This is a 78-year-old male patient who is a poor historian and resides in a halfway. He was felt to be showing signs of increasing shortness of breath and was brought here to the emergency room yesterday for the same. He has a history of congestive heart failure, schizophrenia, hyperlipidemia, chronic and ongoing tobacco dependence. Chest x-ray revealed some mild congestive heart failure but no significant consolidation. No pneumothorax. Small pleural effusions. Basilar atelectasis. White count 3.7. Hemoglobin 12.4. Platelets 114. Sodium 135. Potassium 4.7. Bicarb 35. BUN 13. Creatinine 0.57. Glucose 127. Has been initiated on DuoNeb inhalations, Pulmicort and Perforomist inhalations, Solu-Medrol. Oral diuretics. Antibiotics in the form of ceftriaxone. Normal saline at 50 MLS per hour. He is seen today in consultation on the regular medical floor. He is currently sitting up in bed. Awake and alert. Again very poor historian. Unable to answer any significant questions. He is maintaining O2 saturations in the 90s on 4 L/min per nasal cannula. Afebrile. Hemodynamically stable. The patient is seen today July 05, 2023 in follow-up on the regular medical floor. He is currently sitting up in bed. Awake. Maintaining good O2 saturations in the 90s on 4 L/min per nasal cannula. Procalcitonin was 0.13. He is continued on ceftriaxone along with bronchodilators and Solu-Medrol. Lovenox for DVT prophylaxis. Remains on oral diuretics. No new labs today. Objective - Vital Signs Vital signs: Vital Signs Temp 97.8 F 07/05/23 12:40 Pulse 89 07/05/23 12:40 Resp 18 07/05/23 12:40 BP 141/74 07/05/23 12:40 Pulse Ox 93 L 07/05/23 12:40 FiO2 Intake & Output 07/04/23 07/05/23 07/05/23 18:59 06:59 18:59 Weight 102.058 kg 102.058 kg Other: Voiding Method Toilet Toilet Toilet Diaper Diaper # Voids 3 2 - Exam GENERAL EXAM: Alert, 78-year-old male, poor historian, resting in bed, on 4 L nasal cannula, in no apparent distress. HEAD: Normocephalic. EYES: Normal reaction of pupils, equal size. NOSE: Clear with pink turbinates. THROAT: Edentulous. No erythema or exudates. NECK: No masses, no JVD. CHEST: No chest wall deformity. LUNGS: Equal air entry with faint crackles in the posterior bases. CVS: S1 and S2 normal with no audible murmur, regular rhythm. ABDOMEN: No hepatosplenomegaly, normal bowel sounds, no guarding or rigidity. SPINE: No scoliosis or deformity SKIN: No rashes CENTRAL NERVOUS SYSTEM: No focal deficits, tone is normal in all 4 extremities. EXTREMITIES: There is no peripheral edema. No clubbing, no cyanosis. Peripheral pulses are intact. - Labs CBC & Chem 7: 07/04/23 08:24 07/04/23 08:24 Labs: Abnormal Lab Results - Last 24 Hours (Table) 07/04/23 Range/Units 08:24 Procalcitonin 0.13 H (0.02-0.09) ng/mL Assessment and Plan Assessment: Acute hypoxic respiratory failure secondary to mild exacerbation of systolic versus diastolic congestive heart failure and COPD exacerbation Chronic and ongoing tobacco dependence History of schizophrenia Poor historian History of congestive heart failure Hyperlipidemia Plan: The patient was seen and evaluated Medications reviewed Continue antibiotics, bronchodilators, steroids Continue diuretics Titrate the FiO2 as tolerated We will continue to follow I have personally seen and examined the patient, performed the documentation and the assessment and plan as written. Number of minutes spent on the visit: 10.
[2023-07-06] MEDS: guaiFENesin 600 MG TABLET.ER PO SCH (13:14)
[2023-07-06] MEDS: TAMSULOSIN 0.4 MG CAP.ER.24H PO SCH (13:14)
[2023-07-06] MEDS: methylPREDNISolone SOD SUCCI 40 MG/ML 1 ML VIAL IV SCH (13:14)
--- NOTE | 2023-07-06 14:15 | P.PN ---
Subjective Progress Note Date: 07/06/23 This is a 78-year-old male patient who is a poor historian and resides in a long term. He was felt to be showing signs of increasing shortness of breath and was brought here to the emergency room yesterday for the same. He has a history of congestive heart failure, schizophrenia, hyperlipidemia, chronic and ongoing tobacco dependence. Chest x-ray revealed some mild congestive heart failure but no significant consolidation. No pneumothorax. Small pleural effusions. Basilar atelectasis. White count 3.7. Hemoglobin 12.4. Platelets 114. Sodium 135. Potassium 4.7. Bicarb 35. BUN 13. Creatinine 0.57. Glucose 127. Has been initiated on DuoNeb inhalations, Pulmicort and Perforomist inhalations, Solu-Medrol. Oral diuretics. Antibiotics in the form of ceftriaxone. Normal saline at 50 MLS per hour. He is seen today in consultation on the regular medical floor. He is currently sitting up in bed. Awake and alert. Again very poor historian. Unable to answer any significant questions. He is maintaining O2 saturations in the 90s on 4 L/min per nasal cannula. Afebrile. Hemodynamically stable. The patient is seen today July 05, 2023 in follow-up on the regular medical floor. He is currently sitting up in bed. Awake. Maintaining good O2 saturations in the 90s on 4 L/min per nasal cannula. Procalcitonin was 0.13. He is continued on ceftriaxone along with bronchodilators and Solu-Medrol. Lovenox for DVT prophylaxis. Remains on oral diuretics. No new labs today. The patient is seen today July 06, 2023 and follow-up on the regular medical floor. He is currently sitting up in a chair at the bedside. Awake and alert in no acute distress. He is maintaining good O2 saturations in the 90s on 2 L/min per nasal cannula. He has normal saline at 50 MLS per hour. P rocalcitonin was 0.13. He remains on ceftriaxone. Continued on bronchodilators and steroids. Lovenox for DVT prophylaxis. Objective - Vital Signs Vital signs: Vital Signs Temp 97.7 F 07/06/23 07:12 Pulse 81 07/06/23 11:50 Resp 17 07/06/23 07:12 BP 124/77 07/06/23 07:12 Pulse Ox 92 L 07/06/23 07:12 FiO2 Intake & Output 07/05/23 07/06/23 07/06/23 18:59 06:59 18:59 Output Total 210 Balance -210 Output: Urine 210 Other: Voiding Method Toilet Toilet Bedside Commode # Voids 7 2 # Bowel Movements 1 - Exam GENERAL EXAM: Alert, 78-year-old male, poor historian, sitting up in a chair, on 2 L nasal cannula, in no apparent distress. HEAD: Normocephalic. EYES: Normal reaction of pupils, equal size. NOSE: Clear with pink turbinates. THROAT: Edentulous. No erythema or exudates. NECK: No masses, no JVD. CHEST: No chest wall deformity. LUNGS: Equal air entry with faint crackles in the posterior bases. CVS: S1 and S2 normal with no audible murmur, regular rhythm. ABDOMEN: No hepatosplenomegaly, normal bowel sounds, no guarding or rigidity. SPINE: No scoliosis or deformity SKIN: No rashes CENTRAL NERVOUS SYSTEM: No focal deficits, tone is normal in all 4 extremities. EXTREMITIES: There is no peripheral edema. No clubbing, no cyanosis. Peripheral pulses are intact. - Labs CBC & Chem 7: 07/04/23 08:24 07/04/23 08:24 Assessment and Plan Assessment: Acute hypoxic respiratory failure secondary to mild exacerbation of systolic versus diastolic congestive heart failure and COPD exacerbation Chronic and ongoing tobacco dependence History of schizophrenia Poor historian History of congestive heart failure Hyperlipidemia Plan: The patient was seen and evaluated Medications reviewed Continue the current treatment plan Titrate the FiO2 as tolerated Probable discharge in the a.m. Resides in an adult foster care We will continue to follow I have personally seen and examined the patient, performed the documentation and the assessment and plan as written. Number of minutes spent on the visit: 10.
--- NOTE | 2023-07-06 18:03 | P.PN ---
Progress Note - Text Progress Note Date: 07/06/23 Chief Complaint: Short of breath 78-year-old patient, follows with visiting physicians Dr. Bourne. Chronic stable medical conditions include hyperlipidemia, schizophrenia, chronic nicotine dependence, insomnia. Venous insufficiency lower extremity. COPD. Seizures . Chronic fibrotic - Lung disorder. Smoker Patient presented to the ER for increasing shortness of breath. Slight cough. Denies obvious fever and chills. Decreased appetite. Tired. No obvious fever reported. Was tachycardic on presentation and relative hypoxia. Patient not a very good historian. September 03: Some improvement in breathing. Slight wheezing. Did sit up in a chair. Did tolerate her breakfast. DuoNeb. IV Solu-Medrol. IV ceftriaxone. Some cough. September 04: Up in a recliner. Congested chest. Mucinex added. Continue IV Solu- Medrol. DuoNeb. Eating around 50%. Patient may be a bit fluid overloaded. Will give 1 dose of IV Lasix. Stop IV fluids. Active Medications Acetaminophen (Acetaminophen Tab 325 Mg Tab) 650 mg PO Q6HR PRN PRN Reason: Mild Pain or Fever > 100.5 Albuterol/Ipratropium (Ipratropium-Albuterol 3 Ml Neb) 3 ml INHALATION RT-TID PRN PRN Reason: Shortness Of Breath Albuterol/Ipratropium (Ipratropium-Albuterol 3 Ml Neb) 3 ml INHALATION RT-Q4H [facility] Last Admin: 07/06/23 16:00 Dose: 3 ml Aspirin (Aspirin 81 Mg) 81 mg PO DAILY@0600 [facility] Last Admin: 07/06/23 05:16 Dose: 81 mg Atorvastatin Calcium (Atorvastatin 40 Mg Tab) 40 mg PO HS@1999 [facility] Last Admin: 07/05/23 20:49 Dose: 40 mg Benzonatate (Benzonatate 100 Mg Cap) 100 mg PO TID PRN PRN Reason: Cough Budesonide (Budesonide 1 Mg/2 Ml Nebu) 1 mg INHALATION RT-BID [facility] Last Admin: 07/06/23 09:52 Dose: Not Given Calcium Carbonate/Glycine (Calcium Carbonate 500 Mg Chewable) 1,000 mg PO Q4HR PRN PRN Reason: Dyspepsia Cholecalciferol (Cholecalciferol 25 Mcg (1000 Iu) Tablet) 50 mcg PO DAILY@0600 [facility] Last Admin: 07/06/23 05:16 Dose: 50 mcg Enoxaparin Sodium (Enoxaparin 40 Mg/0.4 Ml Syringe) 40 mg SQ DAILY [facility] Last Admin: 07/06/23 10:24 Dose: 40 mg Famotidine (Famotidine 20 Mg Tab) 20 mg PO BID@06,1999 [facility] Last Admin: 07/06/23 05:16 Dose: 20 mg Folic Acid (Folic Acid 1 Mg Tab) 1 mg PO Q48H [facility] Last Admin: 07/04/23 20:53 Dose: 1 mg Formoterol Fumarate (Formoterol Fumarate 20 Mcg/2 Ml Nebu) 20 mcg INHALATION RT-BID [facility] Last Admin: 07/06/23 09:52 Dose: Not Given Furosemide (Furosemide 40 Mg Tab) 40 mg PO DAILY@0600 [facility] Last Admin: 07/06/23 05:16 Dose: 40 mg Guaifenesin (Guaifenesin 600 Mg Tablet.Er) 600 mg PO QID [facility] Last Admin: 07/06/23 17:00 Dose: 600 mg Hydromorphone HCl (Hydromorphone 1 Mg/Ml 1 Ml Syringe) 1 mg IVP Q3HR PRN PRN Reason: Severe Pain (Scale 7 to 10) Sodium Chloride (Saline 0.9%) 1,000 mls @ 50 mls/hr IV .Q20H [facility] Last Admin: 07/05/23 20:49 Dose: Not Given Ceftriaxone Sodium 1 gm/ (Sodium Chloride) 50 mls @ 100 mls/hr IVPB Q24HR [facility]; Protocol Last Admin: 07/06/23 10:22 Dose: 100 mls/hr Lactulose (Lactulose 20 Gm/30 Ml Cup) 20 gm PO DAILY PRN PRN Reason: Constipation Levetiracetam (Levetiracetam 500 Mg Tab) 500 mg PO BID [facility] Last Admin: 07/06/23 10:24 Dose: 500 mg Lorazepam (Lorazepam 0.5 Mg Tab) 0.5 mg PO Q6HR PRN PRN Reason: Anxiety Methylprednisolone Sodium Succinate (Methylprednisolone Sod Succi 40 Mg/Ml 1 Ml Vial) 40 mg IV Q8H [facility] Last Admin: 07/06/23 13:14 Dose: 40 mg Naloxone HCl (Naloxone 0.4 Mg/Ml 1 Ml Vial) 0.2 mg IVP Q2M PRN PRN Reason: Opioid Reversal Ondansetron HCl (Ondansetron 4 Mg/2 Ml Vial) 4 mg IVP Q8HR PRN PRN Reason: Nausea And Vomiting Potassium Chloride (Potassium Chloride Er 10 Meq Tab.Er.Prt) 10 meq PO DAILY@0600 [facility] Last Admin: 07/06/23 05:17 Dose: 10 meq Risperidone (Risperidone 1 Mg Tab) 3 mg PO HS@1999 [facility] Last Admin: 07/05/23 20:49 Dose: 3 mg Spironolactone (Spironolactone 25 Mg Tab) 50 mg PO DAILY@06 [facility] Last Admin: 07/06/23 05:16 Dose: 50 mg Tamsulosin HCl (Tamsulosin 0.4 Mg Cap.Er.24h) 0.4 mg PO PC-BRKFST [facility] Last Admin: 07/06/23 13:14 Dose: 0.4 mg Temazepam (Temazepam 15 Mg Cap) 15 mg PO HS PRN PRN Reason: Insomnia Past medical history to include: Hyperlipidemia, insomnia, EGD, schizophrenia, nicotine dependence, venous insufficiency, pulmonary fibrosis, seizure Social history: Lives at [facility] in [place]. Smokes a pack a day for many years. No alcohol Physical examination: VITAL SIGNS: 98.6, 79, 18, 134 x 73, 91% on 4 L GENERAL: Reclining in chair, a bit short of breath EYES: Pupils equal. Conjunctiva normal. HEENT: External appearance of nose and ears normal, oral cavity grossly normal. NECK: JVD not raised; masses not palpable. HEART: First and second heart sounds are normal; edema present LUNGS: Respiratory rate increased, basal fine crackles, some wheezing ABDOMEN: Soft, nontender, liver spleen not palpable, no masses palpable. PSYCH: Answering simple questions MUSCULOSKELETAL:No Clubbing/cyanosis;muscles-grossly intact. OA NEUROLOGICAL: Cranial nerves grossly intact; no facial asymmetry, power and sensation grossly intact. INVESTIGATIONS, reviewed in the clinical context: Procalcitonin 0.13 July 03: White count 3.7 hemoglobin 12.4 platelets 114 sodium 135 potassium 4.7 creatinine 0.47 EKG tracing personally reviewed by me-sinus tachycardia. Chest x-ray film personally reviewed by me-possible right basilar infiltrate. Previous studies CT chest [September 2022]: Chronic emphysematous and fibrotic changes with new areas of nodularity of nodular consolidation.. 2-D echocardiogram: EF 50-55%. Assessment and plan: -Probable right basilar pneumonia suspect gram-negative organism IV ceftriaxone. -Acute Exacerbation COPD in a current smoker: Slow to respond altaf Valdiviat. Nebulized Pulmicort. IV Solu-Medrol -Probably acute on chronic congestive heart failure from diastolic dysfunction EF 50 to 55%: Worsening Stop IV fluids running at 50 cc an hour. IV Lasix x 2 doses -Acute hypoxic respiratory failure from COPD exacerbation and pneumonia Supplemental oxygen -chronic hypoxic respiratory failure from COPD/pulmonary fibrosis 2 L - Chronic lower extremity venous insufficiency Danny wrap -Chronic, Bilateral pulmonary fibrosis causing basal crackles. -Chronic nicotine dependence patient cigarette smoker Nicotine patch -Chronic epilepsy Keppra -Moderate to severe cognitive impairment with occasional irritability Risperdal 3 mg daily at bedtime. -Chronic schizophrenia Risperdal -Hyperlipidemia Lipitor -Full code -Legal guardian Add Mucinex. IV Lasix 40 mg x 2 doses. Check labs in the morning Past Medical History Past Medical History: Heart Failure, Hyperlipidemia Additional Past Medical History / Comment(s): Schizophrenia History of Any Multi-Drug Resistant Organisms: None Reported Past Surgical History: No Surgical Hx Reported Past Anesthesia/Blood Transfusion Reactions: No Reported Reaction Past Psychological History: Schizophrenia Smoking Status: Current every day smoker Past Alcohol Use History: None Reported Past Drug Use History: None Reported
[2023-07-06] MEDS: FUROSEMIDE 10 MG/ML 4 ML VIAL IV STA (18:23)
[2023-07-06] MEDS: FUROSEMIDE 10 MG/ML 4 ML VIAL IV SCH (18:59)
[2023-07-07 08:18] LABS: African American GFR (CKD) >90 (>60 ml/min/1.73 sqM); Blood Urea Nitrogen 29 mg/dL (9-20); Calcium 8.8 mg/dL (8.4-10.2); Chloride 90 mmol/L (98-107); Glucose 115 mg/dL (74-99); Non-African American GFR(CKD) >90 (>60 ml/min/1.73 sqM); Potassium 3.9 mmol/L (3.5-5.1); Sodium 138 mmol/L (137-145)
[2023-07-07 08:25] LABS: Anion Gap 7 mmol/L
[2023-07-07 08:48] LABS: Carbon Dioxide 41 mmol/L (22-30)
--- NOTE | 2023-07-07 11:15 | P.PN ---
Progress Note - Text Progress Note Date: 07/07/23 Chief Complaint: Short of breath 78-year-old patient, follows with visiting physicians Dr. Bourne. Chronic stable medical conditions include hyperlipidemia, schizophrenia, chronic nicotine dependence, insomnia. Venous insufficiency lower extremity. COPD. Seizures . Chronic fibrotic - Lung disorder. Smoker Patient presented to the ER for increasing shortness of breath. Slight cough. Denies obvious fever and chills. Decreased appetite. Tired. No obvious fever reported. Was tachycardic on presentation and relative hypoxia. Patient not a very good historian. July 04: Some improvement in breathing. Slight wheezing. Did sit up in a chair. Did tolerate her breakfast. DuoNeb. IV Solu-Medrol. IV ceftriaxone. Some cough. July 05: Up in a recliner. Congested chest. Mucinex added. Continue IV Solu- Medrol. DuoNeb. Eating around 50%. Patient may be a bit fluid overloaded. Will give 1 dose of IV Lasix. Stop IV fluids. July 06: Up in a chair. Congested chest. Feels better. Eating fair. Was given Lasix last night. Active Medications Acetaminophen (Acetaminophen Tab 325 Mg Tab) 650 mg PO Q6HR PRN PRN Reason: Mild Pain or Fever > 100.5 Albuterol/Ipratropium (Ipratropium-Albuterol 3 Ml Neb) 3 ml INHALATION RT-TID PRN PRN Reason: Shortness Of Breath Albuterol/Ipratropium (Ipratropium-Albuterol 3 Ml Neb) 3 ml INHALATION RT-Q4H [facility] Last Admin: 07/07/23 09:26 Dose: 3 ml Aspirin (Aspirin 81 Mg) 81 mg PO DAILY@0600 [facility] Last Admin: 07/07/23 05:10 Dose: 81 mg Atorvastatin Calcium (Atorvastatin 40 Mg Tab) 40 mg PO HS@2000 [facility] Last Admin: 07/06/23 20:33 Dose: 40 mg Benzonatate (Benzonatate 100 Mg Cap) 100 mg PO TID PRN PRN Reason: Cough Budesonide (Budesonide 1 Mg/2 Ml Nebu) 1 mg INHALATION RT-BID [facility] Last Admin: 07/07/23 09:26 Dose: 1 mg Calcium Carbonate/Glycine (Calcium Carbonate 500 Mg Chewable) 1,000 mg PO Q4HR PRN PRN Reason: Dyspepsia Cholecalciferol (Cholecalciferol 25 Mcg (1000 Iu) Tablet) 50 mcg PO DAILY@0600 [facility] Last Admin: 07/07/23 05:10 Dose: 50 mcg Enoxaparin Sodium (Enoxaparin 40 Mg/0.4 Ml Syringe) 40 mg SQ DAILY [facility] Last Admin: 07/07/23 08:28 Dose: 40 mg Famotidine (Famotidine 20 Mg Tab) 20 mg PO BID@0600,1999 [facility] Last Admin: 07/07/23 05:10 Dose: 20 mg Folic Acid (Folic Acid 1 Mg Tab) 1 mg PO Q48H [facility] Last Admin: 07/06/23 20:33 Dose: 1 mg Formoterol Fumarate (Formoterol Fumarate 20 Mcg/2 Ml Nebu) 20 mcg INHALATION RT-BID [facility] Last Admin: 07/07/23 09:26 Dose: 20 mcg Furosemide (Furosemide 40 Mg Tab) 40 mg PO DAILY@0600 [facility] Last Admin: 07/07/23 05:10 Dose: 40 mg Guaifenesin (Guaifenesin 600 Mg Tablet.Er) 600 mg PO QID [facility] Last Admin: 07/07/23 08:29 Dose: 600 mg Hydromorphone HCl (Hydromorphone 1 Mg/Ml 1 Ml Syringe) 1 mg IVP Q3HR PRN PRN Reason: Severe Pain (Scale 7 to 10) Ceftriaxone Sodium 1 gm/ (Sodium Chloride) 50 mls @ 100 mls/hr IVPB Q24HR [facility]; Protocol Last Admin: 07/07/23 08:29 Dose: 100 mls/hr Lactulose (Lactulose 20 Gm/30 Ml Cup) 20 gm PO DAILY PRN PRN Reason: Constipation Levetiracetam (Levetiracetam 500 Mg Tab) 500 mg PO BID [facility] Last Admin: 07/07/23 08:29 Dose: 500 mg Lorazepam (Lorazepam 0.5 Mg Tab) 0.5 mg PO Q6HR PRN PRN Reason: Anxiety Methylprednisolone Sodium Succinate (Methylprednisolone Sod Succi 40 Mg/Ml 1 Ml Vial) 40 mg IV Q8H [facility] Last Admin: 07/07/23 05:10 Dose: 40 mg Naloxone HCl (Naloxone 0.4 Mg/Ml 1 Ml Vial) 0.2 mg IVP Q2M PRN PRN Reason: Opioid Reversal Ondansetron HCl (Ondansetron 4 Mg/2 Ml Vial) 4 mg IVP Q8HR PRN PRN Reason: Nausea And Vomiting Potassium Chloride (Potassium Chloride Er 10 Meq Tab.Er.Prt) 10 meq PO DAILY@06 [facility] Last Admin: 07/07/23 05:10 Dose: 10 meq Risperidone (Risperidone 1 Mg Tab) 3 mg PO HS@1999 [facility] Last Admin: 07/06/23 20:33 Dose: 3 mg Spironolactone (Spironolactone 25 Mg Tab) 50 mg PO DAILY@06 [facility] Last Admin: 07/07/23 05:10 Dose: 50 mg Tamsulosin HCl (Tamsulosin 0.4 Mg Cap.Er.24h) 0.4 mg PO PC-BRKFST [facility] Last Admin: 07/07/23 08:29 Dose: 0.4 mg Temazepam (Temazepam 15 Mg Cap) 15 mg PO HS PRN PRN Reason: Insomnia Past medical history to include: Hyperlipidemia, insomnia, EGD, schizophrenia, nicotine dependence, venous insufficiency, pulmonary fibrosis, seizure Social history: Lives at [facility] in [place]. Smokes a pack a day for many years. No alcohol Physical examination: VITAL SIGNS: 98, 97, 19, 142/84, 95% on 3 L GENERAL: Reclining in chair, not in distress EYES: Pupils equal. Conjunctiva normal. HEENT: External appearance of nose and ears normal, oral cavity grossly normal. NECK: JVD not raised; masses not palpable. HEART: First and second heart sounds are normal; edema present LUNGS: Respiratory rate increased, basal fine crackles, some wheezing. Upper chest expiratory crackles ABDOMEN: Soft, nontender, liver spleen not palpable, no masses palpable. PSYCH: Answering simple questions MUSCULOSKELETAL:No Clubbing/cyanosis;muscles-grossly intact. OA NEUROLOGICAL: Cranial nerves grossly intact; no facial asymmetry, power and sensation grossly intact. INVESTIGATIONS, reviewed in the clinical context: July 06: Potassium 3.9 bicarb 41 creatinine 0.70 Procalcitonin 0.13 July 03: White count 3.7 hemoglobin 12.4 platelets 114 sodium 135 potassium 4.7 creatinine 0.47 EKG tracing personally reviewed by me-sinus tachycardia. Chest x-ray film personally reviewed by me-possible right basilar infiltrate. Previous studies CT chest [September 2022]: Chronic emphysematous and fibrotic changes with new areas of nodularity of nodular consolidation.. 2-D echocardiogram: EF 50-55%. Assessment and plan: -Probable right basilar pneumonia suspect gram-negative organism IV ceftriaxone. -Acute Exacerbation COPD in a current smoker: altaf Valdiviat. Nebulized Pulmicort. IV Solu-Medrol -Probably acute on chronic congestive heart failure from diastolic dysfunction EF 50 to 55%: Worsening Did receive IV Lasix -Acute hypoxic respiratory failure from COPD exacerbation and pneumonia Supplemental oxygen -chronic hypoxic respiratory failure from COPD/pulmonary fibrosis 2 L - Chronic lower extremity venous insufficiency Danny wrap -Chronic, Bilateral pulmonary fibrosis causing basal crackles. -Chronic nicotine dependence patient cigarette smoker Nicotine patch -Chronic epilepsy Keppra -Moderate to severe cognitive impairment with occasional irritability Risperdal 3 mg daily at bedtime. -Chronic schizophrenia Risperdal -Hyperlipidemia Lipitor -Full code -Legal guardian Continue current treatment plan. Received IV Lasix yesterday. Fluid restriction 2000 cc a day. Heart healthy diet. Past Medical History Past Medical History: Heart Failure, Hyperlipidemia Additional Past Medical History / Comment(s): Schizophrenia History of Any Multi-Drug Resistant Organisms: None Reported Past Surgical History: No Surgical Hx Reported Past Anesthesia/Blood Transfusion Reactions: No Reported Reaction Past Psychological History: Schizophrenia Smoking Status: Current every day smoker Past Alcohol Use History: None Reported Past Drug Use History: None Reported
--- NOTE | 2023-07-07 14:09 | P.PN ---
Subjective Progress Note Date: 07/07/23 This is a 78-year-old male patient who is a poor historian and resides in a shelter. He was felt to be showing signs of increasing shortness of breath and was brought here to the emergency room yesterday for the same. He has a history of congestive heart failure, schizophrenia, hyperlipidemia, chronic and ongoing tobacco dependence. Chest x-ray revealed some mild congestive heart failure but no significant consolidation. No pneumothorax. Small pleural effusions. Basilar atelectasis. White count 3.7. Hemoglobin 12.4. Platelets 114. Sodium 135. Potassium 4.7. Bicarb 35. BUN 13. Creatinine 0.57. Glucose 127. Has been initiated on DuoNeb inhalations, Pulmicort and Perforomist inhalations, Solu-Medrol. Oral diuretics. Antibiotics in the form of ceftriaxone. Normal saline at 50 MLS per hour. He is seen today in consultation on the regular medical floor. He is currently sitting up in bed. Awake and alert. Again very poor historian. Unable to answer any significant questions. He is maintaining O2 saturations in the 90s on 4 L/min per nasal cannula. Afebrile. Hemodynamically stable. The patient is seen today July 05, 2023 in follow-up on the regular medical floor. He is currently sitting up in bed. Awake. Maintaining good O2 saturations in the 90s on 4 L/min per nasal cannula. Procalcitonin was 0.13. He is continued on ceftriaxone along with bronchodilators and Solu-Medrol. Lovenox for DVT prophylaxis. Remains on oral diuretics. No new labs today. The patient is seen today July 06, 2023 and follow-up on the regular medical floor. He is currently sitting up in a chair at the bedside. Awake and alert in no acute distress. He is maintaining good O2 saturations in the 90s on 2 L/min per nasal cannula. He has normal saline at 50 MLS per hour. P rocalcitonin was 0.13. He remains on ceftriaxone. Continued on bronchodilators and steroids. Lovenox for DVT prophylaxis. The patient is seen today July 07, 2023 in follow-up on the regular medical floor. He is maintaining good O2 saturations in the 90s on 3 L/min per nasal cannula. Currently up in a chair at the bedside. No IV fluids. Lung sounds with coarse rhonchi. His procalcitonin was 0.13. He remains on ceftriaxone. White count 138. Potassium 3.9. Bicarb 41. BUN 29. Creatinine 0.70. He remains on DuoNeb ventilations, Pulmicort and Perforomist inhalations, IV Solu- Medrol. Remains on oral diuretics. Lovenox for DVT prophylaxis. Objective - Vital Signs Vital signs: Vital Signs Temp 98.0 F 07/07/23 07:56 Pulse 84 07/07/23 12:26 Resp 19 07/07/23 07:56 BP 142/84 07/07/23 07:56 Pulse Ox 95 07/07/23 09:28 FiO2 Intake & Output 07/06/23 07/07/23 07/07/23 18:59 06:59 18:59 Output Total 510 1600 Balance -510 -1600 Output: Urine 510 1600 Other: Voiding Method Bedside Commode Bedside Commode Bedside Commode # Voids 5 - Exam GENERAL EXAM: Alert, 78-year-old male, sitting up in a chair, on 3 L nasal can nula, in no apparent distress. HEAD: Normocephalic. EYES: Normal reaction of pupils, equal size. NOSE: Clear with pink turbinates. THROAT: Edentulous. No erythema or exudates. NECK: No masses, no JVD. CHEST: No chest wall deformity. LUNGS: Equal air entry with faint crackles in the posterior bases. CVS: S1 and S2 normal with no audible murmur, regular rhythm. ABDOMEN: No hepatosplenomegaly, normal bowel sounds, no guarding or rigidity. SPINE: No scoliosis or deformity SKIN: No rashes CENTRAL NERVOUS SYSTEM: No focal deficits, tone is normal in all 4 extremities. EXTREMITIES: There is no peripheral edema. No clubbing, no cyanosis. Peripheral pulses are intact. - Labs CBC & Chem 7: 07/04/23 08:24 07/07/23 07:17 Labs: Abnormal Lab Results - Last 24 Hours (Table) 07/07/23 Range/Units 07:17 Chloride 90 L (98-107) mmol/L Carbon Dioxide 41 H* (22-30) mmol/L BUN 29 H (9-20) mg/dL Glucose 115 H (74-99) mg/dL Assessment and Plan Assessment: Acute hypoxic respiratory failure secondary to mild exacerbation of systolic versus diastolic congestive heart failure and COPD exacerbation Chronic and ongoing tobacco dependence History of schizophrenia Poor historian History of congestive heart failure Hyperlipidemia Plan: The patient was seen and evaluated Medications and labs reviewed Continue the current treatment plan Titrate the FiO2 as tolerated Plan is to return to adult foster care upon discharge I have personally seen and examined the patient, performed the documentation and the assessment and plan as written. Number of minutes spent on the visit: 10.
[2023-07-08 04:54] VITALS: RESP 16
[2023-07-08 08:43] VITALS: BP 134/84; PULSE 90; TEMP 97.7
--- NOTE | 2023-07-08 14:34 | P.PN ---
Subjective Progress Note Date: 07/08/23 This is a 78-year-old male patient who is a poor historian and resides in a retirement. He was felt to be showing signs of increasing shortness of breath and was brought here to the emergency room yesterday for the same. He has a history of congestive heart failure, schizophrenia, hyperlipidemia, chronic and ongoing tobacco dependence. Chest x-ray revealed some mild congestive heart failure but no significant consolidation. No pneumothorax. Small pleural effusions. Basilar atelectasis. White count 3.7. Hemoglobin 12.4. Platelets 114. Sodium 135. Potassium 4.7. Bicarb 35. BUN 13. Creatinine 0.57. Glucose 127. Has been initiated on DuoNeb inhalations, Pulmicort and Perforomist inhalations, Solu-Medrol. Oral diuretics. Antibiotics in the form of ceftriaxone. Normal saline at 50 MLS per hour. He is seen today in consultation on the regular medical floor. He is currently sitting up in bed. Awake and alert. Again very poor historian. Unable to answer any significant questions. He is maintaining O2 saturations in the 90s on 4 L/min per nasal cannula. Afebrile. Hemodynamically stable. The patient is seen today July 05, 2023 in follow-up on the regular medical floor. He is currently sitting up in bed. Awake. Maintaining good O2 saturations in the 90s on 4 L/min per nasal cannula. Procalcitonin was 0.13. He is continued on ceftriaxone along with bronchodilators and Solu-Medrol. Lovenox for DVT prophylaxis. Remains on oral diuretics. No new labs today. The patient is seen today July 06, 2023 and follow-up on the regular medical floor. He is currently sitting up in a chair at the bedside. Awake and alert in no acute distress. He is maintaining good O2 saturations in the 90s on 2 L/min per nasal cannula. He has normal saline at 50 MLS per hour. P rocalcitonin was 0.13. He remains on ceftriaxone. Continued on bronchodilators and steroids. Lovenox for DVT prophylaxis. The patient is seen today July 07, 2023 in follow-up on the regular medical floor. He is maintaining good O2 saturations in the 90s on 3 L/min per nasal cannula. Currently up in a chair at the bedside. No IV fluids. Lung sounds with coarse rhonchi. His procalcitonin was 0.13. He remains on ceftriaxone. White count 138. Potassium 3.9. Bicarb 41. BUN 29. Creatinine 0.70. He remains on DuoNeb ventilations, Pulmicort and Perforomist inhalations, IV Solu- Medrol. Remains on oral diuretics. Lovenox for DVT prophylaxis. The patient is seen today July 08, 2023 in follow-up on the regular medical floor. He is currently resting comfortably in bed. He is awake and alert. He denies any worsening shortness of breath, cough or congestion. He is maintaining good O2 saturations in the 90s on 2 L/min per nasal cannula. He is afebrile. Hemodynamically stable. No IV fluids. His procalcitonin came back negative at 0.06. BNP 576. He is currently on ceftriaxone, Pulmicort and performing scintillations, DuoNeb inhalations and Solu-Medrol. Remains on oral diuretics. Lovenox for DVT prophylaxis. Objective - Vital Signs Vital signs: Vital Signs Temp 97.7 F 07/08/23 07:13 Pulse 90 07/08/23 12:00 Resp 16 07/08/23 07:13 BP 134/84 07/08/23 07:13 Pulse Ox 90 L 07/08/23 07:13 FiO2 Intake & Output 07/07/23 07/08/23 07/08/23 18:59 06:59 18:59 Output Total 3300 600 Balance -3300 -600 Output: Urine 3300 600 Other: Voiding Method Bedside Commode Toilet # Voids 8 2 # Bowel Movements 1 - Exam GENERAL EXAM: Alert, 78-year-old male, resting in bed, on 2 L nasal cannula, in no apparent distress. HEAD: Normocephalic. EYES: Normal reaction of pupils, equal size. NOSE: Clear with pink turbinates. THROAT: Edentulous. No erythema or exudates. NECK: No masses, no JVD. CHEST: No chest wall deformity. LUNGS: Equal air entry with faint crackles in the posterior bases. CVS: S1 and S2 normal with no audible murmur, regular rhythm. ABDOMEN: No hepatosplenomegaly, normal bowel sounds, no guarding or rigidity. SPINE: No scoliosis or deformity SKIN: No rashes CENTRAL NERVOUS SYSTEM: No focal deficits, tone is normal in all 4 extremities. EXTREMITIES: There is no peripheral edema. No clubbing, no cyanosis. Peripheral pulses are intact. - Labs CBC & Chem 7: 07/04/23 08:24 07/07/23 07:17 Assessment and Plan Assessment: Acute hypoxic respiratory failure secondary to mild exacerbation of systolic versus diastolic congestive heart failure and COPD exacerbation Chronic and ongoing tobacco dependence History of schizophrenia Poor historian History of congestive heart failure Hyperlipidemia Plan: The patient was seen and evaluated Medications and labs reviewed Procalcitonin 0.06 Antibiotics discontinued Pulmicort and Perforomist changed to Symbicort Solu-Medrol changed to prednisone taper Cleared for discharge from the pulmonary standpoint I have personally seen and examined the patient, performed the documentation and the assessment and plan as written. Number of minutes spent on the visit: 10.
[2023-07-08] MEDS ORDERED: SYMBICORT 160-4.5 MCG INHALER INHALATION SCH ×2 (20:00)
--- NOTE | 2023-07-08 22:24 | P.DS ---
Providers Date of admission: 07/03/23 20:03 Expected date of discharge: 07/08/23 Attending physician: Arash Beach Consults: 07/03/23 19:58 Consult Physician Routine Consulting Provider: Suzie Dominguez Consult Reason/Comments: copdhypoxia Do you want consulting provider notified?: Yes Primary care physician: [facility] Course: Chief Complaint: Short of breath 78-year-old patient, follows with visiting physicians Dr. Bourne. Chronic stable medical conditions include hyperlipidemia, schizophrenia, chronic nicotine dependence, insomnia. Venous insufficiency lower extremity. COPD. Seizures . Chronic fibrotic - Lung disorder. Smoker Patient presented to the ER for increasing shortness of breath. Slight cough. Denies obvious fever and chills. Decreased appetite. Tired. No obvious fever reported. Was tachycardic on presentation and relative hypoxia. Patient not a very good historian. July 04: Some improvement in breathing. Slight wheezing. Did sit up in a chair. Did tolerate her breakfast. DuoNeb. IV Solu-Medrol. IV ceftriaxone. Some cough. July 05: Up in a recliner. Congested chest. Mucinex added. Continue IV Solu- Medrol. DuoNeb. Eating around 50%. Patient may be a bit fluid overloaded. Will give 1 dose of IV Lasix. Stop IV fluids. July 06: Up in a chair. Congested chest. Feels better. Eating fair. Was given Lasix last night. July 07: Doing well. Eating better. Breathing stable. Will be discharged home. Prednisone taper. Past medical history to include: Hyperlipidemia, insomnia, EGD, schizophrenia, nicotine dependence, venous insufficiency, pulmonary fibrosis, seizure Social history: Lives at [facility] in [place]. Smokes a pack a day for many years. No alcohol Physical examination: VITAL SIGNS: 97.7, 64, 16, 134 x 84, 93% on 2 L GENERAL: Comfortable EYES: Pupils equal. Conjunctiva normal. HEENT: External appearance of nose and ears normal, oral cavity grossly normal. NECK: JVD not raised; masses not palpable. HEART: First and second heart sounds are normal; edema present LUNGS: Respiratory rate increased, basal fine crackles, breathing better ABDOMEN: Soft, nontender, liver spleen not palpable, no masses palpable. PSYCH: Answering simple questions MUSCULOSKELETAL:No Clubbing/cyanosis;muscles-grossly intact. OA NEUROLOGICAL: Cranial nerves grossly intact; no facial asymmetry, power and sensation grossly intact. INVESTIGATIONS, reviewed in the clinical context: July 07: proBNP 576. Procalcitonin 0.06 July 06: Potassium 3.9 bicarb 41 creatinine 0.70 Procalcitonin 0.13 July 03: White count 3.7 hemoglobin 12.4 platelets 114 sodium 135 potassium 4.7 creatinine 0.47 EKG tracing personally reviewed by me-sinus tachycardia. Chest x-ray film personally reviewed by me-possible right basilar infiltrate. Previous studies CT chest [September 2022]: Chronic emphysematous and fibrotic changes with new areas of nodularity of nodular consolidation.. 2-D echocardiogram: EF 50-55%. 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 Nebulized Pulmicort. IV Solu-Medrol Discharged on prednisone taper -Probably acute on chronic congestive heart failure from diastolic dysfunction EF 50 to 55%: Stabilized Did receive IV Lasix -Acute hypoxic respiratory failure from COPD exacerbation and pneumonia: Improved Supplemental oxygen -chronic hypoxic respiratory failure from COPD/pulmonary fibrosis 2 L - Chronic lower extremity venous insufficiency Danny wrap -Chronic, Bilateral pulmonary fibrosis causing basal crackles. -Chronic nicotine dependence patient cigarette smoker Nicotine patch -Chronic epilepsy Keppra -Moderate to severe cognitive impairment with occasional irritability Risperdal 3 mg daily at bedtime. -Chronic schizophrenia Risperdal -Hyperlipidemia Lipitor -Full code -Legal guardian Disposition: [facility] assisted living Past Medical History Past Medical History: Heart Failure, Hyperlipidemia Additional Past Medical History / Comment(s): Schizophrenia History of Any Multi-Drug Resistant Organisms: None Reported Past Surgical History: No Surgical Hx Reported Past Anesthesia/Blood Transfusion Reactions: No Reported Reaction Past Psychological History: Schizophrenia Smoking Status: Current every day smoker Past Alcohol Use History: None Reported Past Drug Use History: None Reported Plan - Discharge Summary Discharge Rx Participant: No New Discharge Prescriptions: New Tamsulosin [Flomax] 0.4 mg PO PC-BRKFST #30 cap guaiFENesin [Mucinex] 600 mg PO TID #60 tab predniSONE 10 mg PO DAILY #30 tab Continue Albuterol Nebulized [Ventolin Nebulized] 2.5 mg INHALATION RT-Q6H PRN #1 ml PRN Reason: Shortness Of Breath Benzonatate [Tessalon Perles] 100 - 200 mg PO Q4H PRN PRN Reason: Cough Atorvastatin [Lipitor] 40 mg PO HS@1999 Potassium Chloride ER [K-Dur 10] 10 meq PO DAILY@0600 levETIRAcetam [Keppra] 500 mg PO BID Ipratropium-Albuterol Nebulize [Duoneb 0.5 mg-3 mg/3 ml Soln] 3 ml INHALATION RT-TID PRN PRN Reason: Shortness Of Breath Furosemide [Lasix] 40 mg PO DAILY@06 Cholecalciferol [Vitamin D3 (25 Mcg = 1000 Iu)] 50 mcg PO DAILY@599 risperiDONE [RisperDAL] 3 mg PO HS@1999 Albuterol Sulfate [Proventil Hfa] 2 puff INHALATION RT-Q6H PRN PRN Reason: Shortness Of Breath Folic Acid 1 mg PO Q48H Fluticasone Propion/Salmeterol [Advair 250-50 Diskus] 1 puff INHALATION RT- BID PRN PRN Reason: Shortness Of Breath Spironolactone [Aldactone] 50 mg PO DAILY@599 Famotidine [Pepcid] 20 mg PO BID@599,1999 Aspirin 81 mg PO DAILY@599 Discharge Medication List Albuterol Nebulized [Ventolin Nebulized] 2.5 mg INHALATION RT-Q6H PRN #1 ml 09/19/22 [Rx] Albuterol Sulfate [Proventil Hfa] 2 puff INHALATION RT-Q6H PRN 07/03/23 [History] Aspirin 81 mg PO DAILY@59907/03/23 [History] Atorvastatin [Lipitor] 40 mg PO HS@199907/03/23 [History] Benzonatate [Tessalon Perles] 100 - 200 mg PO Q4H PRN 07/03/23 [History] Cholecalciferol [Vitamin D3 (25 Mcg = 1000 Iu)] 50 mcg PO DAILY@0600 07/03/23 [History] Famotidine [Pepcid] 20 mg PO BID@599,199907/03/23 [History] Fluticasone Propion/Salmeterol [Advair 250-50 Diskus] 1 puff INHALATION RT-BID PRN 07/03/23 [History] Folic Acid 1 mg PO Q48H 07/03/23 [History] Furosemide [Lasix] 40 mg PO DAILY@59907/03/23 [History] Ipratropium-Albuterol Nebulize [Duoneb 0.5 mg-3 mg/3 ml Soln] 3 ml INHALATION RT-TID PRN 07/03/23 [History] Potassium Chloride ER [K-Dur 10] 10 meq PO DAILY@59907/03/23 [History] Spironolactone [Aldactone] 50 mg PO DAILY@59907/03/23 [History] levETIRAcetam [Keppra] 500 mg PO BID 07/03/23 [History] risperiDONE [RisperDAL] 3 mg PO HS@199907/03/23 [History] Tamsulosin [Flomax] 0.4 mg PO PC-BRKFST #30 cap 07/07/23 [Rx] guaiFENesin [Mucinex] 600 mg PO TID #60 tab 07/07/23 [Rx] predniSONE 10 mg PO DAILY #30 tab 07/07/23 [Rx] Follow up Appointment(s)/Referral(s): Jose Ellison MD [STAFF PHYSICIAN] - 07/18/23 8:45 am [facility] [NON-STAFF] - As Needed Maycol Bourne MD [REFERRING] - 1 Week [facility]inic [Primary Care Provider] - As Needed Discharge Disposition: HOME SELF-CARE
[2023-07-09] MEDS ORDERED: predniSONE 20 MG TAB PO SCH (09:00)
== END 2023-07-08 13:40 | disposition home health service (06) | DRG 177 ==
LOC: EC 17:21 → 4SSUR 20:03
PROVIDERS: ADMIT Hospitalist; ATTEND Hospitalist
DX: J15.69 Pneumonia due to other Gram-negative bacteria (principal); I50.33 Acute on chronic diastolic (congestive) heart failure; J96.21 Acute and chronic respiratory failure with hypoxia; J44.1 Chronic obstructive pulmonary disease with (acute) exacerbation; J44.0 Chronic obstructive pulmonary disease with (acute) lower respiratory infection; F41.9 Anxiety disorder, unspecified; E78.5 Hyperlipidemia, unspecified; F20.9 Schizophrenia, unspecified; F17.210 Nicotine dependence, cigarettes, uncomplicated; G47.00 Insomnia, unspecified; J43.9 Emphysema, unspecified; J84.10 Pulmonary fibrosis, unspecified; G40.909 Epilepsy, unspecified, not intractable, without status epilepticus; I87.2 Venous insufficiency (chronic) (peripheral); G31.84 Mild cognitive impairment of uncertain or unknown etiology; Z79.899 Other long term (current) drug therapy; Z79.82 Long term (current) use of aspirin
CPT/HCPCS: 36415; 71045; 80048; 80053; 83605; 83735; 83880; 84100; 84145; 84484; 85025; 85610; 85730; 93005; 94640; 94760; 96361; 96374; 96375; 96376; 99291